=== PATIENT | female | born 1990 | race Caucasian/White ===

== ENCOUNTER 2022-10-27 15:04 | Emergency (ER) | payer OTHER, SELFPAY ==
--- NOTE | 2022-10-27 15:18 | ED.NAVMDI ---
HPI - Nausea/Vomiting/Diarrhea General Chief complaint: Nausea/Vomiting/Diarrhea Stated complaint: nausea,achey/diarrhea Time Seen by Provider: 10/27/22 15:18 Source: patient Mode of arrival: ambulatory Limitations: no limitations History of Present Illness HPI Narrative: Cecilia is a 32-year-old female patient presenting to the clinic today with complaints of nausea, vomiting, body aches, and diarrhea x4 days. She reports she has been passing blood in her stool and also vomiting up blood. Reports that she is having some severe left-sided abdominal pain. History of gastritis in the past. Also has history of a hemorrhoid. Denies any known fever but has had some chills. No history of diverticulitis, IBS, or Crohn's. Related Data Home Medications Medication Instructions Recorded Confirmed No Home Medications 10/27/22 10/27/22 Allergies Allergy/AdvReac Type Severity Reaction Status Date / Time aspirin Allergy Unknown Rash Verified 10/27/22 15:25 codeine Allergy Unknown lightheaded/passes Verified 10/27/22 15:25 out iodine Allergy Unknown Skin Verified 10/27/22 15:25 Reaction Review of Systems Review of Systems: Pertinent positives per HPI. Patient denies any fever, rash, headache, visual changes, dizziness, cough, runny nose, sore throat, shortness of breath, chest pain, palpitations, constipation, or any urinary issues. PMFSH Comments At the time of my signature, I reviewed and agree with the nursing past medical, surgical, social, and family history. There is no relevant family history pertinent to the patient complaint. Exam Narrative: General: Well-developed, obese, in no apparent distress. Head: Normocephalic, atraumatic. Cardio: Regular rate and rhythm, s1 and s2 normal, no murmur appreciated. Resp: Clear to auscultation bilaterally, no rhonchi, rales, wheezing or rubs. Abdomen: Soft, pliable, bowel sounds present in all quadrants, generalized tender to palpation but worse on the left lower quadrant, no organomegly, no CVAT tenderness. Course Course Emergency Course: Portions of this record may have been created with voice recognition software. Level of Care: Express Care Visit Vital Signs Vital signs: Vital signs reviewed Transfer Transfered to: [facility] Transportation: Other (private car) Transfer rationale: Abdomen pain, hematemesis, gi bleed Accepting physician: Dr. Vázquez Transfer comments: via private car. VS stable MDM - Nausea/Vomiting/Diarrhea MDM Narrative Medical decision making narrative: At the time of visit patient is resting comfortably on exam table. Recommend transfer to the ER due to patient's hematemesis, abdominal pain, and GI bleeding. I feels though she needs a further evaluation. Patient would like to go to [facility] ER. Contacted nurse and report was given. Dr. Mendez accepts patient. Patient was transferred via private car. Differential Diagnosis Differential diagnosis: Likely gastroenteritis and other (GI bleed, hematemesis, gastritis, GERD, peptic ulcer, hemorrhoid, rectal bleed) Discharge Plan Discharge Clinical Impression: Acute GI bleeding Hematemesis Qualifiers: Nausea presence: with nausea Qualified Code(s): K92.0 - Hematemesis Abdominal pain Qualifiers: Abdominal location: generalized Qualified Code(s): R10.84 - Generalized abdominal pain Nausea & vomiting Qualifiers: Vomiting type: hematemesis Qualified Code(s): K92.0 - Hematemesis Patient Disposition: Acute Care Hospital Condition: Stable Prescriptions: No Action No Home Medications Follow-up/Referrals: Suleiman,CAITLYN Rodriguez [Primary Care Provider] - Time of Disposition: 15:40 Quality NIHSS Nursing Documentation ED NIHSS nursing documentation: reviewed/agree
[2022-10-27 15:22] VITALS: BP 143/71; PULSE 98; RESP 18; TEMP 36.6; O2SAT 100
== END 2022-10-27 15:42 | disposition short-term general hospital (02) ==
PROVIDERS: Emergency Provider Nurse Practitioner Family; PCP Physician Assistant
DX: K92.2 Gastrointestinal hemorrhage, unspecified (principal); K92.0 Hematemesis; R10.84 Generalized abdominal pain
CPT/HCPCS: 99212; G0463

== ENCOUNTER 2023-06-08 12:35 | Emergency (ER) | payer OTHER, SELFPAY ==
[2023-06-08 12:39] VITALS: BP 131/90; PULSE 77; RESP 16; TEMP 36.4; O2SAT 99
[2023-06-08 12:45] VITALS: BP 131/90; PULSE 77; RESP 16; TEMP 36.4; O2SAT 99
--- NOTE | 2023-06-08 12:51 | ED.GENADULT ---
HPI - General Adult General Chief complaint: Urogenital-Female Stated complaint: Urinary Problem Source: patient, RN notes reviewed and old records reviewed Mode of arrival: ambulatory Limitations: no limitations History of Present Illness HPI narrative: 32 year female presents to [facility] with complaint of burning with urination with urgency frequency, suprapubic pain, lower back pain that started 2 days ago. Patient denies any other symptoms. Patient states thinks has UTI. Related Data Home Medications Medication Instructions Recorded Confirmed albuterol sulfate 90 mcg/actuation inhalation 06/08/23 aerosol inhaler aripiprazole 2 mg tablet mg 06/08/23 aripiprazole 5 mg tablet mg 06/08/23 atomoxetine 40 mg capsule mg PO 06/08/23 (Strattera) baclofen 20 mg tablet mg 06/08/23 carbamazepine 200 mg tablet mg 06/08/23 cholecalciferol (vitamin D3) 50 06/08/23 mcg (2,000 unit) capsule clonidine HCl 0.1 mg tablet mg 06/08/23 fluoxetine 20 mg capsule mg 06/08/23 fluoxetine 40 mg capsule mg 06/08/23 gabapentin 300 mg capsule mg 06/08/23 hydroxyzine HCl 25 mg tablet mg 06/08/23 ibuprofen 600 mg tablet mg 06/08/23 prazosin 1 mg capsule mg 06/08/23 Allergies Allergy/AdvReac Type Severity Reaction Status Date / Time aspirin Allergy Unknown Rash Verified 06/08/23 12:45 codeine Allergy Unknown lightheaded/passes Verified 06/08/23 12:45 out iodine Allergy Unknown Skin Verified 06/08/23 12:45 Reaction Review of Systems Constitutional: Constitutional: Reports no additional constitutional complaints, Denies body ache(s), Denies chills, Denies fatigue, Denies fever(s) and Denies headache(s) Eyes: Eyes: Reports no additional eye complaints and Denies blurry vision ENT: Reports system reviewed and no additional complaints, except as documented, Denies vertigo, Denies dizziness, Denies ear discharge, Denies otalgia, Denies facial pain, Denies headache(s), Denies nasal congestion, Denies nasal discharge, Denies sinus pain, Denies sinus pressure and Denies sore throat Cardiovascular: Cardiovascular: Reports no additional cardiovascular complaints, Denies chest pain, Denies chest pain at rest, Denies rapid heart rate and Denies dyspnea Respiratory: Respiratory: Reports no additional respiratory complaints, Denies chest congestion, Denies cough, Denies pain on inspiration, Denies pain with cough and Denies dyspnea Gastrointestinal: Gastrointestinal: Reports abdominal pain, Denies diarrhea, Denies nausea and Denies vomiting Genitourinary: Genitourinary: Reports nocturia, Reports dysuria and Reports urinary urgency Musculoskeletal: Musculoskeletal: Reports back pain Integumentary/Breasts: Skin/Breast: Denies rash Neurologic: Reports system reviewed and no additional complaints, except as documented, Denies vertigo, Denies dizziness and Denies headache(s) Endocrine: Endocrine: Denies fatigue PMFSH Comments At the time of my signature, I reviewed and agree with the nursing past medical, surgical, social, and family history. There is no relevant family history pertinent to the patient complaint. Exam Const: General: cooperative, healthy appearing, no acute distress and well nourished Nutritional Appearance: well nourished Orientation/consciousness: patient oriented x3 Limitations: no limitations HENMT: Head: normal to inspection and normocephalic Ears: external ears normal Face/Nose/Sinus: normal facial exam Face and sinus: normal facial exam Mouth: Yes Normal oral and palatal mucosa present, Yes oropharynx normal and Yes moist mucous membranes Eyes: General: appearance normal, both eyes and all related structures Sclera: sclerae normal Pupils: Equal, round and reactive pupils present Resp: Effort & Inspection: normal respiratory effort, able to speak in complete sentences, no audible wheezes, no cough, no respiratory distress and no retractions GI: GI Palp: No abdominal tenderness, Yes Soft to
== END 2023-06-08 13:05 | disposition home or self-care (01) ==
PROVIDERS: Emergency Provider Registered Nurse; PCP Internal Medicine
DX: N30.90 Cystitis, unspecified without hematuria (principal); B96.20 Unspecified Escherichia coli [E. coli] as the cause of diseases classified elsewhere
CPT/HCPCS: 81003; 81025; 87077; 87086; 87088; 87186; 99213; G0463

== ENCOUNTER 2024-06-25 12:51 | Emergency (ER) | payer OTHER, SELFPAY ==
[2024-06-25 12:56] VITALS: BP 122/40; PULSE 78; RESP 18; TEMP 36.6; O2SAT 98
--- OUTSIDE RECORDS SUMMARY | 2024-06-25 14:03 | XMS_ITS | Encounter Summary ---
Author Organization [facility] Address [address] [place] [address] Care Team Providers Care Unit Manager [employer] Name Role Phone Unavailable Primary Care Provider Unavailabl e Encounter Details Date Type Department Care Team (Late st Contact Info) Description 08/16/2019 Lab Requisition [facility] MICROBIOLOGY [address] [place] [address] Landon Irby MD Cough Social History Tobacco Use Types Packs/Day Years Used Date Smoking Tobacco: Never Assessed Comments Unknown Sex and Gender Information Value Date Recorded Sex Assigned at Not on file Legal Sex Female 12:28 PM CDT Gender Identity Not on file Sexual Orientation Not on file documented as of this encounter Plan of Treatment Not on file documented as of this encounter Procedures Procedure Name Priority Date/Time Associated Diagnosis Comments SARS-COV-2 (COVID-19) IN HOUSE Routine 08/16/2019 9:40 AM CDT Cough documented in this encounter Results * SARS-COV-2 (COVID-19) IN HOUSE (08/16/2019 9:40 AM CDT) COVID-19 PCR Not detected Not detected, Invalid 08/17/2019 5:11 AM CDT [facility] Microbiology SPECIMEN FROM NASOPHARYNGEAL STRUCTURE / Unknown Collection / Unknown 08/16/2019 9:40 AM CDT 08/16/2019 10:20 PM CDT Narrative [facility] - 08/17/2019 5:11 AM CDT This nucleic acid amplification assay performance was validated by [facility]. This test has been authorized by the Food and Drug administration (FDA)under an Emergency Use Authorization (EUA). This test has been validated in accordance with the FDA's guidance document Policy for Diagnostic Testing in Laboratories Certified to perform High Complexity Testing under CLIA prior to Emergency Use Authorization for Coronavirus Disease-2019 during the Public Health Emergency issued on May 12, 2019. FDA independent review of this validation is pending. This test is only authorized for the duration of time the declaration that circumstances exist justifying the authorization of emergency use of in vitro diagnostic tests for detection of SARS-CoV-2 virus and/or diagnosis of COVID-19 infection under section 564(b)(1) of the Act, 21 U.S.C 360bbb-3 (b)(1), unless the authorization is terminated or revoked sooner. Landon Irby MD LAB - MICROBIOLOGY ORDERABL ES Final Result [facility] [address] [place] [address], [facility] [phone] documented in this encounter Visit Diagnoses Diagnosis Cough documented in this encounter Additional Health Concerns Infection Onset Date Last Indicated Resolved Time COVID-19 Under Investigation 08/16/2019 08/16/2019 08/17/2019 5:11 AM CDT documented as of this encounter
--- OUTSIDE RECORDS SUMMARY | 2024-06-25 14:04 | XMS_ITS | Clinical Summary ---
Author Organization [facility] Address [address] [place] [address] Phone Care Team Providers Care Emergency Dispatcher Name Role Phone Dash Bill MD Primary Care Provider [phone] Allergies Active Allergy Reactions Criticality Noted Date Comments Codeine Sulfate Hives,Diarrhea,Rash, Nausea,V omiting Iodinated Contrast Media Vomiting 12/18/2018 Penicillins Rash 12/18/2018 Medications acetaminophen (TYLENOL) 500 MG Tablet as needed. Active carBAMazepine (TEGRETOL-XR) 100 MG TABLET SR 12 HR Take 400 mg by mouth 2 times daily. Active FLUoxetine (PROZAC) 20 MG Capsule TAKE 1 CAPSULE BY MOUTH EVERY DAY 30 Cap 11 6 Active Additional Information Patient not taking.Reported on 06/20/2019 ketorolac (TORADOL) 10 MG Tablet Take 1 Tab by mouth every 6 hours as needed for Mild or more severe pain. 15 Tab 9 Active Additional Information Patient not taking.Reported on 06/20/2019 diclofenac (VOLTAREN) 50 MG Tablet Delayed Response Take 1 Tab by mouth 3 times daily. 90 Tab 0 Active Active Problems Problem Noted Date Diagnosed Date Current smoker 11/29/2018 Leukocytosis 11/06/2018 Immunizations Immunization Administration Dates Next Due Tetanus Toxoid, Unspecified Formulation 03/14/19 02 Family History Medical History Relation Name Comments Hypertension Father Arthritis Mother Cancer Mother Ovarian Cancer Mother Relation Name Status Comments Father Alive Mother Alive Social History Tobacco Use Types Packs/Day Years Used Date Smoking Tobacco: Every Day Cigarettes Smokeless Tobacco: Never Tobacco Cessation:Ready to Q uit: No; Counseling Given: Yes Alcohol Use Standard Drinks/Week Comments Yes 0 (1 standard drink = 0.6 oz pur e alcohol) occasionally Comments No Sex and Gender Information Value Date Recorded Sex Assigned at Not on file Legal Sex Female 10:25 PM CDT Gender Identity Not on file Sexual Orientation Not on file Last Filed Vital Signs Vital Sign Reading Time Taken Comments Blood Pressure 154/60 08/16/2019 7:57 AM CDT Pulse 81 08/16/2019 8:30 AM CDT Temperature 35.9 C (96.7 F) 08/16/2019 7:57 AM CDT Respiratory Rate 18 08/16/2019 7:57 AM CDT Oxygen Saturation 100% 08/16/2019 8:30 AM CDT Inhaled Oxygen Concentration - - Weight 117.7 kg (259 lb 7.7 oz) 08/16/2019 7:57 AM CDT Height 180.3 cm (5' 11 ) 08/16/2019 7:57 AM CDT Body Mass Index 36.19 08/16/2019 7:57 AM CDT Plan of Treatment Health Maintenance Due Date Last Done Comments Hepatitis C Virus (HCV) Screening 1989 Hepatitis B Immunization (1 of 3 - 19+ 3-dose series) 2008 Influenza Immunization (#1) 11/13/202312/13, 12/27/2013 SARS-COV-2 Immunization ( - 2023- season) 2023 Respiratory Syncytial Virus (RSV) Immunization (Adult) (1 - 1-dose 75+ series) 2064 Pneumococcal Immunization Combined Aged Out 04/05/2014, 03/03/2014 No longer eligible based on patient's age to complete this topic DTaP/Tdap/Td Immunization Discontinued 2019, 04/04/2014 TdaP Immunization Completed 12/04/2019, 04/04/2014 Meningococcal Immunization (ACWY) Aged Out No longer eligible based on patient's age to complete this topic Rotavirus Immunization Aged Out No lo nger eligible based on patient's age to complete this topic Insurance MEDICAID [facility] Care Teams Emergency Dispatcher Relationship Specialty Start Date End Date Dash Bill MD [address] [place] [address] PCP - General Internal Medicine 11/06/18
--- OUTSIDE RECORDS SUMMARY | 2024-06-25 14:04 | XMS_ITS | Encounter Summary ---
Author Organization [facility] Address [address] [place] [address] Phone Care Team Providers Care Electrician Research Name Role Phone Dash Bill MD Primary Care Provider [phone] Encounter Details Date Type Department Care Team (Late st Contact Info) Description 03/26/[address] [facility] Patient Access Admitting [address] [place] [id number] Dash Bill MD [address] [place] [address] Viral syndrome (Primary Dx) Social History Tobacco Use Types Packs/Day Years Used Date Smoking Tobacco: Every Day Cigarettes Smokeless Tobacco: Never Alcohol Use Standard Drinks/Week Comments Yes 0 (1 standard drink = 0.6 oz pur e alcohol) occasionally Comments No Sex and Gender Information Value Date Recorded Sex Assigned at Not on file Legal Sex Female 10:25 PM CDT Gender Identity Not on file Sexual Orientation Not on file COVID-19 Exposure Response Date Recorded In the last month, have you been in contact with someone who was confirmed or suspected to have Coronavirus / COVID-19? Yes 03/26/2021 12:18 PM ONLINE EDUCATION MANAGER documented as of this encounter Plan of Treatment Not on file documented as of this encounter Results * SARS-COV-2 BY MOLECULAR (03/26/2021 12:24 PM ONLINE EDUCATION MANAGER) SARSCOV2 NOT DETECTED (Referen ce Range for this test is Not Detected ) [facility] FAST DX 03/28/2021 12:19 AM ONLINE EDUCATION MANAGER [facility] Comment:This test was perfor med by a RT-PCR method. Other NASAL STRUCTURE / Unknown Non-Phlebotomy Collection / Unknown 03/26/2021 12:24 PM ONLINE EDUCATION MANAGER 03/26/2021 12:45 PM ONLINE EDUCATION MANAGER Narrative [facility] - 03/28/2021 12:19 AM ONLINE EDUCATION MANAGER Authorized Fact Sheets about this test for providers and patients are available at: https://www.fda.gov/medical-devices/ufvpkxioc-bndcowfexp-pubryml-devices/emergen -us e-authorizations us Dash Bill MD MICROBIOLOGY - GENERAL ORDERA BLES Final Result [facility] [address] [place] [address], documented in this encounter Visit Diagnoses Diagnosis Viral syndrome- Primary Unspecified viral infection, in conditions classified elsewhere and of unspecified site documented in this encounter Additional Health Concerns Infection Onset Date Last Indicated Resolved Time COVID - 19 03/26/2021 03/26/2021 04/15/2021 12:1 6 AM ONLINE EDUCATION MANAGER documented as of this encounter Care Teams Electrician [employer] Relationship Specialty Start Date End Date Dash Bill MD [address] [place] [address] PCP - General Internal Medicine 11/06/18 documented as of this encounter
--- OUTSIDE RECORDS SUMMARY | 2024-06-25 14:04 | XMS_ITS ---
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 Role Phone Miguelangel Cunha Unavailable [phone] REASON FOR VISIT 2 Week Psych Med Check Medications Medication SIG (Take, Route, Frequency, Duration) Notes Start Date End Date Status Propranolol HCl ER 60 MG TAKE 1 CAPSULE BY MOUTH DAILY for 90 Active Prazosin HCl 2 MG TAKE 1 CAPSULE BY MO UTH TWICE DAILY for 90 Active Meclizine HCl 50 MG 1 tablet as needed Orally every 12 hrs Active Baclofen 20 MG 1 tablet Administer without regards to meals as needed Orally Twice a day Active FLUoxetine HCl 10 MG 1 capsule Orally On ce a day take with morning or evening dose of fluoxetine 40mg - TOTAL DAILY DOSE 90mg for 30 days 06/05/2024 Active Meloxicam 7.5 MG 1 tablet Orally Once a day Active Cholestyramine 4 GM 1 packet mixed with water or non-carbonated drink Orally twice daily Active Omeprazole 20 MG 1 capsule 1/2 to 1 h our before morning meal Orally Once a day Active Propranolol HCl ER 60 MG 1 capsule Orall y Once a day for 30 days Active Pregabalin 50 MG 1 capsule Orally Onc e a day Active FLUoxetine HCl 40 MG TAKE 1 CAPSULE BY M OUTH TWICE DAILY - take either morning or evening dose with fluoxetine 10mg - TOTAL DAILY DOSE 90MG for 30 days Active carBAMazepine 200 MG 2 tablets (400mg) i n the morning and 3 tablets (600mg) in the evening Orally for 30 days Active Vitamin D3 50 MCG (1999 UT) TAKE 1 CAPSU LE BY MOUTH ONCE DAILY for 30 days Active ARIPiprazole 20 MG TAKE 1 TABLET BY PRANAY TH DAILY for 30 days Active Qelbree 200 MG 1 capsule Orally Onc e a day for 30 days Active Prazosin HCl 2 MG 1 capsule twice abbey y Orally for 30 days Active Prazosin HCl 1 MG 1 capsule once daily in the morning - take with morning dose of prazosin 2mg for TOTAL 3mg in the morning Orally Once a day for 30 days 06/05/2024 Active hydrOXYzine HCl 50 MG 0.5 tablet twice d aily as needed for anxiety and 1 tablet at bedtime as needed for sleep Orally for 30 days Active Social History Tobacco Use: Social History Observation Description Date Details (start date - stop date) Former Smoker NA - NA Sex Assigned At : Social History Observation Description Sex Assigned At Female Tobacco Control (Standard) Question Answer Notes Tobacco use: Former smoker Problems Problem Type SNOMED Code ICD Code Onset Dates Problem Status W/U Status Risk Notes Problem Overweight (387148885) Over weight (E66.3) Active confirmed Vital Signs Weight 338 lbs 06/05/2024 Height 71 in 06/05/2024 BMI 47.14 kg/m2 06/05/2024 Encounters Encounter Location Date Provider Diagnosis [address] [id number] 06/05/2024 Miguelangel Cunha Anxiety F41.9 ; Bipo lar 1 disorder F31.9 ; Depressed F32.9 ; Impaired concentration R41.840 ; Vitamin D deficiency E55.9 ; Nutritional counseling Z71.3 and Over weight E66.3 Assessments Encounter Date Diagnosis (ICD Code) Assessment Notes Treatment Notes Treatment Clinical Notes Section Notes 06/05/2024 Anxiety (ICD-10 - F41.9) See assessment and plan for bipolar I disorder 06/05/2024 Bipolar 1 disorder (ICD-10 - F31.9) Duration (acute/chronic), stability (controlled/uncontr olled): Chronic, somewhat improved with recent medication adjustments, still room for improvement, see HPI Current medications/efficac y: Somewhat, room for improvement Previous medication trials: Strattera (ineffective), lithium, quetiapine XR, clonazepam, depakate, hydroxyzine, buspirone, aripiprazole Current/previous therapies: Follows up with therapy about once weekly Examination as documented - see pertinent aspects of office visit documentation. Pertinent diagnostics: LABS COMPLETED IN 01/2024, SEE CHART. Differential diagnoses: SUSPECT UNDERLYING BORDERLINE PERSONALITY DISORDER PERTINENT DETAILS FROM PREVIOUS APPOINTMENT: Patient endorses a lot of emotional instability, especially surrounding relationships with friends and family, reportedly chronic issue RECOMMENDATIONS: INCREASE aripiprazole as prescirbed to assist with mood/stability - educated patient/guardian on adverse effects, risks and benefits, as well as alternative treatments INCREASE prazosin as prescribed to assist with PTSD - educated patient/guardian on adverse effects, risks and benefits, as well as alternative treatments INCREASE fluoxetine as prescribed to assist with anxiety/depression/ PTSD - educated patient/guardian on adverse effects, risks and benefits, as well as alternative treatments START Qelbree as prescribed to assist with inattention - educated patient/guardian on adverse effects, risks and benefits, as well as alternative treatments Continue/modify other medications as prescribed - educated patient/guardian on adverse effects, risks and benefits, as well as alternative treatments Consume well balanced diet, preferably low in saturated fats (solid at room temperature, such as butter, margarine, Crisco, etc) and low in sodium (<2,000mg per day). Consume plenty of fruits/vegetables, healthy grains/whole grains, unsaturated/healthy fats (liquid at room temperature, such as olive oil, sunflower seed oil, canola, vegetable, etc.). Exercise regularly - Develop an exercise routine. 30 minutes of moderate exercise (walking at a brisk pace) 5 times per week is recommended. You should work hard enough to cause a sweat but still be able to talk with others while exercising. Exercise improves overall health - improves blood pressure and blood sugar, helps control weight, reduces stress, and improves mood. Practice stress reduction techniques, such as guided imagery, journaling, aromatherapy, acupuncture/acupres sure, deep breathing, etc. Practice healthy sleep hygiene - maintain regular routine, no caffeine after 1PM, no exercise 1-2 hours prior to bedtime, keep bedroom dark and cool, no TV or electronics while in bed. Consider melatonin as needed. Consider cognitive behavioral therapy for insomnia (CBT-I). Consider/Continue therapy. Consider/Continue substance cessation therapy as needed - contact office if desiring medication assisted therapy. Manage co-morbid conditions. Continue monitoring symptoms - report persistent or worsening/concernin g symptoms to the office or go to the ER. For mental health CRISIS, please reach out to [phone] (National Suicide and Crisis Lifeline), 911, go to the emergency department, or contact the [facility] Crisis Unit/Team. Follow up as scheduled in 3 weeks or sooner if necessary. Follow up with PCP and/or other specialists as advised. NEXT STEP: Consider increasing carbamazepine again pending response/tolerabili ty. Consider increasing propranolol pending response/tolerabili ty. Consider increasing hydroxyzine as needed. Consider increasing Qelbree. Consider other medication adjustments as needed. 06/05/2024 Depressed (ICD-10 - F32.9) See assessment and plan for bipolar I disorder 06/05/2024 Impaired concentration (ICD-10 - R41.840) Duration (acute/chronic), stability (controlled/uncontr olled): Chronic, Strattera reportedly ineffective, pharmacy reportedly didn't dispense Qelbree as recently prescribed, see HPI Current medications/efficac y: Somewhat, room for improvement Previous medication trials: Strattera (ineffective) Current/previous therapies: Needing to call [place] and set up appointment Examination as documented - see pertinent aspects of office visit documentation. Pertinent diagnostics: LABS COMPLETED IN 01/2024, SEE CHART. Differential diagnoses: RECOMMENDATIONS: START Qelbree as prescribed, provider to send prescription again - educated patient/guardian on adverse effects, risks and benefits, as well as alternative treatments Continue/modify other medications as prescribed - educated patient/guardian on adverse effects, risks and benefits, as well as alternative treatments Consume well balanced diet, preferably low in saturated fats (solid at room temperature, such as butter, margarine, Crisco, etc) and low in sodium (<2,000mg per day). Consume plenty of fruits/vegetables, healthy grains/whole grains, unsaturated/healthy fats (liquid at room temperature, such as olive oil, sunflower seed oil, canola, vegetable, etc.). Exercise regularly - Develop an exercise routine. 30 minutes of moderate exercise (walking at a brisk pace) 5 times per week is recommended. You should work hard enough to cause a sweat but still be able to talk with others while exercising. Exercise improves overall health - improves blood pressure and blood sugar, helps control weight, reduces stress, and improves mood. Practice stress reduction techniques, such as guided imagery, journaling, aromatherapy, acupuncture/acupres sure, deep breathing, etc. Practice healthy sleep hygiene - maintain regular routine, no caffeine after 1PM, no exercise 1-2 hours prior to bedtime, keep bedroom dark and cool, no TV or electronics while in bed. Consider melatonin as needed. Consider cognitive behavioral therapy for insomnia (CBT-I). Consider/Continue therapy. Consider/Continue substance cessation therapy as needed - contact office if desiring medication assisted therapy. Manage co-morbid conditions. Continue monitoring symptoms - report persistent or worsening/concernin g symptoms to the office or go to the ER. For mental health CRISIS, please reach out to [phone] ([place] Suicide and Crisis Lifeline), 911, go to the emergency department, or contact the [facility] Crisis Unit/Team. Follow up as scheduled in 3 weeks or sooner if necessary. Follow up with PCP and/or other specialists as advised. NEXT STEP: Consider increasing Qelbree as needed. 06/05/2024 Vitamin D deficiency (ICD-10 - E55.9) Duration (acute/chronic), stability (controlled/uncontr olled): Noted on previous labs, taking vitamin D supplementation as prescribed Current medications/efficac y: Unknown - need to repeat labs Previous medication trials: vitamin D supplementation Current/previous therapies: N/A Examination as documented - see pertinent aspects of office visit documentation. Pertinent diagnostics: LABS COMPLETED IN 01/2024, SEE CHART. Differential diagnoses: RECOMMENDATIONS: Continue medications as prescribed - educated patient/guardian on adverse effects, risks and benefits, as well as alternative treatments Consume well balanced diet, preferably low in saturated fats (solid at room temperature, such as butter, margarine, Crisco, etc) and low in sodium (<2,000mg per day). Consume plenty of fruits/vegetables, healthy grains/whole grains, unsaturated/healthy fats (liquid at room temperature, such as olive oil, sunflower seed oil, canola, vegetable, etc.). Exercise regularly - Develop an exercise routine. 30 minutes of moderate exercise (walking at a brisk pace) 5 times per week is recommended. You should work hard enough to cause a sweat but still be able to talk with others while exercising. Exercise improves overall health - improves blood pressure and blood sugar, helps control weight, reduces stress, and improves mood. Manage co-morbid conditions. Continue monitoring symptoms - report persistent or worsening/concernin g symptoms to the office or go to the ER. For mental health CRISIS, please reach out to [phone] (National Suicide and Crisis Lifeline), 911, go to the emergency department, or contact the [facility] Crisis Unit/Team. Follow up as scheduled or sooner if necessary. Follow up with PCP and/or other specialists as advised. NEXT STEP: Consider medication adjustments as needed. 06/05/2024 Nutritional counseling (ICD-10 - Z71.3) 06/05/2024 Over weight (ICD-10 - E66.3) Plan Of Treatment Medication Medication Name Sig Start Date Stop Date Notes FLUoxetine HCl 10 MG 1 capsule Orally On ce a day take with morning or evening dose of fluoxetine 40mg - TOTAL DAILY DOSE 90mg for 30 days 06/05/2024 Propranolol HCl ER 60 MG 1 capsule Orall y Once a day for 30 days FLUoxetine HCl 40 MG TAKE 1 CAPSULE BY M OUTH TWICE DAILY - take either morning or evening dose with fluoxetine 10mg - TOTAL DAILY DOSE 90MG for 30 days carBAMazepine 200 MG 2 tablets (400mg) i n the morning and 3 tablets (600mg) in the evening Orally for 30 days Vitamin D3 50 MCG (1999 UT) TAKE 1 CAPSU LE BY MOUTH ONCE DAILY for 30 days ARIPiprazole 20 MG TAKE 1 TABLET BY PRANAY TH DAILY for 30 days Qelbree 200 MG 1 capsule Orally Onc e a day for 30 days Prazosin HCl 2 MG 1 capsule twice abbey y Orally for 30 days Prazosin HCl 1 MG 1 capsule once daily in the morning - take with morning dose of prazosin 2mg for TOTAL 3mg in the morning Orally Once a day for 30 days 06/05/2024 hydrOXYzine HCl 50 MG 0.5 tablet twice d aily as needed for anxiety and 1 tablet at bedtime as needed for sleep Orally for 30 days Treatment Notes Assessment Notes Anxiety See assessment and p casper for bipolar I disorder Bipolar 1 disorder Duration (acute/chronic), stability (controlled/uncontrolled): Chronic, somewhat improved with recent medication adjustments, still room for improvement, see HPI Current medications/efficacy: Somewhat, room for improvement Previous medication trials: Strattera (ineffective), lithium, quetiapine XR, clonazepam, depakate, hydroxyzine, buspirone, aripiprazole Current/previous therapies: Follows up with therapy about once weekly Examination as documented - see pertinent aspects of office visit documentation. Pertinent diagnostics: LABS COMPLETED IN 01/2024, SEE CHART. Differential diagnoses: SUSPECT UNDERLYING BORDERLINE PERSONALITY DISORDER PERTINENT DETAILS FROM PREVIOUS APPOINTMENT: Patient endorses a lot of emotional instability, especially surrounding relationships with friends and family, reportedly chronic issue RECOMMENDATIONS: INCREASE aripiprazole as prescirbed to assist with mood/stability - educated patient/guardian on adverse effects, risks and benefits, as well as alternative treatments INCREASE prazosin as prescribed to assist with PTSD - educated patient/guardian on adverse effects, risks and benefits, as well as alternative treatments INCREASE fluoxetine as prescribed to assist with anxiety/depression/PTSD - educated patient/guardian on adverse effects, risks and benefits, as well as alternative treatments START Qelbree as prescribed to assist with inattention - educated patient/guardian on adverse effects, risks and benefits, as well as alternative treatments Continue/modify other medications as prescribed - educated patient/guardian on adverse effects, risks and benefits, as well as alternative treatments Consume well balanced diet, preferably low in saturated fats (solid at room temperature, such as butter, margarine, Crisco, etc) and low in sodium (<2,000mg per day). Consume plenty of fruits/vegetables, healthy grains/whole grains, unsaturated/healthy fats (liquid at room temperature, such as olive oil, sunflower seed oil, canola, vegetable, etc.). Exercise regularly - Develop an exercise routine. 30 minutes of moderate exercise (walking at a brisk pace) 5 times per week is recommended. You should work hard enough to cause a sweat but still be able to talk with others while exercising. Exercise improves overall health - improves blood pressure and blood sugar, helps control weight, reduces stress, and improves mood. Practice stress reduction techniques, such as guided imagery, journaling, aromatherapy, acupuncture/acupressure, deep breathing, etc. Practice healthy sleep hygiene - maintain regular routine, no caffeine after 1PM, no exercise 1-2 hours prior to bedtime, keep bedroom dark and cool, no TV or electronics while in bed. Consider melatonin as needed. Consider cognitive behavioral therapy for insomnia (CBT-I). Consider/Continue therapy. Consider/Continue substance cessation therapy as needed - contact office if desiring medication assisted therapy. Manage co-morbid conditions. Continue monitoring symptoms - report persistent or worsening/concerning symptoms to the office or go to the ER. For mental health CRISIS, please reach out to [phone] (National Suicide and Crisis Lifeline), 911, go to the emergency department, or contact the [facility] Crisis Unit/Team. Follow up as scheduled in 3 weeks or sooner if necessary. Follow up with PCP and/or other specialists as advised. NEXT STEP: Consider increasing carbamazepine again pending response/tolerability. Consider increasing propranolol pending response/tolerability. Consider increasing hydroxyzine as needed. Consider increasing Qelbree. Consider other medication adjustments as needed. Depressed See assessment and p casper for bipolar I disorder Impaired concentration Duration (acute/chronic), stability (controlled/uncontrolled): Chronic, Strattera reportedly ineffective, pharmacy reportedly didn't dispense Qelbree as recently prescribed, see HPI Current medications/efficacy: Somewhat, room for improvement Previous medication trials: Strattera (ineffective) Current/previous therapies: Needing to call [place] and set up appointment Examination as documented - see pertinent aspects of office visit documentation. Pertinent diagnostics: LABS COMPLETED IN 01/2024, SEE CHART. Differential diagnoses: RECOMMENDATIONS: START Qelbree as prescribed, provider to send prescription again - educated patient/guardian on adverse effects, risks and benefits, as well as alternative treatments Continue/modify other medications as prescribed - educated patient/guardian on adverse effects, risks and benefits, as well as alternative treatments Consume well balanced diet, preferably low in saturated fats (solid at room temperature, such as butter, margarine, Crisco, etc) and low in sodium (<2,000mg per day). Consume plenty of fruits/vegetables, healthy grains/whole grains, unsaturated/healthy fats (liquid at room temperature, such as olive oil, sunflower seed oil, canola, vegetable, etc.). Exercise regularly - Develop an exercise routine. 30 minutes of moderate exercise (walking at a brisk pace) 5 times per week is recommended. You should work hard enough to cause a sweat but still be able to talk with others while exercising. Exercise improves overall health - improves blood pressure and blood sugar, helps control weight, reduces stress, and improves mood. Practice stress reduction techniques, such as guided imagery, journaling, aromatherapy, acupuncture/acupressure, deep breathing, etc. Practice healthy sleep hygiene - maintain regular routine, no caffeine after 1PM, no exercise 1-2 hours prior to bedtime, keep bedroom dark and cool, no TV or electronics while in bed. Consider melatonin as needed. Consider cognitive behavioral therapy for insomnia (CBT-I). Consider/Continue therapy. Consider/Continue substance cessation therapy as needed - contact office if desiring medication assisted therapy. Manage co-morbid conditions. Continue monitoring symptoms - report persistent or worsening/concerning symptoms to the office or go to the ER. For mental health CRISIS, please reach out to [phone] (National Suicide and Crisis Lifeline), 911, go to the emergency department, or contact the [facility] Crisis Unit/Team. Follow up as scheduled in 3 weeks or sooner if necessary. Follow up with PCP and/or other specialists as advised. NEXT STEP: Consider increasing Qelbree as needed. Vitamin D deficiency Duration (acute/chronic), stability (controlled/uncontrolled): Noted on previous labs, taking vitamin D supplementation as prescribed Current medications/efficacy: Unknown - need to repeat labs Previous medication trials: vitamin D supplementation Current/previous therapies: N/A Examination as documented - see pertinent aspects of office visit documentation. Pertinent diagnostics: LABS COMPLETED IN 01/2024, SEE CHART. Differential diagnoses: RECOMMENDATIONS: Continue medications as prescribed - educated patient/guardian on adverse effects, risks and benefits, as well as alternative treatments Consume well balanced diet, preferably low in saturated fats (solid at room temperature, such as butter, margarine, Crisco, etc) and low in sodium (<2,000mg per day). Consume plenty of fruits/vegetables, healthy grains/whole grains, unsaturated/healthy fats (liquid at room temperature, such as olive oil, sunflower seed oil, canola, vegetable, etc.). Exercise regularly - Develop an exercise routine. 30 minutes of moderate exercise (walking at a brisk pace) 5 times per week is recommended. You should work hard enough to cause a sweat but still be able to talk with others while exercising. Exercise improves overall health - improves blood pressure and blood sugar, helps control weight, reduces stress, and improves mood. Manage co-morbid conditions. Continue monitoring symptoms - report persistent or worsening/concerning symptoms to the office or go to the ER. For mental health CRISIS, please reach out to [phone] (National Suicide and Crisis Lifeline), 911, go to the emergency department, or contact the [facility] Crisis Unit/Team. Follow up as scheduled or sooner if necessary. Follow up with PCP and/or other specialists as advised. NEXT STEP: Consider medication adjustments as needed. Next Appt Details Follow Up: 3 Weeks OR SOONER IF NECESSARY - TELEPHONE, Reason: 3 week psych follow up/med refill Progress Notes * Cecilia MOOREDOB:1990 (33 yo F)Acc No.[id number]:06/05/2024 Patient: Cecilia CANALES Provider: Ceci Cunha APN :1990 A ge:33 Y S ex:Female Date:06/05/2024 Address:[address] [place], [place] [id number] Subjective: * Chief Complaints: * 2 Week Psych Med Check * HPI: S ummary: History of Presenting Illness: Patient is presenting for 2 week follow up. Cecilia Moore is a 33-year-old female who reports feeling dizzy and lightheaded at work today, which improved after drinking orange juice. She has been experiencing vivid nightmares, which she describes as manageable, occurring about once a week. Her anxiety level is rated at 5 out of 10, which she feels is better than before. Cecilia's depression is rated at 5 out of 6, and she feels it is about the same as before. She reports irritability and anger, rating it at 5 out of 10, with room for improvement. Cecilia has a history of PTSD, and she describes panic attacks as occurring almost daily, but notes improvement with medication. She has been following up with a neurologist for migraines and has a medical history of asthma, fibromyalgia, IBS, migraines, vertigo, ovarian cyst, liver bruising, and hernia. She is scheduled for a CAT scan on June 27 to investigate her stomach area further. Cecilai is currently taking several medications, including omeprazole, cholestyramine, pregabalin, meclizine, ibuprofen, meloxicam, baclofen, hydroxyzine, carbamazepine, fluoxetine, Abilify, vitamin D, prazosin, and propranolol. She reports that the increase in prazosin, propranolol, and Abilify has helped her focus and stabilize her mood. Taking prazosin 2mg in the morning and 1mg in the evening, not 2mg twice daily as recently prescribed Doesn't wish to increase propranolol at this time to assist further with anxiety/panic due to concerns regarding potential for lowering blood pressure - patient reports monitoring blood pressure at home, has reportedly been normal even with recent increase in propranolol Patient agreeable to increasing aripiprazole to assist further with mood/stability. Agreeable to increasing prazosin to assist further with PTSD - 3mg in the AM, 2mg in the PM. Agreeable to increasing fluoxetine slightly to assist with anxiety/depression/PTSD. Agreeable to continuing other medications as prescribed. Agreeable to following up in 3 weeks, sooner if necessary. - - - - - - - - - - - - - - - - - - - - - - - - - - - - - - - - - - - - - - - - - - - - - - - - - - - - - - - - - - - - - - - - - - - - - - - - - - - - - - - PERTINENT HPI DETAILS FROM PREVIOUS APPOINTMENT: Patient is presenting for follow up. Cecilia Moore is a 33-year-old female who reports a recent diagnosis of a hernia near her belly button and a bruise on her liver. She is experiencing significant anxiety and depression, which she rates as severe, impacting her ability to function socially and at work. Cecilia describes daily panic attacks, exacerbated by living with her mother, which she attributes to childhood trauma and ongoing stressors at home. She reports social anxiety to the extent that she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
--- OUTSIDE RECORDS SUMMARY | 2024-06-25 14:04 | XMS_ITS | Clinical Summary ---
Author Organization [facility] Address [address] [place] [address] Phone Care Team Providers Care Cad Manager Name Role Phone SENIA PUENTES MD Unavailable [phone] KENYA BUNCH Primary Care Provider [phone] Reason for Visit and Chief Complaint GENERAL OFFICE VISIT Plan of Treatment No Plan of Treatment Recorded Assessments Includes: Assessments from this encounter No Assessments Recorded Medical Equipment - Implanted Devices Includes: Current Devices No Medical Equipment Recorded Medications Administered Includes: Administered Medications from this encounter No Administered Medications Recorded Results Includes: Results discussed during this encounter No Results Recorded For Specified Dates History of Present Illness Includes: History of Present Illness from this encounter No History of Present Illness Recorded Social History No Social History Recorded - Smoking Status Unknown Medical History Includes: Medical History addressed during this encounter No Medical History Recorded Family History Includes: Family History addressed during this encounter No Family History Recorded Review of Systems Includes: Review of Systems from this encounter No Review of Systems Recorded Mental Status Includes: Mental Status from this encounter No Mental Status Recorded Functional Status Includes: Functional Status from this encounter No Functional Status Recorded Physical Exam Includes: Physical Exam from this encounter No Physical Exam Recorded Insurance Includes: Active Insurance Policies Plan Name Member ID Group # Subscriber Relationship Effect kayla Dates 1 - [facility] [id number] GINNY MOORE Self Clinical Notes Includes: Clinical Notes from this encounter No Clinical Notes Recorded
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
--- OUTSIDE RECORDS SUMMARY | 2024-06-25 14:04 | XMS_ITS | Clinical Summary ---
Author Organization [facility] Address [address] [place] [address] Care Team Providers Care Engineering Systems Analyst Name Role Phone Unavailable Primary Care Provider Unavailabl e Source Comments [facility],non-owned Affiliates and Associated Physician Practices is amultiple site organization consisting of ambulatory clinics and hospital sitesin [place], [place], [place] and [place]. This disclosure is being madepursuant to the Care Everywhere program and may not contain all information available regarding this patient. Last updated 17.[facility] Allergies Active Allergy Reactions Criticality Noted Date Comments Codeine Nausea and/or Vomiting 05/30/2019 Dizziness, slurred speech Contrast-Iodinated Agents For Ct/Other Vomiting 05/30/2019 Penicillins Rash Medium 05/30/2019 Medications * Be aware that medications may not be up to date on this document. Alwaysverify current medications with the patient. No known medications Family History Medical History Relation Name Comments Hyperlipidemia Father Hypertension Father COPD - Chronic Obstructive P ulmonary Disease Mother Cancer - Other Mother cervical, ova laura, malignant melanoma Lupus Mother Relation Name Status Comments Father Mother Social History Tobacco Use Types Packs/Day Years Used Date Smoking Tobacco: Every Day Cigarettes 0.5 10 Smokeless Tobacco: Never Comments Unknown Sex and Gender Information Value Date Recorded Sex Assigned at Not on file Legal Sex Female 12:28 PM CDT Gender Identity Not on file Sexual Orientation Not on file Last Filed Vital Signs Vital Sign Reading Time Taken Comments Blood Pressure 106/82 05/30/2019 5:29 PM CDT Pulse 82 05/30/2019 5:29 PM CDT Temperature 37.2 C (99 F) 05/30/2019 5:29 PM CDT Respiratory Rate 16 05/30/2019 5:29 PM CDT Oxygen Saturation 98% 05/30/2019 5:29 PM CDT Inhaled Oxygen Concentration - - Weight 119.3 kg (263 lb) 05/30/2019 5:29 PM CDT Height 180.3 cm (5' 11 ) 05/30/2019 5:29 PM CDT Body Mass Index 36.68 05/30/2019 5:29 PM CDT Plan of Treatment Health Maintenance Due Date Last Done Comments PAP SMEAR 1989 HIV SCREENING 2004 HEPATITIS C SCREENING 06/07/2007 DTAP/TDAP/TD VACCINES (1 - Tdap) 2008 HEPATITIS B VACCINE (1 of 3 - 19+ 3-dose series) 2008 COVID-19 VACCINE (1 - 2023-2 5 season) 2023 DEPRESSION SCREENING 03/14/2024 INFLUENZA VACCINE (Season Ended) 2024 01/10/20 14 ZOSTER VACCINE (1 of 2) 06/12/2039 HIB VACCINE Aged Out No longer eligi ble based on patient's age to complete this topic HPV VACCINE Aged Out No longer eligi ble based on patient's age to complete this topic MENINGOCOCCAL (Group B) VACC INE SHARED DECISION-MAKING Aged Out No longer eligibl e based on patient's age to complete this topic MENINGOCOCCAL GROUPS A/C/Y/W VACCINE Aged Out No longer eligible b ased on patient's age to complete this topic PNEUMOCOCCAL VACCINE Aged Out No long er eligible based on patient's age to complete this topic Insurance MEDICAID - OUT OF STATE
--- OUTSIDE RECORDS SUMMARY | 2024-06-25 14:04 | XMS_ITS | Data Portability ---
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 Plan of Treatment Reminders Order Date Submit Date Provider Last Modified By Organization Details Last Modified Time Details Appointments None recorded . Lab CMP, serum or plasma 2024 025 [facility]eryma [facility], [address] [facility] [address], [address], 5 10:54:16 CBC w/ auto diff 2024 025 eemeryma [facility], [address] [place] [address], [place], [address], 5 10:54:16 TSH, ultra-se nsitive, serum 2024 025 eemeryma [facility], [address] [facility], [place], [address], 5 10:54:16 HbA1c (hemoglo bin A1c), blood 2024 025 eemeryma [facility], [address] [facility], [place], [address], 5 10:54:16 CMP, serum or plasma 2024 025 [facility], [address] [facility], [place], [address], 5 08:11:48 CBC w/ auto diff 2024 025 [facility], [address] [facility], [facility], [place], [address], 5 08:11:48 TSH, ultra-se nsitive, serum 2024 025 [facility], [address] [facility], [facility], [place], [address], 5 08:11:49 HbA1c (hemoglo bin A1c), blood 2024 025 [facility], [address] [facility], [facility] [address], [place], [address], 5 08:11:49 Referral None recorded . Procedures None recorded . Surgeries None recorded . Imaging US, liver 2023 024 alicia Nance (Radiology), [address] [place], [address], 5 12:17:27 CT, abdomen + pelvis, w/o contrast 2023 024 [email or web address] (Rad[facility]), [address] [place], [address], 4 08:41:24 XR, knee 2023 024 [facility] [address] [place], [address], 4 09:51:08 Medication Orders meloxica m 7.5 mg tablet 2024 025 [facility] #[id number], [address], [place], [place], [id number], 5 17:30:29 Tylenol Arthriti s Pain 650 mg tablet,e xtended release 2024 025 [facility] #45542, [address], [place], [place], [id number], 5 17:30:29 meclizin e 25 mg tablet 2024 025 [facility] #[id number], [address], [place], [place], [id number], 5 17:30:29 Lyrica 50 mg capsule 2024 025 [facility] #11643, [address], [place], [place], [id number], 5 14:21:53 meclizin e 25 mg tablet 2024 025 [facility] #91353, [address], [place], [place], [id number], 5 10:42:54 tramadol 50 mg tablet 2023 024 [facility] #[id number], [address], [place], [place], [id number], 4 11:07:21 Patient TargetsNo targets recorded. Patient Instructions Encounter Date Encounter Id Patient Instructions Last Modified By Organization Details Last Modified Time 06/23/2023 [id number] keep f/u nsuthan Not available 06/23 14:35:24 10/13/2023 [id number] irritable bowel syndrome: care instructions nsuthan Not available 10/13/2023 09:54:45 A healthy lifestyle: care instructions nsuthan Not available 10/13/2023 09:29:23 01/23/2024 [id number] abuse number and f/u in 1 month nsuthan Not available 01/23/2024 11:30:08 03/27/2024 [id number] keep f/u nsuthan Not available 03/27 14:22:35 Reason for Referral None Reported. Results Created Date Observation Date Name Description Value Unit Range Abnormal Flag Note LastModifiedBy Organization Detail LastModifiedTime 06/25/19 24 06/25/2023 XR, knee No observ ation record ed. [address] [place], [address], 06/27/2023 14:12:05 10/13/19 24 10/08/2023 CT, abdom en + pelvi s, w/ contr ast No observ ation record ed. [email or web address] [address] [place], [address], 10/13/2023 14:00:37 Result Notes None recorded. Problems Name Problem SNOMED Code Status Onset Date Resolution Date Notes Provider Name and Address Organization Details Recorded Time Mixed anxiety and depressi ve disorder 199449056 Active 2018 bipolar /ptsd-se es psych Dash Bunch MD Attn: Ken odell,[address] [facility], [place], [address], [place] 4 15:20:59 Leukocyt osis 973306515 Active 2018 Dash Bunhc MD Attn: Ken odell,[address] [facility], [place], [address], [place] 2 14:38:12 Postoper ative pain 380707871 Completed 08/08/2018 Dash Bunch MD Attn: Ken odell,[address] [facility], [place], [address], [place] 9 10:20:23 Wound pain 506506000 Completed 08/08/2018 Dash Bunch MD Attn: Ken odell,[address] [facility], [place], [address], [place] 9 10:20:20 Traumati c hematoma 734239660 Active 2021 R/calf -us 12/03 Dash Bunch MD Attn: Ken odell,[address] [facility], [place], [address], [place] 2 08:38:02 Low back pain 386477590 Active 2022 Dash Bunch MD Attn: Ken odell,[address] [facility], [place], [address], [place] [facility] 3 14:32:15 Obesity 443599298 Active Dash Bunch MD Attn: Ken odell,[address] [facility], [place], [address], [place] 2 14:38:12 Arthriti s of left knee 55066840886 28734 Active 2023 xray 07/05 - OA/effus ion/loos e boies -referre d to ortho Dash Bunch MD Attn: Ken odell,[address] [facility], [place], [address], [place] 4 09:09:45 Notes:Some problems listed i n Documents: #[id number], #[id number], #[id number], #[id number], #[id number], #[id number], #[id number], #[id number], #[id number], #[id number], #[id number], #[id number], #[id number] could not be added to this patient's chart. Please review these documents and add these problems to the patient's chart manually as needed. Problem Notes None recorded. Procedures Surgical History Date Name Laterality Status Provider Name and Address Organization Details Recorded Time 03/29/19 22 section completed Amanda Cantu [facility] 08/06/2021 10:10:23 04/03/19 15 Caesarean Section completed Cecilia Bernal [place] [facility] 04/17/2014 15:44:18 03/14/19 08 Knee Surgery completed Shanna Evans [place] [facility] 01/26/2014 13:17:22 Cholecystectomy completed Amanda Cantu [place] [facility] 08/08/2018 10:14:10 Imaging Results Imaging Date Name Status LastModified by Organiz ation Details LastModified Time 06/25/2023 XR, knee completed [address] [place], [address], 06/27/2023 14:12:05 10/08/2023 CT, abdomen + pelvis, w/ contrast completed nacho [address] [place], [address], 10/13/2023 14:00:37 Procedure Notes None recorded. Medical Equipment None Reported. Allergies Allergen ID Allergen Name Allergen Category Reaction Reaction Severity Criticality Documentation Date Start Date Code Code System Note Provider Name and Address Organization Details Recorded Time 74 Product containin g penicilli n (product) medicatio n hives Not available Not available 01/26/2014 18513 8001 SNOMED Not Available Not Available Not Available 75 codeine medicatio n hives Not available Not available 01/26/2014 2670 RxNorm Not Available Not Available Not Available 76 iodine medicatio n Not available Not available Not available 01/26/2014 5933 RxNorm Not Available Not Available Not Available Medications Name Sig Start Date Stop Date Status Note LastModified by Organization Details LastModified Time fluoxetine 40 mg capsule TAKE ONE CAPSULE BY MOUTH TWICE DAILY. TAKE EITHER MORNING OR EVENING DOSE WITH FLUOXETI NE 10 MG. TOTAL DAILY DOSE 90 MG active Not Available Not Available No t Available methocarba mol 500 mg tablet 05/29 completed Not Available Not Available Not Available promethazi ne-DM 6.25 mg-15 mg/5 mL oral syrup 08/08 completed Not Available Not Available Not Available clonidine HCl 0.1 mg tablet TAKE 1 TABLET BY MOUTH TWICE DAILY 05/31 completed Not Available Not Available Not Available prednisone 10 mg tablet TAKE 1 TABLET BY MOUTH EVERY DAY FOR 5 DAYS 05/29 completed Not Available Not Available Not Available doxycyclin e hyclate 100 mg capsule 08/08 completed Not Available Not Available Not Available ketoconazo le 2 % shampoo APPLY TOPICALL Y TO THE AFFECTED AREA, LATHER, LEAVE IN PLACE FOR 5 MINUTES, AND THEN RINSE OFF WITH WATER TWICE A WEEK active Not Available Not Available No t Available trazodone 50 mg tablet TAKE 1 TABLET BY MOUTH EVERY DAY AT BEDTIME 04/27 completed psych, not taking Not Available Not Available Not Available azithromyc in 250 mg tablet TAKE 2 TABLETS (500 MG) BY ORAL ROUTE ONCE DAILY FOR 1 DAY THEN 1 TABLET (250 MG) BY ORAL ROUTE ONCE DAILY FOR 4 DAYS 05/29 completed Not Available Not Available Not Available benzonatat e 200 mg capsule TAKE 1 CAPSULE BY MOUTH THREE TIMES DAILY NEEDED 05/29 completed Not Available Not Available Not Available valacyclov ir 1 gram tablet 08/06 completed Not Available Not Available Not Available hydrocodon e 5 mg-acetami nophen 325 mg tablet TAKE 1 TABLET BY MOUTH EVERY 6 HOURS FOR UP TO 6 DOSES NEEDED FOR PAIN 01/22 completed PRN Not Available Not Available Not Available prazosin 1 mg capsule TAKE ONE CAPSULE BY MOUTH IN THE MORNING WITH MORNING DOSE OF PRAZOSIN 2 MG FOR A TOTAL OF 3 MG IN THE MORNING active Not Available Not Available No t Available ondansetro n HCl 4 mg tablet 11/11 completed Not Available Not Available Not Available prednisone 20 mg tablet TAKE 1 TABLET BY MOUTH TWICE DAILY 04/27 completed Not Available Not Available Not Available propranolo l ER 60 mg capsule,24 hr,extende d release TAKE 1 CAPSULE BY MOUTH DAILY active Not Available Not Available No t Available Tylenol Arthritis Pain 650 mg tablet,ext ended release Take 1 tablet every 8 hours by oral route, for back pain. 2024 active Not Available Not Available Not Avai lable metronidaz ole 500 mg tablet 08/06 completed Not Available Not Available Not Available hydroxyzin e HCl 50 mg tablet TAKE 0.5 TABLETS BY MOUTH TWICE DAILY NEEDED FOR ANXIETY AND 1 TABLET BY MOUTH EVERY NIGHT AT BEDTIME NEEDED FOR SLEEP active Not Available Not Available No t Available valacyclov ir 500 mg tablet 11/11 completed Not Available Not Available Not Available sulfametho xazole 800 mg-trimeth oprim 160 mg tablet TAKE 1 TABLET BY MOUTH TWICE DAILY FOR 10 DAYS 08/06 completed Not Available Not Available Not Available tramadol 50 mg tablet TAKE 1 TABLET BY MOUTH EVERY DAY NEEDED active Not Available Not Available No t Available baclofen 20 mg tablet TAKE 1 TABLET BY MOUTH TWICE DAILY active Not Available Not Available No t Available meloxicam 7.5 mg tablet TAKE 1 TABLET BY MOUTH EVERY DAY FOR BACK PAIN active Not Available Not Available No t Available carbamazep ine 200 mg tablet TAKE 2 TABLETS BY MOUTH IN THE MONRING AND 3 TABLETS IN THE EVENING active Not Available Not Available No t Available oxycodone- acetaminop hen 5 mg-325 mg tablet TAKE 1 TABLET BY MOUTH EVERY 8 HOURS NEEDED FOR PAIN 05/29 completed Not Available Not Available Not Available propranolo l 10 mg tablet TAKE 1 TABLET BY MOUTH TWICE DAILY active Not Available Not Available No t Available meclizine 25 mg tablet TAKE 1 TABLET BY MOUTH TWICE DAILY NEEDED active Not Available Not Available No t Available rizatripta n 10 mg disintegra ting tablet TAKE 1 TABLET BY MOUTH EVERY 2 HOURS NEEDED FOR MIGRAINE . MAY REPEAT IN 2 HOURS IF UNRESOLV ED. MAX 3 TABLETS IN 24 HOURS active Not Available Not Available No t Available doxycyclin e monohydrat e 100 mg capsule TAKE 1 CAPSULE BY MOUTH TWICE DAILY FOR 7 DAYS 09/24 completed Not Available Not Available Not Available fluoxetine 20 mg tablet TAKE 1 TABLET BY MOUTH EVERY DAY 02/16 completed psych Not Available Not Available Not Available nystatin 100,000 unit/gram topical cream APPLY TOPICALL Y TO THE AFFECTED AREA TWICE DAILY 01/23 completed Not Available Not Available Not Available prednisone 50 mg tablet 08/08 completed Not Available Not Available Not Available progestero ne micronized 200 mg capsule INSERT 1 CAPSULE INTO THE VAGINA NIGHTLY 08/06 completed Not Available Not Available Not Available fluoxetine 10 mg capsule TAKE ONE CAPSULE BY MOUTH ONCE DAILY WITH MORNING OR EVENING DOSE OF FLUOXETI NE 40 MG - TOTAL DAILY DOSE 90 MG active Not Available Not Available No t Available docusate sodium 100 mg capsule TAKE 1 CAPSULE BY MOUTH TWICE DAILY 08/06 completed Not Available Not Available Not Available gabapentin 300 mg capsule TAKE 1 CAPSULE BY MOUTH DAILY active Not Available Not Available No t Available hydroxyzin e HCl 25 mg tablet TAKE 1 TABLET BY MOUTH TWICE DAILY NEEDED 01/22 completed Not Available Not Available Not Available ibuprofen 600 mg tablet TAKE 1 TABLET BY MOUTH EVERY DAY WITH MEALS active Not Available Not Available No t Available levofloxac in 750 mg tablet 09/27 completed Not Available Not Available Not Available albuterol sulfate HFA 90 mcg/actuat ion aerosol inhaler INHALE 2 PUFFS BY MOUTH THREE TIMES DAILY NEEDED active Not Available Not Available No t Available ondansetro n 4 mg disintegra ting tablet 01/22 completed Not Available Not Available Not Available fluoxetine 20 mg capsule TAKE 1 CAPSULE BY MOUTH TWICE DAILY 01/22 completed Not taking Not Available Not Available Not Available fluticason e propionate 50 mcg/actuat ion nasal spray,susp ension 08/08 completed Not Available Not Available Not Available doxycyclin e hyclate 100 mg tablet TAKE 1 TABLET BY MOUTH TWICE DAILY FOR 7 DAYS active Not Available Not Available No t Available prazosin 2 mg capsule TAKE 1 CAPSULE BY MOUTH TWICE DAILY active Not Available Not Available No t Available hydroxyzin e pamoate 25 mg capsule TAKE 1 CAPSULE BY MOUTH TWICE DAILY 09/24 completed Not Available Not Available Not Available aripiprazo le 15 mg tablet TAKE 1 TABLET BY MOUTH DAILY active Not Available Not Available No t Available Strattera 40 mg capsule TAKE 1 CAPSULE BY MOUTH DAILY 01/23 completed Not Available Not Available Not Available Strattera 60 mg capsule TAKE 1 CAPSULE BY MOUTH DAILY 05/31 completed Not Available Not Available Not Available aripiprazo le 5 mg tablet TAKE 1 AND 1/2 TABLETS BY MOUTH DAILY active Not Available Not Available No t Available cholestyra mine (with sugar) 4 gram powder for susp in a packet DISSOLVE CONTENTS OF 1 PACKET IN 8 OZ LIQUID AND DRINK BY MOUTH TWICE DAILY BEFORE A MEAL active Not Available Not Available No t Available nitrofuran toin monohydrat e/macrocry stals 100 mg capsule TAKE 1 CAPSULE BY MOUTH EVERY 12 HOURS FOR 5 DAYS 06/22 completed Not Available Not Available Not Available emtricitab ine 200 mg-tenofov ir disoproxil fumarate 300 mg tablet TAKE 1 TABLET BY MOUTH DAILY 09/24 completed Not Available Not Available Not Available pregabalin 50 mg capsule TAKE 1 CAPSULE BY MOUTH TWICE DAILY active Not Available Not Available No t Available aripiprazo le 2 mg tablet TAKE 1 TABLET BY MOUTH EVERY DAY 05/29 completed Not Available Not Available Not Available cholecalci ferol (vitamin D3) 50 mcg (2,000 unit) capsule TAKE 1 CAPSULE BY MOUTH DAILY active Not Available Not Available No t Available Vitamin D3 50 mcg (2,000 unit) tablet TAKE 1 TABLET BY MOUTH EVERY DAY 08/06 completed not taking Not Available Not Available Not Available Viorele (28) 0.15 mg-0.02 mg (21)/0.01 mg (5) tablet TAKE 1 TABLET BY MOUTH DAILY active Not Available Not Available No t Available Qelbree 200 mg capsule,ex tended release TAKE 1 CAPSULE BY MOUTH DAILY active Not Available Not Available No t Available Vitals Date Recorded Body height Body mass index (BMI) Body weight Heart rate Respiratory rate Body temperature Oxygen saturation Oxygen saturation in Arterial blood by Pulse oximetry Systolic blood pressure Diastolic blood pressure Provider Name and Address Organization Details Last Updated DateTime 4 176.53 cm 47.1 kg/m2 525147. 41 g 102 /min 16 /min 98.2 [degF] 98 % 98 % 125 mm[Hg] 88 mm[Hg] Debora Blake [place] [facility] 4 12:30:21 Date Recorded Body height Body mass index (BMI) Body weight Heart rate Respiratory rate Body temperature Oxygen saturation Oxygen saturation in Arterial blood by Pulse oximetry Systolic blood pressure Diastolic blood pressure Provider Name and Address Organization Details Last Updated DateTime 4 176.53 cm 45.5 kg/m2 600567. 69 g 97 /min 14 /min 97.5 [degF] 98 % 98 % 141 mm[Hg] 87 mm[Hg] Amanda Cantu [place] [facility] 4 09:05:49 Date Recorded Body height Body mass index (BMI) Body weight Heart rate Respiratory rate Body temperature Oxygen saturation Oxygen saturation in Arterial blood by Pulse oximetry Systolic blood pressure Diastolic blood pressure Provider Name and Address Organization Details Last Updated DateTime 4 176.53 cm 49 kg/m2 141618. 11 g 84 /min 14 /min 97.5 [degF] 98 % 98 % 140 mm[Hg] 96 mm[Hg] Amanda Cantu MA [facility] 4 11:02:42 Date Recorded Body height Body mass index (BMI) Body weight Heart rate Respiratory rate Body temperature Oxygen saturation Oxygen saturation in Arterial blood by Pulse oximetry Systolic blood pressure Diastolic blood pressure Provider Name and Address Organization Details Last Updated DateTime 5 176.53 cm 47.8 kg/m2 901362. 45 g 84 /min 14 /min 97.3 [degF] 96 % 96 % 140 mm[Hg] 95 mm[Hg] Amanda Cantu [place] [facility] 5 10:26:10 Date Recorded Body height Body mass index (BMI) Body weight Oxygen saturation Oxygen saturation in Arterial blood by Pulse oximetry Heart rate Body temperature Systolic blood pressure Diastolic blood pressure Provider Name and Address Organization Details Last Updated DateTime 5 176.53 cm 49.7 kg/m2 137849. 8 g 98 % 98 % 97 /min 98.3 [degF] 107 mm[Hg] 74 mm[Hg] Callie Tolentino [place] [facility] 5 16:35:10 Social History Question Answer Notes LastModified by Organizat ion Details LastModified Time Tobacco Smoking Status Former Smoker Quit 09/2022 Amanda NYA Cantu null, [place] [facility] 10/13/2023 09:02:30 Do You Have An Advance Directive? No Information not available 01/29/2014 What Is Your Level Of Alcohol Consumption? None Information not available 05/31/2024 If You Are , What Was Your Level Of Alcohol Consumption Prior To ? None Information not available 01/26/2014 Plan Yes Information n ot available 01/29/2014 Are You Blind Or Do You Have Difficulty Seeing? Yes Lt Eye Information not available 09/24/2021 Is Blood Transfusion Acceptable In An Emergency? Yes Information not available 01/26/2014 What Is Your Level Of Caffeine Consumption? Moderate Information not available 08/08/2018 Live With Cats/exposure To Cat Litter No Information not available 01/29/2014 How Much Tobacco Do You Chew? None Information not available 01/26/2014 In The 14 Days Before Symptom Onset, Have You Had Close Contact With A Laboratory-confi rmed COVID-19 While That Case Was Ill? No Information not available 07/13/2019 In The 14 Days Before Symptom Onset, Have You Had Close Contact With A Person Who Is Under Investigation For COVID-19 While That Person Was Ill? No Information not available 07/13/2019 Have You Been To An Area Known To Be High Risk For COVID-19? No Information not available 07/13/2019 Are You Currently Employed? Yes Information not available 05/31/2024 Are You Deaf Or Do You Have Serious Difficulty Hearing? Yes Both Ears Information not available 08/06/2021 What Type Of Diet Are You Following? REGULAR Information not available 01/29/2014 Which Illicit Or Recreational Drugs Have You Used? Marijuana Information not available 08/08/2018 Do You Or Have You Ever Used E-cigarettes Or Vape? Current User Of Electronic Cigarettes .5% Nicotine Information not available 02/16/2022 Education 12 Information n ot available 01/29/2014 What Is The Highest Grade Or Level Of School You Have Completed Or The Highest Degree You Have Received? [id number] Information not available 05/30/2023 What Is Your Occupation? [employer] Information not available 05/31/2024 Have There Been Any Changes To Your Family Or Social Situation? No Information not available 01/29/2014 Frequent Air Travel No Information not available 01/29/2014 Are There Any Guns Present In Your Home? No Information not available 08/08/2018 Hard Of Hearing Or Deaf In One Or Both Ears? No Information not available 07/13/2019 Illicit Drugs Pre- Marijuana Information not available 01/26/2014 How Many Years Have You Used Illicit Or Recreational Drugs? 1 Information not available 01/26/2014 Legally Blind In One Or Both Eyes? No Information not available 07/13/2019 Live Alone Or With Others? With Others Information not available 01/29/2014 Marital Status Single Informatio n not available 01/26/2014 What Was The Date Of Your Most Recent Tobacco Screening? 05/31/2024 Information not available 05/31/2024 How Many Children Do You Have? 0 Information not available 01/26/2014 Performs Monthly Self-breast Exam? Yes Information not available 07/13/2019 Do You Use Protection During Sex? Usually Information not available 05/31/2024 What Is Your Relationship Status? Single Information not available 08/06/2021 Do You Use Your Seat Belt Or Car Seat Routinely? Yes Information not available 08/06/2021 Seat Belts Used Routinely Yes Information not available 01/26/2014 Are You Sexually Active? Yes Information not available 01/26/2014 Do You Have Smoke And Carbon Monoxide Detectors In Your Home? Yes Information not available 01/29/2014 At What Age Did You Start Smoking Tobacco? 18 Information not available 08/08/2018 Are You Passively Exposed To Smoke? Yes Information not available 01/29/2014 Do You Or Have You Ever Used Smokeless Tobacco? Never Used Smokeless Tobacco Information not available 07/13/2019 How Much Tobacco Do You Smoke? No Information not available 05/31/2024 Smoking Pre- 1 PPD Information not available 01/26/2014 General Stress Level High Information not available 08/08/2018 Do You Feel Stressed (tense, Restless, Nervous, Or Anxious, Or Unable To Sleep At Night)? [id number] Information not available 01/23/2024 Do You Use Any Illicit Or Recreational Drugs? Yes Marijuana Information not available 08/06/2021 Do You Use Sunscreen Routinely? Yes Information not available 01/29/2014 Supplements Vitalins Information not available 01/29/2014 Has Tobacco Cessation Counseling Been Provided? Yes Information not available 09/24/2021 On What Date Was Tobacco Cessation Counseling Provided? 05/31/2024 Information not available 05/31/2024 How Many Years Have You Smoked Tobacco? 11 Information not available 07/13/2019 Do You Or Have You Ever Used Any Other Forms Of Tobacco Or Nicotine? Yes Information not available 12/21/2022 Sex: Female Functional Status Question Answer Note LastModified by Organization D etails LastModified Time Are you able to care for yourself? Yes Information n ot available 08/06/2021 What is your exercise level? None Information not available 01/29/2014 Mental Status None recorded. Family History Relationship Description Onset Age of this Age Resolved Age Notes LastModified by Organization Details LastModified Time Father Hypertensive disorder marcos Not available 2014 11:22:02 Father Hypercholest erolemia marcos Not available 2014 11:22:02 Mother Carcinoma of cervix marcos Not available 2014 11:22:02 Mother Malignant tumor of ovary crexfordma Not available 07/12 09:20:45 Mother Malignant neoplasm of skin crexfordma Not available 07/12 09:20:59 Medical History Condition Response Coronary Artery Disease N Other N Atrial Fibrillation N High Blood Pressure N Thyroid Problems N Kidney or Bladder Problems Y GI Problems Y Depression Y COPD N Blood Clots N Have you had a mammogram in the last yea r? N Skin Problems Y Bipolar Y Anemia Y Heart Attack (TN) N Anxiety Disorder Y Diabetes N Muscle, Joint, or Bone Problems N Obesity Y Seizures/Epilepsy N Acid Reflux (GERD) Y Cancer N Stroke N Asthma Y Allergies Y Seasonal allergies Y High Cholesterol N Hepatitis N Liver Disease N Headaches Y Heart Failure N Osteoporosis N Gynecological History Statement/Question Response Abnormal Pap N Flow Moderate Date of LMP 05/15/2024 On BCP's at Conception? N STIs/STDs N Duration of Flow (days) 4 Age at Menarche 12 Current Control Method BCPs Age at First Child 23 Frequency of Cycle (Q days) 27 Sexually Active? Y Menses Monthly Y Date of Last Pap Smear LMP Definite Obstetrics History GPAL:G 2 P 2 0 0 2 Type Value Full Term 2 Living 2 Total 2 Immunizations Vaccine Type Date Status Note Provider Nam e and Address Organization Details Recorded Time Pneumococcal conjugate PCV 13 4 completed Not Available [facility] 10/27/2022 16:54:30 TST-PPD intradermal 4 completed Not Available [facility] 10/27/2022 16:54:30 Past Encounters Encounter ID Performer Location Encounter Start Date Encounter Closed Date Diagnosis/Indication Diagnosis SNOMED-CT Code Diagnosis ICD10 Code Diagnosis Note [id number] Antonette [facility] ([facility]) [address] [place] [address] 01/29/2014 14:29:07 01/29/2014 16:20:57 Normal [id number] Obesity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
--- OUTSIDE RECORDS SUMMARY | 2024-06-25 14:04 | XMS_ITS ---
Care Plan - [facility] Created on: June 25, 2024 GINNY MOORE : 1990 Sex: Female Author Organization [facility] Address [address] [place] [address] Phone Care Team Providers Care Sample Checker Name Role Phone DELORIS PHILLIPS, SENIA C Unavailable [phone] KENYA BUNCH Primary Care Provider [phone]
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
--- OUTSIDE RECORDS SUMMARY | 2024-06-25 14:05 | XMS_ITS | Clinical Summary ---
Author Organization [facility] Address [address] [place] [address] Phone Care Team Providers Care Farm Equipment Engineer Name Role Phone SENIA PUENTES MD Unavailable [phone] KENYA BUNCH Primary Care Provider [phone] Reason for Visit and Chief Complaint GENERAL [...] Subscriber Relationship Effect kayla Dates 1 - [facility] [id number] GINNY MOORE Self Clinical Notes Includes: Clinical Notes from this encounter No Clinical Notes Recorded
--- OUTSIDE RECORDS SUMMARY | 2024-06-25 14:05 | XMS_ITS | Patient Health Record ---
Author Organization [facility] Address [address] [place] [address] Care Team Providers Care Glass Cleaning Machine Tender Name Role Phone Beulah Sapp Unavailable [phone] CunhaMiguelangel wynn Unavailable [phone] Allergies Allergen (clinical drug ingredient) Drug/Non Drug Allergy documented on EMR Reaction Allergy Type Onset Date Status codeine Codeine Unknown Drug Allergy Active Penicillin rash Drug Allergy Active Results Component Value Reference Range Notes Hemoglobin A1c* Reviewed date:01/18/2024 08:14:56 AM Interpretation: Performing Lab:[employer], [address] [facility], Phone - [phone], Director - [facility] Notes/Report: Hemoglobin A1c 5.7 4.8-5.6 % . Prediabetes: 5.7 - 6.4 Diabetes: >6.4 Glycemic control for adults with diabetes: <7.0 Vitamin B12* Reviewed date:01/18/2024 08:12:37 AM Interpretation: Performing Lab:[employer], [address] [facility], Phone - [phone], [facility] Notes/Report: Vitamin B12 515 305-3319 pg/mL Folate (Folic Acid), Serum* Reviewed date:01/18/2024 08:15:30 AM Interpretation: Performing Lab:[employer], [address] [facility], Phone - [phone], Director - [facility] Notes/Report: Folate (Folic Acid), Serum 7.3 >3.0 ng/mL A serum folate concentration of less than 3.1 ng/mL is considered to represent clinical deficiency. CBC With Differential/Platel et* Reviewed date:01/18/2024 08:15:52 AM Interpretation: Performing Lab[facility], [address] [facility], Phone - [phone], Director - [facility] Notes/Report: WBC 10.4 3.4-10.8 x10E3/uL RBC 4.55 3.77-5.28 x10E6/uL Hemoglobin 13.6 11.1-15.9 g/dL Hematocrit 41.4 34.0-46.6 % MCV 91 79-97 fL MCH 29.9 26.6-33.0 pg MCHC 32.9 31.5-35.7 g/dL RDW 12.9 11.7-15.4 % Platelets 354 150-450 x10E3/uL Neutrophils 71 Not Estab. % Lymphs 21 Not Estab. % Monocytes 7 Not Estab. % Eos 1 Not Estab. % Basos 0 Not Estab. % Neutrophils (Absolute) 7.3 1.4-7.0 x10E3/uL Lymphs (Absolute) 2.2 0.7-3.1 x10E3/uL Monocytes(Absolute) 0.7 0.1-0.9 x10E3/uL Eos (Absolute) 0.1 0.0-0.4 x10E3/uL Baso (Absolute) 0.0 0.0-0.2 x10E3/uL Immature Granulocytes 0 Not Estab. % Immature Grans (Abs) 0.0 0.0-0.1 x10E3/uL Carbamazepine(Tegretol), S Reviewed date:01/18/2024 08:11:27 AM Interpretation: Performing Lab:[facility] [facility], [address] [facility], Phone - [phone], Director - [facility] Notes/Report: Carbamazepine(Tegretol), S 4.5 4.0-12.0 ug/mL In conjunction with other antiepileptic drugs Therapeutic 4.0 - 8.0 Toxicity 9.0 - 12.0 . Carbamazepine alone Therapeutic 8.0 - 12.0 . Detection Limit = 2.0 <2.0 indicates None Detected Vitamin D, 25-Hydroxy* Reviewed date:01/18/2024 08:12:22 AM Interpretation: Performing Lab:[facility] [place], [address] [facility], Phone - [phone], Director - [facility] Notes/Report: Vitamin D, 25-Hydroxy 27.8 30.0-100.0 ng/mL Vitamin D deficiency has been defined by the [facility] [employer] and an Endocrine Society practice guideline as a level of serum 25-OH vitamin D less than 20 ng/mL (1,2). The Endocrine Society went on to further define vitamin D insufficiency as a level between 21 and 29 ng/mL (2). 1. IOM ([facility] [employer] [facility]). 2010. Dietary reference intakes for calcium and D. [place]: The National Academies Press. 2. Americo MF, Kortney FELDMAN, Jessica BIRCH, et al. Evaluation, treatment, and prevention of vitamin D deficiency: an Endocrine Society clinical practice guideline. JCEM. 2010; 96(7):1911-30. TSH+Free T4* Reviewed date:01/18/2024 08:12:45 AM Interpretation: Performing Lab:[facility], Phone - [phone], Director - [facility] Notes/Report: TSH 1.090 0.450-4.500 uIU/mL T4,Free(Direct) 1.04 0.82-1.77 ng/dL Lipid Panel* Reviewed date:01/18/2024 08:14:00 AM Interpretation: Performing Lab:[facility] [place] [facility], Phone - [phone], Director - [facility] Notes/Report: Cholesterol, Total 240 100-199 mg/dL Triglycerides 128 0-149 mg/dL HDL Cholesterol 54 >39 mg/dL VLDL Cholesterol Chema 23 5-40 mg/dL LDL Chol Calc ([facility]) 163 0-99 mg/dL CMP 14 Comprehensive Metabol ic Panel* Reviewed date:01/18/2024 08:15:41 AM Interpretation: Performing Lab:[facility], [place] [facility], Phone - [phone], Director - [facility] Notes/Report: Glucose 94 70-99 mg/dL BUN 15 6-20 mg/dL Creatinine 0.76 0.57-1.00 mg/dL eGFR 105 >59 mL/min/1.73 BUN/Creatinine Ratio 20 9-23 Sodium 138 134-144 mmol/L Potassium 4.4 3.5-5.2 mmol/L Chloride 102 96-106 mmol/L Carbon Dioxide, Total 22 20-29 mmol/L Calcium 9.0 8.7-10.2 mg/dL Protein, Total 6.9 6.0-8.5 g/dL Albumin 4.1 3.9-4.9 g/dL Globulin, Total 2.8 1.5-4.5 g/dL Bilirubin, Total <0.2 0.0-1.2 mg/dL Alkaline Phosphatase 103 44-121 IU/L AST (SGOT) 12 0-40 IU/L ALT (SGPT) 14 0-32 IU/L Reason For Referral No Information Medications Medication SIG (Take, Route, Frequency, Duration) Notes Start Date End Date Status Prazosin HCl 1 MG 1 capsule once daily in the morning - take with morning dose of prazosin 2mg for TOTAL 3mg in the morning Orally Once a day for 30 days 06/05/2024 Active Baclofen 20 MG 1 tablet Administer without regards to meals as needed Orally Twice a day Active FLUoxetine HCl 10 MG 1 capsule Orally On a day take with morning or evening dose of fluoxetine 40mg - TOTAL DAILY DOSE 90mg for 30 days 06/05/2024 Active FLUoxetine HCl 40 MG TAKE 1 CAPSULE BY M OUTH TWICE DAILY - take either morning or evening dose with fluoxetine 10mg - TOTAL DAILY DOSE 90MG for 30 days Active Meloxicam 7.5 MG 1 tablet Orally Once a day Active carBAMazepine 200 MG 2 tablets (400mg) i n the morning and 3 tablets (600mg) in the evening Orally for 30 days Active Vitamin D3 50 MCG (1999 UT) TAKE 1 CAPSU LE BY MOUTH ONCE DAILY for 30 days Active Cholestyramine 4 GM 1 packet mixed with water or non-carbonated drink Orally twice daily Active Propranolol HCl ER 60 MG TAKE 1 CAPSULE BY MOUTH DAILY for 90 Active ARIPiprazole 20 MG TAKE 1 TABLET BY PRANAY DAILY for 30 days Active Omeprazole 20 MG 1 capsule 1/2 to 1 h our before morning meal Orally Once a day Active Prazosin HCl 2 MG TAKE 1 CAPSULE BY MO UTH TWICE DAILY for 90 Active Propranolol HCl ER 60 MG 1 capsule Orall y Once a day for 30 days Active Meclizine HCl 50 MG 1 tablet as needed Orally every 12 hrs Active Qelbree 200 MG 1 capsule Orally Onc e a day for 30 days Active Pregabalin 50 MG 1 capsule Orally Onc e a day Active Prazosin HCl 2 MG 1 capsule twice abbey y Orally for 30 days Active hydrOXYzine HCl 50 MG 0.5 tablet twice d aily as needed for anxiety and 1 tablet at bedtime as needed for sleep Orally for 30 days Active Social History Tobacco Use: Social History Observation Description Date Details (start date - stop date) Former Smoker NA - NA Sex Assigned At : Social History Observation Description Sex Assigned At Female PRAPARE Question Answer Notes Date Completed/Updated: 03/06/2024 What is your current housing situation? I do not have housing (staying with others, in a hotel, in a long term, living outside on the street, on a beach, or in a park) Are you worried about losing your housing? Yes What is the highest level of school that you have finished? High school diploma or GED What is your current work situation? Unemployed and seeking work In the past year, have you o r any family members you live with been unable to get any of the following when it was really needed? Check all that apply Phone Has lack of transportation k ept you from medical appointments, meetings, work or from getting things needed for daily living? Yes, it has kept me from non-medical meetings, appointments, work, or getting things needed for daily living How often do you see or talk to people that you care about and feel close to? (For example: talking to friends on the phone, visiting friends or family, going to anabaptist or club meetings) More than 5 times a week How stressed are you? Stress is when someone feels tense, nervous, anxious, or can\t sleep at night because their mind is troubled Quite a bit In the past year have you sp ent more than 2 nights in a row in a fpc, senior care, correction center, or juvenile correctional facility? No Are you a refugee? No What country are you from? [place] Do you feel physically and e motionally safe where you currently live? No In the past year, have you b een afraid of your partner or ex-partner? No PRAPARE Score: 11 Tobacco Control (Standard) Question Answer Notes Tobacco use: Former smoker Problems Problem Type SNOMED Code ICD Code Onset Dates Problem Status W/U Status Risk Notes Problem Anxiety (09422604) Anxiety (F41.9) Active confirmed Problem Bipolar 1 disorder (878031574) Bipolar 1 disorder (F31.9) Active confirmed Problem Vitamin D deficiency (67819254) Vitamin D deficiency (E55.9) Active confirmed Problem Overweight (683701450) Over weight (E66.3) Active confirmed Problem Depressed (03937952) Depressed (F32.9) Active confirmed Problem Drug monitoring done (710621972) Therapeutic drug monitoring (Z51.81) Active confirmed Problem Sleep dysfunction with arousal disturbance (701736263) Night terror (F51.4) Active confirmed Problem Impaired concentration (9635406426) Impaired concentration (R41.840) Active confirmed Vital Signs Height 71 in 06/05/2024 Weight 338 lbs 06/05/2024 BMI 47.14 kg/m2 06/05/2024 Encounters Encounter Location Date Provider Diagnosis [address] [address] 01/16/2024 Miguelangel Cunha Bipolar 1 disorder F31.9 ; Anxiety F41.9 ; Depressed F32.9 ; Impaired concentration R41.840 and Vitamin D deficiency E55.[address] [address] 01/04/2024 Miguelangel Cunha Bipolar 1 disorder F31.9 ; Anxiety F41.9 ; Depressed F32.9 ; Impaired concentration R41.840 ; Vitamin D deficiency E55.9 and Nutritional counseling Z71.[address] [address] 03/06/2024 Miguelangel Cunha Anxiety F41.9 ; Bipo lar 1 disorder F31.9 ; Depressed F32.9 ; Impaired concentration R41.840 ; Vitamin D deficiency E55.9 and Nutritional counseling Z71.[address] [address] 05/23/2024 Miguelangel Cunha Anxiety F41.9 ; Bipo lar 1 disorder F31.9 ; Depressed F32.9 ; Impaired concentration R41.840 ; Vitamin D deficiency E55.9 and Nutritional counseling Z71.[address] [address] 06/05/2024 Miguelangel Cunha Anxiety F41.9 ; Bipo lar 1 disorder F31.9 ; Depressed F32.9 ; Impaired concentration R41.840 ; Vitamin D deficiency E55.9 ; Nutritional counseling Z71.3 and Over weight E66.[address] [place] [address] 07/18/2023 Beulah Sapp Encounter for screen ing for malignant neoplasm of cervix Z12.[address] [place] [address] 01/04/2024 Miguelangel Velizer [address] [address] 03/08/2024 Assessments Encounter Date Diagnosis (ICD Code) Assessment Notes Treatment Notes Treatment Clinical Notes Section Notes 07/18/2023 Encounter for screening for malignant neoplasm of cervix (ICD-10 - Z12.4) Patient Educated with: Learning about Cervical Cancer Screenings.pdf (Learning about Cervical Cancer Screenings.pdf) 01/04/2024 Anxiety (ICD-10 - F41.9) See assessment and plan for bipolar I disorder 01/04/2024 Bipolar 1 disorder (ICD-10 - F31.9) Duration (acute/chronic), stability (controlled/uncontr olled): Chronic, stable, room for improvement Current medications/efficac y: Somewhat, room for improvement Previous medication trials: Strattera, lithium, quetiapine XR, clonazepam, depakate, hydroxyzine, buspirone, aripiprazole Current/previous therapies: Needing to call [facility] and set up appointment Examination as documented - see pertinent aspects of office visit documentation. Pertinent diagnostics: LABS ORDERED TODAY - PATIENT AGREEABLE TO FOLLOWING UP FOR LAB VISIT Differential diagnoses: RECOMMENDATIONS: INCREASE aripiprazole as prescribed - educated patient/guardian on adverse effects, risks and benefits, as well as alternative treatments INCREASE hydroxyzine as prescribed - educated patient/guardian on adverse [...] to the emergency department, or contact the [facility] Crisis Unit/Team. Follow up as scheduled in 4 weeks or sooner if necessary. Follow up with PCP and/or other specialists as advised. NEXT STEP: Review LABS. Consider increasing aripiprazol again pending response/tolerabili ty. Consider increasing hydroxyzine as needed. Consider other medication adjustments as needed. 01/16/2024 Bipolar 1 disorder (ICD-10 - F31.9) 03/06/2024 Anxiety (ICD-10 - F41.9) See assessment and plan for bipolar I disorder 05/23/2024 Anxiety (ICD-10 - F41.9) See assessment and plan for bipolar I disorder 06/05/2024 Anxiety (ICD-10 - F41.9) See assessment [...] health CRISIS, please reach out to [phone] ([facility]), 911, go to the emergency department, or contact the [facility] Crisis Unit/Team. Follow up as scheduled in 3 weeks or sooner if necessary. Follow up with PCP and/or other specialists as advised. NEXT STEP: Consider increasing carbamazepine again pending response/tolerabili ty. Consider increasing propranolol pending response/tolerabili ty. Consider increasing hydroxyzine as needed. Consider increasing Qelbree. Consider other medication adjustments as needed. 05/23/2024 Bipolar 1 disorder (ICD-10 - F31.9) [...] to the emergency department, or contact the [facility] Crisis Unit/Team. Follow up as scheduled in 2 weeks or sooner if necessary. Follow up with PCP and/or other specialists as advised. NEXT STEP: Consider increasing carbamazepine again pending response/tolerabili ty. Consider increasing propranolol pending response/tolerabili ty. Consider increasing hydroxyzine as needed. Consider increasing Qelbree. Consider other medication adjustments as needed. 03/06/2024 Bipolar 1 disorder (ICD-10 - F31.9) Duration (acute/chronic), stability (controlled/uncontr olled): Chronic, stable, room for improvement - aripiprazole recently increased slightly, has improved irritability slightly, no significant change in anxiety/depression, see HPI Current medications/efficac y: Somewhat, room for improvement Previous medication trials: Strattera, lithium, quetiapine XR, clonazepam, depakate, hydroxyzine, buspirone, aripiprazole Current/previous therapies: Needing to call [facility] and set up appointment Examination as documented [...] mental health CRISIS, please reach out to [phone] ([facility]), 911, go to the emergency department, or contact the [facility] Crisis Unit/Team. Follow up as scheduled in 4 weeks or sooner if necessary. Follow up with PCP and/or other specialists as advised. NEXT STEP: Consider increasing carbamazepine again pending response/tolerabili ty. Consider increasing propranolol pending response/tolerabili ty. Consider increasing hydroxyzine as needed. Consider other medication adjustments as needed. 01/04/2024 Depressed (ICD-10 - F32.9) See assessment and plan for bipolar I disorder 01/16/2024 Anxiety (ICD-10 - F41.9) 01/04/2024 Impaired concentration (ICD-10 - R41.840) Duration (acute/chronic), stability (controlled/uncontr olled): Chronic, stable, room for improvement Current medications/efficac y: Somewhat, room for improvement Previous medication trials: Strattera Current/previous therapies: Needing to call [facility] and set up appointment Examination as documented - see pertinent aspects of office visit documentation. Pertinent diagnostics: LABS ORDERED TODAY - PATIENT AGREEABLE TO FOLLOWING UP FOR LAB VISIT Differential diagnoses: RECOMMENDATIONS: INCREASE Strattera as prescribed - educated patient/guardian on [...] to the emergency department, or contact the [facility] Crisis Unit/Team. Follow up as scheduled in 4 weeks or sooner if necessary. Follow up with PCP and/or other specialists as advised. NEXT STEP: Review LABS. Consider increasing Strattera again pending response/tolerabili ty. 03/06/2024 Depressed (ICD-10 - F32.9) See assessment and plan for bipolar I disorder 01/16/2024 Depressed (ICD-10 - F32.9) 05/23/2024 Depressed (ICD-10 - F32.9) See assessment and plan for bipolar I disorder 06/05/2024 Depressed (ICD-10 - F32.9) See assessment and plan for bipolar I disorder 03/06/2024 Impaired concentration (ICD-10 - R41.840) Duration (acute/chronic), stability (controlled/uncontr olled): Chronic, improved with recent inrease in Strattera, see HPI Current medications/efficac y: Yes Previous medication trials: Strattera Current/previous therapies: Needing to call [facility] and set up appointment Examination as documented [...] to the emergency department, or contact the [facility] Crisis Unit/Team. Follow up as scheduled in 4 weeks or sooner if necessary. Follow up with PCP and/or other specialists as advised. NEXT STEP: Consider increasing Strattera again pending response/tolerabili ty. 05/23/2024 Impaired concentration (ICD-10 - R41.840) Duration (acute/chronic), stability (controlled/uncontr olled): Chronic, Strattera reportedly ineffective, see HPI Current medications/efficac y: Somewhat, room for improvement Previous medication trials: Strattera (ineffective) Current/previous therapies: Needing to call [facility] and set up appointment Examination as documented [...] mental health CRISIS, please reach out to [phone] ([facility]), 911, go to the emergency department, or contact the [facility] Crisis Unit/Team. Follow up as scheduled in 2 weeks or sooner if necessary. Follow up with PCP and/or other specialists as advised. NEXT STEP: Consider increasing Qelbree as needed. 06/05/2024 Impaired concentration (ICD-10 - R41.840) Duration (acute/chronic), stability (controlled/uncontr olled): Chronic, Strattera reportedly ineffective, pharmacy reportedly didn't dispense Qelbree as recently prescribed, see HPI Current medications/efficac y: Somewhat, room for improvement Previous medication trials: Strattera (ineffective) Current/previous therapies: Needing to call [facility] and set up appointment Examination as documented [...] to the emergency department, or contact the [facility] Crisis Unit/Team. Follow up as scheduled in 3 weeks or sooner if necessary. Follow up with PCP and/or other specialists as advised. NEXT STEP: Consider increasing Qelbree as needed. 01/16/2024 Impaired concentration (ICD-10 - R41.840) 01/04/2024 Vitamin D deficiency (ICD-10 - E55.9) Duration (acute/chronic), stability (controlled/uncontr olled): Noted on previous labs, taking vitamin D supplementation as prescribed Current medications/efficac y: Unknown - need to repeat labs Previous medication trials: vitamin D supplementation Current/previous therapies: N/A Examination as documented - see pertinent aspects of office visit documentation. Pertinent diagnostics: LABS ORDERED TODAY - PATIENT AGREEABLE TO FOLLOWING UP FOR LAB VISIT Differential diagnoses: RECOMMENDATIONS: Continue medications as prescribed [...] health CRISIS, please reach out to [phone] ([facility]), 911, go to the emergency department, or contact the [facility] Crisis Unit/Team. Follow up as scheduled or sooner if necessary. Follow up with PCP and/or other specialists as advised. NEXT STEP: Review LABS. Consider medication adjustments as needed. 01/04/2024 Nutritional counseling (ICD-10 - Z71.3) 01/16/2024 Vitamin D deficiency (ICD-10 - E55.9) 03/06/2024 Vitamin D deficiency (ICD-10 - E55.9) [...] to the emergency department, or contact the [facility] Crisis Unit/Team. Follow up as scheduled or sooner if necessary. Follow up with PCP and/or other specialists as advised. NEXT STEP: Consider medication adjustments as needed. 05/23/2024 Vitamin D deficiency (ICD-10 [...] to the emergency department, or contact the [facility] Crisis Unit/Team. Follow up as scheduled or sooner if necessary. Follow up with PCP and/or other specialists as advised. NEXT STEP: Consider medication adjustments as needed. 06/05/2024 Vitamin D deficiency (ICD-10 [...] health CRISIS, please reach out to [phone] ([facility]), 911, go to the emergency department, or contact the [facility] Crisis Unit/Team. Follow up as scheduled or sooner if necessary. Follow up with PCP and/or other specialists as advised. NEXT STEP: Consider medication adjustments as needed. 05/23/2024 Nutritional counseling (ICD-10 - Z71.3) 03/06/2024 Nutritional counseling (ICD-10 - Z71.3) 06/05/2024 Nutritional counseling (ICD-10 - Z71.3) 06/05/2024 Over weight (ICD-10 - E66.3) Plan Of Treatment No Information Insurance Providers Payer Name Payer Address Payer Phone Subscriber Number Group Number Insured Name Patient Relationship to Insured Coverage Start Date Coverage End Date [employer] [address] [place] [address] [id number] Cecilia Avina Self - patient is the insured 3 [employer] [address] [place] [address] [id number] Cecilia Avina Self - patient is the insured 3 Medical (General) History Medical History History ICD Code Fibromyalgia Surgical History Surgery Date(Month/Year) section x2 cholecystectomy Left knee repair x2 Hospitalization History Reason Date(Month/Year) [facility]
--- OUTSIDE RECORDS SUMMARY | 2024-06-25 14:05 | XMS_ITS | Clinical Summary ---
Author Organization [facility] Address [address] [place] [address] Phone Care Team Providers Care Still Worker Helper Name Role Phone SENIA PUENTES MD Unavailable [phone] KENYA BUNCH Primary Care Provider [phone] Reason for Visit and Chief Complaint NEW PATIENT VISIT Plan of Treatment No Plan of [...] from this encounter No Physical Exam Recorded Encounters Encounter Provider Location Date Check-In Time Check- Out Time Diagnosis NEW PATIENT VISIT ELOISA RIOSPSYCHMEERA LANDA 2 1:40PM 3:07PM Insurance Includes: Active Insurance Policies Plan Name Member ID Group # Subscriber Relationship Effect kayla Dates 1 - [facility] [id number] GINNY MOOER Self Clinical Notes Includes: Clinical Notes from this encounter No Clinical Notes Recorded
--- OUTSIDE RECORDS SUMMARY | 2024-06-25 14:05 | XMS_ITS | Clinical Summary ---
Author Organization [facility] Address [address] [place] [address] Phone Care Team Providers Care Retirement Village Manager Name Role Phone DELORIS PHILLIPS, SENIA Ornelas Unavailable [phone] KENYA BUNCH Primary Care Provider [phone] Reason for Visit and Chief Complaint NO SHOW Plan of Treatment No Plan of Treatment [...] Subscriber Relationship Effect kayla Dates 1 - [facility] [id number] GINNY MOORE Self Clinical Notes Includes: Clinical Notes from this encounter No Clinical Notes Recorded
--- OUTSIDE RECORDS SUMMARY | 2024-06-25 14:05 | XMS_ITS ---
Author Organization [facility] Address [address] [place] [address] Phone Care Team Providers Care Retail Field Representative Name Role Phone DELORIS PHILLIPS, SENIA Ornelas Unavailable [phone] KENYA BUNCH Primary Care Provider [phone] Plan of Treatment No Plan of Treatment Recorded Assessments Includes: Assessments for all patient encounters No Assessments Recorded Medical Equipment - Implanted Devices Includes: Current and historical Devices No Medical Equipment Recorded Medications Administered Includes: Administered Medications in patient's chart No Administered Medications Recorded Results Includes: Results from 06/26/2023 through 06/25/2024 No Results Recorded For Specified Dates History of Present Illness History of Present Illness not supported for this document type No History of Present Illness Recorded Social History No Social History Recorded - Smoking Status Unknown Medical History Includes: Medical History in patient's chart No Medical History Recorded Family History Includes: Family History in patient's chart No Family History Recorded Review of Systems Review of Systems not supported for this document type No Review of Systems Recorded Mental Status No Mental Status Recorded Functional Status No Functional Status Recorded Physical Exam Physical Exam not supported for this document type No Physical Exam Recorded Insurance Includes: Active Insurance Policies Plan Name Member ID Group # Subscriber Relationship Effect kayla Dates 1 - [facility] [id number] GINNY MOORE Self Clinical Notes Includes: Signed Clinical Notes starting from 04/02/2022 No Clinical Notes Recorded
--- OUTSIDE RECORDS SUMMARY | 2024-06-25 14:05 | XMS_ITS | Clinical Summary ---
Author Organization [facility] Address [address] [place] [address] Phone Care Team Providers Care Batch Records Clerk Name Role Phone SENIA PUENTES MD Unavailable [phone] KENYA BUNCH Primary Care Provider [phone] Reason for Visit and Chief Complaint GENERAL [...] Subscriber Relationship Effect kayla Dates 1 - [facility] [id number] GINNY MOORE Self Clinical Notes Includes: Clinical Notes from this encounter No Clinical Notes Recorded
--- OUTSIDE RECORDS SUMMARY | 2024-06-25 15:59 | XMS_ITS | Encounter Summary ---
Author Organization [facility] Address [address] [place] [address] Phone Care Team Providers Care Relay Telegrapher Name Role Phone Dash Bill MD Primary Care Provider [phone] Encounter Details Date Type Department Care Team (Late st Contact Info) Description 03/26/2021 Transcribe Orders [facility] Patient Access Admitting [address] [place] [id number] Dash Bill MD [address] [place] [address] Viral syndrome (Primary Dx) Social [...] Coronavirus / COVID-19? Yes 03/26/2021 12:18 PM METEOROLOGY TEACHER documented as of this encounter Plan of Treatment Not on file documented as of this encounter Results * SARS-COV-2 BY MOLECULAR (03/26/2021 12:24 PM METEOROLOGY TEACHER) SARSCOV2 NOT DETECTED (Referen ce Range for this test is Not Detected ) [facility]ERMOF[facility] FAST DX 03/28/2021 12:19 AM METEOROLOGY TEACHER [facility] Comment:This test was perfor med by a RT-PCR method. Other NASAL STRUCTURE / Unknown Non-Phlebotomy Collection / Unknown 03/26/2021 12:24 PM METEOROLOGY TEACHER 03/26/2021 12:45 PM METEOROLOGY TEACHER Narrative [facility] - 03/28/2021 12:19 AM METEOROLOGY TEACHER Authorized Fact Sheets about this test for providers and patients are available at: https://www.fda.gov/medical-devices/osjiyzjlu-zfwmpaanve-ypemics-devices/emergen -us e-authorizations us Dash Bill MD MICROBIOLOGY - GENERAL ORDERA BLES Final Result [facility] [address] [place] [address], documented in this encounter Visit Diagnoses Diagnosis Viral syndrome- Primary Unspecified viral infection, in conditions classified elsewhere and of unspecified site documented in this encounter Additional Health Concerns Infection Onset Date Last Indicated Resolved Time COVID - 19 03/26/2021 03/26/2021 04/15/2021 12:1 6 AM METEOROLOGY TEACHER documented as of this encounter Care Teams Relay Telegrapher Relationship Specialty Start Date End Date Dash Bill MD [address] [place] [address] PCP - General Internal Medicine 11/06/18 documented as of this encounter
--- OUTSIDE RECORDS SUMMARY | 2024-06-25 15:59 | XMS_ITS | Encounter Summary ---
Author Organization [facility] Address [address] [place] [address] Care Team Providers Care Theoretical Physicist Name Role Phone Dash Bill MD Unavailable [phone] Jermain Paz MD Unavailable [phone] Petra Dickinson MD Primary Care Provider [phone] Encounter Details Date Type Department Care Team (Late st Contact Info) Description 06/19/2024 Results Follow-Up [facility] [address] [place] [address] [address] [place] [address] Ingrid Marie, SECURITY OFFICER [address] [place] [address] [address] [place] [address] Social History Tobacco Use Types Packs/Day Years Used Date Smoking Tobacco: Former Cigarettes Smokeless Tobacco: Never Alcohol Use Standard Drinks/Week Comments Not Currently 0 (1 standard drink = 0.6 oz pur e alcohol) socially AUDIT-C Answer Date Recorded Q1: How often do you have a drink containing alc ohol? 2-4 times a month 05/15/2024 Q2: How many drinks containi ng alcohol do you have on a typical day when you are drinking? 3 or 4 05/15/2024 Frequency of Binge Drinking Not on file 06/2024 PHQ-2 Answer Date Recorded PHQ-2 Total Score (If total score is 3 or more points, staff should administer the PHQ-9) 0 2024 Personal Safety Answer Date Recorded Have you ever been in or are you currently in a harmful physical or emotional relationship or is someone making you feel afraid or unsafe? Denies 03/22/2024 Comments No Sex and Gender Information Value Date Recorded Sex Assigned at Not on file Legal Sex Female 3:38 AM PENETRATION TESTER Gender Identity Not on file Sexual Orientation Not on file documented as of this encounter Plan of Treatment Not on file documented as of this encounter Visit Diagnoses Not on filedocumented in this encounter Care Teams Theoretical Physicist Relationship Specialty Start Date End Date Petra Dickinson MD [address] [place] [address] PCP - General Obstetrics and Gynecology 05/24/24 Dash Bill MD [address] [place] [address] Internal Medicine 12/20/22 Jermain Paz MD [address] [place] [address] Plasterer Journeyman Obstetrics and Gynecology 03/31/21 documented as of this encounter
--- OUTSIDE RECORDS SUMMARY | 2024-06-25 15:59 | XMS_ITS | Clinical Summary ---
Author Organization [facility] Address [address] [place] [address] Phone Care Team Providers Care Immigration Coordinator Name Role Phone Dash Bill MD Primary Care Provider [phone] Allergies Active Allergy Reactions Criticality Noted Date [...] to complete this topic Insurance MEDICAID [facility] Care Teams Immigration Coordinator Relationship Specialty Start Date End Date Dash Bill MD [address] [place] [address] PCP - General Internal Medicine 11/06/18
--- OUTSIDE RECORDS SUMMARY | 2024-06-25 15:59 | XMS_ITS | Clinical Summary ---
Author Organization [facility] Address [address] [place] [address] Phone Care Team Providers Care Bond Analyst Name Role Phone SENIA PUENTES MD Unavailable [phone] KENYA BUNCH Primary Care Provider [phone] Reason for Visit and Chief Complaint NEW [...] Relationship Effect kayla Dates 1 - [facility] [id number] GINNY MOORE Self Clinical Notes Includes: Clinical Notes from this encounter No Clinical Notes Recorded
--- OUTSIDE RECORDS SUMMARY | 2024-06-25 15:59 | XMS_ITS | Clinical Summary ---
Author Organization [facility] Address [address] [place] [address] Phone Care Team Providers Care Wheat Combine Driver Name Role Phone DELORIS PHILLIPS, SENIA Ornelas Unavailable [phone] KENYA BUNCH Primary Care Provider [phone] Reason for Visit and Chief Complaint NO [...] Subscriber Relationship Effect kayla Dates 1 - [facility] [id number] GINNY MOORE Self Clinical Notes Includes: Clinical Notes from this encounter No Clinical Notes Recorded
--- OUTSIDE RECORDS SUMMARY | 2024-06-25 15:59 | XMS_ITS ---
Care Plan - [facility] Created on: June 25, 2024 GINNY MOORE : 1990 Sex: Female Author Organization [facility] Address [address] [place] [address] Phone Care Team Providers Care Crime Lab Technician Name Role Phone DELORIS PHILLIPS, SENIA C Unavailable [phone] KENYA BUNCH Primary Care Provider [phone]
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
--- OUTSIDE RECORDS SUMMARY | 2024-06-25 15:59 | XMS_ITS | Clinical Summary ---
Author Organization [facility] Address [address] [place] [address] Phone Care Team Providers Care Napkin Machine Operator Name Role Phone SENIA PUENTES MD Unavailable [phone] KENYA BUNCH Primary Care Provider [phone] Reason for Visit and Chief Complaint GENERAL [...] Subscriber Relationship Effect kayla Dates 1 - [facility] [id number] GINNY MOORE Self Clinical Notes Includes: Clinical Notes from this encounter No Clinical Notes Recorded
--- OUTSIDE RECORDS SUMMARY | 2024-06-25 15:59 | XMS_ITS | Clinical Summary ---
Author Organization [facility] Address [address] [place] [address] Care Team Providers Care Rheumatology Specialist Name Role Phone Dash Bill MD Unavailable [phone] Jermain Paz MD Unavailable Petra Dickinson MD Primary Care Provider [phone] Allergies Active Allergy Reactions Criticality Noted Date Comments Codeine Dizziness Low Penicillins Hives,Vomiting Medium Reaction: NAUSEA, VOMITING, , Medications valACYclovir (Valtrex) 500 mg tablet Take 2 tablets (1,000 mg total) by mouth daily 30 tablet 11 05/11/19 22 Active ibuprofen (ADVIL,MOTRIN) 600 mg tablet TAKE 1 TABLET BY MOUTH EVERY DAY WITH MEALS 11/07/19 22 Active hydrOXYzine (VISTARIL) 25 mg capsule Take 1 capsule (25 mg total) by mouth 2 (two) times a day 08/07/19 22 Active FLUoxetine (PROzac) 40 mg capsule 09/25/19 22 Active cloNIDine (CATAPRES) 0.1 mg tablet Take 1 tablet (0.1 mg total) by mouth 2 (two) times a day 10/23/19 22 Active carBAMazepine (TEGretol) 200 mg tablet Take 1 tablet (200 mg total) by mouth 2 (two) times a day 10/23/19 22 Active baclofen (LIORESAL) 20 mg tablet Take 1 tablet (20 mg total) by mouth 2 (two) times a day 11/07/19 22 Active acetaminophen (TYLENOL) 500 mg tablet as needed Active ipratropium-albute roL (COMBIVENT RESPIMAT) 20-100 mcg/actuation inhaler Inhale Active ondansetron (ZOFRAN) 4 mg tablet Take 1 tablet (4 mg total) by mouth every 6 (six) hours 12 tablet 10/28/19 23 Active capsaicin (ZOSTRIX) 0.075 % topical cream Apply topically 3 (three) times a day for 14 days 28.3 g 02/14/20 23 Active methocarbamoL (ROBAXIN) 500 mg tablet Take 1 tablet (500 mg total) by mouth 2 (two) times a day 20 tablet 02/14/20 23 Active loratadine 10 mg capsule Take by mouth Active ferrous sulfate 325 mg (65 mg of elemental iron) tabletIndications: Iron Deficiency Anemia Take 1 tablet (325 mg total) by mouth daily with breakfast Active vitamin b complex tablet Take 1 tablet by mouth daily Active cholecalciferol (VITAMIN D-3) 2000 unit capsule Take 1 capsule (2,000 Units total) by mouth daily Active ginseng 100 mg capsule Take by mouth Active benzonatate (TESSALON) 100 mg capsuleIndications :Cough Take 1 capsule (100 mg total) by mouth 3 (three) times a day as needed for cough Active oxyCODONE-acetamin ophen (PERCOCET) 5-325 mg per tabletIndications: Pain Take 1 tablet by mouth every 8 (eight) hours as needed for pain 10 tablet 02/25/20 23 Active Additional Information Patient not taking.Reported on 2024 atomoxetine (Strattera) 40 mg capsule 1 capsule (40 mg total) daily 03/03/20 23 Active ARIPiprazole (ABILIFY) 5 mg tablet 03/03/20 23 Active ketoconazole (NIZORAL) 2 % shampoo 02/24/20 23 Active albuterol HFA (PROVENTIL HFA,VENTOLIN HFA,PROAIR HFA) 90 mcg/actuation inhaler INHALE 2 PUFFS BY MOUTH THREE TIMES DAILY NEEDED 02/19/20 23 Active gabapentin (NEURONTIN) 300 mg capsuleIndications :Foot pain, left,Chronic left-sided low back pain with left-sided sciatica TAKE 1 CAPSULE(300 MG) BY MOUTH THREE TIMES DAILY 90 capsule 3 07/11/19 24 Active HYDROcodone-acetam inophen (NORCO) 5-325 mg per tabletIndications: Pain Take 1 tablet by mouth every 6 (six) hours as needed for pain for up to 6 doses 6 tablet 10/08/19 24 Active Additional Information Patient not taking.Reported on 2024 ondansetron ODT (ZOFRAN-ODT) 4 mg disintegrating tablet Take 1 tablet (4 mg total) by mouth every 8 (eight) hours as needed for nausea or vomiting 20 tablet 10/08/19 24 Active propranoloL (INDERAL) 10 mg tablet Take 1 tablet (10 mg total) by mouth 2 (two) times a day 03/06/20 24 Active meclizine (ANTIVERT) 25 mg tablet Take 1 tablet (25 mg total) by mouth 2 (two) times a day as needed 04/11/19 25 Active pregabalin (LYRICA) 50 mg capsule Take 1 capsule (50 mg total) by mouth 2 (two) times a day 04/11/19 25 Active topiramate (TOPAMAX) 50 mg tablet Take half tablet (25 mg) po twice a day for one week, then one tablet po twice a day 60 tablet 3 05/07/19 25 Active rizatriptan CASINO GAMING WORKER (MAXALT-CASINO GAMING WORKER) 10 mg disintegrating tabletIndications: Migraine Take 1 tablet (10 mg total) by mouth every 2 (two) hours as needed for migraine May repeat in 2 hours if unresolved. Do not exceed 30 mg in 24 hours. 9 tablet 3 05/07/19 25 Active cholestyramine (QUESTRAN) 4 gram powder Take 1 packet (4 g total) by mouth 2 (two) times a day with meals Dissolve in 8 oz of liquid and drink before a meal 60 packet 2 05/16/19 25 Active omeprazole (PriLOSEC) 20 mg capsule Take 1 capsule (20 mg total) by mouth daily 30 capsule 3 05/16/19 25 Active desog-e.estradioL/ e.estradioL (KARIVA) 0.15-0.02 mgx21 /0.01 mg x 5 per tablet Take 1 tablet by mouth daily 84 tablet 3 06/12/19 25 Active desog-e.estradioL/ e.estradioL (KARIVA) 0.15-0.02 mgx21 /0.01 mg x 5 per tablet Take 1 tablet by mouth daily 025 Discontin ued(Reord er) Active Problems Problem Noted Date Diagnosed Date History of HPV infection 06/18/2024 Chronic migraine without aur a without status migrainosus, not intractable 05/07/2024 Foot pain, left 02/18/2023 Chronic bilateral low back pain without sciatica 02/18/2023 Epidermal cyst 02/09/2023 Morbid obesity with BMI of 40.0-44.9, adult 0 08/2021 Assessment & Plan (11/17/2021 6:36 AM CDT): Encourage a weight loss program such as Weight Watchers incorporating dietary changes and aerobic / weight-bearing exercise at least 4-5 times per week, for at least 30-45 minute sessions. Herpes simplex type 2 infection 11/17/2021 Assessment & Plan (11/17/2021 6:37 AM CDT): Encouraged patient to call if refill on Valtrex needed - currently only takes for episodic treatment. Safe sex with condoms encouraged. Exposure to HIV 05/11/2021 Overview (05/11/2021): Partner has HIV with no viral load detected. Condoms encouraged. Herpes simplex infection in mother during third trimester of 02/13/2021 Overview (02/13/2021): Positive type 1 and 2 Nausea and vomiting during 11/12/2020 Overview (11/12/2020): Intermittent nausea and vomiting with headache, no vision changes. She is intermittently tolerating meals. Large ketones today with three vomiting episodes. Plan: will send compazine to pharmacy. The patient is hungry for lunch so she will take the compazine and see if she tolerates lunch. If she does not, she was counseled to call the clinic or return to the [facility] for further evaluation. Trichomonas vaginalis (TV) infection 10/06/2020 Overview (11/12/2020): - diagnosed with trichomonas on pap smear on 09/12/2020 - s/p treatment with flagyl 2g on 09/22 - s/p negative ANDREIA on 10/06 History of 10/06/2020 Overview (11/12/2020): - history of LTCS at term for breech presentation Plan: - plan to discuss delivery planning (TOLAC vs. repeat ) at next 2nd trimester appointment. Patient desires to TOLAC but desires (declines ECV) if fetus is breech. Subchorionic hemorrhage in first trimester 10/06 Overview (11/12/2020): - started on vaginal progesterone by OSH provider. - for further assessment at anatomy US. Plan: patient desires to continue 200mg vaginal progesterone nightly. Will continue care per Dr. Paz Calculus of gallbladder 07/02/2014 Overview (06/18/2016): Gall bladder stones Overview (11/12/2020): Patient with intermittent nausea with vomiting in . She is intermittently able to tolerate meals. She also reports intermittent headaches with no vision changes. Large ketones in urine on 11/12. Plan: -will send compazine to pharmacy for nausea and headache. - patient is hungry for lunch. She will sampler pickup her compazine and try lunch. If she does not tolerate lunch she was counseled to call the clinic back or to return to the [facility] for further assessment. Resolved Problems Problem Noted Date Diagnosed Date Resolved Date Encounter for supervision of normal in first trimester 10/06/2020 01/23/2021 Overview (11/12/2020): 1st Trimester: [x] Dating Criteria: L=1 [x] Labs: Rh +, Ab neg, HIV neg, RPR neg, HepB sAg neg, HepC Ab neg, Rubella imm, VZV imm [x] Hgb electrophoresis: Not Indicated [] GC/CT: neg/neg, trich positive -> ANDREIA negative. [x] UCx: positive, less than 100,000 GBS [x] UDS: neg [x] Pap: last 09/12/2020, NILM/HPV- [x] Genetic Screening: does not qualify for 2nd trimester quad screen as she is above 18weeks gestation . Counseled that anomalies will be screened for at the time of her anatomy US. [] CF/SMA carrier screening: declines 2nd Trimester: [x] Anatomy ultrasound: with Dr. Grimes, currently scheduled. [] MSAFP (15-18w) [x] Placenta Location: anterior [] echo (if DM, monochorionic) [] 1h GTT: [] CBC: [] Flu Shot (Sep-Dec) [] Tdap (27-36wks) [] Rhogam (if Rh neg) 3rd Trimester: [] CBC/HIV/RPR [x] GBS pyuria + [] GC/CT Counseling [] Method of delivery: hx of , TOLAC counseling____ [x] Place of delivery: with Dr. Candelaria [] Method of contraception [x] Method of feeding: breast feeding [] Organic Chemist [] Car seat discussed [] PP Depression Counseling Exposure to HIV affecting 10/06/2020 05/11/2021 Overview (11/12/2020): - patient is sexually active with partner who is HIV positive and declines condom use--further counseled 10/06/20- s/p counseling about the importance and recommendation to utilize condoms during and while to decrease possible exposure to herself and her baby. - discussed the importance of her knowing her partners HIV status (undectectable vs. detectable viral load) as the chances of transmission are different based on these factors. - the patient would like to start antiretroviral therapy to help prevent transmission of the virus, she does not desire to utilize condoms to prevent transmission. - she was counseled to return for further evaluation if she experiences symptoms concerning for developing URI/infection for workup of possible transmission as monotherapy with Truvada may be harmful. 11/12: discussed with her partner her current negative HIV status and her partners current non-detectable HIV status. She has not been able to sampler pickup her medication due to medicaid coverage not being currently set up. She will talk to the medicaid specialist today. Plan: - Truvada daily (for preventative care) - HIV screening every trimester (next due when her 2nd tri labs are drawn) -Continue to strongly recommend abstinence or condom use in the 3rd trimester to prevent late seroconversion. If any exposure in the 4 weeks prior to delivery, will need HIV RNA when presents for labor. -Considering . Reviewed that if she breastfeeds, we would recommend confirming her partner continues on meds and has undetectable viral load. We would recommend condom use 100% and continued Truvada if unable to ensure condom use. Truvada is minimally transferred into milk. Overview (11/12/2020): Patient with intermittent nausea with vomiting in . She is intermittently able to tolerate meals. She also reports intermittent headaches with no vision changes. Large ketones in urine on 11/12. Plan: -will send compazine to pharmacy for nausea and headache. - patient is hungry for lunch. She will sampler pickup her compazine and try lunch. If she does not tolerate lunch she was counseled to call the clinic back or to return to the [facility] for further assessment. Encounters Date Type Department Care Team Description 06/19/2024 Results Follow-Up [address] [place] [address] Ingrid Marie NP 2024 2:13 PM CDT - 2024 11:59 PM CDT [place] [address] Well woman exam Discharge Disposition: Discharge to home or self care 2024 1:30 PM CDT Office Visit [address] [place] [address] Ingrid Marie NP Well woman exam (Primary Dx); History of HPV infection 05/24/2024 Results Follow-Up [facility] G[facility] at [address] [place] [address] Kojo Lora MD 05/22/2024 Orders Only [facility] at [address] [place] [address] Kojo Lora MD Abdominal pain (Primary Dx); Abnormal CT of the abdomen 05/22/2024 Telephone [facility] at [address] [place] [address] Cadence Nava LPN 05/22/2024 Orders Only [facility] at [address] [place] [address] Kojo Lora MD Liver lesion (Primary Dx) 05/15/2024 12:35 PM INTEGRATION SOFTWARE ENGINEER Lab [address] Diarrhea of presumed infectious origin; Diarrhea due to malabsorption; Abdominal pain; Blood in stool 05/15/2024 11:00 AM INTEGRATION SOFTWARE ENGINEER Office Visit [facility] Medical [facility] Gastroenterology at [address] [place] [address] Kojo Lora MD Diarrhea of presumed infectious origin (Primary Dx); Diarrhea due to malabsorption; Abdominal pain; Blood in stool 05/07/2024 10:30 AM INTEGRATION SOFTWARE ENGINEER Office [place] [facility] [address] [place] [address] Virgilio Johsnton MD Chronic bilateral low back pain without sciatica (Primary Dx); Chronic migraine without aura without status migrainosus, not intractable; Foot pain, left 04/19/2024 Telephone [facility] [employer] [facility] [place] [phone] Ingrid Marie NP Missed appts/Abn pap from Last 3 Months Immunizations Immunization Administration Dates Next Due Influenza, Quadrivalent, Spl it, Preservative Free, Intramuscular 01/01/2021(Deferred: Patient Refused) Influenza, Trivalent, IM (MDV) 12/27/2013 Pneumococcal Polysaccharide PPV23 04/05/2014 Tdap 03/31/2021(Deferred: No longer needed),12/04/2019(),04/04/2014 Surgical History Surgery Date Site/Laterality Comments KNEE SURGERY x 2 CHOLECYSTECTOMY SECTION x 2 Medical History Medical History Date Comments Bipolar 1 disorder (HCC) PTSD (post-traumatic stress disorder) Depression Asthma Headache H/O multiple concussions TBA Fibromyalgia Umbilical hernia Family History Medical History Relation Name Comments Hypertension Maternal Grandfather Arthritis Mother Calcium disorder Mother Cervical cancer Mother Emphysema Mother Fibromyalgia Mother Melanoma Mother Ovarian cancer Mother Relation Name Status Comments Maternal Grandfather Mother Social History Tobacco Use Types Packs/Day Years Used Date Smoking Tobacco: Former Cigarettes Smokeless Tobacco: Never Tobacco Cessation:Counseling Given: Not Answered Alcohol Use Standard Drinks/Week Comments Not Currently [...] on file Legal Sex Female 3:38 AM INTEGRATION SOFTWARE ENGINEER Gender Identity Not on file Sexual Orientation Not on file Obstetrics History Para Term AB IAB SAB Ectopic Multiple Livin g Live Births 2 2 2 0 2 2 Date Outcome GA Total Labor Labor/2nd/3rd Weight Sex Type Anes PTL Erlinda A1 A5 Name Clin 015 Term 39w 3d 3.6 kg (7 lb 15 oz) F CS-LT ranv N Livin g 022 Term 38w 5d 0h 05m 0h 05m 3.416 kg (7 lb 8.5 oz) F CS-LT ranv Spinal N Livin g 8 9 JACKS ON,Jaspreet Lam MD Complications:None Delivery Location:This [facility] ([facility] L AND D PROCEDURE) Last Filed Vital Signs Vital Sign Reading Time Taken Comments Blood Pressure 130/84 2024 1:29 PM CDT Pulse 89 05/15/2024 11:06 AM INTEGRATION SOFTWARE ENGINEER Temperature 36.6 C (97.8 F) 10/08/2023 4:57 PM CDT Respiratory Rate 13 03/22/2024 9:15 AM INTEGRATION SOFTWARE ENGINEER Oxygen Saturation 99% 05/15/2024 11:06 AM INTEGRATION SOFTWARE ENGINEER Inhaled Oxygen Concentration - - Weight 151 kg (333 lb) 2024 1:29 PM CDT Height 180.3 cm (5' 11 ) 2024 1:29 PM CDT Body Mass Index 46.44 2024 1:29 PM CDT Plan of Treatment Health Maintenance Due Date Last Done Comments Varicella Vaccines (1 of 2 - 13+ 2-dose series) 2002 Hepatitis B Screening 06/12/2007 Influenza Vaccine (Season Ended) 2024 01/09/2014, 12/27/2013 Cervical Cancer Screening 06/11/20252024, 2024, 11/10/2021, Additional history exists Depression Screening 2025 2024 Regular Well Visit/Exam 18-64 2025 2024, 11/10/2021 DTaP/Tdap/Td Vaccine (4 - Td or Tdap) 12/03/2029 12/04/2019, 07/28/2016, 04/04/2014 Pneumococcal vaccine <65 (3 of 3 - PCV20 or PCV21) 06/12/2039 04/05/2014, 03/03/2014 Hepatitis C Screening Completed 09/12/2020 HPV Vaccines Aged Out No longer eligi ble based on patient's age to complete this topic Procedures Procedure Name Priority Date/Time Associated Diagnosis Comments PAP AND HIGH RISK HPV, REFLEX TO GENOTYPING Routine 2024 12:20 PM CDT Well woman exam HIGH RISK HPV DNA DETECTION WITH GENOTYPING Routine 2024 9:00 AM CDT Well woman exam CRP (ACUTE PHASE) Routine 05/15/2024 12: 38 PM INTEGRATION SOFTWARE ENGINEER Diarrhea of presumed infectious origin Diarrhea due to malabsorption Abdominal pain Blood in stool ERYTHROCYTE SEDIMENTATION RATE Routine 05/15/2024 12:38 PM INTEGRATION SOFTWARE ENGINEER Diarrhea of presumed infectious origin Diarrhea due to malabsorption Abdominal pain Blood in stool IGA Routine 05/15/2024 12:38 PM INTEGRATION SOFTWARE ENGINEER Diarrhea of presumed infectious origin Diarrhea due to malabsorption Abdominal pain Blood in stool TISSUE TRANSGLUTAMINASE, IGA Routine 05/15/2024 12:38 PM INTEGRATION SOFTWARE ENGINEER Diarrhea of presumed infectious origin Diarrhea due to malabsorption Abdominal pain Blood in stool THYROID FUNCTION CASCADE Routine 05/15/2024 12:38 PM INTEGRATION SOFTWARE ENGINEER Diarrhea of presumed infectious origin Diarrhea due to malabsorption Abdominal pain Blood in stool HEPATITIS C ANTIBODY Routine 09/12/2020 12:45 PM CDT Encounter for supervision of other normal in first trimester 10 weeks gestation of from Last 3 Months or Most Recently Relevant to Health Maintenance Results * Pap and High Risk HPV and Genotyping (Cytology Component) (2024 12:20 PM CDT) Thin prep (Pap test) 2024 12:20 PM CDT 06/12/2024 12:20 PM CDT Narrative PATHOLOGY CH - 06/13/2024 11:44 AM CDT [facility] Department of Pathology [address] [place] [id number] Final Report with Addendum Note to Patients: This report may contain a detailed description of human tissue sent by a health care provider to the laboratory for pathologic evaluation. The content of this report is essential for diagnosis and may provide important critical findings. This information may be unfamiliar to patients to review without a medical professional present. It is advised that the patient review this report in the presence of a health care provider who can answer questions and explain the details. Patient Name: CECILIA MOORE Address: [address] [place] [address] Gender: F : 1990 (Age: 34) Service: Location: N : [id number] [facility] #: [id number] Patient Type: SPECIMEN Taken: 2024 Received: 06/12/2024 Accessioned:: 06/12/2024 Reported: 06/13/2024 Physician(s): BALA Velazquez FNP Diagnosis: SOURCE OF SPECIMEN SCREENING THIN PREP IMAGED PAP w/ HPV: STATEMENT OF ADEQUACY - Specimen satisfactory for interpretation; endocervical/transformation zone component absent or insufficient GENERAL CATEGORIZATION: - Negative for intraepithelial lesion or malignancy ADLA Najera(ASCP) Report Electronically Reviewed and Signed Out By ALDA Najera(ASCP) 06/13/2024 11:44:06Addenda: HPV Test Interpretation (Normal-Negative for High Risk HPV) HPV HR 16- Not detected HPV HR 18-Not detected HPV HR non 16/18- Not detected Interpretive Data Nucleic acid amplification for detection of high-risk Human Papilloma virus (HPV) is performed by the Christina Chris 6800 HPV test. This assay specifically detects HPV- 16 and HPV-18 genotypes. The following HPV genotypes are detected as high-risk HPV: HPV-31, 33, 35, 39, 45, 51, 52, 56, 58, 59, 66, and 68. This assay has been approved by the [place] Food and Drug Administration for detection of HPV in cervical specimens collected by a physician using an endocervical brush/spatula or cervical broom and placed in the ThinPrep Pap Test PreservCyt collection containers. The performance characteristics of this test have been verified by the [facility] Molecular Infectious Disease laboratory. Correlate with reported cytology results, as applicable. Interpretive data last revised 22 ALDA Najera(ASCP)Report Electronically Reviewed and Signed Out By ALDA Najera(ASCP) 06/13/2024 10:08:59 Specimen(s) Received: A: SCREENING THIN PREP IMAGED PAP w/ HPV Clinical History: Last Menstrual Period: 06/06/24 The Pap test is a screening test used to aid in the detection of cervical cancer and its precursors. It should not be the sole means by which malignant and premalignant lesions are diagnosed. Both false negative and false positive results may occur. It also has poor sensitivity for the detection of endometrial lesions and should not be used to evaluate suspected endometrial abnormalities. For these reasons it is most important to obtain Pap tests at regular intervals. The performance characteristics of some immunohistochemical stains, fluorescence in-situ hybridization tests and immunophenotyping by flow cytometry cited in this report (if any) were determined by the Surgical Pathology Department at [facility] as part of an ongoing software quality assurance analyst program and in compliance with federally mandated regulations drawn from the Clinical Laboratory Improvement Act of 1988 (CLIA '88). Some of these tests rely on the use of analyte specific reagents and are subject to specific labeling requirements by the [place] Food and Drug Administration. Such diagnostic tests may only be performed in a facility that is certified by the Department of Health and Human Services as a high complexity laboratory under CLIA '88. The FDA has determined that such clearance or approval is not necessary. This test is used for clinical purposes. It should not be regarded as investigational or for research. Nevertheless, federal rules concerning the medical use of analyte specific reagents require that the following disclaimer be attached to the report: This test was developed and its performance characteristics determined by the Surgical Pathology Department [facility]. It has not been cleared or approved by the [place]. S. Food and Drug Administration. Ingrid Marie NP LAB CYTOLOGY ORDERABLES Final Re sult PATHOLOGY [address] [place] [address] * High Risk HPV DNA Detection with Genotyping (Molecular component) (2024 9:00 AM CDT) HPV HR 16 Not Detected Not Detected [facility] Comment:Testing performed by : [facility], [address] [place]., [address] HPV HR 18 Not Detected Not Detected [facility] Comment:Testing performed by : [facility], [address] [place]., [address] HPV HR Non 16/18 Not Detected Not Detected [facility] Comment: Interpretive Data Nucleic acid amplification for detection of high-risk Human Papilloma virus (HPV) is performed by the Christina Chris 6800 HPV test. This assay specifically detects HPV-16 and HPV-18 genotypes. The following HPV genotypes are detected as high-risk HPV: HPV-31, 33, 35, ,39, 45, 51, 52, 56, 58, 59, 66, and 68. This assay has been approved by the [place] Food and Drug Administration for detection of HPV in cervical specimens collected by a physician using an endocervical brush/spatula or cervical broom and placed in the ThinPrep Pap Test PreservCyt collection containers. The performance characteristics of this test have been verified by the [facility] Molecular Infectious Disease laboratory. Correlate with separately reported cytology results, as applicable. Interpretive data last revised 22 Testing performed by: [facility], [address] [place]., [address] Endocervical 2024 9:00 AM CDT 06/12/2024 4:29 PM CDT Narrative [facility] - 06/13/2024 2:39 AM CDT Clinical history and diagnosis->screening Testing type->Screening Last menstrual period (date if known)->[id number] us Ingrid Marie MANAGER STORY LAB BODY FLUIDS AND STOOLS ORDER SANDY Final Result [facility] [id number] [place] [address] [facility] * Thyroid Function [place] (05/15/2024 12:38 PM INTEGRATION SOFTWARE ENGINEER) TSH 1.04 0.30 - 4.20 mcIUnit/mL Blood 05/15/2024 12:3 8 PM INTEGRATION SOFTWARE ENGINEER 05/15/2024 1:56 PM INTEGRATION SOFTWARE ENGINEER Kojo Lora MD LAB BLOOD ORDERABLES Final Resul t Performing Organization Address City/[facility]/ZIP Co de Phone Number [facility] ([facility]) 1 [facility] [place] [address] * Tissue transglutaminase IgA (TGG-IgA Ab) (05/15/2024 12:38 PM INTEGRATION SOFTWARE ENGINEER) TTG ab, IgA <0.5 <=14.9 units/mL Comment: Interpretive data Negative: <15 units/mL Positive: > or equal to 15 units/mL Current interpretive data was last revised on 2016. Testing performed by: [facility], [address], [place]., [address] Blood 05/15/2024 12:3 8 PM INTEGRATION SOFTWARE ENGINEER 05/15/2024 8:17 PM INTEGRATION SOFTWARE ENGINEER Kojo Lora MD LAB BLOOD ORDERABLES Final Resul t [facility] ([place]) 1 [facility] [place] [address] * Erythrocyte sedimentation rate (05/15/2024 12:38 PM INTEGRATION SOFTWARE ENGINEER) Pathologist [facility] Erythrocyte sedimentation rate 15 1 - 20 mm/hr Blood 05/15/2024 12:3 8 PM INTEGRATION SOFTWARE ENGINEER 05/15/2024 1:56 PM INTEGRATION SOFTWARE ENGINEER Kojo Lora MD LAB BLOOD ORDERABLES Final Resul t Performing Organization Address [facility] Co de Phone Number [facility] ([facility]) 1 [place] [address] * CRP (acute phase) (05/15/2024 12:38 PM INTEGRATION SOFTWARE ENGINEER) Pathologist [facility] CRP 5.4 <=10.0 mg/L Blood 05/15/2024 12:3 8 PM INTEGRATION SOFTWARE ENGINEER 05/15/2024 1:56 PM INTEGRATION SOFTWARE ENGINEER Kojo Lora MD LAB BLOOD ORDERABLES Final Resul t Performing Organization Address [facility] Co de Phone Number [facility] ([facility]) 1 [facility] [place] [address] * IgA (05/15/2024 12:38 PM INTEGRATION SOFTWARE ENGINEER) Pathologist [facility] Immunoglobulin A 265 70 - 400 mg/dL Comment:Testing performed by : [facility], [address] [place] [address], [address] Blood 05/15/2024 12:3 8 PM INTEGRATION SOFTWARE ENGINEER 05/15/2024 6:24 PM INTEGRATION SOFTWARE ENGINEER us Kojo Lora MD LAB BLOOD ORDERABLES Final Resul t [facility] ([place]) 1 [facility] [place] [address] * Hepatitis C antibody (09/12/2020 12:45 PM CDT) Hep C Ab Nonreactive Nonreactive [facility] ([facility]) Comment: Interpretive Data Nonreactive: Antibodies to HCV not detected. Does NOT exclude the possibility of recent exposure to HCV. Equivocal: Equivocal for HCV antibodies. Supplemental molecular testing will be automatically performed to determine infection status in accordance with current CDC screening recommendations. Reactive: Positive for HCV antibodies. This may represent current or past HCV infection. Supplemental molecular testing will be automatically performed to determine current infection status in accordance with current CDC screening recommendations. Interpretive data was last revised on 2019. Testing performed by: [facility], [address] [place] [address]., [id number] Blood specimen (specimen) 09/12/2020 12:45 PM CDT 09/13/2020 4:45 PM CDT Ingrid Marie NP LAB MICROBIOLOGY - GENERAL ORDER SANDY Edited Result - Final [facility] ([facility]) 1 [facility] Department [place] [address] from Last 3 Months or Most Recently Relevant to Health Maintenance Insurance [facility] [place] [place] [address] Advance Directives For more information, please contact: [phone] * Full Code (Latest Code Status on File) Date Activated Date Inactivated Comments 03/29/2021 8:06 PM 03/31/2021 8:50 PM * Full Code Date Activated Date Inactivated Comments 03/29/2021 1:37 PM 03/29/2021 8:06 PM Full CPR in case of cardiopulmonary arrest Care Teams Rheumatology Specialist Relationship Specialty Start Date End Date Petra Dickinson MD [address] [place] [address] PCP - General Obstetrics and Gynecology 05/24/24 Dash Bill MD [address] [place] [address] Internal Medicine 12/20/22 Jermain Paz MD [address] [place] [address] Dog Beautician Obstetrics and Gynecology 03/31/21
--- OUTSIDE RECORDS SUMMARY | 2024-06-25 15:59 | XMS_ITS | Encounter Summary ---
Author Organization [facility] Healthcare Address [address] [place] [address] Care Team Providers Care Mainframe Systems Programmer Name Role Phone Dash Bill MD Unavailable [phone] Jermain Paz MD Unavailable [phone] Petra Dickinson MD Primary Care Provider [phone] Encounter Details Date Type Department Care Team (Late st Contact Info) Description 05/24/2024 Results Follow-Up [facility] Medical Group Gastroenterology at [address] [place] [address] Kojo Lora MD [address] [place] [address] [address] [place] [address] Social History Tobacco Use Types [...] of Binge Drinking Not on file 06/2024 Personal Safety Answer Date Recorded Have you ever been in or are you currently in a harmful physical or emotional relationship or is someone making you feel afraid or unsafe? Denies 03/22/2024 Comments No Sex and Gender Information Value Date Recorded Sex Assigned at Not on file Legal Sex Female 3:38 AM DINING SERVER Gender Identity Not on file Sexual Orientation Not on file documented as of this encounter Plan of Treatment Not on file documented as of this encounter Visit Diagnoses Not on filedocumented in this encounter Care Teams Mainframe Systems Programmer Relationship Specialty Start Date End Date Petra Dickinson MD [address] [place], [place] [id number] PCP - General Obstetrics and Gynecology 05/24/24 Dash Bill MD [address] [place], [place] [id number] Internal Medicine 12/20/22 Jermain Paz MD [address] [facility] [address], [place] [address] Electrical Accessories Ii Assembler Obstetrics and Gynecology 03/31/21 documented as of this encounter
--- OUTSIDE RECORDS SUMMARY | 2024-06-25 15:59 | XMS_ITS | Referral Summary ---
Author Organization [facility] Address [address] [place] [address] Care Team Providers Care Air Commodore Name Role Phone Dash Bill MD Unavailable [phone] Jermain Paz MD Unavailable [phone] Petra Dickinson MD Primary Care Provider [phone] Encounters Date Type Department Care Team Description 06/19/2024 Results Follow-Up [address] [place] [address] Ingrid Marie NP 2024 2:13 PM CDT - 2024 11:59 [place] [address] Well woman exam Discharge Disposition: Discharge to home or self care 2024 1:30 PM CDT Office Visit [address] [place] [address] Ingrid Marie NP Well woman exam (Primary Dx); History of HPV infection 05/24/2024 Results Follow-Up [facility] Medical Group Gastroenterology at [address] [place] [address] Kojo Lora MD 05/22/2024 Orders Only [facility] Gastroenterology at [address] [place] [address] Kojo Lora MD Abdominal pain (Primary Dx); Abnormal CT of the abdomen 05/22/2024 Telephone [facility] Medical [facility] Gastroenterology at [address] [place] [address] Cadence Nava LPN 05/22/2024 Orders Only [facility] Gastroenterology at [address] [place] [address] Kojo Lora MD Liver lesion (Primary Dx) 05/15/2024 12:35 PM OIL FIELD TESTER Lab [address] Diarrhea of presumed infectious origin; Diarrhea due to malabsorption; Abdominal pain; Blood in stool 05/15/2024 11:00 AM OIL FIELD TESTER Office Visit [facility] Gastroenterology at [address] [place] [address] Kojo Lora MD Diarrhea of presumed infectious origin (Primary Dx); Diarrhea due to malabsorption; Abdominal pain; Blood in stool 05/07/2024 10:30 AM OIL FIELD TESTER Office Visit [facility] [address] [place] [address] Virgilio Johnston MD Chronic bilateral low back pain without sciatica (Primary Dx); Chronic migraine without aura without status migrainosus, not intractable; Foot pain, left 04/19/[address] [place] [address] Ingrid Marie NP Missed appts/Abn pap from Last 3 Months Allergies Active Allergy Reactions Criticality Noted Date Comments Codeine Dizziness Low Penicillins Hives,Vomiting Medium Reaction: NAUSEA, VOMITING, , Medications valACYclovir (Valtrex) 500 mg tablet Take 2 tablets (1,000 mg total) by mouth daily 30 tablet 11 05/11/19 Active ibuprofen (ADVIL,MOTRIN) 600 mg tablet TAKE [...] 60 tablet 3 05/07/19 25 Active rizatriptan RUBBER STAMPS AND DIES SUPERVISOR (MAXALT-RUBBER STAMPS AND DIES SUPERVISOR) 10 mg disintegrating tabletIndications: Migraine Take 1 [...] Morbid obesity with BMI of 40.0-44.9, adult 08/2021 Assessment & Plan (11/17/2021 6:36 AM [...] call the clinic or return to the [facility] for further evaluation. Trichomonas vaginalis (TV) [...] patient is hungry for lunch. She will burr picker her compazine and try lunch. If she does not tolerate lunch she was counseled to call the clinic back or to return to the [facility] for further assessment. Resolved Problems Problem [...] [x] Method of feeding: breast feeding [] Entry Level Receptionist [] Car seat discussed [] PP Depression [...] status. She has not been able to burr picker her medication due to medicaid coverage not [...] patient is hungry for lunch. She will burr picker her compazine and try lunch. If she does not tolerate lunch she was counseled to call the clinic back or to return to the [facility] for further assessment. Immunizations Immunization Administration Dates Next Due Influenza, Quadrivalent, Spl it, Preservative Free, Intramuscular 01/01/2021(Deferred: Patient Refused) Influenza, Trivalent, IM (MDV) 12/27/2013 Pneumococcal Polysaccharide PPV23 04/05/2014 Tdap 03/31/2021(Deferred: No longer needed),12/04/2019(),04/04/2014 Social History Tobacco Use Types Packs/Day Years [...] Frequency of Binge Drinking Not on file 03/06/2024 PHQ-2 Answer Date Recorded PHQ-2 Total Score [...] on file Legal Sex Female 3:38 AM OIL FIELD TESTER Gender Identity Not on file Sexual Orientation Not on file Last Filed Vital Signs Vital Sign Reading Time Taken Comments Blood Pressure 130/84 2024 1:29 PM CDT Pulse 89 05/15/2024 11:06 AM OIL FIELD TESTER Temperature 36.6 C (97.8 F) 10/08/2023 4:57 PM CDT Respiratory Rate 13 03/22/2024 9:15 AM OIL FIELD TESTER Oxygen Saturation 99% 05/15/2024 11:06 AM OIL FIELD TESTER Inhaled Oxygen Concentration - - Weight 151 kg (333 lb) 2024 1:29 PM CDT Height 180.3 cm (5' 11 ) 2024 1:29 PM CDT Body Mass Index 46.44 2024 1:29 PM CDT Plan of Treatment Not on file Procedures Procedure Name Priority Date/Time Associated Diagnosis Comments PAP AND HIGH RISK HPV, REFLEX TO GENOTYPING Routine 2024 12:20 PM CDT Well woman exam HIGH RISK HPV DNA DETECTION WITH GENOTYPING Routine 2024 9:00 AM CDT Well woman exam CRP (ACUTE PHASE) Routine 05/15/2024 12: 38 PM OIL FIELD TESTER Diarrhea of presumed infectious origin Diarrhea due to malabsorption Abdominal pain Blood in stool ERYTHROCYTE SEDIMENTATION RATE Routine 05/15/2024 12:38 PM OIL FIELD TESTER Diarrhea of presumed infectious origin Diarrhea due to malabsorption Abdominal pain Blood in stool IGA Routine 05/15/2024 12:38 PM OIL FIELD TESTER Diarrhea of presumed infectious origin Diarrhea due to malabsorption Abdominal pain Blood in stool TISSUE TRANSGLUTAMINASE, IGA Routine 05/15/2024 12:38 PM OIL FIELD TESTER Diarrhea of presumed infectious origin Diarrhea due to malabsorption Abdominal pain Blood in stool THYROID FUNCTION CASCADE Routine 05/15/2024 12:38 PM OIL FIELD TESTER Diarrhea of presumed infectious origin Diarrhea due [...] PATHOLOGY CH - 06/13/2024 11:44 AM CDT [facility] Department of Pathology [address] [place] [address] Final Report with Addendum Note to Patients: [...] the details. Patient Name: CECILIA MOORE Address: [address] [place] [address] Gender: F : 1990 (Age: 34) Service: Location: [facility] #: [id number] Patient Type: SPECIMEN Taken: 2024 Received: 06/12/2024 Accessioned:: 06/12/2024 Reported: 06/13/2024 Physician(s): BALA Velazquez FNP Diagnosis: SOURCE OF SPECIMEN SCREENING THIN PREP IMAGED PAP w/ HPV: STATEMENT OF ADEQUACY - Specimen satisfactory for interpretation; endocervical/transformation zone component absent or insufficient GENERAL CATEGORIZATION: - Negative for intraepithelial lesion or malignancy ALDA Najera(ASCP) Report Electronically Reviewed and Signed Out [...] this test have been verified by the [facility] Molecular Infectious Disease laboratory. Correlate with reported cytology results, as applicable. Interpretive data last revised 22 ALDA Najera(ASC)Report Electronically Reviewed and Signed Out By ALDA Najera(ASC) 06/13/2024 10:08:59 Specimen(s) Received: A: SCREENING THIN [...] determined by the Surgical Pathology Department at [facility] as part of an ongoing quality rn program and in compliance with federally mandated [...] characteristics determined by the Surgical Pathology Department [facility]. It has not been cleared or approved by the U. S. Food and Drug Administration. Ingrid Marie NP LAB CYTOLOGY ORDERABLES Final Re sult PATHOLOGY [address] [place] [address] * High Risk HPV DNA Detection with Genotyping (Molecular component) (2024 9:00 AM CDT) HPV HR 16 Not Detected Not Detected [facility] Comment:Testing performed by : [facility], [address] [place]., [address] HPV HR 18 Not Detected Not Detected [facility] Comment:Testing performed by : [facility], [address] [place]., [address] HPV HR Non 16/18 Not Detected Not [...] this test have been verified by the [facility] Molecular Infectious Disease laboratory. Correlate with separately reported cytology results, as applicable. Interpretive data last revised 22 Testing performed by: [facility], [address] [place]., [address] Endocervical 2024 9:00 AM CDT 06/12/2024 4:29 PM CDT Narrative [facility] - 06/13/2024 2:39 AM CDT Clinical history and diagnosis->screening Testing type->Screening Last menstrual period (date if known)->[id number] us Ingrid Marie NP LAB BODY FLUIDS AND STOOLS ORDER SANDY Final Result [facility] [address] [place] [address] [facility] * Thyroid Function [place] (05/15/2024 12:38 PM OIL FIELD TESTER) TSH 1.04 0.30 - 4.20 mcIUnit/mL Blood 05/15/2024 12:3 8 PM OIL FIELD TESTER 05/15/2024 1:56 PM OIL FIELD TESTER us Kojo Lora MD LAB BLOOD ORDERABLES Final Resul t [facility] ([address] [place] [address] * Tissue transglutaminase IgA (TGG-IgA Ab) (05/15/2024 12:38 PM OIL FIELD TESTER) TTG ab, IgA <0.5 <=14.9 units/mL Comment: Interpretive data Negative: <15 units/mL Positive: > or equal to 15 units/mL Current interpretive data was last revised on 2016. Testing performed by: [facility], [address] [place] [address]., [address] Blood 05/15/2024 12:3 8 PM OIL FIELD TESTER 05/15/2024 8:17 PM OIL FIELD TESTER Kojo Lora MD LAB BLOOD ORDERABLES Final Resul t [facility] ([place]) 1 [facility] [place] [address] * Erythrocyte sedimentation rate (05/15/2024 12:38 PM OIL FIELD TESTER) Erythrocyte sedimentation rate 15 1 - 20 mm/hr Blood 05/15/2024 12:3 8 PM OIL FIELD TESTER 05/15/2024 1:56 PM OIL FIELD TESTER Kojo Lora MD LAB BLOOD ORDERABLES Final Resul t Performing Organization Address [facility] Co de Phone Number [facility] ([place]) 1 [facility] [place] [address] * CRP (acute phase) (05/15/2024 12:38 PM OIL FIELD TESTER) CRP 5.4 <=10.0 mg/L Blood 05/15/2024 12:3 8 PM OIL FIELD TESTER 05/15/2024 1:56 PM OIL FIELD TESTER Kojo Lora MD LAB BLOOD ORDERABLES Final Resul t Performing Organization Address [facility] Co de Phone Number [facility] ([place]) 1 [facility] [place] [address] * IgA (05/15/2024 12:38 PM OIL FIELD TESTER) Immunoglobulin A 265 70 - 400 mg/dL Comment:Testing performed by : [facility], [address] [place] [address], [place]., [address] Blood 05/15/2024 12:3 8 PM OIL FIELD TESTER 05/15/2024 6:24 PM OIL FIELD TESTER Kojo oLra MD LAB BLOOD ORDERABLES Final Resul t [facility] ([place]) 1 [facility] [place] [address] * Hepatitis C antibody (09/12/2020 12:45 PM CDT) Hep C Ab Nonreactive Nonreactive [facility] ([place]) Comment: Interpretive Data Nonreactive: Antibodies to HCV [...] last revised on 2019. Testing performed by: [facility], [address] [place] [address]., [address] Blood specimen (specimen) 09/12/2020 12:45 PM CDT 09/13/2020 4:45 PM CDT Ingrid Marie NP LAB MICROBIOLOGY - GENERAL ORDER SANDY Edited Result - Final [facility] ([place]) 1 [facility] [place] [address] from Last 3 Months or Most Recently Relevant to Health Maintenance Insurance [facility] Advance Directives For more information, please contact: [phone] * Full Code (Latest Code Status on File) Date Activated Date Inactivated Comments 03/29/2021 8:06 PM 03/31/2021 8:50 PM * Full Code Date Activated Date Inactivated Comments 03/29/2021 1:37 PM 03/29/2021 8:06 PM Full CPR in case of cardiopulmonary arrest Care Teams Air Commodore Relationship Specialty Start Date End Date Petra [place] MD [address] [place] [address] PCP - General Obstetrics and Gynecology 05/24/24 Dash Bill MD [address] [place] [address] Internal Medicine 12/20/22 Jermain Paz MD [address], [place] [address] Roof Tiler Obstetrics and Gynecology 03/31/21
--- OUTSIDE RECORDS SUMMARY | 2024-06-25 15:59 | XMS_ITS ---
Author Organization [facility] Address [address] [place] [address] Phone Care Team Providers Care Network Operations Manager Name Role Phone DELORIS PHILLIPS, SENIA Ornelas Unavailable [phone] KENYA BUNCH Primary Care Provider [phone] Plan of Treatment No Plan of Treatment [...] Relationship Effect kayla Dates 1 - [facility] [id number] GINNY MOORE Self Clinical Notes Includes: Signed Clinical Notes starting from 04/02/2022 No Clinical Notes Recorded
--- OUTSIDE RECORDS SUMMARY | 2024-06-25 15:59 | XMS_ITS | Clinical Summary ---
Author Organization [facility] Address [address] [place] [address] Phone Care Team Providers Care Acquisition Consultant Name Role Phone SENIA PUENTES MD Unavailable [phone] KENYA BUNCH Primary Care Provider [phone] Reason for Visit and Chief Complaint GENERAL [...] Subscriber Relationship Effect kayla Dates 1 - [facility] [id number] GINNY MOORE Self Clinical Notes Includes: Clinical Notes from this encounter No Clinical Notes Recorded
--- OUTSIDE RECORDS SUMMARY | 2024-06-25 15:59 | XMS_ITS | Clinical Summary ---
Author Organization [facility] Address [address] [place] [address] Phone Care Team Providers Care Customer Marketing Assistant Name Role Phone SENIA PUENTES MD Unavailable [phone] KENYA BUNCH Primary Care Provider [phone] Reason for Visit and Chief Complaint GENERAL [...] Dates 1 - [facility] [id number] GINNY MOORE Self Clinical Notes Includes: Clinical Notes from this encounter No Clinical Notes Recorded
--- OUTSIDE RECORDS SUMMARY | 2024-06-25 16:00 | XMS_ITS | Clinical Summary ---
Author Organization [facility] Attributor Address [address] [place] [address] Care Team Providers Care Consulting Practice Manager Name Role Phone Unavailable Primary Care Provider Unavailabl e Source Comments [facility] Attributor,non-owned Affiliates and Associated Physician Practices is amultiple site organization consisting of ambulatory clinics and hospital sitesin [place], [place], [place] and [place]. This disclosure is being madepursuant to the Care Everywhere program and may not contain all information available regarding this patient. Last updated 17.[employer] Attributor Allergies Active Allergy Reactions Criticality Noted Date [...]
--- OUTSIDE RECORDS SUMMARY | 2024-06-25 16:00 | XMS_ITS | Encounter Summary ---
Author Organization [facility] Address [address] [place] [address] Care Team Providers Care Natural Gas Treating Unit Operator Name Role Phone Unavailable Primary Care Provider Unavailabl e Encounter Details Date Type Department Care Team (Late st Contact Info) Description 08/16/2019 Lab Requisition [facility] LAB MICROBIOLOGY [address] [place] [address] Landon Irby MD Cough Social History Tobacco [...] Not detected, Invalid 08/17/2019 5:11 AM CDT [facility] MICROBIOLOGY Microbiology SPECIMEN FROM NASOPHARYNGEAL STRUCTURE / Unknown Collection / Unknown 08/16/2019 9:40 AM CDT 08/16/2019 10:20 PM CDT Narrative [facility] MICRO[facility]OLOGY - 08/17/2019 5:11 AM CDT This nucleic acid amplification assay performance was validated by [facility]. This test has been authorized [...] MICROBIOLOGY [address] [place] [address], [facility] [phone] documented in this encounter Visit Diagnoses Diagnosis Cough documented in this encounter Additional Health Concerns Infection Onset Date Last Indicated Resolved Time COVID-19 Under Investigation 08/16/2019 08/16/2019 08/17/2019 5:11 AM CDT documented as of this encounter
== END 2024-06-25 14:26 | disposition left against medical advice (07) ==
LOC: ANHED 14:17
PROVIDERS: PCP Internal Medicine
DX: R51.9 Headache, unspecified (principal)
CPT/HCPCS: 99199

== ENCOUNTER 2024-07-24 09:59 | Emergency (ER) | payer OTHER, SELFPAY ==
--- NOTE | 2024-07-24 10:02 | ED.ABDPAIN ---
HPI - Abdominal Pain General Stated Complaint: Hernia Pain Time Seen by Provider: 07/24/24 10:01 Source: patient Mode of arrival: ambulatory Limitations: no limitations History of Present Illness HPI narrative: Cecilia is a 34-year-old female patient presenting to the clinic today with complaints of abdominal hernia pain x2 days. She reports has constant sharp pain in the mid abdomen that is radiating into the bilateral sides of her abdomen also in the lower abdomen. She reports she has had associated nausea due to the pain but no vomiting. Last menstrual period was June 25, 2024. History of umbilical hernia. Denies any urinary symptoms. Last bowel movement was today and normal. No known fevers, chills, body aches. Related Data Home Medications ?Medication ?Instructions ?Recorded ?Confirmed ?Last Taken ?Type albuterol sulfate 90 mcg/actuation See Rx Instructions .Route 06/08/23 06/08/23 Unknown History aerosol inhaler .COMPLEX PRN SOB aripiprazole 5 mg tablet 5 mg PO DAILY 06/08/23 06/08/23 Unknown History atomoxetine 40 mg capsule 40 mg PO DAILY 06/08/23 06/08/23 Unknown History (Strattera) baclofen 20 mg tablet 20 mg PO BID 06/08/23 06/08/23 Unknown History carbamazepine 200 mg tablet 200 mg PO TID 06/08/23 06/08/23 Unknown History cholecalciferol (vitamin D3) 50 50 mcg PO DAILY 06/08/23 06/08/23 Unknown History mcg (2,000 unit) capsule fluoxetine 20 mg capsule 20 mg PO DAILY 06/08/23 06/08/23 Unknown History fluoxetine 40 mg capsule 40 mg PO DAILY 06/08/23 06/08/23 Unknown History gabapentin 300 mg capsule 300 mg PO BID 06/08/23 06/08/23 Unknown History hydroxyzine HCl 25 mg tablet 25 mg PO BID 06/08/23 06/08/23 Unknown History prazosin 1 mg capsule 1 mg PO DAILY 06/08/23 06/08/23 Unknown History aripiprazole 15 mg tablet mg 07/24/24 Unknown History cholestyramine (with sugar) 4 gram ea 07/24/24 Unknown History powder for susp in a packet meclizine 25 mg tablet mg 07/24/24 Unknown History meloxicam 7.5 mg tablet mg 07/24/24 Unknown History omeprazole 20 mg capsule,delayed mg 07/24/24 Unknown History release propranolol 60 mg capsule,24 mg PO 07/24/24 Unknown History hr,extended release topiramate 50 mg tablet mg 07/24/24 Unknown History Allergies Allergy/AdvReac Type Severity Reaction Status Date / Time aspirin Allergy Unknown Rash Verified 07/24/24 10:11 codeine Allergy Unknown lightheaded/passes Verified 07/24/24 10:11 out iodine Allergy Unknown Skin Verified 07/24/24 10:11 Reaction Review of Systems Review of Systems: Pertinent positives per HPI. Patient denies any fever, chills, rash, headache, visual changes, dizziness, cough, runny nose, sore throat, shortness of breath, chest pain, palpitations, nausea, vomiting, diarrhea, constipation, or any urinary issues. PMFSH Comments At the time of my signature, I reviewed and agree with the nursing past medical, surgical, social, and family history. There is no relevant family history pertinent to the patient complaint. Exam Narrative: General: Well-developed, morbidly obese, in no apparent distress. Head: Normocephalic, atraumatic. Cardio: Regular rate and rhythm, s1 and s2 normal, no murmur appreciated. Resp: Clear to auscultation bilaterally, no rhonchi, rales, wheezing or rubs. Abdomen: Soft, pliable, bowel sounds present in all quadrants, periumbilical and bilateral lower abdomen tender to palpation, no organomegly, no CVAT tenderness. Course Course Emergency Course: Portions of this record may have been created with voice recognition software. Level of Care: Express Care Visit Vital Signs Vital signs: Vital signs reviewed Transfer Transfered to: [facility] Transportation: Other (Private car) Transfer rationale: Abdominal pain-periumbilical and lower abdomen-history of umbilical hernia Accepting physician: Dr. Burton Transfer comments: Report given to Kristin TRAORE MDM - Abdominal Pain MDM Narrative Medical decision making narrative: At the time of visit patient is resting comfortably on the exam table. Patient appears to be nontoxic. Plan: Patient has mid abdominal pain that is radiating into the sides of the abdomen and down into the lower abdomen. + nausea without vomiting. History of umbilical hernia. Tenderness to palpation over the umbilicus in the lower abdomen. She denies any urinary symptoms. Last menstrual period was June 25. Recommend sending to the ER for further evaluation. Increase to transfer and would like to go to [facility] ER. Called and report was given to Kristin TRAORE and Dr. Burton accepts patient. Differential Diagnosis Differential diagnosis: Likely abdominal pain, acute appendicitis, calculus of kidney, constipation, diverticulitis, endometriosis, gastroenteritis, pancreatitis, small bowel obstruction and other (Umbilical hernia, femoral hernia, ventral hernia) Discharge Plan Discharge Clinical Impression: Abdominal pain Qualifiers: Abdominal location: periumbilical Qualified Code(s): R10.33 - Periumbilical pain Patient Disposition: Acute Care Hospital Condition: Stable Patient Language: Swazi Prescriptions: No Action fluoxetine 40 mg capsule 40 mg PO DAILY clonidine HCl 0.1 mg tablet 0.1 mg PO BID prazosin 1 mg capsule 1 mg PO DAILY baclofen 20 mg tablet 20 mg PO BID carbamazepine 200 mg tablet 200 mg PO TID gabapentin 300 mg capsule 300 mg PO BID hydroxyzine HCl 25 mg tablet 25 mg PO BID ibuprofen 600 mg tablet 600 mg PO DAILY albuterol sulfate 90 mcg/actuation HFA aerosol inhaler See Rx Instructions .ROUTE .COMPLEX PRN (Reason: SOB) Rx Instructions: PRESCRIBED fluoxetine 20 mg capsule 20 mg PO DAILY atomoxetine [Strattera] 40 mg capsule 40 mg PO DAILY aripiprazole 5 mg tablet 5 mg PO DAILY aripiprazole 2 mg tablet 2 mg PO DAILY cholecalciferol (vitamin D3) 50 mcg (2,000 unit) capsule 50 mcg PO DAILY nitrofurantoin monohyd/m-cryst [Macrobid] 100 mg capsule 100 mg PO Q12H 5 Days Qty: 10 0RF Rx Instructions: must administer with a meal/food Follow-up/Referrals: Vargas,Petra Woods MD [Primary Care Provider] - Time of Disposition: 10:25 Quality NIHSS Nursing Documentation ED NIHSS nursing documentation: reviewed/agree
[2024-07-24 10:06] VITALS: BP 146/85; PULSE 80; RESP 20; TEMP 36.7; O2SAT 100
--- OUTSIDE RECORDS SUMMARY | 2024-07-24 10:14 | XMS_ITS | Data Portability ---
Author Organization [facility] Mary Alice Holloway Address [address] [place] [address] Care Team Providers Care Director Of Sales Support Name Role Phone DASH BUNCH Primary Care Provider LEO ABDI Neurologist CAROLEE ELIAS Stereotyper Apprentice ORACIO CLARKE Real Estate Processor Assessment No assessment recorded. Plan of Treatment Reminders Order Date Submit Date Provider Last Modified By Organization Details Last Modified Time Details Appointments None recorded . Lab CMP, serum or plasma 2024 025 eemeryma [facility], [address], [address], 5 11:22:32 CBC w/ auto diff 2024 025 eemeryma [facility], [address] [place] [address], [place], [address], 5 11:22:32 TSH, ultra-se nsitive, serum 2024 025 eemeryma [facility], 102 [facility], [place], [address], 5 11:22:32 HbA1c (hemoglo bin A1c), blood 2024 025 eemeryma [facility], 102 [facility], [place], [address], 5 11:22:33 CMP, serum or plasma 2024 025 [employer] [facility], 102 [facility], [place], [address], 5 08:11:48 CBC w/ auto diff 2024 025 [facility], [address] [facility], [place], [address], 5 08:11:48 TSH, ultra-se nsitive, serum 2024 025 [employer] [facility], [address] [facility], [place], [address], 5 08:11:49 HbA1c (hemoglo bin A1c), blood 2024 025 [employer] [facility], [address] [facility], [place], [address], 5 08:11:49 Referral None recorded . Procedures None recorded . Surgeries None recorded . Imaging US, liver 2023 024 alicia Nance (Radiology), [address] [facility] [place], [address], 5 12:17:27 CT, abdomen + pelvis, w/o contrast 2023 024 [facility] (Radiology), [address] [facility] [place], [address], 4 08:41:24 XR, knee 2023 024 [place] [facility] [address] [facility] [place], [address], 4 09:51:08 Medication Orders meloxica m 7.5 mg tablet 2024 025 [facility]40554, [address], [place], [place], [id number], 5 17:30:29 Tylenol Arthriti s Pain 650 mg tablet,e xtended release 2024 025 [facility] #04146, [address], [place], [place], [id number], 5 17:30:29 meclizin e 25 mg tablet 2024 025 [facility] #80707, [address], [place], [place], [id number], 5 17:30:29 Lyrica 50 mg capsule 2024 025 [facility] #88212, [address], [place], [place], [id number], 5 14:21:53 meclizin e 25 mg tablet 2024 025 [facility] #73781, [address], [place], [place], [id number], 5 10:42:54 tramadol 50 mg tablet 2023 024 [facility] [employer] [facility], [address], [place], [place], [id number], 4 11:07:21 Patient TargetsNo targets recorded. Patient Instructions Encounter Date Encounter Id Patient Instructions Last Modified By Organization Details Last Modified Time 06/23/2023 [id number] keep f/u nsuthan Not available 06/23 14:35:24 10/13/2023 [id number] irritable bowel syndrome: care instructions nsuthan Not available 10/13/2023 09:54:45 A healthy lifestyle: care instructions nsuthan Not available 10/13/2023 09:29:23 01/23/2024 [id number] abuse number and f/u in 1 month nsuthan Not available 01/23/2024 11:30:08 03/27/2024 [id number] keep f/u nsuthan Not available 03/27 14:22:35 Reason for Referral None Reported. Results Created Date Observation Date Name Description Value Unit Range Abnormal Flag Note LastModifiedBy Organization Detail LastModifiedTime 06/25/19 24 06/25/2023 XR, knee No observ ation record ed. [address] [place], [address], 06/27/2023 14:12:05 10/13/19 24 10/08/2023 CT, abdom en + pelvi s, w/ contr ast No observ ation record ed. [email or web address] [address] [place], [address], 10/13/2023 14:00:37 Result Notes None recorded. Problems Name Problem SNOMED Code Status Onset Date Resolution Date Notes Provider Name and Address Organization Details Recorded Time Mixed anxiety and depressi ve disorder 050485135 Active 2018 bipolar /ptsd-se es psych Dash Bunch MD Attn: Ken odell,[address] [facility], [place], [address], [place] 4 15:20:59 Leukocyt osis 730510774 Active 2018 Dash Bunch MD Attn: Ken odell,[address] [facility], [place], [address], [place] 2 14:38:12 Postoper ative pain 970082883 Completed 08/08/2018 Dash Bunch MD Attn: Ken odell,[address] [facility], [place], [address], [place] 9 10:20:23 Wound pain 880067447 Completed 08/08/2018 Dash Bunch MD Attn: Ken odell,[address] [facility], [place], [address], [place] 9 10:20:20 Traumati c hematoma 469004286 Active 2021 R/calf -us 12/03 Dash Bunch MD Attn: Ken odell,[address] [facility], [place], [address], [place] 2 08:38:02 Low back pain 347896521 Active 2022 Dash Bunch MD Attn: Ken odell,[address] [facility], [place], [address], [place] [facility] 3 14:32:15 Obesity 314047840 Active Dash Bunch MD Attn: Ken odell,[address] [facility], [place], [address], [place] 2 14:38:12 Arthriti s of left knee 01762240965 93602 Active 2023 xray 07/05 - OA/effus ion/loos e boies -referre d to ortho Dash Bunch MD Attn: Ken odell,[address] [facility], [place], [address], [place] 4 09:09:45 Notes:Some problems listed i n Documents: #[id number], #[id number], #[id number], #[id number], #[id number], #[id number], #[id number], #[id number], #[id number], #[id number], #[id number], #[id number], #[id number] could not be added to this patient's chart. Please review these documents and add these problems to the patient's chart manually as needed. Problem Notes None recorded. Procedures Surgical History Date Name Laterality Status Provider Name and Address Organization Details Recorded Time 03/29/19 22 section completed Amanda Cantu MA [facility] 08/06/2021 10:10:23 04/03/19 15 Caesarean Section completed Cecilia Bernal [place] 04/17/2014 15:44:18 03/14/19 08 Knee Surgery completed Shanna Evans [place] 01/26/2014 13:17:22 Cholecystectomy completed Amanda Cantu [place] [facility] 08/08/2018 10:14:10 Imaging Results Imaging Date Name Status LastModified by Organiz ation Details LastModified Time 06/25/2023 XR, knee completed [address] [place], [address], 06/27/2023 14:12:05 10/08/2023 CT, abdomen + pelvis, w/ contrast completed nacho [address] [place], [address], 10/13/2023 14:00:37 Procedure Notes None recorded. Medical Equipment None Reported. Allergies Allergen ID Allergen Name Allergen Category Reaction Reaction Severity Criticality Documentation Date Start Date Code Code System Note Provider Name and Address Organization Details Recorded Time 74 Product containin g penicilli n (product) medicatio n hives Not available Not available 01/26/2014 37992 8001 SNOMED Shanna fontaine, [place] - [place] 4 13:18:48 75 codeine medicatio n hives Not available Not available 01/26/2014 2670 RxNorm Shanna fontaine, [place] - [place] 4 13:18:48 76 iodine medicatio n Not available Not available Not available 01/26/2014 5933 RxNorm Shanna fontaine, [place] [facility] 4 13:19:04 Medications Name Sig Start Date Stop Date [...] Updated DateTime 4 176.53 cm 47.1 kg/m2 250683. 41 g 102 /min 16 /min 98.2 [degF] 98 % 98 % 125 mm[Hg] 88 mm[Hg] Debora Blake [place] [facility] 4 12:30:21 Date Recorded Body height Body mass index (BMI) Body weight Heart rate Respiratory rate Body temperature Oxygen saturation Oxygen saturation in Arterial blood by Pulse oximetry Systolic blood pressure Diastolic blood pressure Provider Name and Address Organization Details Last Updated DateTime 4 176.53 cm 45.5 kg/m2 940389. 69 g 97 /min 14 /min 97.5 [degF] 98 % 98 % 141 mm[Hg] 87 mm[Hg] Amanda Cantu [place] [facility] 4 09:05:49 Date Recorded Body height Body mass index (BMI) Body weight Heart rate Respiratory rate Body temperature Oxygen saturation Oxygen saturation in Arterial blood by Pulse oximetry Systolic blood pressure Diastolic blood pressure Provider Name and Address Organization Details Last Updated DateTime 4 176.53 cm 49 kg/m2 545813. 11 g 84 /min 14 /min 97.5 [degF] 98 % 98 % 140 mm[Hg] 96 mm[Hg] Amanda Cantu [place] [facility] 4 11:02:42 Date Recorded Body height Body mass index (BMI) Body weight Heart rate Respiratory rate Body temperature Oxygen saturation Oxygen saturation in Arterial blood by Pulse oximetry Systolic blood pressure Diastolic blood pressure Provider Name and Address Organization Details Last Updated DateTime 5 176.53 cm 47.8 kg/m2 710209. 45 g 84 /min 14 /min 97.3 [degF] 96 % 96 % 140 mm[Hg] 95 mm[Hg] Amanda Cantu MA [facility] 5 10:26:10 Date Recorded Body height Body mass index (BMI) Body weight Oxygen saturation Oxygen saturation in Arterial blood by Pulse oximetry Heart rate Body temperature Systolic blood pressure Diastolic blood pressure Provider Name and Address Organization Details Last Updated DateTime 5 176.53 cm 49.7 kg/m2 472632. 8 g 98 % 98 % 97 /min 98.3 [degF] 107 mm[Hg] 74 mm[Hg] Callie [place] [facility] SI 5 16:35:10 Social History Question Answer Notes LastModified by Organizat ion Details LastModified Time Tobacco Smoking Status Former Smoker Quit 09/2022 Amanda Cantu MA null, [facility] 10/13/2023 09:02:30 Do You Have An Advance Directive? No Information not available 01/29/2014 If You Are , What Was Your [...] Have You Had Close Contact With A Laboratory-confir med COVID-19 While That Case Was Ill? No Information not available 07/13/2019 In The 14 Days Before Symptom Onset, Have You Had Close Contact With A Person Who Is Under Investigation For COVID-19 While That Person Was Ill? No Information not available 07/13/2019 Have You Been To An Area Known To Be High Risk For COVID-19? No Information not available 07/13/2019 Are You Deaf Or Do You Have Serious Difficulty Hearing? Yes Both Ears Information not available 08/06/2021 What Type Of Diet Are You Following? REGULAR Information not available 01/29/2014 Which Illicit Or Recreational Drugs Have You Used? Marijuana Information not available 08/08/2018 Education 12 Information n ot available 01/29/2014 What Is The Highest Grade Or Level Of School You Have Completed Or The Highest Degree You Have Received? [id number] Information not available 05/30/2023 Have There Been Any Changes To Your Family Or Social Situation? No Information no t available 01/29/2014 Frequent Air Travel No Information [...] In One Or Both Eyes? No Information no t available 07/13/2019 Live Alone Or With Others? With Others Information not available 01/29/2014 Marital Status Single Informatio n not available 01/26/2014 What Was The Date Of Your Most Recent Tobacco Screening? 05/31/2024 Information not available 05/31/2024 How Many Children Do You Have? 0 Information not available 01/26/2014 Performs Monthly Self-breast Exam? Yes Information no t available 07/13/2019 Do You Use Protection During [...] You Passively Exposed To Smoke? Yes Information no t available 01/29/2014 How Much Tobacco Do You Smoke? No Information not available 05/31/2024 Smoking Pre- 1 PPD Information not available 01/26/2014 General Stress Level High Information not available 08/08/2018 Do You Use Sunscreen Routinely? Yes Information not available 01/29/2014 Supplements Vitalins Information not available 01/29/2014 Has Tobacco Cessation Counseling Been Provided? Yes Information not available 09/24/2021 On What Date Was Tobacco Cessation Counseling Provided? 05/31/2024 Information not available 05/31/2024 How Many Years Have You Smoked Tobacco? 11 Information not available 07/13/2019 Sex: Female Functional Status Question Answer Note LastModified by Organizat ion Details LastModified Time Do you use any illicit or recreational drugs? Yes marijuana Information not available 08/06/2021 Do you or have you ever used any other forms of tobacco or nicotine? Yes Information not available 12/21/2022 What is your level of alcohol consumption? None Information not available 05/31/2024 Do you or have you ever used smokeless tobacco? Never used smokeless tobacco Information not available 07/13/2019 Are you currently employed? Yes Information not available 05/31/2024 Are you able to care for yourself? 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 Current user of electronic cigarettes .5% nicotine Information not available 02/16/2022 What is your exercise level? None Information not available 01/29/2014 Mental Status Question Answer Note LastModified by Organization D etails LastModified Time Do you feel stressed (tense, restless, nervous, or anxious, or unable to sleep at night)? [id number] Information not available 01/23/2024 Family History Relationship Description Onset Age of this Age Resolved Age Notes LastModified by Organization Details LastModified Time Father Hypertensive disorder marcos Not available 2014 11:22:02 Father Hypercholest erolemia marcos Not available 2014 11:22:02 Mother Carcinoma of cervix [email or web address] Not available 2014 11:22:02 Mother Malignant neoplasm of ovary crexfordma Not available 07/12 09:20:45 Mother Malignant neoplasm of skin crexfordma Not available 07/12 09:20:59 Medical History Condition Response Coronary Artery Disease N Other N High Blood Pressure N Atrial Fibrillation N Thyroid Problems N Kidney or Bladder Problems Y GI Problems Y Depression Y COPD N Blood Clots N Have you had a mammogram in the last yea r? N Skin Problems Y Bipolar Y Anemia Y Heart Attack ([place]) N Anxiety Disorder Y Diabetes N Muscle, [...] conjugate PCV 13 4 completed Not Available [facility] 10/27/2022 16:54:30 TST-PPD intradermal 4 completed Not Available [facility] 10/27/2022 16:54:30 Past Encounters Encounter ID Performer Location Encounter Start Date Encounter Closed Date Diagnosis/Indication Diagnosis SNOMED-CT Code Diagnosis ICD10 Code Diagnosis Note [id number] MD Shaheed Garcia ([facility]) [address] [facility] [place] [address] 01/29/2014 14:29:07 01/29/2014 16:20:57 Normal 45219388 Obesity 903890605 [id number] MD Shaheed Garcia ([facility]) [address] [facility] [place] [address] 02/18/2014 15:51:37 02/18/2014 16:48:19 Normal [id number] MD Shaheed Garcia ([facility]) [address] [facility] [place] [address] 03/04/2014 15:35:50 03/04/2014 16:32:19 Normal [id number] MD Shaheed Garcia ([facility] 122) [address] [place] [address] 03/11/2014 16:27:46 03/13/2014 12:05:54 Normal [id number] MD Shaheed Garcia ([facility] 122) [address] [place] [address] 03/18/2014 16:44:59 03/18/2014 18:37:37 Normal [id number] MD Shaheed Garcia ([facility]) [address] [place] [address] 03/25/2014 16:22:08 03/26/2014 09:19:45 Normal [id number] MD Shaheed Garcia ([facility] 122) [address] [facility] [place] [address] 04/02/2014 14:46:15 04/02/2014 16:07:26 Normal [id number] MD Shaheed Garcia ([facility] 122) [address] [place] [address] 04/17/2014 14:42:19 04/18/2014 10:08:21 Postoperative visit 147855650 patient doing well. She has chronic depression and notes talking to her pcp about recent concerns and feels much better. patient to return in 4 weeks for full visit. [id number] MD Shaheed Garcia ([facility] 122) [address] [facility] [place] [address] 04/23/2014 09:44:50 04/23/2014 11:52:17 Postoperative pain 980785902 Patient seems anxious about pain though exam is mostly unremarkab le. Will have patient go to ER for CT scan. Otherwise return to office in 3 weeks for full exam. [id number] MD Shaheed Garcia ([facility] 122) [address] [facility] [place] [address] 05/02/2014 10:48:16 05/03/2014 10:13:27 Wound pain 288065050 pain now resolved. Patient completed antibiotic s. followup in 3 weeks for visit [id number] MD Shaheed Garcia ([facility] 122) [address] [facility] [place] [address] 05/27/2014 11:01:16 05/28/2014 09:27:57 care [id number] [facility] education [id number] patient interested in LARC. Will consider over next couple of days and call with decision for ordering. pamphlets given [id number] MD Becki Serrano (Adult Med) [address] [place] [address] 08/08/2018 09:41:25 08/08/2018 12:01:22 Adult health examination 973896969 Z00.00 healthy diet and exercise discussed with pt Smoker 02723526 F17.200 Mixed anxi ety and depressive disorder 042442504 F41.8 pt to see psychiatri stpt to continue fluoxetine pt did not tolerate buspar /wellbutri nAdd Gabapentin hs [id number] MD Becki Serrano (Adult Med) [address] [place] [address] 09/27/2018 09:11:20 09/28/2018 09:04:09 Mixed anxiety and depressive disorder 681461099 F41.8 not well controlled due to noncomplia nt with med -not taking fluoxetine for monthspt has apt to see psychiatri st in 12/05/18pt to take fluoxetine 20mg dailypt did not tolerate buspar /wellbutri npt did not start Gabapentin yet-pt said I don't want to take new pills pt is willing to see therapist Smoker 43840349 F17.200 pt is not ready to quit yet Leukocytosis 606516099 D 72.829 possibly due to smoking Syncope 505135901 R55 due to panic attacksche ck ekgpt did not go to ER ( had similar episodes in the past per pt) [id number] MD Kelly Serranohalto (Adult Med) [address] [place] [address] 07/13/2019 08:13:20 07/16/2019 07:47:48 Pain in right lower limb 722021357 M79.604 improvedpt is requesting a letter to go back to work . [id number] [facility] [address] [place] [address] 08/06/2021 09:50:11 08/07/2021 07:53:25 Mixed anxiety and depressive disorder 375500225 F41.8 not well controlled due to noncomplia nt with med -not taking fluoxetine for monthspt to restart fluoxetine 20mg daily-also start hydroxyzin ept did not tolerate buspar /wellbutri npt did not start Gabapentin yet-pt said I don't want to take new pills pt to see psychiatri Upper resp iratory infection 54381364 J06.9 -keep good hydration /go to ER if sob or breathing issue [id number] MD Kelly Serranohalto (Adult Med) [address] [place] [address] 09/24/2021 12:03:16 09/25/2021 07:21:48 Mixed anxiety and depressive disorder 494021548 F41.8 fair controlled pt to increase fluoxetine 40 mg daily-pt said hydroxyzin e is not helpingpt did not tolerate buspar /wellbutri npt referred to psychiatri -informati on given to pt to make apt Noncomplia nce with treatment 6435338 Z91.19 -complianc e with med is ongoing issue with pt- counselled Premenstrual symptom 108 16133 N94.3 with abdominal upset - keep good hydration- if GI symptoms continues -consider stool study and further eval [id number] MD Svetlana Serranoto (Adult Med) [address] [facility] [address] 10/06/2021 13:57:24 10/07/2021 10:15:00 Pain in right lower limb 350333047 M79.604 with swelling and h/o injury-josh ck venous doppler Mixed anxi ety and depressive disorder 846689652 F41.8 fair controlled -recently fluoxetine 40 mg daily-pt said hydroxyzin e is not helpingpt did not tolerate buspar /wellbutri npt referred to psychiatri st -[facility] on given to pt to make apt-will add trazodone hs [id number] MD Becki Serrano (Adult Med) [address] [place] [address] 11/06/2021 12:11:35 11/09/2021 06:30:11 Pain in right lower limb 295970872 M79.604 with swelling and h/o injury- venous doppler - pending Mixed anxi ety and depressive disorder 539557733 F41.8 with bipolar /ptsd -improving -pt is on fluoxetine 40 mg daily / clonidine /carbamaze pine -seeing-pt said hydroxyzin e is not helpingpt did not tolerate buspar /wellbutri npt [facility]-will add trazodone hs Obesity 127807640 E66.9 [id number] MD Kelly Serranohalto (Adult Med) [address] [facility] [address] 11/20/2021 15:02:06 11/24/2021 12:05:03 Low back pain 703512705 M54.50 with knee pain and ankle -possible fibromyalg ia-exercis e/heat therapy/lo ose wt- work excuse for 2 days-add gabapentin for pain [id number] MD Becki Serrano (Adult Med) [address] [place] [address] 02/16/2022 13:06:23 02/17/2022 13:17:20 COVID-19 741621510 U07.1 -keep good hydration/ pt to go to ER if sob /chest painpt is on carbamazip ine which has interactio n with paxlovid-w ill rx symptomati alvarez [id number] MD Kelly Serranohalto (Adult Med) [address] [place] [address] 04/27/2022 14:14:39 04/29/2022 11:05:20 Obesity 338206906 E66.9 Low back pain 091703203 M54.50 with knee pain and ankle -possible fibromyalg ia-exercis e/heat therapy/lo ose wt- work excuse for 2 days-added gabapentin for pain Mixed anxi ety and depressive disorder 938992540 F41.8 with bipolar /ptsd -fair control-pt is on fluoxetine 40 mg daily / clonidine /carbamaze pine -pt did not make f/u apt with psych due to transporta tion issue -will refill fluoxetine for a month until she gets with her psych-pt said hydroxyzin e is not helpingpt did not tolerate buspar /wellbutri n Pain in ri ght lower limb 421039170 M79.604 with h/o injury-pt takes ibuprofen with baclofen Seborrheic dermatitis of scalp 460643742 L21.0 [id number] [facility] [address] [place] [address] 04/30/2022 12:01:46 05/05/2022 15:03:39 Upper respiratory infection 35966692 J06.9 -keep good hydration /go to ER if sob or breathing issue [id number] MD Kelly Serranohalto (Adult Med) [address] [place] [address] 11/11/2022 10:50:03 11/12/2022 10:10:32 Seborrheic dermatitis of scalp 527306060 L21.0 Mixed anxi ety and depressive disorder 449644659 F41.8 with bipolar /ptsd -fair control- pt has apt today-pt is on fluoxetine 40 mg daily / clonidine /carbamaze pine -pt did not make f/u apt with psych due to transporta tion issue -will refill fluoxetine for a month until she gets with her psych-pt said hydroxyzin e is not helpingpt did not tolerate buspar /wellbutri n Low back pain 150903558 M54.50 with knee pain and ankle -possible fibromyalg ia-exercis e/heat therapy/lo ose wt- work excuse for 2 days-added gabapentin for pain Obesity 199857885 E66.9 healthy diet and exercise discussed with pt [id number] [facility] [address] [place] [address] 12/09/2022 14:31:46 12/12/2022 11:46:51 Infection of sebaceous cyst 699493597 L72.3 pt is on her periods /not Cyst of skin 828391943 L 72.9 - check us to make sure since it is midline lump Mixed anxi ety and depressive disorder 189416859 F41.8 with bipolar /ptsd -fair control-pt is on fluoxetine 40 mg daily / clonidine /carbamaze pine -pt did not make f/u apt with psych due to transporta tion issue -will refill fluoxetine for a month until she gets with her psych -pt said she is going to see one very soon-pt said hydroxyzin e is not helpingpt did not tolerate buspar /wellbutri n [id number] [facility] [address] [place] [address] 12/21/2022 12:17:42 12/22/2022 14:00:55 Low back pain 718552560 M54.50 with knee pain and ankle -possible fibromyalg ia-exercis e/heat therapy/lo ose wt- work excuse for 2 days-added gabapentin for pain Acute bronchitis 9947738 2 J20.9 -keep good hydration- pt to go to ER if chest pain /sob Elevated blood-pressure reading without diagnosis of hypertension 411927094 R03.0 -possibly due to bronchitis - will re-assess [id number] MD [facility] [address] [place] [address] 05/30/2023 11:18:06 06/02/2023 16:08:55 Low back pain [id number] M54.50 with knee pain and ankle -possible fibromyalg ia-exercis e/heat therapy/lo ose wt- work excuse for 2 days-added gabapentin for painpt also sees neuro who ordered NCS Mixed anxi ety and depressive disorder [id number] F41.8 with bipolar /ptsd /adhd-fair control-pt is on several meds including fluoxetine / clonidine /carbamaze pine + pt did not tolerate buspar /wellbutri n Obesity [id number] E66.9 healthy diet and exercise discussed with pt [id number] MD [facility] [address] [facility] [address] [place] [address] 06/23/2023 11:43:11 07/01/2023 14:56:35 Pain of left knee joint [id number] 93096 M25.562 with h/o fall- check xray Low back pain 547894429 M54.50 with knee pain and ankle -possible fibromyalg ia-exercis e/heat therapy/lo ose wt-added gabapentin for painpt also sees neuro who ordered NCS Mixed anxi ety and depressive disorder 194099335 F41.8 with bipolar /ptsd /adhd-fair control-pt is on several meds including fluoxetine / clonidine /carbamaze pine + pt did not tolerate buspar /wellbutri n [id number] MD [facility] [address] [place] [address] 10/13/2023 08:02:26 10/19/2023 15:52:29 Obesity 752318230 E66.8 healthy diet and exercise discussed with pt Chronic diarrhea 8472985 09 K52.9 - pt had CT at ER which showed hazy density on mesenteric fat and liver lesion-deepthi l consider stool study if problem continuesw ill do f/u CTpt to follow BRAT diet /keep good hydrationc onsider GI referral in future if problem continues Lesion of liver 91469208 [address] -will check liver us / pt had h/o cholecyste ctomy Colitis 52029277 K52.9 on CT - needs f/u CT-pt to keep good hydration [id number] MD Becki Serrano (Adult Med) [address] [address] 01/23/2024 10:43:03 01/24/2024 17:18:37 Mixed anxiety and depressive disorder [id number] F41.8 with bipolar /ptsd /adhd-fair controlpt sees therapist as well as psychiatri st-pt is on several meds including fluoxetine / clonidine /carbamaze pine + pt did not tolerate buspar /wellbutri npt to call crisis number if needed Low back pain [id number] M54.50 with knee pain and ankle -possible fibromyalg ia-exercis e/heat therapy/lo ose wt-added gabapentin for painpt also sees neuro who ordered NCS Elevated blood-pressure reading without diagnosis of hypertension 189541241 R03.0 -possibly due to mental health issues- will re-assess [id number] MD Becki Serrano (Adult Med) [address] [place] [address] 03/27/2024 09:59:27 04/02/2024 09:46:42 History of syncope [id number] 99089 Z86.79 - pt was evaluated in ER and told vasovagal- history suggest BPPV-will rx with meclizine Elevated blood-pressure reading without diagnosis of hypertension 978521662 R03.0 -pt to follow low salt diet /exercise- will re-assess Mixed anxi ety and depressive disorder 023361101 F41.8 with bipolar /ptsd /adhd-fair controlpt sees therapist as well as psychiatri st-pt is on several meds including fluoxetine / clonidine /carbamaze pine + pt did not tolerate buspar /wellbutri npt to call crisis number if needed Low back pain 966896926 M54.50 with knee pain and ankle -possible fibromyalg ia-exercis e/heat therapy/lo ose wt-added gabapentin tid for pain -pt said it is not helping much -willing to try lyrica if her insurance approves - will consider to d/c gabapentin if lyrica helps with painpt also sees neuro -pt missed apt per pt [id number] MD Becki MENDOZA (GIVING OFFICER) [address] [place] [address] 05/31/2024 15:54:41 06/12/2024 12:54:36 History of syncope [id number] 87394 Z86.79 - DDx: electrolyt e abnormalit y vs arrhythmia vs vasovagal reaction vs hypotensio n vs symptomati c anemia vs seizure vs PNES- f/u previously ordered labs: CMP, CBC, TSH, A1c- Suspect vasovagal syncope due to pain; pain management as below- Refilled home meclizine 25 mg twice daily as needed Low back pain 852267591 M54.50 - Discussed improving pain control with [...] Co urtney Long 06/23/2023 1 [facility] (MEDICAID HMO) [id number] 0003 Cecilia Long [id number] Cecilia Long 10/13/2023 2 *SELF PAY* Co urtney Long 10/13/2023 1 [facility] (MEDICAID HMO) [id number] 0003 Cecilia Long [id number] Cecilia Long 01/23/2024 2 *SELF PAY* Co urtney Long 01/23/2024 1 [facility] (MEDICAID HMO) [id number] 0003 Cecilia Long [id number] Cecilia Long 03/27/2024 2 *SELF PAY* Co urtney Long 03/27/2024 1 [facility] (MEDICAID HMO) [id number] 0003 Cecilia Long [id number] Cecilia Long 05/31/2024 2 *SELF PAY* Co urtney Long 05/31/2024 1 [facility] (MEDICAID HMO) [id number] 0003 Cecilia Long [id number] Cecilia Long Notes Date Note Type Note Provider Name and Address Organization Details Recorded Time 06/23/2023 text/html Back PainReporte d bypatient.Location:[facility] is not radiating; low back Severity:moderate (5-7) Onset/Timing:recurrent episode Context:unusual activity Aggravating Factors:movement/posit ioning Associated Symptoms:no numbness of the legs/feetKneeReported bypatient.Location:[facility] t Quality:aching Severity:moderate Duration:4 days Timing:gradual Context:fall (accidental fall few days ago) Aggravating Factors:ROM; weight bearing Associated Symptoms:swelling Prior Imaging:none Dash Bunch MD Attn: [address]ing[address] [place], [address], [facility] 06/24/2023 14:35:46 10/13/2023 text/html DiarrheaReported bypatient.Quality:freq uent;watery Duration:present for 1 week Onset/Timin-3 times a day Context:no one else with similar symptoms; no recent picnic Associated Symptoms:no fever; no blood in stool;nausea;vomiting; crampingNotes:pt had CT in ER which showed nonspecific changes of mesenteric fat and liver lesion a month ago pt is here for hospital f/u for diarrhea Dash Bunch MD Attn: Accounting[address] [place], [address], [facility] 10/13/2023 09:55:39 01/23/2024 text/html Anxiety/Depressi onRepo rted [...] legs/feet Dash Bunch MD Attn: [address]ing[address] [place], [address], [facility] 01/24/2024 15:18:54 03/27/2024 text/html Anxiety/Depressi onRepo rted [...] multiple complaints Dash Bunch MD Attn: [address]ing[address] [place], [address], [facility] 03/27/2024 14:24:38 05/31/2024 text/html Syncopal episode - [...] worse MAXWELL CALLAHAN MD Attn: [address]ing[address] [place], [address], [place] [facility] 2024 22:10:09 OBGyn Episode No OBEpisode recorded.
--- OUTSIDE RECORDS SUMMARY | 2024-07-24 10:14 | XMS_ITS | Clinical Summary ---
Author Organization [facility] Address [address] [place] [address] Care Team Providers Care Angular Developer Name Role Phone Dash Bill MD Unavailable [phone] Jermain Paz MD Unavailable [phone] Petra Dickinson MD Primary Care Provider [phone] Allergies Active Allergy Reactions Criticality Noted Date [...] up to 6 doses 6 tablet 10/08/19 Active Additional Information Patient not taking.Reported on 2024 ondansetron ODT (ZOFRAN-ODT) 4 mg disintegrating tablet Take 1 tablet (4 mg total) by mouth every 8 (eight) hours as needed for nausea or vomiting 20 tablet 10/08/19 24 Active propranoloL (INDERAL) 10 mg tablet Take 1 tablet (10 mg total) by mouth 2 (two) times a day 03/06/20 Active meclizine (ANTIVERT) 25 mg tablet Take 1 tablet (25 mg total) by mouth 2 (two) times a day as needed 04/11/19 25 Active pregabalin (LYRICA) 50 mg capsule Take 1 capsule (50 mg total) by mouth 2 (two) times a day 04/11/19 Active topiramate (TOPAMAX) 50 mg tablet Take half tablet (25 mg) po twice a day for one week, then one tablet po twice a day 60 tablet 3 05/07/19 Active rizatriptan AIRCRAFT DISPATCHER (MAXALT-AIRCRAFT DISPATCHER) 10 mg disintegrating tabletIndications: Migraine Take 1 tablet (10 mg total) by mouth every 2 (two) hours as needed for migraine May repeat in 2 hours if unresolved. Do not exceed 30 mg in 24 hours. 9 tablet 3 05/07/19 Active cholestyramine (QUESTRAN) 4 gram powder Take 1 packet (4 g total) by mouth 2 (two) times a day with meals Dissolve in 8 oz of liquid and drink before a meal 60 packet 2 05/16/19 Active omeprazole (PriLOSEC) 20 mg capsule Take 1 capsule (20 mg total) by mouth daily 30 capsule 3 05/16/19 25 Active desog-e.estradioL/ e.estradioL (KARIVA) 0.15-0.02 mgx21 /0.01 mg x 5 per tablet Take 1 tablet by mouth daily 84 tablet 3 06/12/19 25 Active Active Problems Problem Noted Date Diagnosed [...] call the clinic or return to the [facility] for further evaluation. Trichomonas vaginalis (TV) [...] patient is hungry for lunch. 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 If she does not tolerate lunch she was counseled to call the clinic back or to return to the [facility] for further assessment. 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 She has not been able to picker box operator her medication due to medicaid coverage not [...] patient is hungry for lunch. 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 If she does not tolerate lunch she was counseled to call the clinic back or to return to the [facility] for further assessment. Encounters Date Type Department Care Team Description 06/26/2024 Telephone [facility] [address] [place] [address] Emery Mittal 06/19/2024 Results Follow-Up [address] [place] [address] Ingrid Marie NP 2024 2:13 PM CDT - 2024 11:59 PM CDT Hospital Encounter [address] [address] Well woman exam Discharge Disposition: Discharge to home or self care 2024 1:30 PM CDT Office Visit [address] [place] [address] Ingrid Marie NP Well woman exam (Primary Dx); History of HPV infection 05/24/2024 Results Follow-Up [facility] Gastroenterology at [address] [place] [address] Kojo Lora MD 05/22/2024 Orders Only [facility] at [address] [place] [address] Kojo Lora MD Abdominal pain (Primary Dx); Abnormal CT of the abdomen 05/22/2024 Telephone [facility] at [address] [place] [address] Cadence Nava LPN 05/22/2024 Orders Only [facility] at [address] [place] [address] Kojo Lora MD Liver lesion (Primary Dx) 05/15/2024 12:35 PM OIL TANKER CAPTAIN Lab [address] Diarrhea of presumed infectious origin; Diarrhea due to malabsorption; Abdominal pain; Blood in stool 05/15/2024 11:00 AM OIL TANKER CAPTAIN Office Visit [facility] at [address] [place] [address] Kojo Lora MD Diarrhea of presumed infectious origin (Primary Dx); Diarrhea due to malabsorption; Abdominal pain; Blood in stool 05/07/2024 10:30 AM OIL TANKER CAPTAIN Office Visit [facility] [place] [address] [place] [address] [address] [place] [address] Virgilio Johnston MD Chronic bilateral low back pain without sciatica (Primary Dx); Chronic migraine without aura without status migrainosus, not intractable; Foot pain, left from Last 3 Months Immunizations Immunization Administration [...] file Legal Sex Female 3:38 AM OIL TANKER CAPTAIN Gender Identity Not on file Sexual Orientation [...] Spinal N Livin g 8 9 JACKS ON,JASWANT blanc, Jaspreet Enriquez MD Complications:None Delivery Location:This [facility] ([facility] L AND D PROCEDURE) Last Filed Vital Signs Vital Sign Reading Time Taken Comments Blood Pressure 130/84 2024 1:29 PM CDT Pulse 89 05/15/2024 11:06 AM OIL TANKER CAPTAIN Temperature 36.6 C (97.8 F) 10/08/2023 4:57 PM CDT Respiratory Rate 13 03/22/2024 9:15 AM OIL TANKER CAPTAIN Oxygen Saturation 99% 05/15/2024 11:06 AM OIL TANKER CAPTAIN Inhaled Oxygen Concentration - - Weight 151 [...] PHASE) Routine 05/15/2024 12: 38 PM OIL TANKER CAPTAIN Diarrhea of presumed infectious origin Diarrhea due to malabsorption Abdominal pain Blood in stool ERYTHROCYTE SEDIMENTATION RATE Routine 05/15/2024 12:38 PM OIL TANKER CAPTAIN Diarrhea of presumed infectious origin Diarrhea due to malabsorption Abdominal pain Blood in stool IGA Routine 05/15/2024 12:38 PM OIL TANKER CAPTAIN Diarrhea of presumed infectious origin Diarrhea due to malabsorption Abdominal pain Blood in stool TISSUE TRANSGLUTAMINASE, IGA Routine 05/15/2024 12:38 PM OIL TANKER CAPTAIN Diarrhea of presumed infectious origin Diarrhea due to malabsorption Abdominal pain Blood in stool THYROID FUNCTION CASCADE Routine 05/15/2024 12:38 PM OIL TANKER CAPTAIN Diarrhea of presumed infectious origin Diarrhea due [...] PATHOLOGY CH - 06/13/2024 11:44 AM CDT [facility] Department of Pathology [address] [place], [place] [id number] Final Report with Addendum Note to Patients: [...] the details. Patient Name: CECILIA MOORE Address: [address] [place] [address] Gender: F : 1990 (Age: 34) Service: Location: [facility] : [id number] [facility] #: [id number] Patient Type: SPECIMEN Taken: 2024 Received: 06/12/2024 [...] this test have been verified by the [facility] Molecular Infectious Disease laboratory. Correlate with reported [...] determined by the Surgical Pathology Department at [facility] as part of an ongoing water quality technician program and in compliance with federally mandated [...] characteristics determined by the Surgical Pathology Department [facility]. It has not been cleared or approved by the U. S. Food and Drug Administration. Ingrid Marie NP LAB CYTOLOGY ORDERABLES Final Re sult [facility] [address] [place] [address] * High Risk HPV DNA Detection with Genotyping (Molecular component) (2024 9:00 AM CDT) HPV HR 16 Not Detected Not Detected [facility] Comment:Testing performed by : [facility], [address] [place]., [address] HPV HR 18 Not Detected Not Detected [facility] Comment:Testing performed by : [facility], [address] [place]., [address] HPV HR Non 16/18 Not Detected Not Detected [facility] Comment: Interpretive Data Nucleic acid amplification for [...] this test have been verified by the [facility] Molecular Infectious Disease laboratory. Correlate with separately reported cytology results, as applicable. Interpretive data last revised 22 Testing performed by: [facility], [address] [place]., [address] Endocervical 2024 9:00 AM CDT 06/12/2024 4:29 PM CDT Narrative [facility] - 06/13/2024 2:39 AM CDT Clinical history and diagnosis->screening Testing type->Screening Last menstrual period (date if known)->[id number] Ingrid Marie NP LAB BODY FLUIDS AND STOOLS ORDER SANDY Final Result Performing Organization Address [facility] Co de Phone Number [facility] [address] Department [place] [address] [facility] * Thyroid Function [facility] (05/15/2024 12:38 PM OIL TANKER CAPTAIN) TSH 1.04 0.30 - 4.20 mcIUnit/mL Blood 05/15/2024 12:3 8 PM OIL TANKER CAPTAIN 05/15/2024 1:56 PM OIL TANKER CAPTAIN Kojo Lora MD LAB BLOOD ORDERABLES Final Resul t Performing Organization Address [facility] Co de Phone Number [facility] ([place]) [address] [place] [address] [place] [address] * Tissue transglutaminase IgA (TGG-IgA Ab) (05/15/2024 12:38 PM OIL TANKER CAPTAIN) Pathologist [facility] TTG ab, IgA <0.5 <=14.9 units/mL Comment: Interpretive data Negative: <15 units/mL Positive: > or equal to 15 units/mL Current interpretive data was last revised on 2016. Testing performed by: [facility], [address] [place]., [address] Blood 05/15/2024 12:3 8 PM OIL TANKER CAPTAIN 05/15/2024 8:17 PM OIL TANKER CAPTAIN Kojo Lora MD LAB BLOOD ORDERABLES Final Resul t Performing Organization Address [facility] Co de Phone Number [facility] ([place]) 1 [facility] [place] [address] * Erythrocyte sedimentation rate (05/15/2024 12:38 PM OIL TANKER CAPTAIN) Pathologist [facility] Erythrocyte sedimentation rate 15 1 - 20 mm/hr Blood 05/15/2024 12:3 8 PM OIL TANKER CAPTAIN 05/15/2024 1:56 PM OIL TANKER CAPTAIN Kojo Lora MD LAB BLOOD ORDERABLES Final Resul t Performing Organization Address City/[facility] Co de Phone Number [facility] ([place]) 1 [facility] [place] [address] * CRP (acute phase) (05/15/2024 12:38 PM OIL TANKER CAPTAIN) Pathologist [facility] CRP 5.4 <=10.0 mg/L Blood 05/15/2024 12:3 8 PM OIL TANKER CAPTAIN 05/15/2024 1:56 PM OIL TANKER CAPTAIN Kojo Lora MD LAB BLOOD ORDERABLES Final Resul t Performing Organization Address [facility] de Phone Number [facility] ([place]) 1 [facility] [place] [address] * IgA (05/15/2024 12:38 PM OIL TANKER CAPTAIN) Pathologist [facility] [place] Immunoglobulin A 265 70 - 400 mg/dL Comment:Testing performed by : [facility], [address] [place] [address], [facility] Blood 05/15/2024 12:3 8 PM OIL TANKER CAPTAIN 05/15/2024 6:24 PM OIL TANKER CAPTAIN Result [facility] Kojo Lora MD LAB BLOOD ORDERABLES Final Resul t Performing Organization Address City/[facility] Co de Phone Number [facility] ([place]) 1 [facility] [place] [address] * Hepatitis C antibody (09/12/2020 12:45 PM CDT) [facility] Hep C Ab Nonreactive Nonreactive [facility] ([place]) Comment: Interpretive Data Nonreactive: Antibodies to HCV [...] last revised on 2019. Testing performed by: [facility], [address] [place] [address]., [address] Blood specimen (specimen) 09/12/2020 12:45 PM CDT 09/13/2020 4:45 PM CDT Ingrid Marie NP LAB MICROBIOLOGY - GENERAL ORDER SANDY Edited Result - Final [facility] ([place]) 1 [facility] [place] [address] from Last 3 Months or Most Recently Relevant to Health Maintenance Insurance [facility] Advance Directives For more information, please contact: [phone] * Full Code (Latest Code Status on File) Date Activated Date Inactivated Comments 03/29/2021 8:06 PM 03/31/2021 8:50 PM * Full Code Date Activated Date Inactivated Comments 03/29/2021 1:37 PM 03/29/2021 8:06 PM Full CPR in case of cardiopulmonary arrest Care Teams Angular Developer Relationship Specialty Start Date End Date Petra Dickinson MD [address] [place] [address] PCP - General Obstetrics and Gynecology 05/24/24 Dash Bill MD [address] [place] [address] Internal Medicine 12/20/22 Jermain Paz MD [address] [facility] [facility] [address] [place] [id number] Print Binding And Finishing Worker Obstetrics and Gynecology 03/31/21
--- OUTSIDE RECORDS SUMMARY | 2024-07-24 10:14 | XMS_ITS | Referral Summary ---
Author Organization [facility] Address [address] [place] [address] Care Team Providers Care Transmission System Operator Name Role Phone Dash Bill MD Unavailable [phone] Jermain Paz MD Unavailable [phone] Petra Dickinson MD Primary Care Provider [phone] Encounters Date Type Department Care Team Description 06/26/2024 Telephone [facility] [address] [place] [address] Emery Mittal 06/19/2024 Results Follow-Up [address] [place] [phone] Ingrid Marie NP 2024 2:13 PM CDT - 2024 11:59 PM [place] [address] Well woman exam Discharge Disposition: Discharge to home or self care 2024 1:30 PM CDT Office Visit [address] [place] [phone] Ingrid Marie NP Well woman exam (Primary Dx); History of HPV infection 05/24/2024 Results Follow-Up [facility] at [address] [place] [phone] Kojo Lora MD 05/22/2024 Orders Only [facility] at [address] [place] [address] Kojo Lora MD Abdominal pain (Primary Dx); Abnormal CT of the abdomen 05/22/2024 Telephone [facility] at [address], [place] [address] Cadence Nava LPN 05/22/2024 Orders Only [facility] at [address], [place] [address] Kojo Lora MD Liver lesion (Primary Dx) 05/15/2024 12:35 PM TRAFFIC SURVEY TECHNICIAN Lab [address] Diarrhea of presumed infectious origin; Diarrhea due to malabsorption; Abdominal pain; Blood in stool 05/15/2024 11:00 AM TRAFFIC SURVEY TECHNICIAN Office Visit [facility] at [address], [place] [address] Kojo Lora MD Diarrhea of presumed infectious origin (Primary Dx); Diarrhea due to malabsorption; Abdominal pain; Blood in stool 05/07/2024 10:30 AM TRAFFIC SURVEY TECHNICIAN Office Visit [facility] [address] [place] [address] [address], [place] [address] Virgilio Johnston MD Chronic bilateral low back pain without sciatica (Primary Dx); Chronic migraine without aura without status migrainosus, not intractable; Foot pain, left from Last 3 Months Allergies Active Allergy [...] 60 tablet 3 05/07/19 25 Active rizatriptan [employer]GER [employer] (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 Trichomonas vaginalis (TV) infection [...] patient is hungry for lunch. 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 If she does not tolerate lunch she was counseled to call the clinic back or to return to the [facility] for further assessment. Resolved Problems Problem Noted [...] [x] Method of feeding: breast feeding [] Application Chemist [] Car seat discussed [] PP [...] status. 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 If she does not tolerate lunch she was counseled to call the clinic back or to return to the [facility] for further assessment. Immunizations Immunization Administration Dates [...] on file Legal Sex Female 3:38 AM TRAFFIC SURVEY TECHNICIAN Gender Identity Not on file Sexual Orientation Not on file Last Filed Vital Signs Vital Sign Reading Time Taken Comments Blood Pressure 130/84 2024 1:29 PM CDT Pulse 89 05/15/2024 11:06 AM TRAFFIC SURVEY TECHNICIAN Temperature 36.6 C (97.8 F) 10/08/2023 4:57 PM CDT Respiratory Rate 13 03/22/2024 9:15 AM TRAFFIC SURVEY TECHNICIAN Oxygen Saturation 99% 05/15/2024 11:06 AM TRAFFIC SURVEY TECHNICIAN Inhaled Oxygen Concentration - - Weight 151 [...] (ACUTE PHASE) Routine 05/15/2024 12: 38 PM TRAFFIC SURVEY TECHNICIAN Diarrhea of presumed infectious origin Diarrhea due to malabsorption Abdominal pain Blood in stool ERYTHROCYTE SEDIMENTATION RATE Routine 05/15/2024 12:38 PM TRAFFIC SURVEY TECHNICIAN Diarrhea of presumed infectious origin Diarrhea due to malabsorption Abdominal pain Blood in stool IGA Routine 05/15/2024 12:38 PM TRAFFIC SURVEY TECHNICIAN Diarrhea of presumed infectious origin Diarrhea due to malabsorption Abdominal pain Blood in stool TISSUE TRANSGLUTAMINASE, IGA Routine 05/15/2024 12:38 PM TRAFFIC SURVEY TECHNICIAN Diarrhea of presumed infectious origin Diarrhea due to malabsorption Abdominal pain Blood in stool THYROID FUNCTION CASCADE Routine 05/15/2024 12:38 PM TRAFFIC SURVEY TECHNICIAN Diarrhea of presumed infectious origin Diarrhea due [...] PATHOLOGY CH - 06/13/2024 11:44 AM CDT [facility] Department of Pathology [address] [place] [address] Final Report with Addendum Note to Patients: [...] the details. Patient Name: CECILIA MOORE Address: [address] [place] [address] Gender: F : 1990 (Age: 34) Service: Location: N : [id number] [facility] #: [id number] Patient Type: SPECIMEN Taken: 2024 Received: 06/12/2024 [...] this test have been verified by the [facility] Molecular Infectious Disease laboratory. [...] determined by the Surgical Pathology Department at [facility] as part of an ongoing software quality manager program and in compliance with federally mandated [...] characteristics determined by the Surgical Pathology Department [facility]. It has not been cleared or approved by the U. S. Food and Drug Administration. Ingrid Marie NP LAB CYTOLOGY ORDERABLES Final Re sult PATHOLOGY [address] [place] [address] * High Risk HPV DNA Detection with Genotyping (Molecular component) (2024 9:00 AM CDT) HPV HR 16 Not Detected Not Detected [facility] Comment:Testing performed by : [facility], [address] [place]., [address] HPV HR 18 Not Detected Not Detected [facility] Comment:Testing performed by : [facility], [address] [place]., [address] HPV HR Non 16/18 Not Detected Not [...] this test have been verified by the [facility] Molecular Infectious Disease laboratory. Correlate with separately reported cytology results, as applicable. Interpretive data last revised 22 Testing performed by: [facility], [address] [place] [address]., [address] Endocervical 2024 9:00 AM CDT 06/12/2024 4:29 PM CDT Narrative [facility] - 06/13/2024 2:39 AM CDT Clinical history and diagnosis->screening Testing type->Screening Last menstrual period (date if known)->[id number] Ingrid Marie BRICK SETTER LAB BODY FLUIDS AND STOOLS ORDER SANDY Final Result Performing Organization Address [facility] de Phone Number [facility] [address] Department [place] [address] [facility] * Thyroid Function [place] (05/15/2024 12:38 PM TRAFFIC SURVEY TECHNICIAN) TSH 1.04 0.30 - 4.20 mcIUnit/mL Blood 05/15/2024 12:3 8 PM TRAFFIC SURVEY TECHNICIAN 05/15/2024 1:56 PM TRAFFIC SURVEY TECHNICIAN Kojo Lora MD LAB BLOOD ORDERABLES Final Resul t Performing Organization Address [facility] de Phone Number [facility] ([place]) [address] [facility] [place] [address] * Tissue transglutaminase IgA (TGG-IgA Ab) (05/15/2024 12:38 PM TRAFFIC SURVEY TECHNICIAN) TTG ab, IgA <0.5 <=14.9 units/mL Comment: Interpretive data Negative: <15 units/mL Positive: > or equal to 15 units/mL Current interpretive data was last revised on 2016. Testing performed by: [facility], [address] [place]., [address] Blood 05/15/2024 12:3 8 PM TRAFFIC SURVEY TECHNICIAN 05/15/2024 8:17 PM TRAFFIC SURVEY TECHNICIAN Kojo Lora MD LAB BLOOD ORDERABLES Final Resul t Performing Organization Address [facility] Co de Phone Number [facility] ([place]) [address] [facility] [place] [address] * Erythrocyte sedimentation rate (05/15/2024 12:38 PM TRAFFIC SURVEY TECHNICIAN) [facility] Erythrocyte sedimentation rate 15 1 - 20 mm/hr Blood 05/15/2024 12:3 8 PM TRAFFIC SURVEY TECHNICIAN 05/15/2024 1:56 PM TRAFFIC SURVEY TECHNICIAN Kojo Lora MD LAB BLOOD ORDERABLES Final Resul t Performing Organization Address City/[facility] Co de Phone Number [facility] ([place]) [address] [facility] [place] [address] * CRP (acute phase) (05/15/2024 12:38 PM TRAFFIC SURVEY TECHNICIAN) [facility] CRP 5.4 <=10.0 mg/L Blood 05/15/2024 12:3 8 PM TRAFFIC SURVEY TECHNICIAN 05/15/2024 1:56 PM TRAFFIC SURVEY TECHNICIAN Kojo Lora MD LAB BLOOD ORDERABLES Final Resul t Performing Organization Address [facility] Co de Phone Number [facility] ([place]) [address] [facility] [place] [address] * IgA (05/15/2024 12:38 PM TRAFFIC SURVEY TECHNICIAN) [facility] Immunoglobulin A 265 70 - 400 mg/dL Comment:Testing performed by : [facility], [address] [place] [address]., [address] Blood 05/15/2024 12:3 8 PM TRAFFIC SURVEY TECHNICIAN 05/15/2024 6:24 PM TRAFFIC SURVEY TECHNICIAN Kojo Lora MD LAB BLOOD ORDERABLES Final Resul t Performing Organization Address City/[facility] Co de Phone Number [facility] (SHAHEED) [address] [facility] [place] [address] * Hepatitis C antibody (09/12/2020 12:45 PM CDT) [facility] Hep C Ab Nonreactive Nonreactive [facility] ([place]) Comment: Interpretive Data Nonreactive: Antibodies to HCV [...] last revised on 2019. Testing performed by: [facility], [address] [place] [address]., [id number] Blood specimen (specimen) 09/12/2020 12:45 PM CDT 09/13/2020 4:45 PM CDT Ingrid Marie NP LAB MICROBIOLOGY - GENERAL ORDER SANDY Edited Result - Final [facility] ([place]) 1 [facility] Department [place] [address] from Last 3 Months or Most Recently Relevant to Health Maintenance [place] [address] [place] [address] [facility] [place] [address] [place] [address] Advance Directives For more information, please contact: [phone] * Full Code (Latest Code Status on File) Date Activated Date Inactivated Comments 03/29/2021 8:06 PM 03/31/2021 8:50 PM * Full Code Date Activated Date Inactivated Comments 03/29/2021 1:37 PM 03/29/2021 8:06 PM Full CPR in case of cardiopulmonary arrest Care Teams Transmission System Operator Relationship Specialty Start Date End Date Petra Dickinson MD [address] [place] [address] PCP - General Obstetrics and Gynecology 05/24/24 Dash Bill MD [address] [place] [address] Internal Medicine 12/20/22 Jermain Paz MD [address], [place] [address] Health Information Technician Obstetrics and Gynecology 03/31/21
--- OUTSIDE RECORDS SUMMARY | 2024-07-24 10:15 | XMS_ITS | Patient Health Record ---
Author Organization [facility] Address [address] [place] [address] Care Team Providers Care Hydroelectric Station Chief Name Role Phone Miguelangel Cunha Unavailable [phone] Allergies Allergen (clinical drug ingredient) Drug/Non Drug Allergy documented on EMR Reaction Allergy Type Onset Date Status codeine Codeine Unknown Drug Allergy Active Penicillin rash Drug Allergy Active Results Component Value Reference Range Notes Hemoglobin A1c* Reviewed date:01/18/2024 08:14:56 AM Interpretation: Performing Lab:[email or web address], [email or web address] [facility], Phone - [phone], Director - PhDWal[facility] Care[facility]iliy Notes/Report: Hemoglobin A1c 5.7 4.8-5.6 % . Prediabetes: 5.7 - 6.4 Diabetes: >6.4 Glycemic control for adults with diabetes: <7.0 Vitamin B12* Reviewed date:01/18/2024 08:12:37 AM Interpretation: Performing Lab:[email or web address].sh, [email or web address] [facility] [facility], Phone - [phone], Director - PhDWalker Notes/Report: Vitamin B12 [phone] pg/mL Folate (Folic Acid), Serum* Reviewed date:01/18/2024 08:15:30 AM Interpretation: Performing Lab:[email or web address][facility]sh, [facility], Phone - [phone], Director - PhDRicdeaconess hospital union countyteresai Notes/Report: Folate (Folic Acid), Serum 7.3 >3.0 ng/mL A serum folate concentration of less than 3.1 ng/mL is considered to represent clinical deficiency. CBC With Differential/Platel et* Reviewed date:01/18/2024 08:15:52 AM Interpretation: Performing Lab:[facility] [place], [address] [facility], Phone - [phone], Director - [facility] Notes/Report: WBC 10.4 3.4-10.8 x10E3/uL RBC 4.55 [...] S Reviewed date:01/18/2024 08:11:27 AM Interpretation: Performing Lab:[facility] [place], [address] [facility], Phone - [phone], Director - [facility] Notes/Report: Carbamazepine(Tegretol), S 4.5 4.0-12.0 ug/mL In conjunction with other antiepileptic drugs Therapeutic 4.0 - 8.0 Toxicity 9.0 - 12.0 . Carbamazepine alone Therapeutic 8.0 - 12.0 . Detection Limit = 2.0 <2.0 indicates None Detected Vitamin D, 25-Hydroxy* Reviewed date:01/18/2024 08:12:22 AM Interpretation: Performing Lab:[facility] [place], [address] [facility], Phone - [phone], Director - [facility] Notes/Report: Vitamin D, 25-Hydroxy 27.8 30.0-100.0 ng/mL Vitamin D deficiency has been defined by the [place] of Medicine and an Endocrine Society practice guideline as a level of serum 25-OH vitamin D less than 20 ng/mL (1,2). The Endocrine Society went on to further define vitamin D insufficiency as a level between 21 and 29 ng/mL (2). 1. IOM ([place] of Medicine). 2010. Dietary reference intakes for calcium and D. [place]: The National Academies Press. 2. Americo MF, Kortney FELDMAN, Jessica BIRCH, et al. Evaluation, treatment, and prevention of vitamin D deficiency: an Endocrine Society clinical practice guideline. JCEM. 2010; 96(7):1911-30. TSH+Free T4* Reviewed date:01/18/2024 08:12:45 AM Interpretation: Performing Lab:[facility] [place] [facility], Phone - [phone], Director - Nancy Notes/Report: TSH 1.090 0.450-4.500 uIU/mL T4,Free(Direct) 1.04 0.82-1.77 ng/dL Lipid Panel* Reviewed date:01/18/2024 08:14:00 AM Interpretation: Performing Lab:ReFashionerlinDeclara [facility], Phone - [phone], Director - [facility] Notes/Report: Cholesterol, Total 240 100-199 mg/dL Triglycerides 128 0-149 mg/dL HDL Cholesterol 54 >39 mg/dL VLDL Cholesterol Chema 23 5-40 mg/dL LDL Chol Calc ([facility]) 163 0-99 mg/dL CMP 14 Comprehensive Metabol ic Panel* Reviewed date:01/18/2024 08:15:41 AM Interpretation: Performing Lab:[facility] [place], [address] [facility], Phone - [phone], Director - [facility] Notes/Report: Glucose 94 70-99 mg/dL BUN 15 [...] Duration) Notes Start Date End Date Status hydrOXYzine HCl 50 MG 0.5 tablet twice d aily as needed for anxiety and 1 tablet at bedtime as needed for sleep Orally for 30 days Active Prazosin HCl 2 MG TAKE 1 CAPSULE BY UTH TWICE DAILY for 90 Active Prazosin HCl 2 MG 1 capsule twice abbey y Orally for 30 days Active Baclofen 20 MG 1 tablet Administer without regards to meals as needed Orally Twice a day Active carBAMazepine 200 MG 2 tablets (400mg) i n the morning and 3 tablets (600mg) in the evening Orally for 30 days Active Propranolol HCl ER 60 MG TAKE 1 CAPSULE BY MOUTH DAILY for 90 Active ARIPiprazole 20 MG TAKE 1 TABLET BY DAILY for 30 days Active FLUoxetine HCl 40 MG TAKE 1 CAPSULE BY M OUTH TWICE DAILY - take either morning or evening dose with fluoxetine 10mg - TOTAL DAILY DOSE 90MG for 30 days Active Qelbree 200 MG 1 capsule Orally Onc e a day for 30 days Active Meloxicam 7.5 MG 1 tablet Orally Once a day Active Vitamin D3 50 MCG (1999) TAKE 1 CAPSU LE BY MOUTH ONCE DAILY for 30 days Active FLUoxetine HCl 10 MG 1 capsule Orally On ce a day take with morning or evening dose of fluoxetine 40mg - TOTAL DAILY DOSE 90mg for 30 days Active Cholestyramine 4 GM 1 packet mixed with water or non-carbonated drink Orally twice daily Active Propranolol HCl ER 60 MG 1 capsule Orall y Once a day for 30 days Active Omeprazole 20 MG 1 capsule 1/2 to 1 h our before morning meal Orally Once a day Active Meclizine HCl 50 MG 1 tablet as needed Orally every 12 hrs Active Prazosin HCl 1 MG 1 capsule once daily in the morning - take with morning dose of prazosin 2mg for TOTAL 3mg in the morning Orally Once a day for 30 days Active Pregabalin 50 MG 1 capsule Orally Onc e a day Active Social History Tobacco Use: Social History Observation Description Date Details (start date - stop date) Former Smoker NA - NA Sex Assigned At : Social History Observation Description Sex Assigned At Female PRAPARE Question Answer Notes Date Completed/Updated: 03/06/2024 What is your current housing situation? I do not have housing (staying with others, in a hotel, in a retirement, living outside on the street, on a [...] phone, visiting friends or family, going to baptist or club meetings) More than 5 times a week How stressed are you? Stress is when someone feels tense, nervous, anxious, or can\t sleep at night because their mind is troubled Quite a bit In the past year have you sp ent more than 2 nights in a row in a correction, [facility], custodial center, or juvenile correctional facility? No Are [...] Status W/U Status Risk Notes Problem Anxiety (91360047) Anxiety (F41.9) Active confirmed Problem Bipolar 1 disorder (442923140) Bipolar 1 disorder (F31.9) Active confirmed Problem Vitamin D deficiency (70019660) Vitamin D deficiency (E55.9) Active confirmed Problem Overweight (319886312) Over weight (E66.3) Active confirmed Problem Depressed (95514399) Depressed (F32.9) Active confirmed Problem Drug monitoring done (767854071) Therapeutic drug monitoring (Z51.81) Active confirmed Problem Sleep dysfunction with arousal disturbance (346662935) Night terror (F51.4) Active confirmed Problem Impaired concentration (7700369372) Impaired concentration (R41.840) Active confirmed Vital Signs Height 71 in 07/04/2024 Weight 338 lbs 07/04/2024 BMI 47.14 kg/m2 07/04/2024 Encounters Encounter Location Date Provider Diagnosis [address] [address] 01/16/2024 Miguelangel Cunha Bipolar 1 disorder F31.9 ; Anxiety F41.9 ; Depressed F32.9 ; Impaired concentration R41.840 and Vitamin D deficiency E55.[address] [address] 01/04/2024 Miguelangel Cunha Bipolar 1 disorder F31.9 ; Anxiety F41.9 ; Depressed F32.9 ; Impaired concentration R41.840 ; Vitamin D deficiency E55.9 and Nutritional counseling Z71.[address] [address] 03/06/2024 Miguelangel Cunha Anxiety F41.9 ; Bipo lar 1 disorder F31.9 ; Depressed F32.9 ; Impaired concentration R41.840 ; Vitamin D deficiency E55.9 and Nutritional counseling Z71.[address] [address] 05/23/2024 Miguelangel Cunha Anxiety F41.9 ; Bipo lar 1 disorder F31.9 ; Depressed F32.9 ; Impaired concentration R41.840 ; Vitamin D deficiency E55.9 and Nutritional counseling Z71.[address] [address] 06/05/2024 Miguelangel Cunha Anxiety F41.9 ; Bipo lar 1 disorder F31.9 ; Depressed F32.9 ; Impaired concentration R41.840 ; Vitamin D deficiency E55.9 ; Nutritional counseling Z71.3 and Over weight E66.[address] [address] 07/04/2024 Miguelangel Cunha Anxiety F41.9 ; Bipo lar 1 disorder F31.9 ; Depressed F32.9 ; Impaired concentration R41.840 ; Vitamin D deficiency E55.9 ; Nutritional counseling Z71.3 and Over weight E66.[address] [address] 01/04/2024 Miguelangel Velizer [address] [address] 03/08/2024 Assessments Encounter Date Diagnosis (ICD Code) Assessment Notes Treatment Notes Treatment Clinical Notes Section Notes 01/04/2024 Anxiety (ICD-10 - F41.9) See assessment and plan for bipolar I disorder 01/04/2024 Bipolar 1 disorder (ICD-10 - F31.9) Duration (acute/chronic), stability (controlled/uncontr olled): Chronic, stable, room for improvement Current medications/efficac y: Somewhat, room for improvement Previous medication trials: Strattera, lithium, quetiapine XR, clonazepam, depakate, hydroxyzine, buspirone, aripiprazole Current/previous therapies: Needing to call [place] and set up appointment Examination as documented [...] health CRISIS, please reach out to [phone] ([employer] Suicide and Crisis Lifeline), 911, go to the emergency department, or contact the [facility] Crisis Unit/Team. Follow up as [...] assessment and plan for bipolar I disorder 07/04/2024 Anxiety (ICD-10 - F41.9) See assessment and plan for bipolar I disorder 07/04/2024 Bipolar 1 disorder (ICD-10 - F31.9) Duration (acute/chronic), stability (controlled/uncontr olled): Chronic, well controlled with recent medication adjustments, see HPI Current medications/efficac y: Yes Previous medication trials: Strattera (ineffective), lithium, quetiapine [...] friends and family, reportedly chronic issue RECOMMENDATIONS: Continue/modify other medications as prescribed - educated [...] to the emergency department, or contact the [facility] Crisis Unit/Team. Follow up as scheduled in 4 weeks or sooner if necessary. Follow up with PCP and/or other specialists as advised. NEXT STEP: Consider other medication adjustments as needed. 06/05/2024 Bipolar 1 disorder (ICD-10 - F31.9) [...] mental health CRISIS, please reach out to [phone] ([employer] [facility]icide and Crisis [facility]), 911, go to the emergency department, or contact the [facility] Crisis Unit/Team. Follow up as [...] health CRISIS, please reach out to [phone] ([employer] Suicide and Crisis [facility]), 911, go to the emergency department, or contact the [facility] Crisis Unit/Team. Follow up as [...] buspirone, aripiprazole Current/previous therapies: Needing to call [place] and set up appointment Examination as documented [...] health CRISIS, please reach out to [phone] ([employer] [facility]icide and Crisis [facility]), 911, go to the emergency department, or contact the [facility] Crisis Unit/Team. Follow up as scheduled in 4 weeks or sooner if necessary. Follow up with PCP and/or other specialists as advised. NEXT STEP: Consider increasing carbamazepine again pending response/tolerabili ty. Consider increasing propranolol pending response/tolerabili ty. Consider increasing hydroxyzine as needed. Consider other medication adjustments as needed. 01/16/2024 Anxiety (ICD-10 - F41.9) 01/04/2024 Depressed (ICD-10 - F32.9) See assessment and plan for bipolar I disorder 01/04/2024 Impaired concentration (ICD-10 - R41.840) Duration (acute/chronic), stability (controlled/uncontr olled): Chronic, stable, room for improvement Current medications/efficac y: Somewhat, room for improvement Previous medication trials: Marielena Current/previous therapies: Needing to call [place] and set up appointment Examination as documented [...] to the emergency department, or contact the [facility] Crisis Unit/Team. Follow up as scheduled in 4 weeks or sooner if necessary. Follow up with PCP and/or other specialists as advised. NEXT STEP: Review LABS. Consider increasing Strattera again pending response/tolerabili ty. 01/16/2024 Depressed (ICD-10 - F32.9) 03/06/2024 Depressed (ICD-10 - F32.9) See assessment and plan for bipolar I disorder 05/23/2024 Depressed (ICD-10 - F32.9) See assessment and plan for bipolar I disorder 06/05/2024 Depressed (ICD-10 - F32.9) See assessment and plan for bipolar I disorder 07/04/2024 Depressed (ICD-10 - F32.9) See assessment and plan for bipolar I disorder 06/05/2024 Impaired concentration (ICD-10 - R41.840) Duration (acute/chronic), stability (controlled/uncontr olled): Chronic, Strattera reportedly ineffective, pharmacy reportedly didn't dispense Qelbree as recently prescribed, see HPI Current medications/efficac y: Somewhat, room for improvement Previous medication trials: Strattera (ineffective) Current/previous therapies: Needing to call [place] and set up appointment Examination as documented [...] to the emergency department, or contact the [facility] Crisis Unit/Team. Follow up as scheduled in 3 weeks or sooner if necessary. Follow up with PCP and/or other specialists as advised. NEXT STEP: Consider increasing Qelbree as needed. 07/04/2024 Impaired concentration (ICD-10 - R41.840) Duration (acute/chronic), stability (controlled/uncontr olled): Chronic, improved with recent medication adjustments, see HPI Current medications/efficac y: Yes Previous medication trials: Strattera (ineffective) Current/previous therapies: Needing to call [place] and set up appointment Examination as documented - see pertinent aspects of office visit documentation. Pertinent diagnostics: LABS COMPLETED IN 01/2024, SEE CHART. Differential diagnoses: RECOMMENDATIONS: Continue/modify other medications as prescribed - educated [...] health CRISIS, please reach out to [phone] ([employer] Suicide and Crisis Lifeline), 911, go to the emergency department, or contact the [facility] Crisis Unit/Team. Follow up as scheduled in 4 weeks or sooner if necessary. Follow up with PCP and/or other specialists as advised. NEXT STEP: Consider increasing Qelbree as needed. 03/06/2024 Impaired concentration (ICD-10 - R41.840) Duration (acute/chronic), stability (controlled/uncontr olled): Chronic, improved with recent inrease in Strattera, see HPI Current medications/efficac y: Yes Previous medication trials: Strattera Current/previous therapies: Needing to call [place] and set up appointment Examination as documented [...] health CRISIS, please reach out to [phone] ([employer] [facility]icide and Crisis Lif[facility]), 911, go to the emergency department, or contact the [facility] Crisis Unit/Team. Follow up as [...] Strattera (ineffective) Current/previous therapies: Needing to call [place] and set up appointment Examination as documented [...] health CRISIS, please reach out to [phone] ([employer] Suicide and Crisis Lif[facility]), 911, go to the emergency department, or contact the [facility] Crisis Unit/Team. Follow up as [...] to the emergency department, or contact the [facility] Crisis Unit/Team. Follow up as scheduled or sooner if necessary. Follow up with PCP and/or other specialists as advised. NEXT STEP: Review LABS. Consider medication adjustments as needed. 01/04/2024 Nutritional counseling (ICD-10 - Z71.3) 03/06/2024 Vitamin D deficiency (ICD-10 - E55.9) [...] health CRISIS, please reach out to [phone] ([employer] [facility]icide and Crisis [facility]), 911, go to the emergency department, or contact the [facility] Crisis Unit/Team. Follow up as scheduled or sooner if necessary. Follow up with PCP and/or other specialists as advised. NEXT STEP: Consider medication adjustments as needed. 01/16/2024 Vitamin D deficiency (ICD-10 - E55.9) 05/23/2024 Vitamin D deficiency (ICD-10 - E55.9) [...] to the emergency department, or contact the [facility] Crisis Unit/Team. Follow up as [...] to the emergency department, or contact the [facility] Crisis Unit/Team. Follow up as scheduled or sooner if necessary. Follow up with PCP and/or other specialists as advised. NEXT STEP: Consider medication adjustments as needed. 07/04/2024 Vitamin D deficiency (ICD-10 - E55.9) Duration [...] health CRISIS, please reach out to [phone] ([employer] [facility]icide and Crisis Lif[facility]), 911, go to the emergency department, or contact the [facility] Crisis Unit/Team. Follow up as scheduled or sooner if necessary. Follow up with PCP and/or other specialists as advised. NEXT STEP: Consider medication adjustments as needed. 07/04/2024 Nutritional counseling (ICD-10 - Z71.3) 06/05/2024 Nutritional counseling (ICD-10 - Z71.3) 03/06/2024 Nutritional counseling (ICD-10 - Z71.3) 05/23/2024 Nutritional counseling (ICD-10 - Z71.3) 07/04/2024 Over weight (ICD-10 - E66.3) 06/05/2024 Over weight (ICD-10 - E66.3) Plan Of Treatment No Information Insurance Providers Payer Name Payer Address Payer Phone Subscriber Number Group Number Insured Name Patient Relationship to Insured Coverage Start Date Coverage End Date [employer] [address] [place] [address] [id number] Cecilia Avina Self - patient is the insured 3 [employer] [address] [place] [address] [id number] Cecilia Avina Self - patient is the insured 3 Medical (General) History Medical History History ICD Code Fibromyalgia Surgical History Surgery Date(Month/Year) section x2 cholecystectomy Left knee repair x2 Hospitalization History Reason Date(Month/Year) [facility]
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
--- OUTSIDE RECORDS SUMMARY | 2024-07-24 10:15 | XMS_ITS | Encounter Summary ---
Author Organization [facility] Address [address] [place] [address] Care Team Providers Care Fuel Cell Binder Name Role Phone Cesar Owens Primary Care Provider Unavailabl e Encounter Details Date Type Department Care Team (Latest Contact Info) Description 03/12/2008 Outpatient Historical [facility] Jose Enrique Vargas MD [address] [facility] [address] [place] [address] Stiffness of Joint, not Elsewhere Classified, Lower Leg Social History Tobacco Use Types Packs/Day Years Used Date Smoking Tobacco: Never Assessed Comments Unknown Sex and Gender Information Value Date Recorded Sex Assigned at Not on file Legal Sex Female 5:33 AM MATH INSTRUCTOR Gender Identity Not on file Sexual Orientation Not on file documented as of this encounter Plan of Treatment Not on file documented as of this encounter Procedures Procedure Name Priority Date/Time Associated Diagnosis Comments XR KNEE 4+ VW LEFT Routine 03/12/2008 4: 15 PM MATH INSTRUCTOR documented in this encounter Results * XR KNEE 4+ VW LEFT (03/12/2008 4:15 PM MATH INSTRUCTOR) Anatomical Region Laterality Modality Lower Extremity Other 03/12/2008 4:15 PM MATH INSTRUCTOR Narrative 03/13/2008 8:55 AM MATH INSTRUCTOR [facility] [address], [place] [address] Admit Date: 03/12/2008 MADDY MOORENEY Sex: F Admit Prov: JOSE ENRIQUE ARANDA Date: 1990 Primary Care Prov: EBTY BRODERICK CMRN: [id number] Room: EMI SSN: [id number] IMAGING SERVICES Ordering Prov: N/A Accession Number: [id number] Interpretation LEFT KNEE, 4 PROJECTIONS, 03/12/2008 Clinical History: Knee pain and joint stiffness. Findings: No fracture, dislocation, or bone destruction is demonstrated. There is a small knee joint effusion. There is some early spurring of the superior aspect of the patella and of the femoral condyles and medial tibial plateau. This represents premature degenerative change in this young individual. The standing image does not demonstrate significant joint space narrowing but the spurring is asymmetrical on the left with none identified on the right side. Conclusion: Early degenerative change of the left knee and a left knee joint effusion. No fracture demonstrated. . Dictated by: ESTHER GRAJEDA 03/12/2008 16:21 Electronically signed by: ESTHER GRAJEDA 03/13/2008 08:54 Transcribed: 03/12/2008 19:55 SJ Procedure Note Provider, Historical - 03/13/2008 [facility] [address] [place], [place] [address] Admit Date: 03/12/2008 GINNY MOORE Sex: F Admit Prov: JOSE ENRIQUE ARANDA Date: 1990 Primary Care Prov: BETY BRODERICK Antonino CMRN: [id number] Room: EMI N: [id number] IMAGING SERVICES Ordering Prov: N/A Interpretation LEFT KNEE, 4 PROJECTIONS, 03/12/2008 Clinical History: Knee pain and joint stiffness. Findings: No fracture, dislocation, or bone destruction isdemonstrated. There is a small knee joint effusion. There is some early spurring ofthe superior aspect of the patella and of the femoral condyles andmedial tibial plateau. This represents premature degenerative change in thisyoung individual. The standing image does not demonstrate significant jointspace narrowing but the spurring is asymmetrical on the left with noneidentified on the right side. Conclusion: Early degenerative change of the left knee and a left knee jointeffusion. No fracture demonstrated. . Dictated by: ESTHER GRAJEDA 03/12/2008 16:21 Electronically signed by: ESTHER GRAJEDA 03/13/2008 08:54 Transcribed: 03/12/2008 19:55 [facility] us Jose Enrique Aranda MD DIAGNOSTIC IMAGING ORDERA BLES Final Result documented in this encounter Visit Diagnoses Diagnosis Stiffness of joint, not elsewhere classified, lower leg documented in this encounter Care Teams Fuel Cell Binder Relationship Specialty Start Date End Date Cesar Owens DO PCP - General Family Practice 03/15/14 documented as of this encounter
--- OUTSIDE RECORDS SUMMARY | 2024-07-24 10:15 | XMS_ITS | Clinical Summary ---
Author Organization [facility] Address [address] [place] [address] Phone Care Team Providers Care Data Acquisition Technician Name Role Phone Roman Cesar Primary Care Provider Unavailabl e Allergies Active Allergy Reactions Criticality Noted Date Comments Codeine Nausea and Vomiting,Other (See Comments) 03/15/2014 Slurred speech, dizzy Iodine Nausea and Vomiting 03/15/2014 Penicillins Nausea and Vomiting 03/15/2014 Medications VIT/IRON FUMARATE/FA ( ORAL) Take by mouth. Active ALBUTEROL INHALATION Take by inhalation. Active ondansetron (ZOFRAN) 4 mg Tablet Take 4 mg by mouth every 8 hours as needed for Nausea/Emes is. Active nitrofurantoin (MACROBID) 100 mg capsule Take 1 Cap by mouth daily with supper. 30 Cap 1 03/15/2014 Active Active Problems Problem Noted Date Diagnosed Date Version 12 03/15/2014 Immunizations Immunization Administration Dates Next Due Influenza Seasonal Unspecified Formulation IM Family History Medical History Relation Name Comments Depression Father Hypertension Father Depression Maternal Grandmother Stroke Maternal Grandmother Thyroid Disease Maternal Grandmother Anemia Mother Cancer Mother Depression Mother Ovarian Cancer Mother Stroke Mother Relation Name Status Comments Father Maternal Grandmother Mother Social History Tobacco Use Types Packs/Day Years Used Date Smoking Tobacco: Never Smokeless Tobacco: Never Alcohol Use Standard Drinks/Week Comments Not Asked 0 (1 standard drink = 0.6 oz pur e alcohol) Comments No Sex and Gender Information Value Date Recorded Sex Assigned at Not on file Legal Sex Female 5:33 AM STRAP CUTTER Gender Identity Not on file Sexual Orientation Not on file Occupation Industry Job Start Date Job End Date Not on file Not on file Not on file Not on file Last Filed Vital Signs Vital Sign Reading Time Taken Comments Blood Pressure 102/77 03/15/2014 11:05 AM STRAP CUTTER Pulse - - Temperature 36.3 C (97.3 F) 03/15/2014 11:13 AM STRAP CUTTER Respiratory Rate 18 03/15/2014 11:05 AM STRAP CUTTER Oxygen Saturation - - Inhaled Oxygen Concentration - - Weight 130.6 kg (288 lb) 03/15/2014 11:13 AM STRAP CUTTER Height 182.2 cm (5' 11.75 ) 03/15/2014 11:13 AM STRAP CUTTER Body Mass Index 39.33 03/15/2014 11:13 AM STRAP CUTTER Plan of Treatment Health Maintenance Due Date Last Done Comments DTAP/TDAP/TD VACCINES (1 - Tdap) 2008 HEPATITIS B VACCINES (1 of 3 - 19+ 3-dose series) 2008 HPV/Cotest (21-29) 2010 CERVICAL CANCER SCREENING 06/12/2019 HPV/Cotest (30-65) 06/12/2019 PAP SMEAR 06/12/2019 INFLUENZA VACCINE (#1) 2023 01/09/2014 HPV VACCINES Aged Out No longer eligi ble based on patient's age to complete this topic Advance Directives For more information, please contact: [phone] * Full Code (Latest Code Status on File) Date Activated Date Inactivated Comments 03/15/2014 11:30 AM 03/15/2014 5:22 PM Care Teams Data Acquisition Technician Relationship Specialty Start Date End Date Cesar Owens DO PCP - General Family Practice 03/15/14
--- OUTSIDE RECORDS SUMMARY | 2024-07-24 10:15 | XMS_ITS | Encounter Summary ---
Author Organization [facility] Address [address] [place] [address] Care Team Providers Care Clinical Data Manager Name Role Phone Unavailable Primary Care Provider Unavailabl e Encounter Details Date Type Department Care Team (Late st Contact Info) Description 08/16/2019 Lab Requisition [facility] MICROBIOLOGY [address] [place] [address] Landon Irby MD Cough Social History Tobacco [...] Not detected, Invalid 08/17/2019 5:11 AM CDT [facility] MICROBIOLOG[facility] Microbiology SPECIMEN FROM NASOPHARYNGEAL STRUCTURE / Unknown Collection / Unknown 08/16/2019 9:40 AM CDT 08/16/2019 10:20 PM CDT Narrative [facility] MICROBIOLOGY - 08/17/2019 5:11 AM CDT This nucleic acid amplification assay performance was validated by [facility] Microbiology [facility]. This test has been authorized [...] NETWORK MICROBIOLOGY [address] [place] [address], [facility] [phone] documented in this encounter Visit Diagnoses Diagnosis Cough documented in this encounter Additional Health Concerns Infection Onset Date Last Indicated Resolved Time COVID-19 Under Investigation 08/16/2019 08/16/2019 08/17/2019 5:11 AM CDT documented as of this encounter
--- OUTSIDE RECORDS SUMMARY | 2024-07-24 10:15 | XMS_ITS | Encounter Summary ---
Author Organization [facility] Address [address] [place] [address] Care Team Providers Care Turn Supervisor Name Role Phone Cesar Owens Primary Care Provider Unavailabl e Encounter Details Date Type Department Care Team (Latest Contact Info) Description 07/19/2007 Outpatient Historical [facility] Jose Enrique Branham MD [address] [address] Stiffness of Joint, not Elsewhere Classified, Lower Leg Social History Tobacco Use Types Packs/Day Years Used Date Smoking Tobacco: Never Assessed Comments Unknown Sex and Gender Information Value Date Recorded Sex Assigned at Not on file Legal Sex Female 5:33 AM ORIENTOR Gender Identity Not on file Sexual Orientation Not on file documented as of this encounter Plan of Treatment Not on file documented as of this encounter Procedures Procedure Name Priority Date/Time Associated Diagnosis Comments HEMOGLOBIN AND HEMATOCRIT Stat 08/03/2007 5:37 AM CDT POC , URINE Routine 08/03/2007 5:30 AM CDT documented in this encounter Results * HEMOGLOBIN AND HEMATOCRIT (08/03/2007 5:37 AM CDT) HEMOGLOBIN 13.6 11.8 - 14.8 g/dL [facility] HEMATOCRIT 42.2 35.5 - 44.0 % [facility] Blood specimen (specimen) 08/03/2007 5:37 AM CDT 08/03/2007 5:52 AM CDT Narrative [facility] - 08/03/2007 6:18 AM CDT RM 39 us Jose Enrique Branham MD HEMATOLOGY ORDERABLES Fin al Result Performing Organization Address [facility]/ZIP Co de Phone Number [facility] CLIA# [id number] [address] [place] [address] * POC , URINE (08/03/2007 5:30 AM CDT) , URINE POC Negative Negative [facility] Urine specimen (specimen) 08/03/2007 5:30 AM CDT 08/03/2007 5:30 AM CDT Jose Enrique Branham MD POINT OF CARE TESTING Fin al Result Performing Organization Address [facility] de Phone Number [facility] CLIA# [id number] [address] [place] [address] documented in this encounter Visit Diagnoses Diagnosis Stiffness of joint, not elsewhere classified, lower leg documented in this encounter Care Teams Turn Supervisor Relationship Specialty Start Date End Date Cesar Owens DO PCP - General Family Practice 03/15/14 documented as of this encounter
--- OUTSIDE RECORDS SUMMARY | 2024-07-24 10:15 | XMS_ITS ---
Author Organization [facility] Address [address] [place] [address] Care Team Providers Care Blacktop Paver Operator Name Role Phone Miguelangel Cunha Unavailable [phone] REASON FOR VISIT 3 Week F/U Medications Medication SIG (Take, Route, Frequency, Duration) Notes Start Date End Date Status Baclofen 20 MG 1 tablet Administer without regards to meals as needed Orally Twice a day Active Prazosin HCl 2 MG TAKE 1 CAPSULE BY MO UTH TWICE DAILY for 90 Active Propranolol HCl ER 60 MG TAKE 1 CAPSULE BY MOUTH DAILY for 90 Active FLUoxetine HCl 10 MG 1 capsule Orally On ce a day take with morning or evening dose of fluoxetine 40mg - TOTAL DAILY DOSE 90mg for 30 days 06/05/2024 Active Prazosin HCl 1 MG 1 capsule once daily in the morning - take with morning dose of prazosin 2mg for TOTAL 3mg in the morning Orally Once a day for 30 days 06/05/2024 Active Cholestyramine 4 GM 1 packet mixed with water or non-carbonated drink Orally twice daily Active Pregabalin 50 MG 1 capsule Orally Onc e a day Active Meclizine HCl 50 MG 1 tablet as needed Orally every 12 hrs Active Meloxicam 7.5 MG 1 tablet Orally Once a day Active Omeprazole 20 MG 1 capsule 1/2 to 1 h our before morning meal Orally Once a day Active FLUoxetine HCl 40 MG TAKE 1 CAPSULE BY M OUTH TWICE DAILY - take either morning or evening dose with fluoxetine 10mg - TOTAL DAILY DOSE 90MG for 30 days Active ARIPiprazole 20 MG TAKE 1 TABLET BY PRANAY TH DAILY for 30 days Active Vitamin D3 50 MCG (1999) TAKE 1 CAPSU LE BY MOUTH ONCE DAILY for 30 days Active Qelbree 200 MG 1 capsule Orally Onc e a day for 30 days Active Propranolol HCl ER 60 MG 1 capsule Orall y Once a day for 30 days Active Prazosin [...] the evening Orally for 30 days Active Social History Sex Assigned At : Social History Observation Description Sex Assigned At Female Encounters Encounter Location Date Provider Diagnosis [address] [place] [address] 07/04/2024 Miguelangel Cunha Plan Of Treatment No Information Progress Notes * Cecilia MOOREDOB:1990 (34 yo F)Acc No.[id number]:07/04/2024 UNLOCKED PROGRESS NOTE Patient: Monique CANALESney Provider: Ceci Cunha APN :1990 A ge:34 Y S ex:Female Date:07/04/2024 Address:[address] [place], [place] [id number] Subjective: * Chief Complaints: * 1 . 3 Week F/U. * Medical History: * Medications: T aking Prazosin HCl 2 MG Capsule 1 capsule twice daily Orally , Taking hydrOXYzine HCl 50 MG Tablet 0.5 tablet twice daily as needed for anxiety and 1 tablet at bedtime as needed for sleep Orally , Taking carBAMazepine 200 MG Tablet 2 tablets (400mg) in the morning and 3 tablets (600mg) in the evening Orally , Taking FLUoxetine HCl 40 MG Capsule TAKE 1 CAPSULE BY MOUTH TWICE DAILY - take either morning or evening dose with fluoxetine 10mg - TOTAL DAILY DOSE 90MG , Taking ARIPiprazole 20 MG Tablet TAKE 1 TABLET BY MOUTH DAILY , Taking Vitamin D3 50 MCG (1999 UT) Capsule TAKE 1 CAPSULE BY MOUTH ONCE DAILY , Taking Qelbree 200 MG Capsule Extended Release 24 Hour 1 capsule Orally Once a day , Taking Propranolol HCl ER 60 MG Capsule Extended Release 24 Hour 1 capsule Orally Once a day , Taking Meloxicam 7.5 MG Tablet 1 tablet Orally Once a day , Taking Omeprazole 20 MG Capsule Delayed Release 1 capsule 1/2 to 1 hour before morning meal Orally Once a day , Taking Cholestyramine 4 GM Packet 1 packet mixed with water or non-carbonated drink Orally twice daily , Taking Pregabalin 50 MG Capsule 1 capsule Orally Once a day , Taking Meclizine HCl 50 MG Tablet 1 tablet as needed Orally every 12 hrs , Taking Baclofen 20 MG Tablet 1 tablet Administer without regards to meals as needed Orally Twice a day , Taking Prazosin HCl 2 MG Capsule TAKE 1 CAPSULE BY MOUTH TWICE DAILY , Taking Propranolol HCl ER 60 MG Capsule Extended Release 24 Hour TAKE 1 CAPSULE BY MOUTH DAILY , Taking FLUoxetine HCl 10 MG Capsule 1 capsule Orally Once a day take with morning or evening dose of fluoxetine 40mg - TOTAL DAILY DOSE 90mg , Taking Prazosin HCl 1 MG Capsule 1 capsule once daily in the morning - take with morning dose of prazosin 2mg for TOTAL 3mg in the morning Orally Once a day Objective: * Vitals: Assessment: Plan: * Treatment: * * Electronic signature of Miguelangel Cunha on 07/24/2024 at 10:14 AM CDT Sign off status: Pending * Provider: Ceci Cunha APN Date: 0 07/04/2024 Generated for Norberto ramirez/Sancho/Franky on: 0 07/24/2024 10:14 AM CDT
--- OUTSIDE RECORDS SUMMARY | 2024-07-24 10:15 | XMS_ITS | Clinical Summary ---
Author Organization [facility] Address [address] [place] [address] Care Team Providers Care Sealer Aircraft Name Role Phone Unavailable Primary Care Provider Unavailabl e Source Comments [facility],non-owned Affiliates and Associated Physician Practices is amultiple site organization consisting of ambulatory clinics and hospital sitesin [place], [place], [place] and [place]. This disclosure is being madepursuant to the Care Everywhere program and may not contain all information available regarding this patient. Last updated 17.[employer] [facility] Allergies Active Allergy Reactions Criticality Noted Date [...] Health Maintenance Due Date Last Done Comments HIV SCREENING 2004 HEPATITIS C SCREENING 06/07/2007 [...] topic Insurance MEDICAID - OUT OF STATE [address] [address]
--- OUTSIDE RECORDS SUMMARY | 2024-07-24 10:15 | XMS_ITS | Encounter Summary ---
Author Organization [facility] Address [address] [place] [address] Phone Care Team Providers Care Quality Assurance Monitor Final Name Role Phone Dash Bill MD Primary Care Provider [phone] Encounter Details Date Type Department Care Team (Late st Contact Info) Description 03/26/2021 Transcribe Orders [facility] Patient Access Admitting [address] [place] [id number] Dash Bill MD [address] [place] [address] Viral syndrome (Primary Dx) Social [...] Coronavirus / COVID-19? Yes 03/26/2021 12:18 PM DIGITAL INTERN documented as of this encounter Plan of Treatment Not on file documented as of this encounter Results * SARS-COV-2 BY MOLECULAR (03/26/2021 12:24 PM DIGITAL INTERN) SARSCOV2 NOT DETECTED (Referen ce Range for this test is Not Detected ) [facility] FAST DX 03/28/2021 12:19 AM DIGITAL INTERN [facility] Comment:This test was perfor med by a RT-PCR method. Other NASAL STRUCTURE / Unknown Non-Phlebotomy Collection / Unknown 03/26/2021 12:24 PM DIGITAL INTERN 03/26/2021 12:45 PM DIGITAL INTERN Narrative [facility] - 03/28/2021 12:19 AM DIGITAL INTERN Authorized Fact Sheets about this test for providers and patients are available at: https://www.fda.gov/medical-devices/xjiphzmct-suhhbxxvfx-vokzgpr-devices/emergen -us e-authorizations us Dash Bill MD MICROBIOLOGY - GENERAL ORDERA BLES Final Result [facility] [address] [place] [address], documented in this encounter Visit Diagnoses Diagnosis Viral syndrome- Primary Unspecified viral infection, in conditions classified elsewhere and of unspecified site documented in this encounter Additional Health Concerns Infection Onset Date Last Indicated Resolved Time COVID - 19 03/26/2021 03/26/2021 04/15/2021 12:1 6 AM DIGITAL INTERN documented as of this encounter Care Teams Quality Assurance Monitor Final Relationship Specialty Start Date End Date Dash Bill MD [address] [place] [address] PCP - General Internal Medicine 11/06/18 documented as of this encounter
--- OUTSIDE RECORDS SUMMARY | 2024-07-24 10:15 | XMS_ITS | Encounter Summary ---
Author Organization [facility] Healthcare Address [address] [place] [address] Care Team Providers Care Spark Plug Assembler Name Role Phone Dash Bill MD Unavailable [phone] Jermain Paz MD Unavailable [phone] Petra Dickinson MD Primary Care Provider [phone] Encounter Details Date Type Department Care Team (Late st Contact Info) Description 05/24/2024 Results Follow-Up [facility] Gastroenterology at [address] [place] [address] Kojo Lora MD [address] [place] [address] [address] [place] [address] Social History Tobacco Use Types [...] on file Legal Sex Female 3:38 AM SENIOR SERVICE TECHNICIAN Gender Identity Not on file Sexual Orientation Not on file documented as of this encounter Plan of Treatment Not on file documented as of this encounter Visit Diagnoses Not on filedocumented in this encounter Care Teams Spark Plug Assembler Relationship Specialty Start Date End Date Petra Dickinson MD [address] [place] [address] PCP - General Obstetrics and Gynecology 05/24/24 Dash Bill MD [address] [place] [address] Internal Medicine 12/20/22 Jermain Paz MD [address] [facility] [address] [place] [address] Private Advisor Obstetrics and Gynecology 03/31/21 documented as of this encounter
--- OUTSIDE RECORDS SUMMARY | 2024-07-24 10:15 | XMS_ITS | Clinical Summary ---
Author Organization [facility] Address [address] [place] [address] Phone Care Team Providers Care Extension Service Advisor Name Role Phone Dash Bill MD Primary Care Provider [phone] Allergies Active Allergy Reactions Criticality Noted Date [...] to complete this topic Insurance MEDICAID [facility] Care Teams Extension Service Advisor Relationship Specialty Start Date End Date Dash Bill MD [address] [place] [address] PCP - General Internal Medicine 11/06/18
--- OUTSIDE RECORDS SUMMARY | 2024-07-24 10:15 | XMS_ITS | Encounter Summary ---
Author Organization [facility] Healthcare Address [address] [place] [address] Care Team Providers Care Radiology Nurse Name Role Phone Dash Bill MD Unavailable [phone] Jermain Paz MD Unavailable Petra Dickinson MD Primary Care Provider [phone] Encounter Details Date Type Department Care Team (Late st Contact Info) Description 06/19/2024 Results Follow-Up [facility] [address] [place] [address] [address] [place] [address] Ingrid Marie, HAND STRIPER [address] [place] [address] [address] [place] [address] Social History Tobacco Use Types [...] on file Legal Sex Female 3:38 AM SMASH 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 Gender Identity Not on file Sexual Orientation Not on file documented as of this encounter Plan of Treatment Not on file documented as of this encounter Visit Diagnoses Not on filedocumented in this encounter Care Teams Radiology Nurse Relationship Specialty Start Date End Date Petra Dickinson MD [address] [place] [address] PCP - General Obstetrics and Gynecology 05/24/24 Dash Bill MD [address] [place] [address] Internal Medicine 12/20/22 Jermain Paz MD [address] [address] Triple Valve Mechanic Obstetrics and Gynecology 03/31/21 documented as of this encounter
== END 2024-07-24 10:24 | disposition short-term general hospital (02) ==
PROVIDERS: Emergency Provider Nurse Practitioner Family; PCP Family Medicine
DX: R10.33 Periumbilical pain (principal); I10 Essential (primary) hypertension; F41.9 Anxiety disorder, unspecified; F32.A Depression, unspecified; F90.9 Attention-deficit hyperactivity disorder, unspecified type
CPT/HCPCS: 99212; G0463

== ENCOUNTER 2024-10-24 13:57 | Emergency (ER) | payer OTHER, SELFPAY ==
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
--- OUTSIDE RECORDS SUMMARY | 2024-10-24 14:01 | XMS_ITS ---
Author Organization [facility] Address [address] [place] [address] Care Team Providers Care Float Nurse Name Role Phone Juan Antonio Oliveril Unavailable [phone] Allergies Allergen (clinical drug ingredient) Drug/Non Drug Allergy documented on EMR Reaction Allergy Type Onset Date Status codeine Codeine Unknown Drug Allergy Active Penicillin rash Drug Allergy Active REASON FOR VISIT transfer from [place] Medications Medication SIG (Take, Route, Frequency, Duration) [...] Female Encounters Encounter Location Date Provider Diagnosis [facility] [address] [place] [address] 09/03/2024 Flores Oliver Plan Of Treatment No Information Progress Notes * Cecilia MOOREDOB:1990 (34 yo F)Acc No.[id number]:09/03/2024 UNLOCKED PROGRESS NOTE Patient: Cecilia CANALES Provider: Lupe Oliver, MSN, OUTSOLE MOLDER, PMHNP- :1990 A ge:34 Y S ex:Female Date:09/03/2024 Address:[address] [place], [place] [id number] Subjective: * Chief Complaints: * 1 . transfer from [place]. * HPI: S creening: [place] Suicide Severity Rating Scale (LF) D o [...] * Electronic signature of Carson Oliver on 10/24/2024 at 02:01 PM CDT Sign off status: Pending * Provider: Lupe Oliver, MSN, OUTSOLE MOLDER, PMHNP- Date: 09/03/2024 Generated for Printing/[employer] on: 10/24/2024 02:01 PM CDT History and Physical Notes * HPI (History of Present Illness) Category Sub-Category Detail Notes Category Not es Screening [place] Suicide Sev erity Rating Scale (LF) Do [...]
--- OUTSIDE RECORDS SUMMARY | 2024-10-24 14:01 | XMS_ITS | Clinical Summary ---
Author Organization [facility] Address [address] [place] [address] Care Team Providers Care Resource Room Special Education Teacher Name Role Phone Dash Bill MD Unavailable [phone] Jermian Paz MD Unavailable [phone] Petra Dickinson MD Primary Care Provider [phone] Allergies Active Allergy Reactions Criticality Noted Date Comments Codeine Dizziness Low Penicillins Hives,Vomiting Medium Reaction: NAUSEA, VOMITING, , Medications FLUoxetine (PROzac) 40 mg capsule Take 1 capsule (40 mg total) by mouth 2 (two) times a day 2 Active carBAMazepine (TEGretol) 200 mg tablet Take 1 tablet (200 mg total) by mouth 2 (two) times a day 2 Active baclofen (LIORESAL) 20 mg tablet Take 1 tablet (20 mg total) by mouth 2 (two) times a day 2 Active acetaminophen (TYLENOL) 500 mg tablet as needed Active loratadine 10 mg capsule Take 10 mg by mouth daily Active vitamin b complex tablet Take 1 tablet by mouth daily Active cholecalciferol (VITAMIN D-3) 2000 unit capsule Take 1 capsule (2,000 Units total) by mouth daily Active ketoconazole (NIZORAL) 2 % shampoo 3 Active albuterol HFA (PROVENTIL HFA,VENTOLIN HFA,PROAIR HFA) 90 mcg/actuation inhaler INHALE 2 PUFFS BY MOUTH THREE TIMES DAILY NEEDED 3 Active gabapentin (NEURONTIN) 300 mg capsuleIndications: Foot pain, left,Chronic left-sided low back pain with left-sided sciatica TAKE 1 CAPSULE(300 MG) BY MOUTH THREE TIMES DAILY 90 capsule 3 4 Active propranoloL (INDERAL) 10 mg tablet Take 1 tablet (10 mg total) by mouth 2 (two) times a day 4 Active meclizine (ANTIVERT) 25 mg tablet Take 1 tablet (25 mg total) by mouth 2 (two) times a day as needed 5 Active topiramate (TOPAMAX) 50 mg tablet Take half tablet (25 mg) po twice a day for one week, then one tablet po twice a day 60 tablet 3 5 Active rizatriptan MINING MACHINERY ASSEMBLER (MAXALT-MINING MACHINERY ASSEMBLER) 10 mg disintegrating tabletIndications:M igraine Take 1 tablet (10 mg total) by mouth every 2 (two) hours as needed for migraine May repeat in 2 hours if unresolved. Do not exceed 30 mg in 24 hours. 9 tablet 3 5 Active cholestyramine (QUESTRAN) 4 gram powder Take 1 packet (4 g total) by mouth 2 (two) times a day with meals Dissolve in 8 oz of liquid and drink before a meal 60 packet 2 5 Active omeprazole (PriLOSEC) 20 mg capsule Take 1 capsule (20 mg total) by mouth daily 30 capsule 3 5 Active desog-e.estradioL/e .estradioL (KARIVA) 0.15-0.02 mgx21 /0.01 mg x 5 per tablet Take 1 tablet by mouth daily 84 tablet 3 5 Active naproxen (NAPROSYN) 500 mg tablet Take 1 tablet (500 mg total) by mouth 2 (two) times a day with meals 30 tablet 5 Active hydrOXYzine (ATARAX) 50 mg tablet Take 1 tablet (50 mg total) by mouth every 6 (six) hours as needed for anxiety 5 Active meloxicam (MOBIC) 7.5 mg tablet 1 tablet (7.5 mg total) Active prazosin (MINIPRESS) 1 mg capsule Take 1 capsule (1 mg total) by mouth 2 (two) times a day 5 Active prazosin (MINIPRESS) 2 mg capsule Take 1 capsule (2 mg total) by mouth 2 (two) times a day Active Qelbree 200 mg capsule,extended release 24hr Take 1 capsule (200 mg total) by mouth daily Active ARIPiprazole (ABILIFY) 15 mg tablet Take 1 tablet (15 mg total) by mouth 2 (two) times a day 5 Active propranolol LA (INDERAL LA) 60 mg 24 hr capsule Take 1 capsule (60 mg total) by mouth daily 5 Active oxyCODONE-acetamino phen (PERCOCET) 5-325 mg per tabletIndications:P ain Take 1-2 tablets by mouth every 8 (eight) hours as needed for pain 20 tablet 5 Active Active Problems Problem Noted Date Diagnosed Date Umbilical hernia without obstruction and without gangrene 07/31/2024 Hepatic steatosis 07/31/2024 Gastroesophageal reflux disease 07/31/2024 Abdominal pain 07/31/2024 Alternating constipation and diarrhea 07/31/2024 History of HPV infection 06/18/2024 Chronic migraine [...] Overview (02/13/2021): Positive type 1 and 2 Trichomonas vaginalis (TV) infection 10/06/2020 Overview (11/12/2020): - diagnosed with trichomonas on pap smear on 09/12/2020 - s/p treatment with flagyl 2g on 09/22 - s/p negative ANDREIA on 10/06 Subchorionic hemorrhage in first trimester 10/06 Overview [...] is hungry for lunch. She will picker feeder her compazine and try lunch. If she does not tolerate lunch she was counseled to call the clinic back or to return to the [facility] for further assessment. Resolved Problems Problem Noted Date Diagnosed Date Resolved Date Ventral hernia without obstr uction or gangrene 08/01/2024 09/12/2024 Nausea and vomiting during 11/12/2020 07/31/2024 Overview (11/12/2020): Intermittent nausea and vomiting with headache, no vision changes. She is intermittently tolerating meals. Large ketones today with three vomiting episodes. Plan: will send compazine to pharmacy. The patient is hungry for lunch so she will take the compazine and see if she tolerates lunch. If she does not, she was counseled to call the clinic or return to the [facility] for further evaluation. Encounter for supervision of normal in first [...] [x] Method of feeding: breast feeding [] Food Supervisor [] Car seat discussed [] PP [...] She has not been able to picker feeder her medication due to medicaid coverage not [...] use. Truvada is minimally transferred into milk. History of 10/06/2020 025 Overview (11/12/2020): - history of LTCS at term for breech presentation Plan: - plan to discuss delivery planning (TOLAC vs. repeat ) at next 2nd trimester appointment. Patient desires to TOLAC but desires (declines ECV) if fetus is breech. Overview (11/12/2020): Patient with intermittent nausea with vomiting in . She is intermittently able to tolerate meals. She also reports intermittent headaches with no vision changes. Large ketones in urine on 11/12. Plan: -will send compazine to pharmacy for nausea and headache. - patient is hungry for lunch. She will picker feeder her compazine and try lunch. If she does not tolerate lunch she was counseled to call the clinic back or to return to the [facility] for further assessment. Encounters Date Type Department Care Team Description 09/10/2024 9:45 AM CDT Office Visit [facility] [address] [place] [address] [address], [place] [address] Virgilio Johnston MD Chronic migraine without aura without status migrainosus, not intractable (Primary Dx); Chronic bilateral low back pain without sciatica; Foot pain, left 09/05/2024 10:00 AM CDT Office Visit [address] [place] [address] Luz Contreras NP Ventral hernia without obstruction or gangrene (Primary Dx) 08/21/2024 7:42 AM CDT Anesthesia Event [facility] Operating Room [address] [place] [address] Britta Guillen MD Alexander, Jeffrey Michael, 08/21/2024 7:30 AM CDT - 08/21/2024 9:35 AM CDT Surgery [facility] Operating Room [address] [place] [address] Malik Bertrand MD XI ROBOTIC REPAIR VENTRAL HERNIA WITH MESH 08/21/2024 6:07 AM CDT - 08/21/2024 11:57 AM CDT Hospital Encounter [facility] Operating Room [address] [place] [address] Malik Bertrand MD Ventral hernia without obstruction or gangrene (Primary Dx) Discharge Disposition: Discharge to home or self care 08/15/2024 1:20 PM CDT - 08/15/2024 2:24 PM CDT Emergency [facility] Emergency Department [address] [place] [id number] Dizziness (Primary Dx); Lightheadedness; Chest pain, unspecified type Discharge Disposition: Discharge to home or self care 08/01/2024 11:00 AM CDT Office Visit [address] [place] [address] Malik Bertrand MD Ventral hernia without obstruction or gangrene (Primary Dx) 07/31/2024 11:15 AM CDT Office Visit [facility] at [address] [place] [address] Kojo Lora MD Umbilical hernia without obstruction and without gangrene (Primary Dx); Gastroesophageal reflux disease, unspecified whether esophagitis present; Abdominal pain; Hepatic steatosis; Alternating constipation and diarrhea 07/24/2024 1:37 PM CDT - 07/24/2024 5:09 PM CDT Emergency [facility] Emergency Department [address] [place] [address] Del Lobo MD Periumbilical hernia (Primary Dx) Discharge Disposition: Discharge to home or self care from Last 3 Months Immunizations Immunization Administration Dates Next Due Influenza, Quadrivalent, Spl it, Preservative Free, Intramuscular 01/01/2021(Deferred: Patient Refused) Influenza, Trivalent, IM (MDV) 12/27/2013 Pneumococcal Polysaccharide PPV23 04/05/2014 Tdap 03/31/2021(Deferred: No longer needed),12/04/2019(),04/04/2014 Surgical History Surgery Date Site/Laterality Comments KNEE SURGERY Left x 2 CHOLECYSTECTOMY SECTION x 2 SPINE SURGERY CYST REMOVAL back VENTRAL HERNIA REPAIR 08/21/2024 N/A Medical History Medical History Date Comments Bipolar 1 disorder (HCC) PTSD (post-traumatic stress disorder) Depression Asthma Headache H/O multiple concussions TBA Fibromyalgia Umbilical hernia History of 10/06/2020 - history o f LTCS at term for breech presentation Plan: - plan to discuss delivery planning (TOLAC vs. repeat ) at next 2nd trimester appointment. Patient desires to TOLAC but desires (declines ECV) if fetus is breech. Nausea and vomiting during 11/12/2020 Intermittent nausea and vomiting with headache, no vision changes. She is intermittently tolerating meals. Large ketones today with three vomiting episodes. Plan: will send compazine to pharmacy. The patient is hungry for lunch so she will take the compazine and see if she tolerates lunch. If she does not, she was counseled to call the clinic or return to the [facility] for further evaluation. Hypertension GERD (gastroesophageal reflu x disease) Irritable bowel syndrome ADHD (attention deficit hype ractivity disorder) Family History Medical History Relation Name Comments Hypertension Maternal Grandfather Arthritis Mother Calcium disorder Mother Cervical cancer Mother Emphysema Mother Fibromyalgia Mother Melanoma Mother Ovarian cancer Mother Relation Name Status Comments Father Alive Maternal Grandfather Mother Alive Social History Tobacco Use Types Packs/Day Years Used Date Smoking Tobacco: Former Cigarettes Smokeless Tobacco: Never Tobacco Cessation:Counseling Given: Not Answered Alcohol Use Standard Drinks/Week Comments Not Currently 0 (1 standard drink = 0.6 oz pur e alcohol) socially AUDIT-C Answer Date Recorded Q1: How often do you have a drink containing alc ohol? Monthly or less 08/16/2024 Q2: How many drinks containi ng alcohol do you have on a typical day when you are drinking? 1 or 2 08/16/2024 Frequency of Binge Drinking Not on file 07/2024 PHQ-2 Answer Date Recorded PHQ-2 Total Score (If total score is 3 or more points, staff should administer the PHQ-9) 0 2024 Personal Safety Answer Date Recorded Have you ever been in or are you currently in a harmful physical or emotional relationship or is someone making you feel afraid or unsafe? 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 Gender Identity Not on file Sexual Orientation Not on file Obstetrics History Para Term AB IAB SAB Ectopic Multiple Livin g Live Births 2 2 2 0 2 2 Date Outcome GA Total Labor Labor//3rd Weight Sex Type Anes PTL Erlinda A1 A5 Name Clin 015 Term 39w 3d 3.6 kg (7 lb 15 oz) F CS-LT ranv N Livin g 022 Term 38w 5d 0h 05m 0h 05m 3.416 kg (7 lb 8.5 oz) F CS-LT ranv Spinal N Livin g 8 9 ZAIDA DANIELS,Jaspreet Lam MD Complications:None Delivery Location:This [facility] PROCED[facility]) Last Filed Vital Signs Vital Sign Reading Time Taken Comments Blood Pressure 120/73 09/10/2024 9:20 AM CDT Pulse 72 09/10/2024 9:20 AM CDT Temperature 36.2 C (97.1 F) 09/05/2024 8:12 AM CDT Respiratory Rate 18 08/21/2024 10:2 5 AM CDT Oxygen Saturation 98% 09/10/2024 9:20 AM CDT Inhaled Oxygen Concentration - - Weight 156.1 kg (344 lb 3.2 oz) 09/10/2024 9:20 AM CDT Height 180.3 cm (5' 10.98) 09/10/2024 9:20 AM C DT Body Mass Index 48.03 09/10/2024 9:20 AM CDT Plan of Treatment Health Maintenance Due Date Last Done Comments Varicella Vaccines (1 of 2 - 13+ 2-dose series) 2002 Hepatitis B Screening 06/12/2007 HPV Vaccines (1 - 3-dose SCDM series) 2016 Influenza Vaccine (#1) 2024 01/09/2014, 2013 Cervical Cancer Screening 06/11/20252024, 2024, 11/10/2021, Additional history exists Depression Screening 2025 2024 Regular Well Visit/Exam 18-64 2025 2024, 11/10/2021 DTaP/Tdap/Td Vaccine (4 - Td or Tdap) 12/03/2029 12/04/2019, 07/28/2016, 04/04/2014 Pneumococcal vaccine <65 Aged Out 04/05/2014, 02/12 No longer eligible based on patient's age to complete this topic Hepatitis C Screening Completed 09/12/2020 Medical Devices Implanted Type Area Museum Informatics Specialist Device Identifier Shelf Expiration Date Model / Serial / Lot [employer]/C R Bard Ventralight St Sepra 6x4in Monofilament Absorbable Low Profile Latex Free [id number] - [id number] Implanted:Qty: 1 on 08/21/2024 by Malik Bertrand MD at [facility] N/A: Abdomen [employer] 10/08/2025 [id number] / / [id number] Procedures Procedure Name Priority Date/Time Associated Diagnosis Comments [place] AN ELECTIVE ENDOTRACHEAL AIRWAY Routine 08/21/2024 8:15 AM CDT XI REPAIR VENTRAL HERNIA - LAPAROSCPIC ROBOTIC ASSISTED 08/21/2024 7:17 AM CDT Ventral hernia without obstruction or gangrene POCT HCG, URINE Routine 08/21/2024 6:39 AM CDT XR CHEST 1 VIEW ED 08/15/2024 1:32 PM CDT URINALYSIS, MICROSCOPIC ONLY STAT 08/15/2024 12:19 PM CDT URINALYSIS AND REFLEX TO MICROSCOPIC AND CULTURE STAT 08/15/2024 12:19 PM CDT POCT HCG, URINE Routine 08/15/2024 12:12 PM CDT TROPONIN T HIGH-SENSITIVITY Add-On 08/15/2024 11:59 AM CDT EGFR STAT 08/15/2024 11:59 AM CDT COMPREHENSIVE METABOLIC PANEL STAT 08/15/2024 11:59 AM CDT DIFFERENTIAL AUTO STAT 08/15/2024 11: 35 AM CDT CBC WITH AUTO DIFFERENTIAL STAT 08/15/2024 11:35 AM CDT ECG 12-LEAD STAT 08/15/2024 11:[address] ABDOMEN PELVIS W CONTRAST ED 07/24/2024 3:39 PM CDT EGFR STAT 07/24/2024 12:56 PM CDT DIFFERENTIAL AUTO STAT 07/24/2024 12: 56 PM CDT LIPASE STAT 07/24/2024 12:56 PM CDT CBC WITH AUTO DIFFERENTIAL STAT 07/24/2024 12:56 PM CDT COMPREHENSIVE METABOLIC PANEL STAT 07/24/2024 12:56 PM CDT POCT HCG, URINE Routine 07/24/2024 12:55 PM CDT URINALYSIS, MICROSCOPIC ONLY STAT 07/24/2024 12:30 PM CDT URINALYSIS AND REFLEX TO MICROSCOPIC AND CULTURE STAT 07/24/2024 12:30 PM CDT HIGH RISK HPV DNA DETECTION WITH GENOTYPING Routine 2024 9:00 AM CDT Well woman exam HEPATITIS C ANTIBODY Routine 09/12/2020 12:45 PM CDT Encounter for supervision of other normal in first trimester 10 weeks gestation of from Last 3 Months or Most Recently Relevant to Health Maintenance Results * [place] AN ELECTIVE ENDOTRACHEAL AIRWAY (08/21/2024 8:15 AM CDT) Narrative Geetha Navas CRNA - 08/21/2024 8:15 AM CDT Geetha Navas CRNA 08/21/2024 8:15 AM Airway Patient location: OR Urgency: elective Indications for airway management: anesthesia and airway protection Difficult airway: no Staff: Supervising provider: Britta Guillen MD Placed by: HOUSEKEEPING/LAUNDRY SUPERVISOR: Geetha Navas CRNA Emergent airway documentation: Risks and benefits discussed: yes Consent obtained: yes Consent given by: patient Airway prep: Preoxygenated: yes Patient position: sniffing Mask difficulty assessment: 1 - vent by mask Spontaneous ventilation during airway: absent Sedation level during airway: GA Final airway details: Final airway type: endotracheal airway Tube type: ETT ETT size: 7.0 mm Cuffed: yes Technique used for successful ETT placement: video laryngoscopy Devices/Methods used in placement: intubating stylet Insertion site: oral Blade type: Lilo Video blade type: Buchanan Blade size: 3 Cormack-Lehane (video): grade I - full view of glottis Cuff inflated with: air ETT to lips: 21 cm Placement verified by: auscultation and CO2 detection Airway secured with: silk tape Number of attempts: 1 Britta Guillen MD ANESTHESIA ORDERABLES Fi nal Result * POCT hCG, urine (08/21/2024 6:39 AM CDT) HCG, ur, POC Negative Negative Lot Number [id number] QC Backgroud Clear Acceptable QC Control Line Acceptable Urine 08/21/2024 6:39 AM CDT Bradford Sepulveda DO POINT OF CARE TEST ORDERABLES Final Result * XR Chest 1 Vw Portable (08/15/2024 1:32 PM CDT) Anatomical Region Laterality Modality Body, Chest N/A Computed Radiogr aphy 08/15/2024 1:47 PM CDT Narrative 08/15/2024 1:47 PM CDT EXAM DESCRIPTION: XR CHEST 1 VIEW REASON FOR STUDY: general weakness c/o dizziness, light headed, headache, feeling faint and chest pain since today. Pt reports hx of syncopal episodes. Denies any cardiac hx. TECHNIQUE: Single radiographic view(s) of the chest. COMPARISON: None FINDINGS: LUNGS: No focal opacity, pleural effusion, or pneumothorax. HEART/MEDIASTINUM: Cardiac silhouette normal in size. Mediastinal and hilar contours appear normal. LINES/TUBES: None. BONES: No acute osseous abnormality. IMPRESSION: No acute cardiopulmonary abnormality. THIS IS AN ELECTRONICALLY VERIFIED FINAL REPORT 08/15/2024 1:47 PM - Electronically signed by Dinorah August M.D. FT: FT Report ID: [id number] Reading Location: [id number] Procedure Note Dinorah Carr MD - 08/15/2024 EXAM DESCRIPTION: XR CHEST 1 VIEW REASON FOR STUDY: general weakness c/o dizziness, light headed, headache, feeling faint and chest pain since today. Pt reports hx of syncopal episodes. Denies any cardiac hx. TECHNIQUE: Single radiographic view(s) of the chest. COMPARISON: None FINDINGS: LUNGS: No focal opacity, pleural effusion, or pneumothorax. HEART/MEDIASTINUM: Cardiac silhouette normal in size. Mediastinal andhilar contours appear normal. LINES/TUBES: None. BONES: No acute osseous abnormality. IMPRESSION: No acute cardiopulmonary abnormality. THIS IS AN ELECTRONICALLY VERIFIED FINAL REPORT 08/15/2024 1:47 PM - Electronically signed by Dinorah August M.D. FT: FT Report ID: [id number] Reading Location: [id number] [place] [facility] IM[facility] XR PROCEDURES Final Result * (ABNORMAL) Urinalysis reflex to microscopic and culture Urine (08/15/2024 12:19 PM CDT) Color, ur Yellow Yellow Clarity, ur Turbid(A) Clear [facility] ([place]) Specific gravity, ur 1.022 1.003 - 1.030 [facility] ([place]) pH, urine 7.0 [facility] ([place]) Comment: Interpretive Data U rine pH is affected by diet, medications, systemic acid-base disturbances, and renal tubular function. pH may affect urinary stone formation. For example, urine pH below 6.0 may help reduce the tendency for calcium phosphate stones and pH greater than 6.0 may reduce the tendency for uric acid stone formation. Source: [facility] [employer] Current Interpretive Data was last revised on 2017 Protein, ur ql Negative Negative [facility] ([place]) Glucose, ur ql Negative Negative [facility] ([place]) Ketones, ur Negative Negative [facility] ([place]) Bilirubin, ur Negative Negative [facility] ([place]) Blood, ur Negative Negative [facility] ([place]) Urobilinogen, ur <2.0 <2.0 mg/dL [facility] ([place]) Nitrite, ur Negative Negative [facility] ([place]) Leukocyte esterase, ur 4+(A) Negative [facility] ([place]) UA reflex comment Reflex to microscopic UA will be performed. [facility] ([place]) Urine 08/15/2024 12:1 9 PM CDT 08/15/2024 12:23 PM CDT Claudia Burton MD LAB MICROBIOLOGY - GENERA L ORDERABLES Final Result [facility] ([place]) [facility] [place] [address] * (ABNORMAL) Urinalysis, microscopic only (08/15/2024 12:19 PM CDT) [facility] WBC, ur 6-10(A) 0 - 5 /HPF RBC, ur 0-2 0 - 2 /HPF [facility] ([place]) Epithelial cells, squamous, ur 1-5 0 - 5 /HPF [facility] ([place]) Bacteria, ur Trace(A) [facility] ([place]) Mucous, ur Present(A) [facility] ([place]) Culture Reflex Comment Reflex conditions for urine culture (WBC >10) not met. [facility] ([place]) Urine 08/15/2024 12:1 9 PM CDT 08/15/2024 12:23 PM CDT Claudia Burton MD LAB URINE ORDERABLES Rosemary l Result [facility] ([place]) [facility] [place] [address] * POCT hCG, urine (08/15/2024 12:12 PM CDT) [facility] HCG, ur, POC Negative Negative Lot Number [id number] QC Backgroud Clear Acceptable QC Control Line Acceptable Urine 08/15/2024 12:1 2 PM CDT Paul Terrazas MD POINT OF CARE TEST ORDERABLE S Final Result * Troponin T high-sensitivity (08/15/2024 11:59 AM CDT) [facility] Trop T hs <6 <=14 ng/L Comment: Interpretive Data For further hscTnT resources including the diagnostic algorithm and an aid in interpretation, copy and paste this link: [email or web address].testcatalog.org/show/hsTrop Current Interpretive Data last revised 2020. Blood 08/15/2024 11:5 9 AM CDT 08/15/2024 1:25 PM CDT [place] [facility] LAB BLOOD ORDERABLES Final Resu lt [facility] ([place]) [facility] [place] [address] * eGFR (08/15/2024 11:59 AM CDT) eGFR >90 >=60 mL/min/1. 73 m2 Comment: Interpretive Data Reference Interval Normal >/= 90 mL/min/1.73m2 Mildly decreased* 60 - 89 mL/min/1.73m2 Mildly to moderately decreased 45 - 59 mL/min/1.73m2 Moderately to severely decreased 30 - 44 mL/min/1.73m2 Severely decreased 15 - 29 mL/min/1.73m2 Kidney Failure < 15 mL/min/1.73m2 *Relative to young adult level Estimated glomerular filtration rate is determined by the 2020 CKD-EPI equation recommended by the National Kidney Foundation (A Unifying Approach to GFR Estimation: Recommendations of the NKF-ASK Task Force on Reassessing the Inclusion of Race in Diagnosing Kidney Disease, JASN 2020). The CKD-EPI equation should not be used for patients with unstable renal function and has not been validated in children and those over 70. Current interpretive data was last reviewed 2021. Blood 08/15/2024 11:5 9 AM CDT 08/15/2024 12:02 PM CDT us Claudia Burton MD LAB BLOOD ORDERABLES Rosemary l Result [facility] ([place] [place] [address] * (ABNORMAL) Comprehensive metabolic panel (08/15/2024 11:59 AM CDT) Sodium 137 135 - 145 mmol/L Potassium, pl 4.1 3.3 - 4.9 mmol/L [facility] ([place]) Chloride 102 97 - 110 mmol/L [facility] ([place]) CO2 22 22 - 32 mmol/L [facility] ([place]) Anion gap 13 2 - 15 mmol/L [facility] ([place]) BUN 14 6 - 25 mg/dL [facility] ([place]) Creatinine 0.83 0.60 - 1.10 mg/dL [facility] ([place]) Glucose 107 70 - 199 mg/dL [facility] ([place]) Comment: Interpretive Data Fasting glucose >/= 126 mg/dl is diagnostic for diabetes. Fasting is defined as no caloric intake for at least 8 hours. Fasting glucose between 100 mg/dl to 125 mg/dl is diagnostic of prediabetes. In a patient with classic symptoms of hyperglycemia or hyperglycemic crisis, a random glucose >/= 200 mg/dl is diagnostic for diabetes. In the absence of unequivocal hyperglycemia, results should be confirmed by repeat testing. The classification and Diagnosis of Diabetes Diabetes Care 2021; 46: S19-S40. Current interpretive data was last revised 2022. Calcium 8.3(L) 8.5 - 10.3 mg/dL [facility] ([place]) Bilirubin, total <0.2 0.1 - 1.2 mg/dL [facility] ([place]) Protein, pl 6.3(L) 6.5 - 8.5 g/dL [facility] ([place]) Albumin 3.4(L) 3.5 - 5.0 g/dL [facility] ([place]) Alk phos 75 40 - 130 Units/L [facility] ([place]) ALT 9 7 - 45 Units/L [facility] ([place]) AST 11 10 - 45 Units/L [facility] ([place]) Comment:Slightly Hemolyzed S pecimen Blood 08/15/2024 11:5 9 AM CDT 08/15/2024 12:02 PM CDT us Claudia Burton MD LAB BLOOD ORDERABLES Rosemary thompson Result [facility] ([place]) [facility] [place], [place] [id number] * (ABNORMAL) Differential, auto (08/15/2024 11:35 AM CDT) Neutrophil abs 7.56(H) 1.50 - 6.50 K/cumm Imm gran abs 0.05 0.00 - 0.10 K/cumm [facility] ([place]) Lymphocyte abs 2.27 0.80 - 3.30 K/cumm [facility] ([place]) Monocyte abs 0.96(H) 0.20 - 0.80 K/cumm [facility] ([place]) Eosinophil abs 0.03 0.00 - 0.50 K/cumm [facility] ([place]) Basophil abs 0.07 0.00 - 0.10 K/cumm [facility] ([place]) Neutrophil pct 69.1 % [facility] ([place]) Comment: Interpretive Data Percent cell count reference ranges are not reported, since discordance with absolute values may lead to misinterpretation of CBC data. Current Interpretive Data was last revised on 2017. Imm gran pct 0.5 % [facility] ([place]) Comment: Interpretive Data Percent cell count reference ranges are not reported, since discordance with absolute values may lead to misinterpretation of CBC data. Current Interpretive Data was last revised on 2017. Lymphocyte pct 20.7 % [facility] ([place]) Comment: Interpretive Data Percent cell count reference ranges are not reported, since discordance with absolute values may lead to misinterpretation of CBC data. Current Interpretive Data was last revised on 2017. Monocyte pct 8.8 % [facility] ([place]) Comment: Interpretive Data Percent cell count reference ranges are not reported, since discordance with absolute values may lead to misinterpretation of CBC data. Current Interpretive Data was last revised on 2017. Eosinophil pct 0.3 % [facility] ([place]) Comment: Interpretive Data Percent cell count reference ranges are not reported, since discordance with absolute values may lead to misinterpretation of CBC data. Current Interpretive Data was last revised on 2017. Basophil pct 0.6 % [facility] ([place]) Comment: Interpretive Data Percent cell count reference ranges are not reported, since discordance with absolute values may lead to misinterpretation of CBC data. Current Interpretive Data was last revised on 2017. Blood 08/15/2024 11:3 5 AM CDT 08/15/2024 11:37 AM CDT Claudia Burton MD LAB BLOOD ORDERABLES Rosemary l Result [facility] ([place]) 1 [facility] [place] [address] * (ABNORMAL) CBC with auto differential (08/15/2024 11:35 AM CDT) WBC 10.94(H) 3.80 - 9.90 K/cumm Hgb 12.5 11.9 - 15.5 g/dL [facility] ([place]) Hct 38.7 35.6 - 45.5 % [facility] ([place]) Plt 288 150 - 400 K/cumm [facility] ([place]) MPV 9.5 9.1 - 12.3 fL [facility] ([place]) RBC 4.08 3.90 - 5.20 M/cumm [facility] ([place]) MCV 94.9 81.3 - 96.4 fL [facility] ([place]) MCH 30.6 27.1 - 33.3 pg [facility] ([place]) MCHC 32.3 32.3 - 35.7 g/dL [facility] ([place]) RDW CV 13.3 11.1 - 14.9 % [facility] ([place]) RDW SD 45.5 35.7 - 48.1 fL [facility] ([place]) NRBC abs 0.00 0.00 - 0.01 K/cumm [facility] ([place]) Blood 08/15/2024 11:3 5 AM CDT 08/15/2024 11:37 AM CDT us Claudia Burton MD LAB BLOOD ORDERABLES Rosemary l Result [facility] ([place]) 1 [facility] [employer] [place] [address] * ECG 12 lead (08/15/2024 11:25 AM CDT) 08/15/2024 11:2 5 AM CDT Narrative [facility] - 08/15/2024 11:53 AM CDT Vent Rate: 72 bpm RR Interval: 825 msec [place] Interval: 145 msec QRS Duration: 91 msec QT Interval: 416 msec QTC Interval: 441 msec P-R-T [place]: 31 - 40 - 10 degrees IMPRESSION: SINUS RHYTHM LOW QRS VOLTAGE IN PRECORDIAL LEADS [QRS DEFLECTION < 1.0 mV IN CHEST LEADS] BORDERLINE ECG NO CHANGE FROM PREVIOUS TRACING NOTED Electronically Signed By: Nikita Palacio MD us Claudia Burton MD ECG ORDERABLES Final Res ult [email or web address] [facility] * CT Abdomen Pelvis W Contrast (07/24/2024 3:39 PM CDT) Anatomical Region Laterality Modality Body N/A Computed Tomogra phy 07/24/2024 4:11 PM CDT Narrative 07/24/2024 4:28 PM CDT EXAM DESCRIPTION: CT ABDOMEN PELVIS W CONTRAST REASON FOR STUDY: Abdominal pain, acute, nonlocalized Pt to ED for c/o nausea and abdominal pain x 2 days. Pt reports pain is in the middle of her stomach. Hx of hernia per pt. TECHNIQUE: CT scan of the abdomen and pelvis performed with intravenous and without oral contrast using helical scanning technique with dynamic intravenous contrast injection. Reconstructed coronal and sagittal MPR images reviewed. All images stored on PACS. Automated exposure control was used as a dose optimization technique for this examination. CONTRAST TYPE/DOSE: 100mL of IOVERSOL 350 MG IODINE/ML INTRAVENOUS SYRINGE injected via intravenous COMPARISON: 04/23/2014, 10/08/2023 REFERENCE: Per ACR white paper recommendations, unless otherwise specified no follow-up imaging is recommended for incidental renal and adrenal lesions per consensus recommendations based on imaging criteria. Further lab evaluation could be pursued based on clinical findings. FINDINGS: LOWER CHEST: Cardiomegaly. LIVER: Early morphologic changes of chronic liver disease including lobar redistribution and fissural widening. Ill-defined hypoattenuation along the gallbladder fossa, likely focal hepatic steatosis. No concerning lesion. GALLBLADDER/BILE DUCTS: Gallbladder is surgically absent. SPLEEN: Normal size. No focal concerning lesions. PANCREAS: No significant ductal dilatation or discrete lesion. ADRENALS: No measurable nodule. KIDNEYS/URETERS: Subcentimeter hypodensities too small to further characterize. Malrotated right kidney. No hydronephrosis. BLADDER/URINARY: No significant wall thickening. REPRODUCTIVE: Small left adnexal cystic structures measuring up to 2.2 cm, not meeting size criteria for imaging follow-up in a premenopausal patient. Unremarkable appearance of the right ovary. GASTROINTESTINAL: No dilated bowel loops. No obvious wall thickening. Normal-appearing appendix. No bowel obstruction. LYMPH NODES: No pathologically enlarged abdominal or pelvic lymphadenopathy. PERITONEUM/RETROPERITONEUM: No ascites or free air. VASCULATURE: No abdominal aortic aneurysm. MUSCULOSKELETAL: Mildly complex large periumbilical fat containing hernia. Mild stranding and trace free fluid within the hernia. Hernia neck measures approximately 4.9 x 4.6 cm. Minimal overlying edema/stranding. No aggressive appearing osseous lesions. No acute osseous abnormality. . OTHER: No significant abnormality. IMPRESSION: Mildly complex large periumbilical fat containing hernia with mild stranding and trace free fluid. Recommend correlation with physical exam and reducibility. Early morphologic changes of chronic liver disease. Recommend correlation with clinical history and risk factors. Incidental and chronic findings as above. THIS IS AN ELECTRONICALLY VERIFIED FINAL REPORT 07/24/2024 4:28 PM - Electronically signed by Kenn Cuellar M.D. NS: NS Report ID: [id number] Reading Location: [id number] Procedure Note Kenn Cuellar MD - 07/24/2024 EXAM DESCRIPTION: CT ABDOMEN PELVIS W CONTRAST REASON FOR STUDY: Abdominal pain, acute, nonlocalized Pt to ED for c/o nausea and abdominal pain x 2 days. Pt reports pain is inthe middle of her stomach. Hx of hernia per pt. TECHNIQUE: CT scan of the abdomen and pelvis performed with intravenousand without oral contrast using helical scanning technique with dynamic intravenous contrast injection. Reconstructed coronal and sagittal MPRimages reviewed. All images stored on PACS. Automated exposure control was usedas a dose optimization technique for this examination. CONTRAST TYPE/DOSE: 100mL of IOVERSOL 350 MG IODINE/ML INTRAVENOUSSYRINGE injected via intravenous COMPARISON: 04/23/2014, 10/08/2023 REFERENCE: Per ACR white paper recommendations, unless otherwise specifiedno follow-up imaging is recommended for incidental renal and adrenal lesionsper consensus recommendations based on imaging criteria. Further labevaluation could be pursued based on clinical findings. FINDINGS: LOWER CHEST: Cardiomegaly. LIVER: Early morphologic changes of chronic liver disease includinglobar redistribution and fissural widening. Ill-defined hypoattenuation alongthe gallbladder fossa, likely focal hepatic steatosis. No concerning lesion. GALLBLADDER/BILE DUCTS: Gallbladder is surgically absent. SPLEEN: Normal size. No focal concerning lesions. PANCREAS: No significant ductal dilatation or discrete lesion. ADRENALS: No measurable nodule. KIDNEYS/URETERS: Subcentimeter hypodensities too small to further characterize. Malrotated right kidney. No hydronephrosis. BLADDER/URINARY: No significant wall thickening. REPRODUCTIVE: Small left adnexal cystic structures measuring up to 2.2cm, not meeting size criteria for imaging follow-up in a premenopausalpatient. Unremarkable appearance of the right ovary. GASTROINTESTINAL: No dilated bowel loops. No obvious wall thickening. Normal-appearing appendix. No bowel obstruction. LYMPH NODES: No pathologically enlarged abdominal or pelviclymphadenopathy. PERITONEUM/RETROPERITONEUM: No ascites or free air. VASCULATURE: No abdominal aortic aneurysm. MUSCULOSKELETAL: Mildly complex large periumbilical fat containinghernia. Mild stranding and trace free fluid within the hernia. Hernia neckmeasures approximately 4.9 x 4.6 cm. Minimal overlying edema/stranding. Noaggressive appearing osseous lesions. No acute osseous abnormality. . OTHER: No significant abnormality. IMPRESSION: Mildly complex large periumbilical fat containing hernia with mildstranding and trace free fluid. Recommend correlation with physical exam and reducibility. Early morphologic changes of chronic liver disease. Recommend correlation with clinical history and risk factors. Incidental and chronic findings as above. THIS IS AN ELECTRONICALLY VERIFIED FINAL REPORT 07/24/2024 4:28 PM - Electronically signed by Kenn Cuellar M.D. NS: NS Report ID: [id number] Reading Location: [place] [address] PROCEDURES Final Result * eGFR (07/24/2024 12:56 PM CDT) eGFR >90 >=60 mL/min/1. 73 m2 Comment: Interpretive Data Reference Interval Normal >/= 90 mL/min/1.73m2 Mildly decreased* 60 - 89 mL/min/1.73m2 Mildly to moderately decreased 45 - 59 mL/min/1.73m2 Moderately to severely decreased 30 - 44 mL/min/1.73m2 Severely decreased 15 - 29 mL/min/1.73m2 Kidney Failure < 15 mL/min/1.73m2 *Relative to young adult level Estimated glomerular filtration rate is determined by the 2020 CKD-EPI equation recommended by the National Kidney Foundation (A Unifying Approach to GFR Estimation: Recommendations of the NKF-ASK Task Force on Reassessing the Inclusion of Race in Diagnosing Kidney Disease, JASN 2020). The CKD-EPI equation should not be used for patients with unstable renal function and has not been validated in children and those over 70. Current interpretive data was last reviewed 2021. Blood 07/24/2024 12:5 6 PM CDT 07/24/2024 12:58 PM CDT us Hiram Landis MD LAB BLOOD ORDERABLES Final Res ult [facility] ([place]) 1 [facility] [place] [address] * (ABNORMAL) Differential, auto (07/24/2024 12:56 PM CDT) Pathologist [facility] Neutrophil abs 7.75(H) 1.50 - 6.50 K/cumm Imm gran abs 0.04 0.00 - 0.10 K/cumm [facility] ([place]) Lymphocyte abs 2.72 0.80 - 3.30 K/cumm [facility] ([place]) Monocyte abs 1.11(H) 0.20 - 0.80 K/cumm [facility] ([place]) Eosinophil abs 0.03 0.00 - 0.50 K/cumm [facility] ([place]) Basophil abs 0.06 0.00 - 0.10 K/cumm [facility] ([place]) Neutrophil pct 66.2 % [facility] ([place]) Comment: Interpretive Data Percent cell count reference ranges are not reported, since discordance with absolute values may lead to misinterpretation of CBC data. Current Interpretive Data was last revised on 2017. Imm gran pct 0.3 % [facility] ([place]) Comment: Interpretive Data Percent cell count reference ranges are not reported, since discordance with absolute values may lead to misinterpretation of CBC data. Current Interpretive Data was last revised on 2017. Lymphocyte pct 23.2 % [facility] ([place]) Comment: Interpretive Data Percent cell count reference ranges are not reported, since discordance with absolute values may lead to misinterpretation of CBC data. Current Interpretive Data was last revised on 2017. Monocyte pct 9.5 % [facility] ([place]) Comment: Interpretive Data Percent cell count reference ranges are not reported, since discordance with absolute values may lead to misinterpretation of CBC data. Current Interpretive Data was last revised on 2017. Eosinophil pct 0.3 % [facility] ([place]) Comment: Interpretive Data Percent cell count reference ranges are not reported, since discordance with absolute values may lead to misinterpretation of CBC data. Current Interpretive Data was last revised on 2017. Basophil pct 0.5 % [facility] ([place]) Comment: Interpretive Data Percent cell count reference ranges are not reported, since discordance with absolute values may lead to misinterpretation of CBC data. Current Interpretive Data was last revised on 2017. Blood 07/24/2024 12:5 6 PM CDT 07/24/2024 12:58 PM CDT us Hiram Landis MD LAB BLOOD ORDERABLES Final Res ult [facility] ([place]) 1 [facility] [place] [address] * (ABNORMAL) CBC with auto differential (07/24/2024 12:56 PM CDT) WBC 11.71(H) 3.80 - 9.90 K/cumm Hgb 14.4 11.9 - 15.5 g/dL [facility] ([place]) Hct 43.8 35.6 - 45.5 % [facility] ([place]) Plt 340 150 - 400 K/cumm [facility] ([place]) MPV 9.2 9.1 - 12.3 fL [facility]) RBC 4.78 3.90 - 5.20 M/cumm [facility] ([place]) MCV 91.6 81.3 - 96.4 fL [facility] ([place]) MCH 30.1 27.1 - 33.3 pg [facility] ([place]) MCHC 32.9 32.3 - 35.7 g/dL [facility] ([place]) RDW CV 12.5 11.1 - 14.9 % [facility]) RDW SD 41.7 35.7 - 48.1 fL [facility] ([place]) NRBC abs 0.00 0.00 - 0.01 K/cumm [facility] ([place]) Blood 07/24/2024 12:5 6 PM CDT 07/24/2024 12:58 PM CDT Hiram Landis MD LAB BLOOD ORDERABLES Final Res ult [facility] ([place]) 1 [facility] [place] [address] * Lipase (07/24/2024 12:56 PM CDT) Lipase 25 10 - 99 Units/L Blood 07/24/2024 12:5 6 PM CDT 07/24/2024 12:58 PM CDT Hiram Landis MD LAB BLOOD ORDERABLES Final Res ult [facility] ([place]) 1 [facility] [employer] [place] [address] * (ABNORMAL) Comprehensive metabolic panel (07/24/2024 12:56 PM CDT) Sodium 134(L) 135 - 145 mmol/L Potassium, pl 4.2 3.3 - 4.9 mmol/L [facility] Chloride 101 97 - 110 mmol/L [facility]) CO2 22 22 - 32 mmol/L [facility]) Anion gap 11 2 - 15 mmol/L [facility] ([place]) BUN 12 6 - 25 mg/dL [facility]) Creatinine 0.67 0.60 - 1.10 mg/dL [facility] ([place]) Glucose 92 70 - 199 mg/dL [facility] ([place]) Comment: Interpretive Data Fasting glucose >/= 126 mg/dl is diagnostic for diabetes. Fasting is defined as no caloric intake for at least 8 hours. Fasting glucose between 100 mg/dl to 125 mg/dl is diagnostic of prediabetes. In a patient with classic symptoms of hyperglycemia or hyperglycemic crisis, a random glucose >/= 200 mg/dl is diagnostic for diabetes. In the absence of unequivocal hyperglycemia, results should be confirmed by repeat testing. The classification and Diagnosis of Diabetes Diabetes Care 2021; 46: S19-S40. Current interpretive data was last revised 2022. Calcium 9.4 8.5 - 10.3 mg/dL [facility]) Bilirubin, total <0.2 0.1 - 1.2 mg/dL [facility] ([place]) Protein, pl 7.8 6.5 - 8.5 g/dL [facility] ([place]) Albumin 4.1 3.5 - 5.0 g/dL [facility] ([place]) Alk phos 81 40 - 130 Units/L [facility] ([place]) ALT 11 7 - 45 Units/L [facility]) AST 11 10 - 45 Units/L [facility] ([place]) Blood 07/24/2024 12:5 6 PM CDT 07/24/2024 12:58 PM CDT us Hiram Landis MD LAB BLOOD ORDERABLES Final Res ult [facility] ([place]) 1 [facility] [place] [address] * POCT hCG, urine (07/24/2024 12:55 PM CDT) HCG, ur, POC Negative Negative Lot Number [id number] QC Backgroud Clear Acceptable QC Control Line Acceptable Urine 07/24/2024 12:5 5 PM CDT Claudia Burton MD POINT OF CARE TEST ORDERA BLES Final Result * (ABNORMAL) Urinalysis reflex to microscopic and culture Urine (07/24/2024 12:30 PM CDT) Color, ur Yellow Yellow Clarity, ur Turbid(A) Clear [facility] ([place]) Specific gravity, ur 1.022 1.003 - 1.030 [facility] ([place]) pH, urine 6.5 [facility] ([place]) Comment: Interpretive Data U rine pH is affected by diet, medications, systemic acid-base disturbances, and renal tubular function. pH may affect urinary stone formation. For example, urine pH below 6.0 may help reduce the tendency for calcium phosphate stones and pH greater than 6.0 may reduce the tendency for uric acid stone formation. Source: [facility] [employer] Current Interpretive Data was last revised on 2017 Protein, ur ql Negative Negative [facility] ([place]) Glucose, ur ql Negative Negative [facility] ([place]) Ketones, ur Negative Negative [facility] ([place]) Bilirubin, ur Negative Negative [facility] ([place]) Blood, ur Negative Negative [facility] ([place]) Urobilinogen, ur <2.0 <2.0 mg/dL [facility] ([place]) Nitrite, ur Negative Negative [facility] ([place]) Leukocyte esterase, ur 3+(A) Negative [facility] ([place]) UA reflex comment Reflex to microscopic UA will be performed. [facility] ([place]) Urine 07/24/2024 12:3 0 PM CDT 07/24/2024 12:33 PM CDT Claudia Burton MD LAB MICROBIOLOGY - GENERA L ORDERABLES Final Result [facility] ([place]) [address] Department [place] [address] * (ABNORMAL) Urinalysis, microscopic only (07/24/2024 12:30 PM CDT) WBC, ur 0-5 0 - 5 /HPF RBC, ur 0-2 0 - 2 /HPF [facility] ([place]) Epithelial cells, squamous, ur 11-20(A) 0 - 5 /HPF [facility] ([place]) Bacteria, ur 1+(A) [facility] ([place]) Mucous, ur Present(A) [facility] ([place]) Culture Reflex Comment Reflex conditions for urine culture (WBC >10) not met. [facility] ([place]) Urine 07/24/2024 12:3 0 PM CDT 07/24/2024 12:33 PM CDT Claudia Burton MD LAB URINE ORDERABLES Rosemary thompson Result [facility] ([place]) [address] [place] [address] Department [place] [address] * High Risk HPV DNA Detection with Genotyping (Molecular component) (2024 9:00 AM CDT) Pathologist [facility] HPV HR 16 Not Detected Not Detected [facility] Comment:Testing performed by : [facility], [address] [facility] [place] [address] HPV HR 18 Not Detected Not Detected [facility] Comment:Testing performed by : [facility], [address] [facility] [place] [address] HPV HR Non 16/18 Not Detected Not [...] this test have been verified by the [facility] Molecular Infectious Disease laboratory. Correlate with separately reported cytology results, as applicable. Interpretive data last revised 22 Testing performed by: [facility], [address] [place]., [address] Endocervical 2024 9:00 AM CDT 06/12/2024 4:29 PM CDT Narrative [facility] - 06/13/2024 2:39 AM CDT Clinical history and diagnosis->screening Testing type->Screening Last menstrual period (date if known)->[id number] us Ingrid Marie NP LAB BODY FLUIDS AND STOOLS ORDER SANDY Final Result Performing Organization Address City/[facility] Co de Phone Number [facility] [address] [place] [address] [facility] * Hepatitis C antibody (09/12/2020 12:45 PM CDT) Hep C Ab Nonreactive Nonreactive [facility] ([place]) Comment: Interpretive Data Nonreactive: Antibodies to [...] last revised on 2019. Testing performed by: [facility], [address] [place] [address]., [id number] Blood specimen (specimen) 09/12/2020 12:45 PM CDT 09/13/2020 4:45 PM CDT us Ingrid Marie NP LAB MICROBIOLOGY - GENERAL ORDER SANDY Edited Result - Final Performing Organization Address City/[facility]/ZIP Co de Phone Number [facility] ([place]) [address] [facility] [place] [address] from Last 3 Months or Most Recently Relevant to Health Maintenance Insurance Advance Directives For more information, please contact: [phone] * Full Code (Latest Code Status on File) Date Activated Date Inactivated Comments 03/29/2021 8:06 PM 03/31/2021 8:50 PM * Full Code Date Activated Date Inactivated Comments 03/29/2021 1:37 PM 03/29/2021 8:06 PM Full CPR in case of cardiopulmonary arrest Care Teams Resource Room Special Education Teacher Relationship Specialty Start Date End Date Petra Dickinson MD [address] [place] [address] PCP - General Obstetrics and Gynecology 05/24/24 Dash Bill MD [address] [place] [address] Internal Medicine 12/20/22 Jermain Paz MD [address] [place] [id number] [employer] Obstetrics [facility] Gynecology 03/31/21
[2024-10-24 14:02] VITALS: BP 132/75; PULSE 73; RESP 16; TEMP 36.5; O2SAT 99
--- OUTSIDE RECORDS SUMMARY | 2024-10-24 14:02 | XMS_ITS | Patient Health Record ---
Author Organization [facility] Address [address] [place] [address] Care Team Providers Care Chemical Sales Representative Name Role Phone Miguelangel Cunha Unavailable [phone] BenitoFlores ayoub Unavailable [phone] Allergies Allergen (clinical drug ingredient) Drug/Non Drug Allergy documented on EMR Reaction Allergy Type Onset Date Status codeine Codeine Unknown Drug Allergy Active Penicillin rash Drug Allergy Active Results Component Value Reference Range Notes Hemoglobin A1c* Reviewed date:01/18/2024 08:14:56 AM Interpretation: Performing Lab:[facility], Phone - [phone], Director - Ph[facility]aint [facility] Cent[facility]y Notes/Report: Hemoglobin A1c 5.7 4.8-5.6 % . Prediabetes: 5.7 - 6.4 Diabetes: >6.4 Glycemic control for adults with diabetes: <7.0 Vitamin B12* Reviewed date:01/18/2024 08:12:37 AM Interpretation: Performing Lab:[facility], [facility], Phone - [phone], Director - PhDSaint Elizabeth'S Medical Centerteresai Notes/Report: Vitamin B12 697 458-2895 pg/mL Folate (Folic Acid), Serum* Reviewed date:01/18/2024 08:15:30 AM Interpretation: Performing Lab:[email or web address], Phone - [phone], Director - PhDSaint Elizabeth'S Medical Centerteresai Notes/Report: Folate (Folic Acid), Serum 7.3 >3.0 ng/mL A serum folate concentration of less than 3.1 ng/mL is considered to represent clinical deficiency. CBC With Differential/Platel et* Reviewed date:01/18/2024 08:15:52 AM Interpretation: Performing Lab:[facility] [address] [facility], Phone - [phone], Director - [facility] Notes/Report: WBC 10.4 3.4-10.8 x10E3/uL RBC 4.55 [...] S Reviewed date:01/18/2024 08:11:27 AM Interpretation: Performing Lab:[facility] [place] [address] [facility], Phone - [phone], Director - [facility] Notes/Report: Carbamazepine(Tegretol), S 4.5 4.0-12.0 ug/mL In conjunction with other antiepileptic drugs Therapeutic 4.0 - 8.0 Toxicity 9.0 - 12.0 . Carbamazepine alone Therapeutic 8.0 - 12.0 . Detection Limit = 2.0 <2.0 indicates None Detected Vitamin D, 25-Hydroxy* Reviewed date:01/18/2024 08:12:22 AM Interpretation: Performing Lab:[facility] [place] [address] [facility], Phone - [phone], Director - [facility] Notes/Report: Vitamin D, 25-Hydroxy 27.8 30.0-100.0 ng/mL Vitamin D deficiency has been defined by the [place] of Medicine and an Endocrine Society practice guideline as a level of serum 25-OH vitamin D less than 20 ng/mL (1,2). The Endocrine Society went on to further define vitamin D insufficiency as a level between 21 and 29 ng/mL (2). 1. IOM ([place] of Medicine). 2010. Dietary reference intakes for calcium and D. [place]: The National AcademGlamour Sales Holding Press. 2. Americo MF, Kortney FELDMAN, Jessica BIRCH, et al. Evaluation, treatment, and prevention of vitamin D deficiency: an Endocrine Society clinical practice guideline. JCEM. 2010; 96(7):1911-30. TSH+Free T4* Reviewed date:01/18/2024 08:12:45 AM Interpretation: Performing Lab:[facility], Phone - [phone], Director - [facility] Notes/Report: TSH 1.090 0.450-4.500 uIU/mL T4,Free(Direct) 1.04 0.82-1.77 ng/dL Lipid Panel* Reviewed date:01/18/2024 08:14:00 AM Interpretation: Performing Lab:[facility], Phone - [phone], Director - [facility] Notes/Report: Cholesterol, Total 240 100-199 mg/dL Triglycerides 128 0-149 mg/dL HDL Cholesterol 54 >39 mg/dL VLDL Cholesterol Chema 23 5-40 mg/dL LDL Chol Calc ([facility]) 163 0-99 mg/dL CMP 14 Comprehensive Metabol ic Panel* Reviewed date:01/18/2024 08:15:41 AM Interpretation: Performing Lab:[facility], Phone - [phone], Director - [facility] Notes/Report: Glucose 94 70-99 mg/dL BUN 15 [...] Start Date End Date Status Prazosin HCl 2 MG 1 capsule twice abbey y Orally daily; Duration: 30 days Active FLUoxetine HCl 10 MG 1 capsule Orally On ce a day take with morning or evening dose of fluoxetine 40mg - TOTAL DAILY DOSE 90mg; Duration: 30 days Active Baclofen 20 MG 1 tablet Administer without regards to meals as needed Orally Twice a day Active Pregabalin 50 MG 1 capsule Orally Onc e a day Not-Taking Meclizine HCl 50 MG 1 tablet as needed Orally every 12 hrs Active Qelbree 200 MG 1 capsule Orally Onc e a day; Duration: 30 days Active Cholestyramine 4 GM 1 packet mixed with water or non-carbonated drink Orally twice daily Active ARIPiprazole 15 MG 1 tablet Orally Once a day; Duration: 30 days Active Omeprazole 20 MG 1 capsule 1/2 to 1 hour before morning meal Orally Once a day Active FLUoxetine HCl 40 MG TAKE 1 CAPSULE BY MOUTH TWICE DAILY - take either morning or evening dose with fluoxetine 10mg - TOTAL DAILY DOSE 90MG Orally daily; Duration: 30 days Active Meloxicam 7.5 MG 1 tablet Orally Once a day Active carBAMazepine 200 MG 2 tablets (400mg) i n the morning and 3 tablets (600mg) in the evening Orally daily; Duration: 30 days Active hydrOXYzine HCl 50 MG 0.5 tablet twice d aily as needed for anxiety and 1 tablet at bedtime as needed for sleep Orally daily; Duration: 30 days Active Vitamin D3 50 MCG (2000 UT) TAKE 1 CAPSULE BY MOUTH ONCE DAILY; Duration: 30 days Active Propranolol HCl ER 60 MG 1 capsule Orall y Once a day; Duration: 30 days Active Prazosin HCl 1 MG 1 capsule once daily in the morning - take with morning dose of prazosin 2mg for TOTAL 3mg in the morning Orally Once a day; Duration: 30 days Active Social History Tobacco Use: Social History Observation Description Date Details (start date - stop date) Never Smoker NA - NA Sex Assigned At : Social History Observation Description Sex Assigned At Female PRAPARE Question Answer Notes Date Completed/Updated: 03/06/2024 What is your current housing situation? I do not have housing (staying with others, in a hotel, in a longterm, living outside on the street, on a [...] phone, visiting friends or family, going to judaism or club meetings) More than 5 times a week How stressed are you? Stress is when someone feels tense, nervous, anxious, or can\t sleep at night because their mind is troubled Quite a bit In the past year have you sp ent more than 2 nights in a row in a long term, snf, jail center, or juvenile correctional facility? No Are [...] Status W/U Status Risk Notes Problem Anxiety (24234300) Anxiety (F41.9) Active confirmed Problem Bipolar 1 disorder (464021934) Bipolar 1 disorder (F31.9) Active confirmed Problem Vitamin D deficiency (74628364) Vitamin D deficiency (E55.9) Active confirmed Problem Overweight (834739179) Over weight (E66.3) Active confirmed Problem Depressed (31807313) Depressed (F32.9) Active confirmed Problem Drug monitoring done (643244281) Therapeutic drug monitoring (Z51.81) Active confirmed Problem Adjustment disorder (07408246) Trauma and stressor-related disorder (F43.9) Active confirmed Problem Sleep dysfunction with arousal disturbance (771621692) Night terror (F51.4) Active confirmed Problem Impaired concentration (4431534964) Impaired concentration (R41.840) Active confirmed Vital Signs Height 71 in 07/04/2024 Weight 350 lbs 10/23/2024 BMI 47.14 kg/m2 07/04/2024 Encounters Encounter Location Date Provider Diagnosis [address] [address] 01/04/2024 Miguelangel Cunha [address] [address] 03/08/[address] [address] 09/03/2024 Flores Oliver [address] [address] 01/16/2024 Miguelangel Cunha Bipolar 1 disorder F31.9 ; Anxiety F41.9 ; Depressed F32.9 ; Impaired concentration R41.840 and Vitamin D deficiency E55.[address] [address] 01/04/2024 Miguelangel Cunha Bipolar 1 disorder F31.9 ; Anxiety F41.9 ; Depressed F32.9 ; Impaired concentration R41.840 ; Vitamin D deficiency E55.9 and Nutritional counseling Z71.[address] [address] 03/06/2024 Miguelangel Cunha Anxiety F41.9 ; Bipolar 1 disorder F31.9 ; Depressed F32.9 ; Impaired concentration R41.840 ; Vitamin D deficiency E55.9 and Nutritional counseling Z71.[address] [address] 05/23/2024 Miguelangel Cunha Anxiety F41.9 ; Bipolar 1 disorder F31.9 ; Depressed F32.9 ; Impaired concentration R41.840 ; Vitamin D deficiency E55.9 and Nutritional counseling Z71.[address] [address] 06/05/2024 Miguelangel Cunha Anxiety F41.9 ; Bipolar 1 disorder F31.9 ; Depressed F32.9 ; Impaired concentration R41.840 ; Vitamin D deficiency E55.9 ; Nutritional counseling Z71.3 and Over weight E66.[address] [address] 07/04/2024 Miguelangel Cunha Anxiety F41.9 ; Bipolar 1 disorder F31.9 ; Depressed F32.9 ; Impaired concentration R41.840 ; Vitamin D deficiency E55.9 ; Nutritional counseling Z71.3 and Over weight E66.[address] [address] 10/23/2024 Flores Benito Anxiety F41.9 ; Bipolar 1 disorder F31.9 [...] buspirone, aripiprazole Current/previous therapies: Needing to call [facility] and set up appointment Examination as documented [...] to the emergency department, or contact the [facility] Crisis [facility]/Team. Follow up as [...] assessment and plan for bipolar I disorder 10/23/2024 Anxiety (ICD-10 - F41.9) 07/04/2024 Anxiety (ICD-10 - F41.9) See assessment [...] health CRISIS, please reach out to [phone] ([employer] [facility]icide and Crisis [facility]), 911, go to the emergency department, or contact the [facility]/Team. Follow up as scheduled in 3 weeks or sooner if necessary. Follow up with PCP and/or other specialists as advised. NEXT STEP: Consider increasing carbamazepine again pending response/tolerabili ty. Consider increasing propranolol pending response/tolerabili ty. Consider increasing hydroxyzine as needed. Consider increasing Qelbree. Consider other medication adjustments as needed. 07/04/2024 Bipolar 1 disorder (ICD-10 - F31.9) [...] to the emergency department, or contact the [facility]/Team. Follow up as scheduled in 4 weeks or sooner if necessary. Follow up with PCP and/or other specialists as advised. NEXT STEP: Consider other medication adjustments as needed. 10/23/2024 Bipolar 1 disorder (ICD-10 - F31.9) 10/23/2024 Depressed (ICD-10 - F32.9) 05/23/2024 Bipolar 1 disorder (ICD-10 - F31.9) [...] health CRISIS, please reach out to [phone] ([employer] [facility]), 911, go to the emergency department, or contact the [facility]/Team. Follow up as [...] buspirone, aripiprazole Current/previous therapies: Needing to call [facility] and set up appointment Examination as documented [...] to the emergency department, or contact the [facility]/Team. Follow up as [...] trials: Strattera Current/previous therapies: Needing to call [facility] and set up appointment Examination as documented [...] health CRISIS, please reach out to [phone] ([employer] [facility]), 911, go to the emergency department, or contact the [facility]/Team. Follow up as [...] assessment and plan for bipolar I disorder 10/23/2024 Impaired concentration (ICD-10 - R41.840) 07/04/2024 Depressed (ICD-10 - F32.9) See assessment and plan for bipolar I disorder 06/05/2024 Depressed (ICD-10 - F32.9) See assessment and plan for bipolar I disorder 07/04/2024 Impaired concentration (ICD-10 - R41.840) Duration (acute/chronic), stability (controlled/uncontr olled): Chronic, improved with recent medication adjustments, see HPI Current medications/efficac y: Yes Previous medication trials: Strattera (ineffective) Current/previous therapies: Needing to call [facility] and set up appointment Examination as documented [...] mental health CRISIS, please reach out to [phone] ([employer] [facility]), 911, go to the emergency department, or contact the [facility]/Team. Follow up as [...] Strattera (ineffective) Current/previous therapies: Needing to call [facility] and set up appointment Examination as documented [...] to the emergency department, or contact the [facility]/Team. Follow up as scheduled in 3 weeks or sooner if necessary. Follow up with PCP and/or other specialists as advised. NEXT STEP: Consider increasing Qelbree as needed. 10/23/2024 Trauma and stressor-related disorder (ICD-10 - F43.9) 03/06/2024 Impaired concentration (ICD-10 - R41.840) Duration (acute/chronic), stability (controlled/uncontr olled): Chronic, improved with recent inrease in Strattera, see HPI Current medications/efficac y: Yes Previous medication trials: Strattera Current/previous therapies: Needing to call [facility] and set up appointment Examination as documented [...] to the emergency department, or contact the [facility]/Team. Follow up as [...] Strattera (ineffective) Current/previous therapies: Needing to call [facility] and set up appointment Examination as documented [...] to the emergency department, or contact the [facility]/Team. Follow up as [...] to the emergency department, or contact the [facility]/Team. Follow up as [...] health CRISIS, please reach out to [phone] ([employer] [facility]), 911, go to the emergency department, or contact the [facility]/Team. Follow up as [...] to the emergency department, or contact the [facility]/Team. Follow up as [...] to the emergency department, or contact the [facility]/Team. Follow up as [...] to the emergency department, or contact the [facility]/Team. Follow up as scheduled or sooner if necessary. Follow up with PCP and/or other specialists as advised. NEXT STEP: Consider medication adjustments as needed. 10/23/2024 Therapeutic drug monitoring (ICD-10 - Z51.81) 07/04/2024 Nutritional counseling (ICD-10 - Z71.3) 03/06/2024 Nutritional counseling (ICD-10 - Z71.3) 05/23/2024 Nutritional counseling (ICD-10 - Z71.3) 06/05/2024 Nutritional counseling (ICD-10 - Z71.3) 06/05/2024 Over weight (ICD-10 - E66.3) 07/04/2024 Over weight (ICD-10 - E66.3) 10/23/2024 Other May self-administer medications or be administered own oral medications per [facility] protocols. Provided informed consent with understanding of [...] Flores Oliver PMHNP- to: [] consider utilizing therapist/counselor /group social worker/psychologist , referral given [x] continue with therapist/counselor /group social worker/psychologist Psychoeducation: -Treatment options discussed in detail with patient/guardian verbalizing understanding of treatment rationales. -Side effects and benefits of all medications prescribed discussed at length between psychiatric prescribing provider and patient/guardian along with the risks associated of [id number] interactions, including but not limited to prescription [...] engaged in treatment plan with Flores Oliver [facility]. -Perceiving complete understanding of rationale by patient/guardian and willingness to adhere to formulated plan of care by prescriber with patient/guardian buy-in, willingness to participate actively in plan of care and willing to take charge of own care. -Although geared for female patients, all patients/guardians are informed by prescribing provider of risks of medications that could potentially be taken by female/women within their [place] of influence and that women who use [...] a should occur, to consult with provider, SPECIAL ORDER JEWELER and/or Nurse Material Handling Crew Supervisor to determine if prescribed medications should or [...] handling stress, was discussed. Plan Of Treatment Pending Test Test Name Order Date Hemoglobin A1c* 10/23/2024 Vitamin B12* 10/23/2024 CBC With Differential/Platelet* 10/24/19 25 Vitamin D, 25-Hydroxy* 10/23/2024 TSH+Free T4* 10/23/2024 Lipid Panel* 10/23/2024 CMP 14 Comprehensive Metabolic Panel* 14 Panel Urine Drug Screen 10/23/2024 Insurance Providers Payer Name Payer Address Payer Phone Subscriber Number Group Number Insured Name Patient Relationship to Insured Coverage Start Date Coverage End Date [employer] [address] [place] [address] [id number] Cecilia Avina Self - patient is the insured 3 [employer] [address] [place] [address] [id number] Cecilia Avina Self - patient is the insured 3 Medical (General) History Medical History History ICD Code Fibromyalgia IBS Vertigo Migraines Surgical History Surgery Date(Month/Year) section x2 cholecystectomy Left knee repair x2 Umbilical hernia repair Hospitalization History Reason Date(Month/Year) [facility]
--- OUTSIDE RECORDS SUMMARY | 2024-10-24 14:02 | XMS_ITS | Encounter Summary ---
Author Organization [facility] Address 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 Gender Identity Not on file Sexual Orientation [...] CDT) HEMOGLOBIN 13.6 11.8 - 14.8 g/dL [facility] HEMATOCRIT 42.2 35.5 - 44.0 % [facility] Blood specimen (specimen) 08/03/2007 5:37 AM CDT 08/03/2007 5:52 AM CDT Narrative [facility] - 08/03/2007 6:18 AM CDT RM 39 us Jose Enrique Branham MD HEMATOLOGY ORDERABLES Fin al Result Performing Organization Address [facility]/ZIP Co de Phone Number [facility] CLIA# [id number] [address] [place] [address] * POC , URINE (08/03/2007 5:30 AM CDT) , URINE POC Negative Negative [facility] Urine specimen (specimen) 08/03/2007 5:30 AM CDT 08/03/2007 5:30 AM CDT Jose Enrique Branham MD POINT OF CARE TESTING Fin al Result Performing Organization Address [facility]/[place] de Phone Number [facility] CLIA# [id number] [address] [place] [address] documented in this encounter Visit Diagnoses Diagnosis Stiffness of joint, not elsewhere classified, lower leg documented in this encounter Care Teams Calciminer Relationship Specialty Start Date End Date Cesar Owens DO PCP - General Family Practice 03/15/14 documented as of this encounter
--- OUTSIDE RECORDS SUMMARY | 2024-10-24 14:02 | XMS_ITS | Encounter Summary ---
Author Organization [facility] Address [address] [place] [address] Care Team Providers Care Lens Inspector Name Role Phone Unavailable Primary Care Provider Unavailabl e Encounter Details Date Type Department Care Team (Late st Contact Info) Description 08/16/2019 Lab Requisition [facility] MICROBIOLOGY [address] [place] [address] Landon Irby MD Cough Social History Tobacco [...] Not detected, Invalid 08/17/2019 5:11 AM CDT [facility]CRO[facility] Microbiology SPECIMEN FROM NASOPHARYNGEAL STRUCTURE / Unknown Collection / Unknown 08/16/2019 9:40 AM CDT 08/16/2019 10:20 PM CDT Narrative [facility]CRO[facility] - 08/17/2019 5:11 AM CDT This nucleic acid amplification assay performance was validated by [facility]. This test has been authorized [...] the authorization is terminated or revoked sooner. us Landon Irby MD LAB - MICROBIOLOGY ORDERABL ES Final Result [facility]CROBIOLOG[facility] [address] [place] [address], [facility] [phone] documented in this encounter Visit Diagnoses Diagnosis Cough documented in this encounter Additional Health Concerns Infection Onset Date Last Indicated Resolved Time COVID-19 Under Investigation 08/16/2019 08/16/2019 08/17/2019 5:11 AM CDT documented as of this encounter
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
--- OUTSIDE RECORDS SUMMARY | 2024-10-24 14:02 | XMS_ITS | Clinical Summary ---
Author Organization [facility] Address [address] [place] [address] Phone Care Team Providers Care Inspector Fuel Hose Name Role Phone Roman Cesar Primary Care [...] on file Legal Sex Female 5:33 AM SWIMMING POOL PLASTERER HELPER Gender Identity Not on file Sexual Orientation Not on file Occupation Industry Job Start Date Job End Date Not on file Not on file Not on file Not on file Last Filed Vital Signs Vital Sign Reading Time Taken Comments Blood Pressure 102/77 03/15/2014 11:05 AM SWIMMING POOL PLASTERER HELPER Pulse - - Temperature 36.3 C (97.3 F) 03/15/2014 11:13 AM SWIMMING POOL PLASTERER HELPER Respiratory Rate 18 03/15/2014 11:05 AM SWIMMING POOL PLASTERER HELPER Oxygen Saturation - - Inhaled Oxygen Concentration - - Weight 130.6 kg (288 lb) 03/15/2014 11:13 AM SWIMMING POOL PLASTERER HELPER Height 182.2 cm (5' 11.75) 03/15/2014 11:13 AM SWIMMING POOL PLASTERER HELPER Body Mass Index 39.33 03/15/2014 11:13 AM SWIMMING POOL PLASTERER HELPER Plan of Treatment Health Maintenance Due Date Last Done Comments HPV VACCINES (1 - 3-dose series) 2004 DTAP/TDAP/TD VACCINES (1 - Tdap) 2008 HEPATITIS B VACCINES (1 of 3 - 19+ 3-dose series) 05/14 HPV/Cotest (21-29) 2010 CERVICAL CANCER SCREENING 06/12/2019 HPV/Cotest (30-65) 06/12/2019 PAP SMEAR 06/12/2019 INFLUENZA VACCINE (#1) 2024 01/09/2014 Advance Directives For more information, please contact: [phone] * Full Code (Latest Code Status on File) Date Activated Date Inactivated Comments 03/15/2014 11:30 AM 03/15/2014 5:22 PM Care Teams Inspector Fuel Hose Relationship Specialty Start Date End Date Cesar Owens DO PCP - General Family Practice 03/15/14
--- OUTSIDE RECORDS SUMMARY | 2024-10-24 14:02 | XMS_ITS | Clinical Summary ---
Author Organization [facility] Address [address] [place] [address] Phone Care Team Providers Care Community Development Coordinator Name Role Phone Dash Bill MD Primary Care Provider [phone] Allergies Active Allergy Reactions Criticality Noted Date [...] 7:57 AM CDT Height 180.3 cm (5' 11) 08/16/2019 7:57 AM CDT Body Mass Index 36.19 08/16/2019 7:57 AM CDT Plan of Treatment Health Maintenance Due Date Last Done Comments Hepatitis C Virus (HCV) Screening 1989 Hepatitis B Immunization (1 of 3 - 19+ 3-dose series) 2008 Pap Smear 2010 Human Papillomavirus (HPV) Immunization (1 - 3-dose SCDM series) 2016 Cervical Cancer Screening (CCS) 06/12/2019 HPV/Cotest 06/12/2019 SARS-COV-2 Immunization (2023- season) 2023 Influenza Immunization (#1) 11/12/202412/13, 12/27/2013 Respiratory Syncytial Virus (RSV) Immunization (Adult) (1 [...] to complete this topic Insurance MEDICAID [facility] GENER[facility] Care Teams Community Development Coordinator Relationship Specialty Start Date End Date Dash Bill MD [address] [place] [address] PCP - General Internal Medicine 11/06/18
--- OUTSIDE RECORDS SUMMARY | 2024-10-24 14:02 | XMS_ITS | Encounter Summary ---
Author Organization [facility] Address [address] [place] [address] Care Team Providers Care Asbestos Hazard Abatement Worker Name Role Phone Cesar Owens Primary Care Provider Unavailabl e Encounter Details Date Type Department Care Team (Latest Contact Info) Description 03/12/2008 Outpatient Historical [facility] Jose Enrique Vargas MD [address] [facility] [facility] [address] [place] [address] Stiffness of Joint, not Elsewhere Classified, Lower Leg Social History Tobacco Use Types Packs/Day Years Used Date Smoking Tobacco: Never Assessed Comments Unknown Sex and Gender Information Value Date Recorded Sex Assigned at Not on file Legal Sex Female 5:33 AM GRADE AND CENTER MARKER Gender Identity Not on file Sexual Orientation Not on file documented as of this encounter Plan of Treatment Not on file documented as of this encounter Procedures Procedure Name Priority Date/Time Associated Diagnosis Comments XR KNEE 4+ VW LEFT Routine 03/12/2008 4: 15 PM GRADE AND CENTER MARKER documented in this encounter Results * XR KNEE 4+ VW LEFT (03/12/2008 4:15 PM GRADE AND CENTER MARKER) Anatomical Region Laterality Modality Lower Extremity Other 03/12/2008 4:15 PM GRADE AND CENTER MARKER Narrative 03/13/2008 8:55 AM GRADE AND CENTER MARKER [facility] [address], [place] [address] Admit Date: 03/12/2008 MADDY MOORENEY Sex: F Admit Prov: JOSE ENRIQUE ARANDA Date: 1990 Primary Care Prov: BETY BRODERICK CMRN: [id number] Room: EMI SSN: [id number] IMAGING SERVICES Ordering Prov: N/A Accession Number: [id number] Interpretation LEFT KNEE, 4 PROJECTIONS, 03/12/2008 Clinical [...] SJ Procedure Note Provider, Historical - 03/13/2008 [facility] [address], [place] [address] Admit Date: 03/12/2008 GINNY MOORE Sex: F Admit Prov: JOSE ENRIQUE ARANDA Date: 1990 Primary Care Prov: BETY BRODERICK Antonino CMRN: [id number] Room: EMI N: [id number] IMAGING SERVICES Ordering Prov: N/A Interpretation LEFT [...] leg documented in this encounter Care Teams Asbestos Hazard Abatement Worker Relationship Specialty Start Date End Date Cesar Owens DO PCP - General Family Practice 03/15/14 documented as of this encounter
--- OUTSIDE RECORDS SUMMARY | 2024-10-24 14:02 | XMS_ITS | Clinical Summary ---
Author Organization [facility] Address [address] [place] [address] Care Team Providers Care Plant Safety Engineer Name Role Phone Unavailable Primary Care Provider Unavailabl e Source Comments [facility],non-owned Affiliates and Associated Physician Practices is amultiple site organization consisting of ambulatory clinics and hospital sitesin [place], [place], [place]. This disclosure is being madepursuant to the Care Everywhere program and may not contain all information available regarding this patient. Last updated 17.[facility] Allergies Active Allergy Reactions Criticality Noted Date [...] 5:29 PM CDT Height 180.3 cm (5' 11) 05/30/2019 5:29 PM CDT Body Mass Index 36.68 05/30/2019 5:29 PM CDT Plan of Treatment Health Maintenance Due Date Last Done Comments HIV SCREENING 2004 HEPATITIS C SCREENING 06/07/2007 DTAP/TDAP/TD VACCINES (1 - Tdap) 2008 HEPATITIS B VACCINE (1 of 3 - 19+ 3-dose series) 2008 HPV VACCINE (1 - 3-dose SCDM series) 2016 COVID-19 VACCINE (1 - 2023-2 5 season) 2023 DEPRESSION SCREENING 03/14/2024 INFLUENZA VACCINE (#1) 2024 01/09/2014 ZOSTER VACCINE (1 of 2) 06/12/2039 HIB [...]
--- OUTSIDE RECORDS SUMMARY | 2024-10-24 14:02 | XMS_ITS | Encounter Summary ---
Author Organization [facility] Address [address] [place] [address] Phone Care Team Providers Care Skip Miner Blasting Name Role Phone Dash Bill MD Primary Care Provider [phone] Encounter Details Date Type Department Care Team (Late st Contact Info) Description 03/26/2021 Transcribe Orders [facility] Patient Access Admitting [address] [place] [id number] Dash Bill MD [address] [place] [address] Viral syndrome (Primary Dx) Social [...] Coronavirus / COVID-19? Yes 03/26/2021 12:18 PM PRACTICE SPECIALIST documented as of this encounter Plan of Treatment Not on file documented as of this encounter Results * SARS-COV-2 BY MOLECULAR (03/26/2021 12:24 PM PRACTICE SPECIALIST) SARSCOV2 NOT DETECTED (Referen ce Range for this test is Not Detected ) [facility] THERMOFISH[facility] FAST DX 03/28/2021 12:19 AM PRACTICE SPECIALIST [facility] Comment:This test was perfor med by a RT-PCR method. Other NASAL STRUCTURE / Unknown Non-Phlebotomy Collection / Unknown 03/26/2021 12:24 PM PRACTICE SPECIALIST 03/26/2021 12:45 PM PRACTICE SPECIALIST Narrative [facility] - 03/28/2021 12:19 AM PRACTICE SPECIALIST Authorized Fact Sheets about this test for providers and patients are available at: https://www.fda.gov/medical-devices/ivcxonngg-mrqhmqhcnb-fheqpov-devices/emergen -us e-authorizations us Dash Bill MD MICROBIOLOGY - GENERAL ORDERA BLES Final Result [facility] [address] [place] [address], documented in this encounter Visit Diagnoses Diagnosis Viral syndrome- Primary Unspecified viral infection, in conditions classified elsewhere and of unspecified site documented in this encounter Additional Health Concerns Infection Onset Date Last Indicated Resolved Time COVID - 19 03/26/2021 03/26/2021 04/15/2021 12:1 6 AM PRACTICE SPECIALIST documented as of this encounter Care Teams Skip Miner Blasting Relationship Specialty Start Date End Date Dash Bill MD [address] [place] [address] PCP - General Internal Medicine 11/06/18 documented as of this encounter
--- NOTE | 2024-10-24 14:08 | ED_ITS ---
HPI - GI Bleed General Chief complaint: Urogenital-Female Stated complaint: diarrhea w/blood Time Seen by Provider: 10/24/24 13:58 Source: patient Mode of arrival: ambulatory Limitations: no limitations History of Present Illness HPI Narrative: Cecilia is a 34-year-old female patient presenting to the clinic today with complaints of diarrhea with some bright red blood in her stool. History of hemorrhoids. States she is having some rectal discomfort and has blood on the toilet paper she is wiping. Also reporting some burning with urination and urinary frequency. Denies any abdominal pain. No fevers, chills, body aches. Denies any headache, chest pain, or shortness of breath. Related Data Home Medications ?Medication ?Instructions ?Recorded ?Confirmed ?Last Taken ?Type baclofen 20 mg tablet 20 mg PO BID 03/01/22 09/17/23 Unknown History albuterol sulfate 90 mcg/actuation See Rx Instructions .Route 06/08/23 06/08/23 Unknown History aerosol inhaler .COMPLEX PRN SOB aripiprazole 5 mg tablet 5 mg PO DAILY 06/08/23 06/08/23 Unknown History baclofen 20 mg tablet 20 mg PO BID 06/08/23 06/08/23 Unknown History carbamazepine 200 mg tablet 200 mg PO TID 06/08/23 06/08/23 Unknown History cholecalciferol (vitamin D3) 50 50 mcg PO DAILY 06/08/23 06/08/23 Unknown History mcg (2,000 unit) capsule fluoxetine 20 mg capsule 20 mg PO DAILY 06/08/23 06/08/23 Unknown History fluoxetine 40 mg capsule 40 mg PO DAILY 06/08/23 06/08/23 Unknown History gabapentin 300 mg capsule 300 mg PO BID 06/08/23 06/08/23 Unknown History hydroxyzine HCl 25 mg tablet 25 mg PO BID 06/08/23 06/08/23 Unknown History prazosin 1 mg capsule 1 mg PO DAILY 06/08/23 06/08/23 Unknown History cholecalciferol (vitamin D3) 50 50 mcg PO DAILY 09/14/23 09/17/23 Unknown History mcg (2,000 unit) capsule ibuprofen 600 mg tablet 600 mg PO TIDWMEAL 09/14/23 09/17/23 Unknown History ketoconazole 2 % shampoo 1 applic topical DAILY 09/14/23 09/17/23 Unknown History fluoxetine 40 mg capsule 40 mg PO BID 09/17/23 09/17/23 Unknown History tramadol 50 mg tablet 50 mg PO DAILY PRN Pain (Scale 09/17/23 09/17/23 Unknown History Score 4-6) aripiprazole 15 mg tablet mg 07/24/24 Unknown History cholestyramine (with sugar) 4 gram ea 07/24/24 Unknown History powder for susp in a packet meclizine 25 mg tablet mg 07/24/24 Unknown History meloxicam 7.5 mg tablet mg 07/24/24 Unknown History propranolol 60 mg capsule,24 mg PO 07/24/24 Unknown History hr,extended release topiramate 50 mg tablet mg 07/24/24 Unknown History Allergies Allergy/AdvReac Type Severity Reaction Status Date / Time aspirin Allergy Unknown Rash Verified 10/24/24 14:03 codeine Allergy Unknown lightheaded/passes Verified 10/24/24 14:03 out iodine Allergy Unknown Skin Verified 10/24/24 14:03 Reaction Penicillins Allergy Unknown Rash Verified 10/24/24 14:03 [facility] Past Medical History Medical History (Updated 10/24/24 @ 14:34 by Jeff Haas APRN) TBI (traumatic brain injury) Chronic migraine Fibromyalgia Asthma Anxiety and depression Surgical History Surgical History (Updated 07/25/24 @ 13:28 by Scarlet Sanford) H/O left knee surgery Previous section total X2 Hx of cholecystectomy Social History Social History (System 07/25/24 @ 13:28 by Scarlet Sanford) Smoking status: Former smoker Alcohol intake: unknown Substance use: unknown Living arrangements: with family Gender identity (if verbalized by the patient): Female Comments At the time of my signature, I reviewed and agree with the nursing past medical, surgical, social, and family history. There is no relevant family history pertinent to the patient complaint. Exam Narrative: General: Well-developed, morbidly obese, in no apparent distress. Head: Normocephalic, atraumatic. Cardio: Regular rate and rhythm, s1 and s2 normal, no murmur appreciated. Resp: Clear to auscultation bilaterally, no rhonchi, rales, wheezing or rubs. Abdomen: Soft, pliable, bowel sounds present in all quadrants, non-tender to palpation, no organomegly, no CVAT tenderness. Rectal: Deferred-patient declined exam Course Course Emergency Course: Portions of this record may have been created with voice recognition software. Level of Care: Express Care Visit Vital Signs Vital signs: Vital Signs Temperature 36.5 C 10/24/24 14:02 Pulse Rate 73 10/24/24 14:02 Respiratory Rate 16 10/24/24 14:02 Blood Pressure 132/75 10/24/24 14:02 Pulse Oximetry 99 10/24/24 14:02 Oxygen Delivery Room Air 10/24/24 14:02 Temperature 36.5 C 10/24/24 14:02 Pulse Rate 73 10/24/24 14:02 Respiratory Rate 16 10/24/24 14:02 Blood Pressure 132/75 10/24/24 14:02 Pulse Oximetry 99 10/24/24 14:02 Oxygen Delivery Room Air 10/24/24 14:02 Vital signs reviewed MDM - GI Bleed MDM Narrative Medical decision making narrative: At the time of visit patient is resting comfortably on the exam table. Patient appears to be nontoxic. Complaints of diarrhea with some bright red blood in her stool. History of hemorrhoids. States she is having some rectal discomfort and has blood on the toilet paper she is wiping. Also reporting some burning with urination and urinary frequency. Denies any abdominal pain. No fevers, chills, body aches. Denies any headache, chest pain, or shortness of breath. On exam patient does not have any abdominal pain to palpation. Denies any nausea or vomiting. Declined rectal exam. Urine dip was ordered Labs: Urinalysis positive for trace of leukocytes and 2+ blood. We will send urine for culture. Plan: I suspect patient has UTI with acute diarrhea/bleeding hemorrhoids. Prescription for Macrobid was sent to the pharmacy. Recommend using preparation H for hemorrhoids and if bleeding/pain gets worse recommend going to the emergency room for further evaluation. Supportive measures were discussed with the patient and they voiced understanding discharge instructions and agrees to treatment plan. Return precautions reviewed. Differential Diagnosis Differential diagnosis: Likely hemorrhoids, infectious diarrhea, esophageal varices, gastritis, Lower gastrointestinal hemorrhage, hematochezia, melena, anal fissure and other (UTI) Lab Data Labs: Lab Results 10/24/24 Range/Units 14:21 POC Urine Color Wendy POC Urine Clarity Cloudy POC Urine pH 6.5 POC Ur Specif Hillman 1.025 POC Urine Protein Negative (Negative) POC Ur Glucose (UA) Negative (Negative) POC Urine Ketones Negative (Negative) POC Urine Blood Trace (Negative) POC Urine Nitrite Negative (Negative) POC Urine Bilirubin Negative (Negative) POC Urine Urobilinogen 0.2 POC U Leukocyte Esteras Trace (Negative) Discharge Plan Discharge Clinical Impression: BRBPR (bright red blood per rectum), History of hemorrhoids Diarrhea Qualifiers: Diarrhea type: unspecified type Qualified Code(s): R19.7 - Diarrhea, unspecified UTI (urinary tract infection) Qualifiers: Urinary tract infection type: acute cystitis Hematuria presence: with hematuria Qualified Code(s): N30.01 - Acute cystitis with hematuria Patient Disposition: Home Condition: Stable Instructions: Antibiotic Form, Hemorrhoids (ED), Rectal Bleeding (ED), Urinary Tract Infection in Women (ED), Acute Diarrhea (ED) Additional Instructions: UTI discharge instructions: Urinalysis shows trace of leukocytes and 2+ blood. We will send urine for culture. Take Macrobid as prescribed Increase fluids and stay well hydrated Wipe front to back. May use wet wipes. Avoid tub baths If sexually active- pee before and after intercourse. Wear cotton panties Avoid tight clothing up against the genitals Follow up with your PCP in 1 week if symptoms persist. Diarrhea discharge instructions: Suspect you likely have bleeding of the hemorrhoids due to the diarrhea May apply tucks pads to the area to help alleviate pain and swelling of the hemorrhoids Wipe with wet wipes May use [id number] preparation H for hemorrhoids symptoms Increase fluids and stay well hydrated Brat diet as needed for diarrhea If symptoms worsen recommend going to the emergency room-fever not controlled by Tylenol Motrin, abdominal pain, worsening of rectal bleeding, or any other concerning symptoms Patient Language: Macedonian Prescriptions: New nitrofurantoin monohyd/m-cryst [Macrobid] 100 mg capsule 100 mg PO Q12H 5 Days Qty: 10 0RF Rx Instructions: must administer with a meal/food No Action baclofen 20 mg tablet 20 mg PO BID fluoxetine 40 mg capsule 40 mg PO DAILY prazosin 1 mg capsule 1 mg PO DAILY baclofen 20 mg tablet 20 mg PO BID carbamazepine 200 mg tablet 200 mg PO TID gabapentin 300 mg capsule 300 mg PO BID hydroxyzine HCl 25 mg tablet 25 mg PO BID albuterol sulfate 90 mcg/actuation HFA aerosol inhaler See Rx Instructions .ROUTE .COMPLEX PRN (Reason: SOB) Rx Instructions: PRESCRIBED fluoxetine 20 mg capsule 20 mg PO DAILY aripiprazole 5 mg tablet 5 mg PO DAILY cholecalciferol (vitamin D3) 50 mcg (2,000 unit) capsule 50 mcg PO DAILY ketoconazole 2 % shampoo 1 applic TOPICAL DAILY ibuprofen 600 mg tablet 600 mg PO TIDWMEAL cholecalciferol (vitamin D3) 50 mcg (2,000 unit) capsule 50 mcg PO DAILY tramadol 50 mg tablet 50 mg PO DAILY PRN (Reason: Pain (Scale Score 4-6)) fluoxetine 40 mg capsule 40 mg PO BID propranolol 60 mg capsule,extended release 24 hr PO meloxicam 7.5 mg tablet meclizine 25 mg tablet aripiprazole 15 mg tablet cholestyramine (with sugar) 4 gram powder in packet topiramate 50 mg tablet Follow-up/Referrals: PHYSICIAN,CUSTOMER ENERGY SPECIALIST [Primary Care Provider] - Time of Disposition: 14:26 Quality NIHSS Nursing Documentation ED NIHSS nursing documentation: reviewed/agree
[2024-10-24 14:23] LABS: EDUAAPPEAR Cloudy; EDUABILI Negative (Negative); EDUABLOOD Trace (Negative); EDUACOLOR1 Amber; EDUAGLUCOSE Negative (Negative); EDUAKETONE Negative (Negative); EDUALEUKO Trace (Negative); EDUANITRATE Negative (Negative); EDUAPH 6.5; EDUAPROTEIN Negative (Negative); EDUASPGRAVITY 1.025; EDUAUROBILI 0.2
== END 2024-10-24 14:34 | disposition home or self-care (01) ==
PROVIDERS: Emergency Provider Nurse Practitioner Family
DX: K62.5 Hemorrhage of anus and rectum (principal); R19.7 Diarrhea, unspecified; N30.01 Acute cystitis with hematuria; Z87.19 Personal history of other diseases of the digestive system; Z87.891 Personal history of nicotine dependence; M79.7 Fibromyalgia; J45.909 Unspecified asthma, uncomplicated; F41.9 Anxiety disorder, unspecified; F32.A Depression, unspecified
CPT/HCPCS: 81003; 87086; 99213; G0463

== ENCOUNTER 2024-10-29 16:15 | Emergency (ER) | payer OTHER, SELFPAY ==
--- NOTE | 2024-10-29 16:17 | ECG_ITS ---
Test Date: 2024-10-29 16:46:25 Measurements Intervals [place] Rate: 64 P: 32 SC: 151 QRS: 16 QRSD: 92 T: 44 QT: 436 QTc: 453 Interpretive Statements SINUS RHYTHM MINIMAL Q WAVES- INFERIOR LEADS BASELINE ARTIFACT- I, II, AVR, AVF, V1 BORDERLINE ECG No previous ECG available for comparison Electronically Signed On 10-29-2024 19:36:48 CDT by Reginald Porras D.O.
--- OUTSIDE RECORDS SUMMARY | 2024-10-29 16:18 | XMS_ITS | Encounter Summary ---
Author Organization [facility] Address [address] [place] [address] Care Team Providers Care Potato Picker Name Role Phone Cesar Owens Primary Care Provider Unavailabl e Encounter Details Date Type Department Care Team (Latest Contact Info) Description 03/12/2008 Outpatient Historical [facility] Jose Enrique Vargas MD [address] [facility] [address] [place] [address] Stiffness of Joint, not Elsewhere Classified, Lower Leg Social History Tobacco Use Types Packs/Day Years Used Date Smoking Tobacco: Never Assessed Comments Unknown Sex and Gender Information Value Date Recorded Sex Assigned at Not on file Legal Sex Female 5:33 AM CRUSHER Gender Identity Not on file Sexual Orientation Not on file documented as of this encounter Plan of Treatment Not on file documented as of this encounter Procedures Procedure Name Priority Date/Time Associated Diagnosis Comments XR KNEE 4+ VW LEFT Routine 03/12/2008 4: 15 PM CRUSHER documented in this encounter Results * XR KNEE 4+ VW LEFT (03/12/2008 4:15 PM CRUSHER) Anatomical Region Laterality Modality Lower Extremity Other 03/12/2008 4:15 PM CRUSHER Narrative 03/13/2008 8:55 AM CRUSHER [facility] [address], [place] [address] Admit Date: 03/12/2008 MADDY MOORENEY Sex: F Admit Prov: JOSE ENRIQUE ARANDA Date: 1990 Primary Care Prov: BETY BRODERICK CMRN: [id number] Room: EMI SSN: [id number] IMAGING SERVICES Ordering Prov: N/A Accession Number: [id number] Interpretation LEFT KNEE, 4 PROJECTIONS, 03/12/2008 Clinical [...] SJ Procedure Note Provider, Historical - 03/13/2008 [facility] [address] [place], [place] [address] Admit Date: 03/12/2008 GINNY MOORE Sex: F Admit Prov: JOSE ENRIQUE ARANDA Date: 1990 Primary Care Prov: BETY BRODERICK Antonino CMRN: [id number] Room: EMI N: [id number] IMAGING SERVICES Ordering Prov: N/A Interpretation LEFT [...] leg documented in this encounter Care Teams Potato Picker Relationship Specialty Start Date End Date Cesar Owens DO PCP - General Family Practice 03/15/14 documented as of this encounter
--- OUTSIDE RECORDS SUMMARY | 2024-10-29 16:18 | XMS_ITS | Encounter Summary ---
Author Organization [facility] Address [address] [place] [address] Phone Care Team Providers Care Sand Cutting Machine Operator Name Role Phone Dash Bill MD Primary Care Provider [phone] Encounter Details Date Type Department Care Team (Late st Contact Info) Description 03/26/2021 Transcribe Orders [facility] Patient Access Admitting [address] [place] [id number] Dash Bill MD [address] [place] [address] Viral syndrome (Primary Dx) Social [...] Coronavirus / COVID-19? Yes 03/26/2021 12:18 PM OVEN DUMPER documented as of this encounter Plan of Treatment Not on file documented as of this encounter Results * SARS-COV-2 BY MOLECULAR (03/26/2021 12:24 PM OVEN DUMPER) SARSCOV2 NOT DETECTED (Referen ce Range for this test is Not Detected ) [facility] THERMOFISH[facility] FAST DX 03/28/2021 12:19 AM OVEN DUMPER [facility] Comment:This test was perfor med by a RT-PCR method. Other NASAL STRUCTURE / Unknown Non-Phlebotomy Collection / Unknown 03/26/2021 12:24 PM OVEN DUMPER 03/26/2021 12:45 PM OVEN DUMPER Narrative [facility] - 03/28/2021 12:19 AM OVEN DUMPER Authorized Fact Sheets about this test for providers and patients are available at: https://www.fda.gov/medical-devices/rfvijnacv-ajaofpetnd-rvduepg-devices/emergen -us e-authorizations us Dash Bill MD MICROBIOLOGY - GENERAL ORDERA BLES Final Result [facility] [address] [place] [address], documented in this encounter Visit Diagnoses Diagnosis Viral syndrome- Primary Unspecified viral infection, in conditions classified elsewhere and of unspecified site documented in this encounter Additional Health Concerns Infection Onset Date Last Indicated Resolved Time COVID - 19 03/26/2021 03/26/2021 04/15/2021 12:1 6 AM OVEN DUMPER documented as of this encounter Care Teams Sand Cutting Machine Operator Relationship Specialty Start Date End Date Dash Bill MD [address] [place] [address] PCP - General Internal Medicine 11/06/18 documented as of this encounter
--- OUTSIDE RECORDS SUMMARY | 2024-10-29 16:18 | XMS_ITS | Clinical Summary ---
Author Organization [facility] Address [address] [place] [address] Phone Care Team Providers Care Elementary School Counselor Name Role Phone Dash Bill MD Primary Care Provider [phone] Allergies Active Allergy Reactions Criticality Noted Date [...] to complete this topic Insurance MEDICAID [facility] GENER[facility] Care Teams Elementary School Counselor Relationship Specialty Start Date End Date Dash Bill MD [address] [place] [address] PCP - General Internal Medicine 11/06/18
--- OUTSIDE RECORDS SUMMARY | 2024-10-29 16:18 | XMS_ITS ---
Author Organization [facility] Address [address] [place] [address] Care Team Providers Care Healthcare Facility Administrator Name Role Phone Juan Antonio Oliveril Unavailable [phone] Allergies Allergen (clinical drug ingredient) Drug/Non Drug Allergy documented on EMR Reaction Allergy Type Onset Date Status codeine Codeine Unknown Drug Allergy Active Penicillin rash Drug Allergy Active REASON FOR VISIT transfer from [place] Medications Medication SIG (Take, Route, Frequency, Duration) [...] Female Encounters Encounter Location Date Provider Diagnosis [facility] [address] [place] [address] 09/03/2024 Flores Oliver Plan Of Treatment No Information Progress Notes * Cecilia MOOREDOB:1990 (34 yo F)Acc No.[id number]:09/03/2024 UNLOCKED PROGRESS NOTE Patient: Cecilia CANALES Provider: Lupe Oliver, MSN, ENGINEER/CONDUCTOR, PMHNP- :1990 A ge:34 Y S ex:Female Date:09/03/2024 Address:[address] [place], [place] [id number] Subjective: * Chief Complaints: * 1 . transfer from [place]. * HPI: S creening: [place] Suicide Severity Rating Scale (LF) D o [...] * Electronic signature of Carson Oliver on 10/29/2024 at 04:17 PM CDT Sign off status: Pending * Provider: Lupe Oliver, MSN, ENGINEER/CONDUCTOR, PMHNP- Date: 09/03/2024 Generated for Printing/[employer]/eTranAdelaVoiceitting on: 10/29/2024 04:17 PM CDT History and Physical Notes * HPI (History of Present Illness) Category Sub-Category Detail Notes Category Not es Screening [place] Suicide Sev erity Rating Scale (LF) Do [...]
--- OUTSIDE RECORDS SUMMARY | 2024-10-29 16:18 | XMS_ITS | Clinical Summary ---
Author Organization [facility] Address [address] [place] [address] Phone Care Team Providers Care Spiral Tube Winder Name Role Phone Roman Cesar Primary Care [...] on file Legal Sex Female 5:33 AM EGG CANDLER Gender Identity Not on file Sexual Orientation Not on file Occupation Industry Job Start Date Job End Date Not on file Not on file Not on file Not on file Last Filed Vital Signs Vital Sign Reading Time Taken Comments Blood Pressure 102/77 03/15/2014 11:05 AM EGG CANDLER Pulse - - Temperature 36.3 C (97.3 F) 03/15/2014 11:13 AM EGG CANDLER Respiratory Rate 18 03/15/2014 11:05 AM EGG CANDLER Oxygen Saturation - - Inhaled Oxygen Concentration - - Weight 130.6 kg (288 lb) 03/15/2014 11:13 AM EGG CANDLER Height 182.2 cm (5' 11.75) 03/15/2014 11:13 AM EGG CANDLER Body Mass Index 39.33 03/15/2014 11:13 AM EGG CANDLER Plan of Treatment Health Maintenance Due Date Last Done Comments HPV VACCINES (1 - 3-dose series) 2004 DTAP/TDAP/TD VACCINES (1 - Tdap) 2008 HEPATITIS B VACCINES (1 of 3 - 19+ 3-dose series) 05/14 HPV/Cotest (21-29) 2010 CERVICAL CANCER SCREENING 06/12/2019 HPV/Cotest (30-65) 06/12/2019 PAP SMEAR 06/12/2019 INFLUENZA VACCINE (#1) 2024 01/09/2014 Advance Directives For more information, please contact: [phone] * Full Code (Latest Code Status on File) Date Activated Date Inactivated Comments 03/15/2014 11:30 AM 03/15/2014 5:22 PM Care Teams Spiral Tube Winder Relationship Specialty Start Date End Date Cesar Owens DO PCP - General Family Practice 03/15/14
--- OUTSIDE RECORDS SUMMARY | 2024-10-29 16:18 | XMS_ITS | Encounter Summary ---
Author Organization [facility] Address [address] [place] [address] Care Team Providers Care Immigration Officer Name Role Phone Unavailable Primary Care Provider Unavailabl e Encounter Details Date Type Department Care Team (Late st Contact Info) Description 08/16/2019 Lab Requisition [facility] MICROBIOLOGY [address] [place] [address] Landon Irby MD Cough Social History Tobacco [...] Not detected, Invalid 08/17/2019 5:11 AM CDT [facility] MICROBIOLOGY Microbiology SPECIMEN FROM NASOPHARYNGEAL STRUCTURE / Unknown Collection / Unknown 08/16/2019 9:40 AM CDT 08/16/2019 10:20 PM CDT Narrative [facility] MICROBIOLOGY - 08/17/2019 5:11 AM CDT This nucleic acid amplification assay performance was validated by [facility] Microbiology Laboratory. This test has been [...] LAB - MICROBIOLOGY ORDERABL ES Final Result [facility] MICROBIOLOGY [address] [place] [address], [facility] [phone] documented in this encounter Visit Diagnoses Diagnosis Cough documented in this encounter Additional Health Concerns Infection Onset Date Last Indicated Resolved Time COVID-19 Under Investigation 08/16/2019 08/16/2019 08/17/2019 5:11 AM CDT documented as of this encounter
--- OUTSIDE RECORDS SUMMARY | 2024-10-29 16:18 | XMS_ITS | Clinical Summary ---
Author Organization [facility] Address [address] [place] [address] Care Team Providers Care Sports Physiologist Name Role Phone Dash Bill MD Unavailable [phone] Jermain Paz MD Unavailable [phone] Petra [place] MD Primary Care Provider [phone] Allergies Active Allergy Reactions Criticality Noted Date [...] day 60 tablet 3 5 Active rizatriptan PROMOTION PRODUCER (MAXALT-PROMOTION PRODUCER) 10 mg disintegrating tabletIndications:M igraine Take 1 [...] patient is hungry for lunch. 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 If she does not tolerate lunch she was counseled to call the clinic back or to return to the [facility] for further assessment. Resolved Problems Problem Noted [...] call the clinic or return to the [facility] for further evaluation. Encounter for supervision of [...] [x] Method of feeding: breast feeding [] Toll Gate Tender [] Car seat discussed [] PP Depression [...] status. She has not been able to cherry picker operator her medication due to medicaid coverage [...] patient is hungry for lunch. 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 If she does not tolerate lunch she was counseled to call the clinic back or to return to the [facility] for further assessment. Encounters Date Type Department Care Team Description 09/10/2024 9:45 AM CDT Office Visit [facility] [address] [place] [address] [address] [address] Virgilio Johnston MD Chronic migraine without aura without status migrainosus, not intractable (Primary Dx); Chronic bilateral low back pain without sciatica; Foot pain, left 09/05/2024 10:00 AM CDT Office Visit [address] [place] [address] Luz Contreras NP Ventral hernia without obstruction or gangrene (Primary Dx) 08/21/2024 7:42 AM CDT Anesthesia Event [facility] Operating Room [address] [place] [address] Britta Guillen MD Alexander, Jeffrey Michael, 08/21/2024 7:30 AM CDT - 08/21/2024 9:35 AM CDT Surgery [facility] Operating Room [address] [place] [address] Malik Bertrand MD XI ROBOTIC REPAIR VENTRAL HERNIA WITH MESH 08/21/2024 6:07 AM CDT - 08/21/2024 11:57 AM CDT Hospital Encounter [facility] Operating Room [address] [place] [address] Malik Bertrand MD Ventral hernia without obstruction or gangrene (Primary Dx) Discharge Disposition: Discharge to home or self care 08/15/2024 1:20 PM CDT - 08/15/2024 2:24 PM CDT Emergency [facility] Emergency Department [address] [place] [address] Dizziness (Primary Dx); Lightheadedness; Chest pain, unspecified type Discharge Disposition: Discharge to home or self care 08/01/2024 11:00 AM CDT Office Visit [address] [place] [address] Malik Bertrand MD Ventral hernia without obstruction or gangrene (Primary Dx) 07/31/2024 11:15 AM CDT Office Visit [facility] G[facility] at [address] [place] [address] Kojo Lora MD Umbilical hernia without obstruction and without gangrene (Primary Dx); Gastroesophageal reflux disease, unspecified whether esophagitis present; Abdominal pain; Hepatic steatosis; Alternating constipation and diarrhea from Last 3 Months Immunizations Immunization Administration [...] call the clinic or return to the [facility] for further evaluation. 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 Gender Identity Not on file Sexual Orientation [...] JACKS ON,Jaspreet Lam MD Complications:None Delivery Location:This [facility] ([facility] L AND D PROCEDURE) [...] Completed 09/12/2020 Medical Devices Implanted Type Area Business Support Specialist Device Identifier Shelf Expiration Date Model / Serial / Lot [employer]/C R Bard Ventralight St Sepra 6x4in Monofilament Absorbable Low Profile Latex Free [id number] - [id number] Implanted:Qty: 1 on 08/21/2024 by Malik Bertrand MD at [facility] N/A: Abdomen [employer] Bard 10/08/2025 [id number] / / [id number] Procedures Procedure Name Priority Date/Time Associated Diagnosis Comments NE AN ELECTIVE ENDOTRACHEAL AIRWAY Routine 08/21/2024 8:15 [...] ECG 12-LEAD STAT 08/15/2024 11:25 AM CDT HIGH RISK HPV DNA DETECTION WITH GENOTYPING Routine 2024 9:00 AM CDT Well woman exam HEPATITIS C ANTIBODY Routine 09/12/2020 12:45 PM CDT Encounter for supervision of other normal in first trimester 10 weeks gestation of from Last 3 Months or Most Recently Relevant to Health Maintenance Results * NE AN ELECTIVE ENDOTRACHEAL AIRWAY (08/21/2024 8:15 AM CDT) Narrative Geetha Navas CRNA - 08/21/2024 8:15 AM CDT Geetha Navas CRNA 08/21/2024 8:15 AM Airway Patient location: OR Urgency: elective Indications for airway management: anesthesia and airway protection Difficult airway: no Staff: Supervising provider: Britta Guillen MD Placed by: YARD PIPE GRADER: Geetha Navas CRNA Emergent airway documentation: Risks [...] Dinorah August M.D. FT: FT Report ID: [id number] Reading Location: [id number] Procedure Note Dinorah Carr MD - 08/15/2024 [...] Dinorah August M.D. FT: FT Report ID: [id number] Reading Location: [place] [address] [place] [facility] IMG XR PROCEDURES Final Result [...] tendency for uric acid stone formation. Source: [place] Current Interpretive Data was last revised on [...] [facility] ([place]) Leukocyte esterase, ur 4+(A) Negative [facility] ([place]) UA reflex comment Reflex to microscopic UA will be performed. [facility] ([place]) Urine 08/15/2024 12:1 9 PM CDT 08/15/2024 12:23 PM CDT Claudia Burton MD LAB MICROBIOLOGY - GENERA L ORDERABLES Final Result Performing Organization Address [facility] Co de Phone Number [facility] ([place]) [address] [facility] [place] [address] * (ABNORMAL) Urinalysis, microscopic only (08/15/2024 12:19 PM CDT) WBC, ur 6-10(A) 0 - 5 /HPF RBC, ur 0-2 0 - 2 /HPF [facility] ([place]) Epithelial cells, squamous, ur 1-5 0 - 5 /HPF [facility] ([place]) Bacteria, ur Trace(A) [facility] ([place]) Mucous, ur Present(A) [facility] ([place]) Culture Reflex Comment Reflex conditions for urine culture (WBC >10) not met. [facility] ([place]) Urine 08/15/2024 12:1 9 PM CDT 08/15/2024 12:23 PM CDT Claudia Burton MD LAB URINE ORDERABLES Rosemary l Result Performing Organization Address [facility] Co de Phone Number [facility] ([place]) 1 [facility] [place] [address] * POCT hCG, urine (08/15/2024 12:12 PM CDT) HCG, ur, POC Negative Negative Lot Number [id number] QC Backgroud Clear Acceptable QC Control Line Acceptable Urine 08/15/2024 12:1 2 PM CDT Paul Terrazas MD POINT OF CARE TEST ORDERABLE S Final Result * Troponin T high-sensitivity (08/15/2024 11:59 AM CDT) Trop T hs <6 <=14 ng/L Comment: Interpretive Data For further hscTnT resources including the diagnostic algorithm and an aid in interpretation, copy and paste this link: https://nrl.testcatalog.org/show/hsTrop Current Interpretive Data last revised 2020. Blood 08/15/2024 11:5 9 AM CDT 08/15/2024 1:25 PM CDT us [place] BR[facility] LAB BLOOD ORDERABLES Final Resu lt [facility] [place] ([place]) 1 [facility] Department of Laboratories [place], [place] [id number] * eGFR (08/15/2024 11:59 AM CDT) eGFR [...] AM CDT 08/15/2024 12:02 PM CDT us Claduia Burton MD LAB BLOOD ORDERABLES Rosemary l Result [facility] ([place]) 1 [facility] Department [place] [address] * (ABNORMAL) Comprehensive metabolic panel (08/15/2024 11:59 AM CDT) Sodium 137 135 - 145 mmol/L Potassium, pl 4.1 3.3 - 4.9 mmol/L [facility] ([place]) Chloride 102 97 - 110 mmol/L [facility] ([place]) CO2 22 22 - 32 mmol/L [facility] ([place]) Anion gap 13 2 - 15 mmol/L [facility] ([place]) BUN 14 6 - 25 [...] classification and Diagnosis of Diabetes Diabetes Care 202; 46: S19-S40. Current interpretive data was last [...] MD LAB BLOOD ORDERABLES Rosemary thompson Result [facility] [place] ([place] [address] [facility] Department [place] [address] * (ABNORMAL) Differential, auto (08/15/2024 11:35 AM [...] MD LAB BLOOD ORDERABLES Rosemary thompson Result [facility] ([place]) 1 [facility] Department [place] [address] * (ABNORMAL) CBC with auto differential (08/15/2024 [...] Rosemary l Result [facility] ([place]) 1 [facility] Department [place] [address] * ECG 12 lead (08/15/2024 11:25 AM CDT) 08/15/2024 11:2 5 AM CDT Narrative [facility] - 08/15/2024 11:53 AM CDT Vent Rate: 72 bpm RR Interval: 825 msec NE Interval: 145 msec QRS Duration: 91 msec QT Interval: 416 msec QTC Interval: 441 msec P-R-T [place]: 31 - 40 - 10 degrees IMPRESSION: SINUS RHYTHM LOW QRS VOLTAGE IN PRECORDIAL LEADS [QRS DEFLECTION < 1.0 mV IN CHEST LEADS] BORDERLINE ECG NO CHANGE FROM PREVIOUS TRACING NOTED Electronically Signed By: Nikita Palacio MD Claudia Burton MD ECG ORDERABLES Final Res ult Performing Organization Address [facility] Co de Phone Number [facility] * High Risk HPV DNA Detection with Genotyping (Molecular component) (2024 9:00 AM CDT) HPV HR 16 Not Detected Not Detected [facility] Comment:Testing performed by : [facility], [address] [place]., [address] HPV HR 18 Not Detected Not Detected [place] Comment:Testing performed by : [facility], [address] [place]., [address] HPV HR Non 16/18 Not Detected Not [...] this test have been verified by the [facility] Molecular Infectious Disease laboratory. Correlate with separately reported cytology results, as applicable. Interpretive data last revised 22 Testing performed by: [facility], [address] [place]., [address] Endocervical 2024 9:00 AM CDT 06/12/2024 4:29 PM CDT Narrative [facility] - 06/13/2024 2:39 AM CDT Clinical history and diagnosis->screening Testing type->Screening Last menstrual period (date if known)->[id number] us Ingrid Marie NP LAB BODY FLUIDS AND STOOLS ORDER SANDY Final Result [address] Department of Laboratories [place] [id number] [facility] * Hepatitis C antibody (09/12/2020 12:45 PM CDT) Hep C Ab Nonreactive Nonreactive [facility] ([place]) Comment: Interpretive Data Nonreactive: Antibodies to [...] last revised on 2019. Testing performed by: [facility], [address] [place] [address]., [address] Blood specimen (specimen) 09/12/2020 12:45 PM CDT 09/13/2020 4:45 PM CDT us Ingrid Marie NP LAB MICROBIOLOGY - GENERAL ORDER SANDY Edited Result - Final [facility] ([place]) [address] [facility] Department [place] [address] from Last 3 Months or Most Recently Relevant to Health Maintenance Insurance Advance Directives For more information, please contact: [phone] * Full Code (Latest Code Status on File) Date Activated Date Inactivated Comments 03/29/2021 8:06 PM 03/31/2021 8:50 PM * Full Code Date Activated Date Inactivated Comments 03/29/2021 1:37 PM 03/29/2021 8:06 PM Full CPR in case of cardiopulmonary arrest Care Teams Sports Physiologist Relationship Specialty Start Date End Date Petra [place] MD [address] [place] [address] PCP - General Obstetrics and Gynecology 05/24/24 Dash Bill MD [address] [place] [address] Internal Medicine 12/20/22 Jermain Paz MD [address], [place] [address] Advertising Inserter Obstetrics and Gynecology 03/31/21
--- OUTSIDE RECORDS SUMMARY | 2024-10-29 16:18 | XMS_ITS | Encounter Summary ---
Author Organization [employer] Address 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 Gender Identity Not on file Sexual Orientation [...] CDT) HEMOGLOBIN 13.6 11.8 - 14.8 g/dL [facility] HEMATOCRIT 42.2 35.5 - 44.0 % [facility] Blood specimen (specimen) 08/03/2007 5:37 AM CDT 08/03/2007 5:52 AM CDT Narrative [facility] - 08/03/2007 6:18 AM CDT RM 39 us Jose Enrique Branham MD HEMATOLOGY ORDERABLES Fin al Result Performing Organization Address [facility]/ZIP Co de Phone Number [facility] CLIA# [id number] [address] [place] [address] * POC , URINE (08/03/2007 5:30 AM CDT) , URINE POC Negative Negative [facility] Urine specimen (specimen) 08/03/2007 5:30 AM CDT 08/03/2007 5:30 AM CDT Jose Enrique Branham MD POINT OF CARE TESTING Fin al Result Performing Organization Address [facility] de Phone Number [facility] CLIA# [id number] [address] [place] [address] documented in this encounter Visit Diagnoses Diagnosis Stiffness of joint, not elsewhere classified, lower leg documented in this encounter Care Teams Professor Of Business Relationship Specialty Start Date End Date Cesar Owens DO PCP - General Family Practice 03/15/14 documented as of this encounter
--- OUTSIDE RECORDS SUMMARY | 2024-10-29 16:18 | XMS_ITS | Clinical Summary ---
Author Organization [facility] [employer] Address [address] [place] [address] Care Team Providers Care Automobile Service Station Attendant Name Role Phone Unavailable Primary Care Provider Unavailabl e Source Comments [facility],non-owned Affiliates and Associated Physician Practices is amultiple site organization consisting of ambulatory clinics and hospital sitesin [place], [place], [place] and [place]. This disclosure is being madepursuant to the Care Everywhere program and may not contain all information available regarding this patient. Last updated 17.[facility] Allergies Active Allergy Reactions Criticality Noted Date [...]
--- OUTSIDE RECORDS SUMMARY | 2024-10-29 16:18 | XMS_ITS | Encounter Summary ---
Author Organization [facility] Address [address] [place] [address] Care Team Providers Care Management Nurse Rn Name Role Phone Dash Bill MD Primary Care Provider [phone] Dash Bill MD Primary Care Provider [phone] Dash Bill MD Unavailable [phone] Jermain Paz MD Unavailable [phone] Petra [place] MD Primary Care Provider [phone] Encounter Details Date Type Department Care Team (Late st Contact Info) Description 04/01/2021 Documentation [facility] Case Management [address] [place] [id number] Carol Rizzo LCSW Social History Tobacco Use Types Packs/Day Years Used Date Smoking Tobacco: Every Day Cigarettes Smokeless Tobacco: Never Alcohol Use Standard Drinks/Week Comments Not Currently 0 (1 standard drink = 0.6 oz pur e alcohol) socially Comments No Sex and Gender Information Value Date Recorded Sex Assigned at Not on file 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 She verified pt/mother's DCFS case involving incident between pt/mother and FOB at a local [employer] was closed. GER OPERATIONS RESEARCH documented in this encounter Plan of Treatment [...] C. difficile suspected 05/15/2024 05/15/202405/16 3:07 AM MANAGER OPERATIONS RESEARCH documented as of this encounter Care Teams Management Nurse Rn Relationship Specialty Start Date End Date Dash Bill MD [address] [place], [place] [id number] PCP - General Internal Medicine 08/05/20 12/19/22 Dash Bill MD [address] [place] [id number] PCP - General Internal Medicine 12/20/22 05/23/24 Petra [place] MD [address] [place], [place] [address] PCP - General Obstetrics and Gynecology 05/24/24 Dash Bill MD [address] [place] [id number] Internal Medicine 12/20/22 Jermain Paz MD [address] [place] [address] Dam Tender Obstetrics and Gynecology 03/31/21 documented as of this encounter
--- OUTSIDE RECORDS SUMMARY | 2024-10-29 16:18 | XMS_ITS | Patient Health Record ---
Author Organization [facility] Address [address] [place] [address] Care Team Providers Care Secretarial Stenographer Name Role Phone Miguelangel Cunha Unavailable [phone] BenitoFlores ayoub Unavailable [phone] Allergies Allergen (clinical drug ingredient) Drug/Non Drug Allergy documented on EMR Reaction Allergy Type Onset Date Status codeine Codeine Unknown Drug Allergy Active Penicillin rash Drug Allergy Active Results Component Value Reference Range Notes Hemoglobin A1c* Reviewed date:01/18/2024 08:14:56 AM Interpretation: Performing Lab:[employer], [employer] [facility], Phone - [phone], Director - [facility] Notes/Report: Hemoglobin A1c 5.7 4.8-5.6 % . Prediabetes: 5.7 - 6.4 Diabetes: >6.4 Glycemic control for adults with diabetes: <7.0 Vitamin B12* Reviewed date:01/18/2024 08:12:37 AM Interpretation: Performing Lab:[employer], [employer] [facility], Phone - [phone], Director - [facility] Notes/Report: Vitamin B12 [phone] pg/mL Folate (Folic Acid), Serum* Reviewed date:01/18/2024 08:15:30 AM Interpretation: Performing Lab:[employer] [facility], Phone - [phone], Director - [facility] Notes/Report: Folate (Folic Acid), Serum 7.3 >3.0 ng/mL A serum folate concentration of less than 3.1 ng/mL is considered to represent clinical deficiency. CBC With Differential/Platel et* Reviewed date:01/18/2024 08:15:52 AM Interpretation: Performing Lab[facility] [address] [facility], Phone - [phone], Director - [facility] Notes/Report: WBC 10.4 3.4-10.8 x10E3/uL RBC 4.55 [...] S Reviewed date:01/18/2024 08:11:27 AM Interpretation: Performing Lab:[employer] [place] [address] [facility], Phone - [phone], Director - [facility] Notes/Report: Carbamazepine(Tegretol), S 4.5 4.0-12.0 ug/mL In conjunction with other antiepileptic drugs Therapeutic 4.0 - 8.0 Toxicity 9.0 - 12.0 . Carbamazepine alone Therapeutic 8.0 - 12.0 . Detection Limit = 2.0 <2.0 indicates None Detected Vitamin D, 25-Hydroxy* Reviewed date:01/18/2024 08:12:22 AM Interpretation: Performing Lab:[employer] [place] [address] [facility], Phone - [phone], Director - [facility] Notes/Report: Vitamin D, 25-Hydroxy 27.8 30.0-100.0 ng/mL Vitamin D deficiency has been defined by the Redig of Medicine and an Endocrine Society practice guideline as a level of serum 25-OH vitamin D less than 20 ng/mL (1,2). The Endocrine Society went on to further define vitamin D insufficiency as a level between 21 and 29 ng/mL (2). 1. IOM (Redig of Medicine). 2010. Dietary reference intakes for calcium and D. [place]: The National Academ[employer] Press. 2. Americo MF, Kortney FELDMAN, Jessica BIRCH, et al. Evaluation, treatment, and prevention of vitamin D deficiency: an Endocrine Society clinical practice guideline. JCEM. 2010; 96(7):1911-30. TSH+Free T4* Reviewed date:01/18/2024 08:12:45 AM Interpretation: Performing Lab:[employer] [facility], Phone - [phone], Director - [facility] Notes/Report: TSH 1.090 0.450-4.500 uIU/mL T4,Free(Direct) 1.04 0.82-1.77 ng/dL Lipid Panel* Reviewed date:01/18/2024 08:14:00 AM Interpretation: Performing Lab:[facility] [address] [facility], Phone - [phone], Director - [facility] Notes/Report: Cholesterol, Total 240 100-199 mg/dL Triglycerides 128 0-149 mg/dL HDL Cholesterol 54 >39 mg/dL VLDL Cholesterol Chema 23 5-40 mg/dL LDL Chol Calc ([facility]) 163 0-99 mg/dL CMP 14 Comprehensive Metabol ic Panel* Reviewed date:01/18/2024 08:15:41 AM Interpretation: Performing Lab:[employer], Phone - [phone], Director - [facility] Notes/Report: Glucose 94 70-99 mg/dL BUN 15 [...] with others, in a hotel, in a chcf, living outside on the street, on a [...] 2 nights in a row in a alf, jail, senior living center, or juvenile correctional facility? No Are [...] Status W/U Status Risk Notes Problem Anxiety (31083318) Anxiety (F41.9) Active confirmed Problem Bipolar 1 disorder (784490869) Bipolar 1 disorder (F31.9) Active confirmed Problem Vitamin D deficiency (32343619) Vitamin D deficiency (E55.9) Active confirmed Problem Overweight (619753520) Over weight (E66.3) Active confirmed Problem Depressed (24283515) Depressed (F32.9) Active confirmed Problem Drug monitoring done (710981502) Therapeutic drug monitoring (Z51.81) Active confirmed Problem Adjustment disorder (22155818) Trauma and stressor-related disorder (F43.9) Active confirmed Problem Sleep dysfunction with arousal disturbance (525973641) Night terror (F51.4) Active confirmed Problem Impaired concentration (7929754746) Impaired concentration (R41.840) Active confirmed Vital Signs Height 71 in 07/04/2024 Weight 350 lbs 10/23/2024 BMI 47.14 kg/m2 07/04/2024 Encounters Encounter Location Date Provider Diagnosis [address] [address] 01/16/2024 Miguelangelliliana Cunha Bipolar 1 disorder F31.9 ; Anxiety F41.9 ; Depressed F32.9 ; Impaired concentration R41.840 and Vitamin D deficiency E55.[address] [address] 01/04/2024 Miguelangel Cunha Bipolar 1 disorder F31.9 ; Anxiety F41.9 ; Depressed F32.9 ; Impaired concentration R41.840 ; Vitamin D deficiency E55.9 and Nutritional counseling Z71.[address] [address] 03/06/2024 Miguelangel Cunha Anxiety F41.9 ; Bipolar 1 disorder F31.9 ; Depressed F32.9 ; Impaired concentration R41.840 ; Vitamin D deficiency E55.9 and Nutritional counseling Z71.[address] [address] 05/23/2024 Miguelangel Cunha Anxiety F41.9 ; Bipolar 1 disorder F31.9 ; Depressed F32.9 ; Impaired concentration R41.840 ; Vitamin D deficiency E55.9 and Nutritional counseling Z71.[address] [address] 06/05/2024 Miguelangel Cunha Anxiety F41.9 ; Bipolar 1 disorder F31.9 ; Depressed F32.9 ; Impaired concentration R41.840 ; Vitamin D deficiency E55.9 ; Nutritional counseling Z71.3 and Over weight E66.[address] [place] [address] 07/04/2024 Miguelangel Cunha Anxiety F41.9 ; Bipolar 1 disorder F31.9 ; Depressed F32.9 ; Impaired concentration R41.840 ; Vitamin D deficiency E55.9 ; Nutritional counseling Z71.3 and Over weight E66.3 [facility] [address] [address] 10/23/2024 Floresmelissa Oliver Anxiety F41.9 ; Bipolar 1 disorder F31.9 ; Depressed F32.9 ; Impaired concentration R41.840 ; Trauma and stressor-related disorder F43.9 and Therapeutic drug monitoring Z51.[address] [address] 01/04/2024 Miguelangel Velizer [address] [address] 03/08/[address] [address] 09/03/2024 Flores Oliver Assessments Encounter Date Diagnosis (ICD Code) Assessment [...] buspirone, aripiprazole Current/previous therapies: Needing to call [facility] and set up appointment Examination as documented [...] to the emergency department, or contact the [facility] Crisis [facility]/Team. Follow up as scheduled in 4 weeks or sooner if necessary. Follow up with PCP and/or other specialists as advised. NEXT STEP: Review LABS. Consider increasing aripiprazol again pending response/tolerabili ty. Consider increasing hydroxyzine as needed. Consider other medication adjustments as needed. 03/06/2024 Anxiety (ICD-10 - F41.9) See assessment and plan for bipolar I disorder 05/23/2024 Anxiety (ICD-10 - F41.9) See assessment and plan for bipolar I disorder 07/04/2024 Anxiety (ICD-10 - F41.9) See assessment and plan for bipolar I disorder 10/23/2024 Anxiety (ICD-10 - F41.9) 01/16/2024 Bipolar 1 disorder (ICD-10 - F31.9) 06/05/2024 Anxiety (ICD-10 - F41.9) See assessment [...] health CRISIS, please reach out to [phone] ([facility]), 911, go to the emergency department, or contact the [facility] Crisis [facility]/Team. Follow up as scheduled in 3 weeks or sooner if necessary. Follow up with PCP and/or other specialists as advised. NEXT STEP: Consider increasing carbamazepine again pending response/tolerabili ty. Consider increasing propranolol pending response/tolerabili ty. Consider increasing hydroxyzine as needed. Consider increasing Qelbree. Consider other medication adjustments as needed. 10/23/2024 Bipolar 1 disorder (ICD-10 - F31.9) 10/23/2024 Depressed (ICD-10 - F32.9) 01/16/2024 Anxiety (ICD-10 - F41.9) 07/04/2024 Bipolar 1 disorder (ICD-10 - F31.9) [...] to the emergency department, or contact the [facility]/Team. Follow up as scheduled in 4 weeks or sooner if necessary. Follow up with PCP and/or other specialists as advised. NEXT STEP: Consider other medication adjustments as needed. 05/23/2024 [...] to the emergency department, or contact the [facility]/Team. Follow up as scheduled in [...] buspirone, aripiprazole Current/previous therapies: Needing to call [facility] and set up appointment Examination as documented [...] to the emergency department, or contact the [facility]/Team. Follow up as scheduled in [...] trials: Strattera Current/previous therapies: Needing to call [facility] and set up appointment Examination as documented [...] health CRISIS, please reach out to [phone] ([facility]), 911, go to the emergency department, or contact the [facility]/Team. Follow up as scheduled in [...] disorder 10/23/2024 Impaired concentration (ICD-10 - R41.840) 01/16/2024 Depressed (ICD-10 - F32.9) 06/05/2024 Depressed (ICD-10 - F32.9) See assessment and plan for bipolar I disorder 01/16/2024 Impaired concentration (ICD-10 - R41.840) 07/04/2024 Impaired concentration (ICD-10 - R41.840) Duration (acute/chronic), stability (controlled/uncontr olled): Chronic, improved with recent medication adjustments, see HPI Current medications/efficac y: Yes Previous medication trials: Strattera (ineffective) Current/previous therapies: Needing to call [facility] and set up appointment Examination as documented [...] health CRISIS, please reach out to [phone] ([facility]), 911, go to the emergency department, or contact the [facility]/Team. Follow up as scheduled in [...] trials: Strattera Current/previous therapies: Needing to call [facility] and set up appointment Examination as documented [...] to the emergency department, or contact the [facility]/Team. Follow up as scheduled in [...] Strattera (ineffective) Current/previous therapies: Needing to call [facility] and set up appointment Examination as documented [...] to the emergency department, or contact the [facility]/Team. Follow up as scheduled in 2 weeks or sooner if necessary. Follow up with PCP and/or other specialists as advised. NEXT STEP: Consider increasing Qelbree as needed. 01/04/2024 Vitamin D deficiency (ICD-10 - E55.9) [...] health CRISIS, please reach out to [phone] ([facility]), 911, go to the emergency department, or contact the [facility]/Team. Follow up as scheduled or sooner if necessary. Follow up with PCP and/or other specialists as advised. NEXT STEP: Review LABS. Consider medication adjustments as needed. 06/05/2024 Impaired concentration (ICD-10 - R41.840) Duration (acute/chronic), stability (controlled/uncontr olled): Chronic, Strattera reportedly ineffective, pharmacy reportedly didn't dispense Qelbree as recently prescribed, see HPI Current medications/efficac y: Somewhat, room for improvement Previous medication trials: Strattera (ineffective) Current/previous therapies: Needing to call [facility] and set up appointment Examination as documented [...] to the emergency department, or contact the [facility]/Team. Follow up as scheduled in 3 weeks or sooner if necessary. Follow up with PCP and/or other specialists as advised. NEXT STEP: Consider increasing Qelbree as needed. 01/04/2024 Nutritional counseling (ICD-10 - Z71.3) 05/23/2024 Vitamin D deficiency (ICD-10 - E55.9) [...] health CRISIS, please reach out to [phone] ([facility]), 911, go to the emergency department, or contact the [facility]/Team. Follow up as scheduled or sooner if necessary. Follow up with PCP and/or other specialists as advised. NEXT STEP: Consider medication adjustments as needed. 03/06/2024 Vitamin D deficiency (ICD-10 - E55.9) [...] health CRISIS, please reach out to [phone] ([facility]), 911, go to the emergency department, or contact the [facility]/Team. Follow up as scheduled or [...] health CRISIS, please reach out to [phone] ([facility]), 911, go to the emergency department, or contact the [facility] Crisis Unit/Team. Follow up as scheduled or sooner if necessary. Follow up with PCP and/or other specialists as advised. NEXT STEP: Consider medication adjustments as needed. 01/16/2024 Vitamin D deficiency (ICD-10 - E55.9) 06/05/2024 Vitamin D deficiency (ICD-10 - E55.9) [...] to the emergency department, or contact the [facility]/Team. Follow up as scheduled or sooner if necessary. Follow up with PCP and/or other specialists as advised. NEXT STEP: Consider medication adjustments as needed. 06/05/2024 Nutritional counseling (ICD-10 - Z71.3) 07/04/2024 Nutritional counseling (ICD-10 - Z71.3) 10/23/2024 Therapeutic drug monitoring (ICD-10 - Z51.81) 03/06/2024 Nutritional counseling (ICD-10 - Z71.3) 05/23/2024 Nutritional counseling (ICD-10 - Z71.3) 07/04/2024 Over weight (ICD-10 - E66.3) 06/05/2024 Over weight (ICD-10 - E66.3) 10/23/2024 Other May self-administer medications or be administered own oral medications per [facility] protocols. Provided informed consent with understanding of [...] Oliver PMHNP- to: [] consider utilizing therapist/counselor /health social work professor/psychologist , referral given [x] continue with therapist/counselor /health social work professor/psychologist Psychoeducation: -Treatment options discussed in detail with patient/guardian verbalizing understanding of treatment rationales. -Side effects and benefits of all medications prescribed discussed at length between psychiatric prescribing provider and patient/guardian along with the risks associated of [id number] interactions, including but not limited to prescription [...] engaged in treatment plan with Flores Oliver [facility]. -Perceiving complete understanding of rationale by patient/guardian and willingness to adhere to formulated plan of care by prescriber with patient/guardian buy-in, willingness to participate actively in plan of care and willing to take charge of own care. -Although geared for female patients, all patients/guardians are informed by prescribing provider of risks of medications that could potentially be taken by female/women within their [place] of influence and that women who use [...] a should occur, to consult with provider, INDUSTRIAL DESIGNER and/or Nurse Trail Maintenance Worker to determine if prescribed medications should or [...] Insured Coverage Start Date Coverage End Date [employer] [address] [place] [address] [id number] Cecilia Avina Self - patient is the insured 3 [employer] [address] [place] [address] [id number] Cecilia Avina Self - patient is the insured 3 Medical (General) History Medical History History ICD Code Fibromyalgia IBS Vertigo Migraines Surgical History Surgery Date(Month/Year) section x2 cholecystectomy Left knee repair x2 Umbilical hernia repair Hospitalization History Reason Date(Month/Year) [facility]
[2024-10-29 16:24] VITALS: BP 135/79; PULSE 71; RESP 20; TEMP 36.6; O2SAT 100
--- NOTE | 2024-10-29 16:44 | ED.FALL ---
HPI - Fall General Chief Complaint: Fall Stated Complaint: fell, fainted Time Seen by Provider: 10/29/24 16:35 Source: patient and RN notes reviewed Mode of arrival: ambulatory Limitations: no limitations History of Present Illness HPI Narrative: 34-year-old female presents Express Care complaining of possible syncopal episode today. Patient said at work she was sitting when she felt like her legs were going asleep she then rapidly set up stated she felt tunnel vision and and possibly passed out and fell to the ground hitting her head. Patient does not believe she fully lost consciousness and reports remembering the fall. Patient is able to get up after the fall. She is also complaining of knee pain left arm pain. Patient continues to report having headache and lightheadedness since the incident. Denies any chest pain, shortness of breath, abdominal pain, nausea vomiting, or any other symptoms. Related Data Home Medications ?Medication ?Instructions ?Recorded ?Confirmed ?Last Taken ?Type baclofen 20 mg tablet 20 mg PO BID 03/01/22 09/17/23 Unknown History albuterol sulfate 90 mcg/actuation See Rx Instructions .Route 06/08/23 06/08/23 Unknown History aerosol inhaler .COMPLEX PRN SOB aripiprazole 5 mg tablet 5 mg PO DAILY 06/08/23 06/08/23 Unknown History baclofen 20 mg tablet 20 mg PO BID 06/08/23 06/08/23 Unknown History carbamazepine 200 mg tablet 200 mg PO TID 06/08/23 06/08/23 Unknown History cholecalciferol (vitamin D3) 50 50 mcg PO DAILY 06/08/23 06/08/23 Unknown History mcg (2,000 unit) capsule fluoxetine 20 mg capsule 20 mg PO DAILY 06/08/23 06/08/23 Unknown History fluoxetine 40 mg capsule 40 mg PO DAILY 06/08/23 06/08/23 Unknown History gabapentin 300 mg capsule 300 mg PO BID 06/08/23 06/08/23 Unknown History hydroxyzine HCl 25 mg tablet 25 mg PO BID 06/08/23 06/08/23 Unknown History prazosin 1 mg capsule 1 mg PO DAILY 06/08/23 06/08/23 Unknown History cholecalciferol (vitamin D3) 50 50 mcg PO DAILY 09/14/23 09/17/23 Unknown History mcg (2,000 unit) capsule ibuprofen 600 mg tablet 600 mg PO TIDWMEAL 09/14/23 09/17/23 Unknown History fluoxetine 40 mg capsule 40 mg PO BID 09/17/23 09/17/23 Unknown History tramadol 50 mg tablet 50 mg PO DAILY PRN Pain (Scale 09/17/23 09/17/23 Unknown History Score 4-6) aripiprazole 15 mg tablet mg 07/24/24 Unknown History cholestyramine (with sugar) 4 gram ea 07/24/24 Unknown History powder for susp in a packet meclizine 25 mg tablet mg 07/24/24 Unknown History meloxicam 7.5 mg tablet mg 07/24/24 Unknown History propranolol 60 mg capsule,24 mg PO 07/24/24 Unknown History hr,extended release topiramate 50 mg tablet mg 07/24/24 Unknown History Allergies Allergy/AdvReac Type Severity Reaction Status Date / Time aspirin Allergy Unknown Rash Verified 10/24/24 14:03 codeine Allergy Unknown lightheaded/passes Verified 10/24/24 14:03 out iodine Allergy Unknown Skin Verified 10/24/24 14:03 Reaction Penicillins Allergy Unknown Rash Verified 10/24/24 14:03 Review of Systems Review of Systems: CONSTITUTIONAL: Denies fever, chills, or sweats. EYES: Denies visual changes, redness, or discharge. ENT: Denies rhinorrhea, congestion, sore throat, or otalgia. CARDIOVASCULAR: Denies chest pain, palpitations, dizziness, Or edema. Positive for lightheadedness. RESPIRATORY: Denies cough or dyspnea. GASTROINTESTINAL: Denies abdominal pain, nausea, vomiting, or diarrhea. GENITOURINARY: Denies dysuria or hematuria. SKIN: Denies rash or itching. MUSCULOSKELETAL: Denies back pain, joint pain, or myalgia. NEUROLOGIC: Denies headache, numbness, seizures, or weakness. Positive for Near loss of consciousness. PSYCHIATRIC: Denies anxiety or depression. All other systems reviewed are negative, except as documented in HPI. [facility] Past Medical History Medical History TBI (traumatic brain injury) Chronic migraine Fibromyalgia Asthma Anxiety and depression Surgical History Surgical History H/O left knee surgery Previous section total X2 Hx of cholecystectomy Social History Social History Smoking status: Former smoker Alcohol intake: unknown Substance use: unknown Living arrangements: with family Gender identity (if verbalized by the patient): Female Comments At the time of my signature, I reviewed and agree with the nursing past medical, surgical, social, and family history. There is no relevant family history pertinent to the patient complaint. Exam Narrative: GENERAL: This is a well-nourished, well-developed adult, in no apparent distress. They are non ill-appearing, nontoxic appearing. Patient is morbidly obese. HEAD: normocephalic, atraumatic. EYES: Sclera clear/white. Conjunctiva normal. Vision is grossly intact. Extraocular movements intact. Pupils PERRLA EARS: External ears normal, Hearing grossly intact. NOSE: External nose normal THROAT: Mucous membranes moist, NECK: Neck supple, non-tender without lymphadenopathy, masses or thyromegaly. No cervical point tenderness, crepitus, step-offs. CARDIOVASCULAR: Regular rate and rhythm without murmurs, gallops, or rubs. RESPIRATORY: Clear to auscultation. Breath sounds equal bilaterally. No wheezes, rales, or rhonchi. SKIN: warm, Dry, intact with no suspicious lesions or rash, good texture and turgor. NEURO: awake, alert, and oriented to person, place and time. There were no obvious focal neurologic abnormalities. EXTREMITIES: No joint tenderness, effusion, or edema noted. BACK: Nontender without deformity. No thoracic or lumbar point tenderness, crepitus or step-offs. Course Course Emergency Course: Portions of this record may have been created with voice recognition software Level of Care: Express Care Visit Vital Signs Vital signs: Vital Signs Temperature 97.8 F 10/29/24 16:24 Pulse Rate 71 10/29/24 16:24 Respiratory Rate 20 10/29/24 16:24 Blood Pressure 135/79 10/29/24 16:24 Pulse Oximetry 100 10/29/24 16:24 Oxygen Delivery Room Air 10/29/24 16:24 Temperature 97.8 F 10/29/24 16:24 Pulse Rate 71 10/29/24 16:24 Respiratory Rate 20 10/29/24 16:24 Blood Pressure 135/79 10/29/24 16:24 Pulse Oximetry 100 10/29/24 16:24 Oxygen Delivery Room Air 10/29/24 16:24 Reviewed Transfer Transfered to: [facility] Transportation: Other (Private vehicle) Transfer rationale: Patient requires higher level care. Further evaluation management, possible lab work and advanced imaging. Accepting physician: Dr. Landis MDM - Fall MDM Narrative Medical decision making narrative: EKG shows sinus rhythm without ischemic findings. Unclear if patient had a syncopal episode today. Patient continues to be lightheaded have a headache. Patient denies being on any blood thinners. Given patient's symptoms, it is recommend the patient seek a higher level care and proceed immediately to the emergency department. Patient is agreeable to go to [facility] ER. Called over to [facility] ER spoke with Andre Becerril who is aware this patient and Dr. Landis who accepted this patient for transfer. Offered patient EMS and she declined. Patient said her grandma route delivery service driver via private vehicle. Patient advised to remain NPO and proceed immediately to the ER. Differential Diagnosis Differential diagnosis: Likely syncope and other (Near syncope, fall, closed head injury, concussion, orthostatic hypotension) ECG Data EKG #1: ECG completion date: 10/29/24 ECG completion time: 16:46 Prior ECG tracings: not available for review EKG Interpretation: normal rate, sinus rhythm, no ST changes, normal QRS, normal QT, NL axis and no acute changes Critical Care Time Critical Care Time Critical Care Time: No Discharge Plan Discharge Clinical Impression: Near syncope Fall Qualifiers: Encounter type: initial encounter Qualified Code(s): W19.XXXA - Unspecified fall, initial encounter Patient Disposition: Acute Care Hospital Condition: Stable Patient Language: Telugu Prescriptions: No Action baclofen 20 mg tablet 20 mg PO BID fluoxetine 40 mg capsule 40 mg PO DAILY prazosin 1 mg capsule 1 mg PO DAILY baclofen 20 mg tablet 20 mg PO BID carbamazepine 200 mg tablet 200 mg PO TID gabapentin 300 mg capsule 300 mg PO BID hydroxyzine HCl 25 mg tablet 25 mg PO BID albuterol sulfate 90 mcg/actuation HFA aerosol inhaler See Rx Instructions .ROUTE .COMPLEX PRN (Reason: SOB) Rx Instructions: PRESCRIBED fluoxetine 20 mg capsule 20 mg PO DAILY aripiprazole 5 mg tablet 5 mg PO DAILY cholecalciferol (vitamin D3) 50 mcg (2,000 unit) capsule 50 mcg PO DAILY ibuprofen 600 mg tablet 600 mg PO TIDWMEAL cholecalciferol (vitamin D3) 50 mcg (2,000 unit) capsule 50 mcg PO DAILY tramadol 50 mg tablet 50 mg PO DAILY PRN (Reason: Pain (Scale Score 4-6)) fluoxetine 40 mg capsule 40 mg PO BID propranolol 60 mg capsule,extended release 24 hr PO meloxicam 7.5 mg tablet meclizine 25 mg tablet aripiprazole 15 mg tablet cholestyramine (with sugar) 4 gram powder in packet topiramate 50 mg tablet Follow-up/Referrals: PHYSICIAN,COTTRELL OPERATOR [Primary Care Provider] - Time of Disposition: 17:05
== END 2024-10-29 17:15 | disposition short-term general hospital (02) ==
DX: R55 Syncope and collapse (principal); W18.30XA Fall on same level, unspecified, initial encounter; J45.909 Unspecified asthma, uncomplicated; F41.8 Other specified anxiety disorders; Z87.891 Personal history of nicotine dependence
CPT/HCPCS: 93005; 99213; G0463

== ENCOUNTER 2024-11-01 16:11 | Emergency (ER) | payer OTHER, SELFPAY ==
--- OUTSIDE RECORDS SUMMARY | 2024-09-03 09:00 | XMS_ITS ---
Author Organization [facility] Address [address] [place] [address] Care Team Providers Care Construction Millwright Name Role Phone Juan Antonio Oliveril Unavailable [phone] Allergies Allergen (clinical drug ingredient) Drug/Non Drug Allergy documented on EMR Reaction Allergy Type Onset Date Status codeine Codeine Unknown Drug Allergy Active Penicillin rash Drug Allergy Active REASON FOR VISIT transfer from [place] Medications Medication SIG (Take, Route, Frequency, Duration) Notes Start Date End Date Status Baclofen 20 MG 1 tablet Administer without regards to meals as needed Orally Twice a day Active Meclizine HCl 50 MG 1 tablet as needed Orally every 12 hrs Active Prazosin HCl 2 MG TAKE 1 CAPSULE BY MO UTH TWICE DAILY; Duration: 90 Active Pregabalin 50 MG 1 capsule Orally Onc e a day Active Cholestyramine 4 GM 1 packet mixed with water or non-carbonated drink Orally twice daily Active FLUoxetine HCl 10 MG 1 capsule Orally On ce a day take with morning or evening dose of fluoxetine 40mg - TOTAL DAILY DOSE 90mg; Duration: 30 days Active Propranolol HCl ER 60 MG 1 capsule Orall y Once a day; Duration: 30 days Active Prazosin HCl 1 MG 1 capsule once daily in the morning - take with morning dose of prazosin 2mg for TOTAL 3mg in the morning Orally Once a day; Duration: 30 days Active Omeprazole 20 MG 1 capsule 1/2 to 1 h our before morning meal Orally Once a day Active Meloxicam 7.5 MG 1 tablet Orally Once a day Active ARIPiprazole 20 MG TAKE 1 TABLET BY PRANAY TH DAILY; Duration: 30 days Active FLUoxetine HCl 40 MG TAKE 1 CAPSULE BY M OUTH TWICE DAILY - take either morning or evening dose with fluoxetine 10mg - TOTAL DAILY DOSE 90MG; Duration: 30 days Active Qelbree 200 MG 1 capsule Orally Onc e a day; Duration: 30 days Active Vitamin D3 50 MCG (2000 UT) TAKE 1 CAPSU LE BY MOUTH ONCE DAILY; Duration: 30 days Active carBAMazepine 200 MG 2 tablets (400mg) i n the morning and 3 tablets (600mg) in the evening Orally; Duration: 30 days Active Propranolol HCl ER 60 MG TAKE 1 CAPSULE BY MOUTH DAILY; Duration: 90 Active hydrOXYzine HCl 50 MG 0.5 tablet twice d aily as needed for anxiety and 1 tablet at bedtime as needed for sleep Orally; Duration: 30 days Active Prazosin HCl 2 MG 1 capsule twice abbey y Orally; Duration: 30 days Active Social History Sex Assigned At : Social History Observation Description Sex Assigned At Female Encounters Encounter Location Date Provider Diagnosis [facility] [address] [place] [address] 09/03/2024 Flores Oliver Plan Of Treatment No Information Progress Notes * Cecilia MOOREDOB:1990 (34 yo F)Acc No.[id number]:09/03/2024 UNLOCKED PROGRESS NOTE Patient: Cecilia CANALES Provider: Lupe Oliver, MSN, PHYSICIAN PRACTICE MANAGER, PMHNP- :1990 A ge:34 Y S ex:Female Date:09/03/2024 Address:[address] [place], [place] [id number] Subjective: * Chief Complaints: * 1 . transfer from [place]. * HPI: S creening: Bee Suicide Severity Rating Scale (LF) D o you want to initiate with S creener form, 1 . Wish to be : Have you wished you were or wished you could go to sleep and not wake up? N o, 2 . Suicidal Thoughts: Have you actually had any thoughts of killing yourself? N o, 6 . Suicide Behavior Question: Have you ever done anything,started to do anything, or prepared to end your life? N o, I nterpretation: L ow Risk. * Medical History: F ibromyalgia. * Surgical History: c esarean section x2 , cholecystectomy , Left knee repair x2 . * Hospitalization/Major Diagno stic Procedure: [facility] . * Family History: F ather: alive. M other: alive. S iblings: alive, diagnosed with Bipolar disorder, unspecified, Post-traumatic stress disorder, chronic, Depression. 1 brother(s) , 1 sister(s) - healthy. 2 daughter(s) - healthy. . Sister - Bipolar Disorder, Depression, anxiety Mother - Depression, anxiety Father - Depression, Anxiety, Bipolar DIsorder. * Social History: P rimary Social History: L iving Arrangement L iving Arrangement: D ependent Living, L iving with: F erick, I s this a supportive environment? Y es. A lcohol Use A lcohol Use Frequency: Never. I llicit Substance Usage I llicit Substance Usage: Y es, S ubstance Used:?Cannabis, I nterested in quitting: N o. E mployment Status E mployment Status:?Unemployed. * Medications: T aking Meloxicam 7.5 MG Tablet 1 tablet Orally [...] 1 CAPSULE BY MOUTH DAILY , Taking Prazosin HCl 2 MG Capsule 1 capsule [...] DAILY , Taking Vitamin D3 50 MCG (2000 UT) Capsule TAKE 1 CAPSULE BY MOUTH ONCE DAILY , Taking Qelbree 200 MG Capsule Extended Release 24 Hour 1 capsule Orally Once a day , Taking Propranolol HCl ER 60 MG Capsule Extended Release 24 Hour 1 capsule Orally Once a day , Taking FLUoxetine HCl 10 MG Capsule 1 capsule Orally Once a day take with morning or evening dose of fluoxetine 40mg - TOTAL DAILY DOSE 90mg , Taking Prazosin HCl 1 MG Capsule 1 capsule once daily in the morning - take with morning dose of prazosin 2mg for TOTAL 3mg in the morning Orally Once a day * Allergies: C odeine, Penicillin: rash. Objective: * Vitals: Assessment: Plan: * Treatment: * * Electronic signature of Carson Oliver on 11/01/2024 at 03:43 PM CDT Sign off status: Pending * Provider: Lupe Oliver, MSN, PHYSICIAN PRACTICE MANAGER, PMHNP- Date: 09/03/2024 Generated for Printing/FaStreetHub/eTranH?REL on: 11/01/2024 03:43 PM CDT History and Physical Notes * HPI (History of Present Illness) Category Sub-Category Detail Notes Category Not es Screening Bee Suicide Sev erity Rating Scale (LF) Do [...]
--- OUTSIDE RECORDS SUMMARY | 2024-11-01 15:42 | XMS_ITS | Encounter Summary ---
Author Organization [facility] Healthcare Address [address] [place] [address] Care Team Providers Care Stapler Machine Name Role Phone Dash Bill MD Unavailable [phone] Jermain Paz MD Unavailable [phone] No, Physician Primary Care Provider [phone] Encounter Details Date Type Department Care Team (Late st Contact Info) Description 11/01/2024 3:42 PM CDT - 11/01/2024 3:46 PM CDT Emergency [facility] Emergency Department [address] [place] [address] Discharge Disposition: Left without being seen Social History Tobacco Use Types Packs/Day Years [...] making you feel afraid or unsafe? 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 Gender Identity Not on file Sexual Orientation Not on file documented as of this encounter Medications at Time of Discharge acetaminophen (TYLENOL) 500 mg tablet as needed albuterol HFA (PROVENTIL HFA,VENTOLIN HFA,PROAIR HFA) 90 mcg/actuation inhaler INHALE 2 PUFFS BY MOUTH THREE TIMES DAILY NEEDED 02/18/2023 ARIPiprazole (ABILIFY) 15 mg tablet Take 1 tablet (15 mg total) by mouth 2 (two) times a day 05/23/2024 baclofen (LIORESAL) 20 mg tablet Take 1 tablet (20 mg total) by mouth 2 (two) times a day 11/06/2021 carBAMazepine (TEGretol) 200 mg tablet Take 1 tablet (200 mg total) by mouth 2 (two) times a day 10/22/2021 cholecalciferol (VITAMIN D-3) 2000 unit capsule Take 1 capsule (2,000 Units total) by mouth daily cholestyramine (QUESTRAN) 4 gram powder Take 1 packet (4 g total) by mouth 2 (two) times a day with meals Dissolve in 8 oz of liquid and drink before a meal 60 packet 2 05/15/2024 desog-e.estradioL/e. estradioL (KARIVA) 0.15-0.02 mgx21 /0.01 mg x 5 per tablet Take 1 tablet by mouth daily 84 tablet 3 2024 FLUoxetine (PROzac) 40 mg capsule Take 1 capsule (40 mg total) by mouth 2 (two) times a day 09/24/2021 gabapentin (NEURONTIN) 300 mg capsuleIndications:F oot pain, left,Chronic left-sided low back pain with left-sided sciatica TAKE 1 CAPSULE(300 MG) BY MOUTH THREE TIMES DAILY 90 capsule 3 07/11/2023 hydrOXYzine (ATARAX) 50 mg tablet Take 1 tablet (50 mg total) by mouth every 6 (six) hours as needed for anxiety 05/23/2024 ketoconazole (NIZORAL) 2 % shampoo 02/23/2023 loratadine 10 mg capsule Take 10 mg by mouth daily meclizine (ANTIVERT) 25 mg tablet Take 1 tablet (25 mg total) by mouth 2 (two) times a day as needed 04/11/2024 meloxicam (MOBIC) 7.5 mg tablet 1 tablet (7.5 mg total) naproxen (NAPROSYN) 500 mg tablet Take 1 tablet (500 mg total) by mouth 2 (two) times a day with meals 30 tablet 07/24/2024 omeprazole (PriLOSEC) 20 mg capsule Take 1 capsule (20 mg total) by mouth daily 30 capsule 3 05/15/2024 oxyCODONE-acetaminop hen (PERCOCET) 5-325 mg per tabletIndications:Pa in Take 1-2 tablets by mouth every 8 (eight) hours as needed for pain 20 tablet 08/21/2024 prazosin (MINIPRESS) 1 mg capsule Take 1 capsule (1 mg total) by mouth 2 (two) times a day 06/05/2024 prazosin (MINIPRESS) 2 mg capsule Take 1 capsule (2 mg total) by mouth 2 (two) times a day propranoloL (INDERAL) 10 mg tablet Take 1 tablet (10 mg total) by mouth 2 (two) times a day 03/06/2024 propranolol LA (INDERAL LA) 60 mg 24 hr capsule Take 1 capsule (60 mg total) by mouth daily 05/24/2024 Qelbree 200 mg capsule,extended release 24hr Take 1 capsule (200 mg total) by mouth daily rizatriptan DENTAL AMALGAM PROCESSOR (MAXALT-DENTAL AMALGAM PROCESSOR) 10 mg disintegrating tabletIndications:Mi graine Take 1 tablet (10 mg total) by mouth every 2 (two) hours as needed for migraine May repeat in 2 hours if unresolved. Do not exceed 30 mg in 24 hours. 9 tablet 3 05/07/2024 topiramate (TOPAMAX) 50 mg tablet Take half tablet (25 mg) po twice a day for one week, then one tablet po twice a day 60 tablet 3 05/07/2024 vitamin b complex tablet Take 1 tablet by mouth daily documented as of this encounter Discharge Disposition Disposition Code Departure Means Destination Left without being seen documented in this encounter Plan of Treatment Not on file documented as of this encounter Visit Diagnoses Not on filedocumented in this encounter Care Teams Stapler Machine Relationship Specialty Start Date End Date No, Physician PCP - General 10/29/24 Dash Bill MD [address] [place] [address] Internal Medicine 12/20/22 Jermain Paz MD [address] [facility] [address], [place] [address] [facility] Obstetrics [facility] Gynecology 03/31/21 documented as of this encounter
--- OUTSIDE RECORDS SUMMARY | 2024-11-01 16:13 | XMS_ITS | Encounter Summary ---
Author Organization [facility] Address [address] [place] [address] Phone Care Team Providers Care Internal Security Manager Name Role Phone Dash Bill MD Primary Care Provider [phone] Encounter Details Date Type Department Care Team (Late st Contact Info) Description 03/26/2021 Transcribe Orders [facility] Patient Access Admitting [address] [place] [id number] Dash Bill MD [address] [place] [address] Viral syndrome (Primary Dx) Social [...] Coronavirus / COVID-19? Yes 03/26/2021 12:18 PM OTR COMPANY DRIVER documented as of this encounter Plan of Treatment Not on file documented as of this encounter Results * SARS-COV-2 BY MOLECULAR (03/26/2021 12:24 PM OTR COMPANY DRIVER) SARSCOV2 NOT DETECTED (Referen ce Range for this test is Not Detected ) [facility] FAST DX 03/28/2021 12:19 AM OTR COMPANY DRIVER [facility] Comment:This test was perfor med by a RT-PCR method. Other NASAL STRUCTURE / Unknown Non-Phlebotomy Collection / Unknown 03/26/2021 12:24 PM OTR COMPANY DRIVER 03/26/2021 12:45 PM OTR COMPANY DRIVER Narrative [facility] - 03/28/2021 12:19 AM OTR COMPANY DRIVER Authorized Fact Sheets about this test for providers and patients are available at: https://www.fda.gov/medical-devices/mtmfnjzjo-ucpbyyevdb-sfdgjpb-devices/emergen -us e-authorizations us Dash Bill MD MICROBIOLOGY - GENERAL ORDERA BLES Final Result [facility] [address] [place] [address], documented in this encounter Visit Diagnoses Diagnosis Viral syndrome- Primary Unspecified viral infection, in conditions classified elsewhere and of unspecified site documented in this encounter Additional Health Concerns Infection Onset Date Last Indicated Resolved Time COVID - 19 03/26/2021 03/26/2021 04/15/2021 12:1 6 AM OTR COMPANY DRIVER documented as of this encounter Care Teams Internal Security Manager Relationship Specialty Start Date End Date Dash Bill MD [address] [place] [address] PCP - General Internal Medicine 11/06/18 documented as of this encounter
--- OUTSIDE RECORDS SUMMARY | 2024-11-01 16:13 | XMS_ITS | Encounter Summary ---
Author Organization [facility] Address [address] [place] [address] Care Team Providers Care Production Control Clerk Name Role Phone Cesar Owens Primary Care Provider Unavailabl e Encounter Details Date Type Department Care Team (Latest Contact Info) Description 03/12/2008 Outpatient Historical [facility] Jose Enrique Vargas MD [address] [facility] [address] [place] [address] Stiffness of Joint, not Elsewhere Classified, Lower Leg Social History Tobacco Use Types Packs/Day Years Used Date Smoking Tobacco: Never Assessed Comments Unknown Sex and Gender Information Value Date Recorded Sex Assigned at Not on file Legal Sex Female 5:33 AM BROADCAST PROGRAM DIRECTOR Gender Identity Not on file Sexual Orientation Not on file documented as of this encounter Plan of Treatment Not on file documented as of this encounter Procedures Procedure Name Priority Date/Time Associated Diagnosis Comments XR KNEE 4+ VW LEFT Routine 03/12/2008 4: 15 PM BROADCAST PROGRAM DIRECTOR documented in this encounter Results * XR KNEE 4+ VW LEFT (03/12/2008 4:15 PM BROADCAST PROGRAM DIRECTOR) Anatomical Region Laterality Modality Lower Extremity Other 03/12/2008 4:15 PM BROADCAST PROGRAM DIRECTOR Narrative 03/13/2008 8:55 AM BROADCAST PROGRAM DIRECTOR [facility] [address], [place] [address] Admit Date: 03/12/2008 MADDY MOORENEY Sex: F Admit Prov: JOSE ENRIQUE ARANDA Date: 1990 Primary Care Prov: BETY BRODERICK CMRN: [id number] Room: EMI SSN: [id number] IMAGING SERVICES Ordering Prov: N/A Accession Number: [id number] Interpretation LEFT KNEE, 4 PROJECTIONS, 03/12/2008 Clinical [...] Historical - 03/13/2008 [facility] [address] [place], [place] [address] Admit Date: 03/12/2008 GINNY MOORE Sex: F Admit Prov: JOSE ENRIQUE ARANDA Date: 1990 Primary Care Prov: BETY BRODERICK Antonino CMRN: [id number] Room: EMI N: [id number] IMAGING SERVICES Ordering Prov: N/A Interpretation LEFT [...] leg documented in this encounter Care Teams Production Control Clerk Relationship Specialty Start Date End Date Cesar Owens DO PCP - General Family Practice 03/15/14 documented as of this encounter
--- OUTSIDE RECORDS SUMMARY | 2024-11-01 16:13 | XMS_ITS | Clinical Summary ---
Author Organization [facility] Address [address] [place] [address] Care Team Providers Care Restaurant Manager Name Role Phone Unavailable Primary Care Provider Unavailabl e Source Comments [facility],non-owned Affiliates and Associated Physician Practices is amultiple site organization consisting of ambulatory clinics and hospital sitesin [place], [place], [place] and [place]. This disclosure is being madepursuant to the Care Everywhere program and may not contain all information available regarding this patient. Last updated 17.[facility] Allergies Active Allergy Reactions Criticality Noted Date [...]
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
--- OUTSIDE RECORDS SUMMARY | 2024-11-01 16:13 | XMS_ITS | Encounter Summary ---
Author Organization [facility] Address [address] [place] [address] Care Team Providers Care Wood Panel Inspector Name Role Phone Unavailable Primary Care Provider Unavailabl e Encounter Details Date Type Department Care Team (Late st Contact Info) Description 08/16/2019 Lab Requisition [facility] MICROBIOLOGY [address] [place] [address] Landon Irby MD Cough Social History Tobacco [...] Not detected, Invalid 08/17/2019 5:11 AM CDT [facility] MICROBIOLOGY Microbiology SPECIMEN FROM NASOPHARYNGEAL STRUCTURE / Unknown Collection / Unknown 08/16/2019 9:40 AM CDT 08/16/2019 10:20 PM CDT Narrative [facility] MICROBIOLOGY - 08/17/2019 5:11 AM CDT This nucleic acid amplification assay performance was validated by [facility]biology [facility]. This test has been [...] LAB - MICROBIOLOGY ORDERABL ES Final Result [facility] MICROBIOLOGY [address] [place] [address], [facility] [phone] documented in this encounter Visit Diagnoses Diagnosis Cough documented in this encounter Additional Health Concerns Infection Onset Date Last Indicated Resolved Time COVID-19 Under Investigation 08/16/2019 08/16/2019 08/17/2019 5:11 AM CDT documented as of this encounter
--- OUTSIDE RECORDS SUMMARY | 2024-11-01 16:13 | XMS_ITS | Patient Health Record ---
Author Organization [facility] Address [address] [place] [address] Care Team Providers Care Furniture Installer Name Role Phone Miguelangel Cunha Unavailable [phone] BenitoFlores ayoub Unavailable [phone] Allergies Allergen (clinical drug ingredient) Drug/Non Drug Allergy documented on EMR Reaction Allergy Type Onset Date Status codeine Codeine Unknown Drug Allergy Active Penicillin rash Drug Allergy Active Results Component Value Reference Range Notes Hemoglobin A1c* Reviewed date:01/18/2024 08:14:56 AM Interpretation: Performing Lab:[employer], [facility] [facility], Phone - [phone], Director - PhDLawrence [facility] Hospitalteresa Notes/Report: Hemoglobin A1c 5.7 4.8-5.6 % . Prediabetes: 5.7 - 6.4 Diabetes: >6.4 Glycemic control for adults with diabetes: <7.0 Vitamin B12* Reviewed date:01/18/2024 08:12:37 AM Interpretation: Performing Lab:[employer], [employer], Phone - [phone], Director - PhDLawrence F. Quigley Memorial Hospitaluti Notes/Report: Vitamin B12 171 108-6332 pg/mL Folate (Folic Acid), Serum* Reviewed date:01/18/2024 08:15:30 AM Interpretation: Performing Lab:[facility], Phone - [phone], Director - PhDLawrence F. Quigley [facility] Hospitaluti Notes/Report: Folate (Folic Acid), Serum 7.3 >3.0 ng/mL A serum folate concentration of less than 3.1 ng/mL is considered to represent clinical deficiency. Carbamazepine(Tegretol), S Reviewed date:01/18/2024 08:11:27 AM Interpretation: Performing Lab:[facility], [address] [facility], Phone - [phone], Director - [facility] Notes/Report: Carbamazepine(Tegretol), S 4.5 4.0-12.0 ug/mL In conjunction with other antiepileptic drugs Therapeutic 4.0 - 8.0 Toxicity 9.0 - 12.0 . Carbamazepine alone Therapeutic 8.0 - 12.0 . Detection Limit = 2.0 <2.0 indicates None Detected Vitamin D, 25-Hydroxy* Reviewed date:01/18/2024 08:12:22 AM Interpretation: Performing Lab:[facility], [address] [facility], Phone - [phone], Director - [facility] Notes/Report: Vitamin D, 25-Hydroxy 27.8 30.0-100.0 ng/mL Vitamin D deficiency has been defined by the [place] of Medicine and an Endocrine Society practice guideline as a level of serum 25-OH vitamin D less than 20 ng/mL (1,2). The Endocrine Society went on to further define vitamin D insufficiency as a level between 21 and 29 ng/mL (2). 1. IOM ([place] of Medicine). 2010. Dietary reference intakes for calcium and D. [place]: The National Academies Press. 2. Americo MF, Kortney [place], Jessica BIRCH, et al. Evaluation, treatment, and prevention of vitamin D deficiency: an Endocrine Society clinical practice guideline. JCEM. 2010; 96(7):1911-30. TSH+Free T4* Reviewed date:01/18/2024 08:12:45 AM Interpretation: Performing Lab:[facility] [address] [facility], Phone - [phone], Director - [facility] Hospital[facility] Notes/Report: TSH 1.090 0.450-4.500 uIU/mL T4,Free(Direct) 1.04 0.82-1.77 ng/dL Lipid Panel* Reviewed date:01/18/2024 08:14:00 AM Interpretation: Performing Lab:[facility], [address] [facility], Phone - [phone], Director - [facility] Notes/Report: Cholesterol, Total 240 100-199 mg/dL Triglycerides 128 0-149 mg/dL HDL Cholesterol 54 >39 mg/dL VLDL Cholesterol Chema 23 5-40 mg/dL LDL Chol Calc ([facility]) 163 0-99 mg/dL CMP 14 Comprehensive Metabol ic Panel* Reviewed date:01/18/2024 08:15:41 AM Interpretation: Performing Lab:[facility], [address] [facility], Phone - [phone], Director - [facility] Notes/Report: Glucose 94 70-99 mg/dL BUN 15 [...] 0-40 IU/L ALT (SGPT) 14 0-32 IU/L CBC With Differential/Platel et* Reviewed date:01/18/2024 08:15:52 AM Interpretation: Performing Lab:[facility], [address] [facility], Phone - [phone], Director - [facility] Notes/Report: WBC 10.4 3.4-10.8 x10E3/uL RBC 4.55 [...] % Immature Grans (Abs) 0.0 0.0-0.1 x10E3/uL Reason For Referral No Information Medications Medication [...] with others, in a hotel, in a halfway, living outside on the street, on a [...] phone, visiting friends or family, going to worship or club meetings) More than 5 times a week How stressed are you? Stress is when someone feels tense, nervous, anxious, or can\t sleep at night because their mind is troubled Quite a bit In the past year have you sp ent more than 2 nights in a row in a intermediate, senior living, custodial center, or juvenile correctional facility? No [...] Status W/U Status Risk Notes Problem Anxiety (39361759) Anxiety (F41.9) Active confirmed Problem Bipolar 1 disorder (740317237) Bipolar 1 disorder (F31.9) Active confirmed Problem Vitamin D deficiency (22266778) Vitamin D deficiency (E55.9) Active confirmed Problem Overweight (936694143) Over weight (E66.3) Active confirmed Problem Depressed (56450507) Depressed (F32.9) Active confirmed Problem Drug monitoring done (058376262) Therapeutic drug monitoring (Z51.81) Active confirmed Problem Adjustment disorder (80529322) Trauma and stressor-related disorder (F43.9) Active confirmed Problem Sleep dysfunction with arousal disturbance (414059752) Night terror (F51.4) Active confirmed Problem Impaired concentration (1683434722) Impaired concentration (R41.840) Active confirmed Vital Signs Height 71 in 07/04/2024 Weight 350 lbs 10/23/2024 BMI 47.14 kg/m2 07/04/2024 Encounters Encounter Location Date Provider Diagnosis [address] [address] 01/04/2024 Miguelangel Cunha [address] [address] 03/08/[address] [address] 09/03/2024 Flores Oliver [address] [address] 01/16/2024 Miguelangel Cunha Bipolar 1 disorder F31.9 ; Anxiety F41.9 ; Depressed F32.9 ; Impaired concentration R41.840 and Vitamin D deficiency E55.[address] [address] 01/04/2024 Miguelangel Cunha Bipolar 1 disorder F31.9 ; Anxiety F41.9 ; Depressed F32.9 ; Impaired concentration R41.840 ; Vitamin D deficiency E55.9 and Nutritional counseling Z71.[address] [address] 03/06/2024 Miguelangel Cunha Anxiety F41.9 ; Bipolar 1 disorder F31.9 ; Depressed F32.9 ; Impaired concentration R41.840 ; Vitamin D deficiency E55.9 and Nutritional counseling Z71.[address] [address] 05/23/2024 Miguelangel Cunha Anxiety F41.9 ; Bipolar 1 disorder F31.9 ; Depressed F32.9 ; Impaired concentration R41.840 ; Vitamin D deficiency E55.9 and Nutritional counseling Z71.[address] [address] 06/05/2024 Miguelangel Cunha Anxiety F41.9 ; Bipolar 1 disorder F31.9 ; Depressed F32.9 ; Impaired concentration R41.840 ; Vitamin D deficiency E55.9 ; Nutritional counseling Z71.3 and Over weight E66.[address] [address] 07/04/2024 Miguelangel Cunha Anxiety F41.9 ; Bipolar 1 disorder F31.9 ; Depressed F32.9 ; Impaired concentration R41.840 ; Vitamin D deficiency E55.9 ; Nutritional counseling Z71.3 and Over weight E66.[address], [place] [address] 10/23/2024 Flores Benito Anxiety F41.9 ; Bipolar [...] buspirone, aripiprazole Current/previous therapies: Needing to call [place] and set up appointment Examination as documented [...] to the emergency department, or contact the [facility] Crisis Unit/Team. Follow up as scheduled [...] I disorder 10/23/2024 Anxiety (ICD-10 - F41.9) 10/23/2024 Bipolar 1 disorder (ICD-10 - F31.9) 10/23/2024 Depressed (ICD-10 - F32.9) 07/04/2024 Bipolar 1 disorder (ICD-10 - F31.9) [...] health CRISIS, please reach out to [phone] ([facility]), 911, go to the emergency department, or contact the [facility] Crisis Unit/Team. Follow up as scheduled [...] to the emergency department, or contact the [facility] Crisis Unit/Team. Follow up as scheduled [...] health CRISIS, please reach out to [phone] ([facility] [facility]), 911, go to the emergency department, or contact the [facility] Crisis Unit/Team. Follow up as scheduled [...] buspirone, aripiprazole Current/previous therapies: Needing to call [place] and set up appointment Examination as documented [...] to the emergency department, or contact the [facility] Crisis Unit/Team. Follow up as scheduled [...] trials: Strattera Current/previous therapies: Needing to call [place] and set up appointment Examination as documented [...] health CRISIS, please reach out to [phone] ([facility]), 911, go to the emergency department, or contact the [facility] Crisis Unit/Team. Follow up as scheduled [...] disorder 10/23/2024 Impaired concentration (ICD-10 - R41.840) 10/23/2024 Trauma and stressor-related disorder (ICD-10 - F43.9) 06/05/2024 Impaired concentration (ICD-10 - R41.840) Duration (acute/chronic), stability (controlled/uncontr olled): Chronic, Strattera reportedly ineffective, pharmacy reportedly didn't dispense Qelbree as recently prescribed, see HPI Current medications/efficac y: Somewhat, room for improvement Previous medication trials: Strattera (ineffective) Current/previous therapies: Needing to call [place] and set up appointment Examination as documented [...] to the emergency department, or contact the [facility] Crisis Unit/Team. Follow up as scheduled in 3 weeks or sooner if necessary. Follow up with PCP and/or other specialists as advised. NEXT STEP: Consider increasing Qelbree as needed. 07/04/2024 Impaired concentration (ICD-10 - R41.840) Duration (acute/chronic), stability (controlled/uncontr olled): Chronic, improved with recent medication adjustments, see HPI Current medications/efficac y: Yes Previous medication trials: Marielena (ineffective) Current/previous therapies: Needing to call [place] and set up appointment Examination as documented [...] to the emergency department, or contact the [facility] Crisis Unit/Team. Follow up as scheduled in 4 weeks or sooner if necessary. Follow up with PCP and/or other specialists as advised. NEXT STEP: Consider increasing Qelbree as needed. 03/06/2024 Impaired concentration (ICD-10 - R41.840) Duration (acute/chronic), stability (controlled/uncontr olled): Chronic, improved with recent inrease in Strattera, see HPI Current medications/efficac y: Yes Previous medication trials: Strattera Current/previous therapies: Needing to call [place] and set up appointment Examination as documented [...] to the emergency department, or contact the [facility] Crisis Unit/Team. Follow up as scheduled [...] Strattera (ineffective) Current/previous therapies: Needing to call [place] and set up appointment Examination as documented [...] to the emergency department, or contact the [facility] Crisis Unit/Team. Follow up as scheduled [...] to the emergency department, or contact the [facility] Crisis Unit/Team. Follow up as scheduled [...] health CRISIS, please reach out to [phone] ([facility]), 911, go to the emergency department, or contact the [facility] Crisis Unit/Team. Follow up as scheduled [...] to the emergency department, or contact the [facility] Unit/Team. Follow up as scheduled [...] to the emergency department, or contact the [facility]/Team. Follow up as scheduled [...] to the emergency department, or contact the [facility]/Team. Follow up as scheduled or sooner if necessary. Follow up with PCP and/or other specialists as advised. NEXT STEP: Consider medication adjustments as needed. 07/04/2024 Nutritional counseling (ICD-10 - Z71.3) 06/05/2024 Nutritional counseling (ICD-10 - Z71.3) 10/23/2024 Therapeutic drug monitoring (ICD-10 - Z51.81) 03/06/2024 Nutritional counseling (ICD-10 - Z71.3) 05/23/2024 Nutritional counseling (ICD-10 - Z71.3) 07/04/2024 Over weight (ICD-10 - E66.3) 06/05/2024 Over weight (ICD-10 - E66.3) 10/23/2024 Other May self-administer medications or be administered own oral medications per [place] protocols. Provided informed consent with understanding of [...] Oliver PMHNP- to: [] consider utilizing therapist/counselor /social work associate/psychologist , referral given [x] continue with therapist/counselor /social work associate/psychologist Psychoeducation: -Treatment options discussed in detail with patient/guardian verbalizing understanding of treatment rationales. -Side effects and benefits of all medications prescribed discussed at length between psychiatric prescribing provider and patient/guardian along with the risks associated of [id number] interactions, including but not limited to prescription [...] engaged in treatment plan with Flores Oliver [facility]. -Perceiving complete understanding of rationale by patient/guardian and willingness to adhere to formulated plan of care by prescriber with patient/guardian buy-in, willingness to participate actively in plan of care and willing to take charge of own care. -Although geared for female patients, all patients/guardians are informed by prescribing provider of risks of medications that could potentially be taken by female/women within their [place] of influence and that women who use [...] a should occur, to consult with provider, RECRUITER ACCOUNT MANAGER and/or Nurse Tents Assembler to determine if prescribed medications should or [...] Insured Coverage Start Date Coverage End Date [employer] [address] [place] [address] [id number] Cecilia Avina Self - patient is the insured 3 [employer] [address] [place] [address] [id number] Cecilia Avina Self - patient is the insured 3 Medical (General) History Medical History History ICD Code Fibromyalgia IBS Vertigo Migraines Surgical History Surgery Date(Month/Year) section x2 cholecystectomy Left knee repair x2 Umbilical hernia repair Hospitalization History Reason Date(Month/Year) [facility]
--- OUTSIDE RECORDS SUMMARY | 2024-11-01 16:13 | XMS_ITS | Encounter Summary ---
Author Organization [employer] Address 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/ZIP Co de Phone Number [facility] CLIA# [id number] [address] [place] [address] * POC , URINE (08/03/2007 5:30 AM CDT) , URINE POC Negative Negative [facility] Urine specimen (specimen) 08/03/2007 5:30 AM CDT 08/03/2007 5:30 AM CDT Jose Enrique Branham MD POINT OF CARE TESTING Fin al Result Performing Organization Address [facility] de Phone Number [facility] CLIA# [id number] [address] [place] [address] documented in this encounter Visit Diagnoses Diagnosis Stiffness of joint, not elsewhere classified, lower leg documented in this encounter Care Teams Hse Manager Relationship Specialty Start Date End Date Cesar Owens DO PCP - General Family Practice 03/15/14 documented as of this encounter
--- OUTSIDE RECORDS SUMMARY | 2024-11-01 16:13 | XMS_ITS | Clinical Summary ---
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 Gender Identity Not on file Sexual Orientation Not on file Occupation Industry Job Start Date Job End Date Not on file Not on file Not on file Not on file Last Filed Vital Signs Vital Sign Reading Time Taken Comments Blood Pressure 102/77 03/15/2014 11:05 AM HEAD WAITER Pulse - - Temperature 36.3 C (97.3 F) 03/15/2014 11:13 AM HEAD WAITER Respiratory Rate 18 03/15/2014 11:05 AM HEAD WAITER Oxygen Saturation - - Inhaled Oxygen Concentration - - Weight 130.6 kg (288 lb) 03/15/2014 11:13 AM HEAD WAITER Height 182.2 cm (5' 11.75) 03/15/2014 11:13 AM HEAD WAITER Body Mass Index 39.33 03/15/2014 11:13 AM HEAD WAITER Plan of Treatment Health Maintenance Due Date Last Done Comments DTAP/TDAP/TD VACCINES (1 - Tdap) 2008 HEPATITIS B VACCINES (1 of 3 - 19+ 3-dose series) 05/14 HPV/Cotest (21-29) 2010 HPV VACCINES (1 - 3-dose SCDM series) 2016 CERVICAL CANCER SCREENING 06/12/2019 HPV/Cotest (30-65) 06/12/2019 PAP SMEAR 06/12/2019 INFLUENZA VACCINE (#1) 2024 01/09/2014 Advance Directives For more information, please contact: [phone] * Full Code (Latest Code Status on File) Date Activated Date Inactivated Comments 03/15/2014 11:30 AM 03/15/2014 5:22 PM Care Teams Candy Waffle Assembler Relationship Specialty Start Date End Date Cesar Owens DO PCP - General Family Practice 03/15/14
--- OUTSIDE RECORDS SUMMARY | 2024-11-01 16:13 | XMS_ITS | Clinical Summary ---
Author Organization [facility] Address [address] [place] [address] Care Team Providers Care Finishing Wire Sawyer Name Role Phone Dash Bill MD Unavailable Jermain Paz MD Unavailable [phone] No, Physician Primary Care Provider [phone] Allergies Active Allergy Reactions Criticality Noted Date [...] day 60 tablet 3 5 Active rizatriptan MERCHANDISING EXECUTION MANAGER (MAXALT-MERCHANDISING EXECUTION MANAGER) 10 mg disintegrating tabletIndications:M igraine Take 1 [...] provider. - for further assessment at anatomy . Plan: patient desires to continue 200mg vaginal [...] patient is hungry for lunch. She will grape picker her compazine and try lunch. If she does not tolerate lunch she was counseled to call the clinic back or to return to the [facility] for further assessment. Resolved Problems Problem [...] call the clinic or return to the [facility] for further evaluation. Encounter for supervision of [...] [x] Method of feeding: breast feeding [] Software Client Architect [] Car seat discussed [] PP Depression [...] status. She has not been able to grape picker her medication due to medicaid coverage [...] patient is hungry for lunch. She will grape picker her compazine and try lunch. If she does not tolerate lunch she was counseled to call the clinic back or to return to the [facility] for further assessment. Encounters Date Type Department Care Team Description 11/01/2024 3:42 PM CDT - 11/01/2024 3:46 PM CDT Emergency [facility] Emergency Department [address] [place] [address] Discharge Disposition: Left without being seen 10/29/2024 7:33 PM CDT - 10/29/2024 9:57 PM CDT Emergency [facility] Emergency Department [address] [place] [address] Porsha Rob MD Traumatic injury of head, initial encounter (Primary Dx) Discharge Disposition: Discharge to home or self care 09/10/2024 9:45 AM CDT Office Visit [facility] [address] [place] [address] [address] [address] Virgilio Johnston MD Chronic migraine without aura without status migrainosus, not intractable (Primary Dx); Chronic bilateral low back pain without sciatica; Foot pain, left 09/05/2024 10:00 AM CDT Office Visit [address] [address] Luz Contreras NP Ventral hernia without obstruction or gangrene (Primary Dx) 08/21/2024 7:42 AM CDT Anesthesia Event [facility] Operating Room [address] [place] [address] Britta Guillen MD Alexander, Jeffrey Michael, DO 08/21/2024 7:30 AM CDT - 08/21/2024 9:35 AM CDT Surgery [facility] Operating Room [address] [place] [address] Malik Bertrand MD XI ROBOTIC REPAIR VENTRAL HERNIA WITH MESH 08/21/2024 6:07 AM CDT - 08/21/2024 11:57 AM CDT Hospital Encounter [facility] Operating Room [address] [place] [address] Malik Bertrand MD Ventral hernia without obstruction or gangrene (Primary Dx) Discharge Disposition: Discharge to home or self care 08/15/2024 1:20 PM CDT - 08/15/2024 2:24 PM CDT Emergency [facility] Emergency Department [address] [place] [address] Dizziness (Primary Dx); Lightheadedness; Chest pain, unspecified type Discharge Disposition: Discharge to home or self care 08/01/2024 11:00 AM CDT Office Visit [address], [place] [address] Malik Sierra MD Ventral hernia without obstruction or gangrene (Primary Dx) from Last 3 Months Immunizations Immunization Administration [...] call the clinic or return to the [facility] for further evaluation. 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 Gender Identity Not on file Sexual Orientation [...] blanc, Jaspreet Enriquez MD Complications:None Delivery Location:This [facility] ([facility] L AND D PROCEDURE) Last Filed Vital Signs Vital Sign Reading Time Taken Comments Blood Pressure 111/84 10/29/2024 9:45 PM CDT Pulse 57 10/29/2024 9:45 PM CDT Temperature 36.8 C (98.3 F) 10/29/2024 6:08 PM CDT Respiratory Rate 16 10/29/2024 6:08 PM CDT Oxygen Saturation 97% 10/29/2024 9:45 PM CDT Inhaled Oxygen Concentration - - Weight 156 kg (344 lb) 10/29/2024 6:08 PM CDT Height 180.3 cm (5' 11) 10/29/2024 6:08 PM CDT Body Mass Index 47.98 10/29/2024 6:08 PM CDT Plan of Treatment Health Maintenance [...] Completed 09/12/2020 Medical Devices Implanted Type Area Battery Hand Device Identifier Shelf Expiration Date Model / Serial / Lot [employer]/C R Bard Ventralight St Sepra 6x4in Monofilament Absorbable Low Profile Latex Free [id number] - [id number] Implanted:Qty: 1 on 08/21/2024 by Malik Bertrand MD at [facility] N/A: Abdomen [employer] Bard 10/08/2025 [id number] / / [id number] Procedures Procedure Name Priority Date/Time Associated Diagnosis Comments CT HEAD WO CONTRAST ED 10/29/2024 8 :15 PM CDT LA AN ELECTIVE ENDOTRACHEAL AIRWAY Routine 08/21/2024 8:15 [...] Recently Relevant to Health Maintenance Results * CT Head WO Contrast (10/29/2024 8:15 PM CDT) Anatomical Region Laterality Modality Head and Neck N/A Computed Tomogra phy 10/29/2024 9:21 PM CDT Narrative 10/29/2024 9:22 PM CDT EXAM DESCRIPTION: CT HEAD WO CONTRAST REASON FOR STUDY: fall head trauma Patient presents status post fall from standing tonight. Patient states her feet fell asleep and her legs just gave out. TECHNIQUE: Axial images acquired through the brain without intravenous contrast. Images stored on PACS. Automated exposure control was used as a dose optimization technique for this examination. COMPARISON: 01/15/2022 FINDINGS: BRAIN: No hemorrhage, edema or mass effect. No recent infarct. Normal white matter. EXTRA-AXIAL SPACES: No fluid collections. No masses. CALVARIUM: No fracture. SINUSES/MASTOIDS: No fluid or mucosal thickening. ORBITS: No significant abnormality. OTHER: No other significant abnormality. IMPRESSION: No acute intracranial findings. THIS IS AN ELECTRONICALLY VERIFIED FINAL REPORT 10/29/2024 9:22 PM - Electronically signed by Cesar Mathis M.D. KT: JOSH Report ID: [id number] Reading Location: [id number] Procedure Note Cesar Mathis MD - 10/29/2024 EXAM DESCRIPTION: CT HEAD WO CONTRAST REASON FOR STUDY: fall head trauma Patient presents status post fall from standing tonight. Patient statesher feet fell asleep and her legs just gave out. TECHNIQUE: Axial images acquired through the brain without intravenous contrast. Images stored on PACS. Automated exposure control was used asa dose optimization technique for this examination. COMPARISON: 01/15/2022 FINDINGS: BRAIN: No hemorrhage, edema or mass effect. No recent infarct. Normal white matter. EXTRA-AXIAL SPACES: No fluid collections. No masses. CALVARIUM: No fracture. SINUSES/MASTOIDS: No fluid or mucosal thickening. ORBITS: No significant abnormality. OTHER: No other significant abnormality. IMPRESSION: No acute intracranial findings. THIS IS AN ELECTRONICALLY VERIFIED FINAL REPORT 10/29/2024 9:22 PM - Electronically signed by Cesar Mathis M.D. KT: JOSH Report ID: [id number] Reading Location: [id number] us Porsha Rob MD IMG CT PROCEDURES F inal Result * LA AN ELECTIVE ENDOTRACHEAL AIRWAY (08/21/2024 8:15 AM CDT) Narrative Geetha Navas CRNA - 08/21/2024 8:15 AM CDT Geetha Navas CRNA 08/21/2024 8:15 AM Airway Patient location: OR Urgency: elective Indications for airway management: anesthesia and airway protection Difficult airway: no Staff: Supervising provider: Britta Guillen MD Placed by: INDUSTRIAL SERVICER: Geetha Navas CRNA Emergent airway documentation: Risks [...] Dinorah August M.D. FT: FT Report ID: [id number] Reading Location: [id number] Procedure Note Dinorah Carr MD - 08/15/2024 [...] Dinorah August M.D. FT: FT Report ID: [id number] Reading Location: [place] [address] [place] [facility] IM XR PROCEDURES Final Result * (ABNORMAL) Urinalysis reflex to microscopic and culture Urine (08/15/2024 12:19 PM CDT) Color, ur Yellow Yellow Clarity, ur Turbid(A) Clear [facility] ([place]) Specific gravity, ur 1.022 1.003 - 1.030 [facility] ([place]) pH, urine 7.0 [facility] ([place]) Comment: Interpretive Data U rine pH is affected by diet, medications, systemic acid-base disturbances, and renal tubular function. pH may affect urinary stone formation. For example, urine pH below 6.0 may help reduce the tendency for calcium phosphate stones and pH greater than 6.0 may reduce the tendency for uric acid stone formation. Source: [facility] Current Interpretive Data was last revised on [...] Reflex to microscopic UA will be performed. [facility] ([place]) Urine 08/15/2024 12:1 9 PM CDT 08/15/2024 12:23 PM CDT Claudia Burton MD LAB MICROBIOLOGY - GENERA L ORDERABLES Final Result Performing Organization Address [facility] Co de Phone Number [facility] ([place] [address] [facility] [place] [address] * (ABNORMAL) Urinalysis, microscopic only (08/15/2024 12:19 PM CDT) WBC, ur 6-10(A) 0 - 5 /HPF RBC, ur 0-2 0 - 2 /HPF [facility] ([place]) Epithelial cells, squamous, ur 1-5 0 - 5 /HPF [facility] ([place]) Bacteria, ur Trace(A) [facility] ([place]) Mucous, ur Present(A) [facility] ([place]) Culture Reflex Comment Reflex conditions for urine culture (WBC >10) not met. [facility] ([place]) Urine 08/15/2024 12:1 9 PM CDT 08/15/2024 12:23 PM CDT us Claudia Burton MD LAB URINE ORDERABLES Rosemary l Result Performing Organization Address [facility] Co de Phone Number [facility] [place]) [address] [facility] Department [place] [address] * POCT hCG, urine (08/15/2024 12:12 PM CDT) [facility] HCG, ur, POC Negative Negative Lot Number [id number] QC Backgroud Clear Acceptable QC Control Line Acceptable Urine 08/15/2024 12:1 2 PM CDT Paul Terrazas MD POINT OF CARE TEST ORDERABLE S Final Result * Troponin T high-sensitivity (08/15/2024 11:59 AM CDT) [facility] Trop T hs <6 <=14 ng/L Comment: Interpretive Data For further hscTnT resources including the diagnostic algorithm and an aid in interpretation, copy and paste this link: https://nrl.testcatalog.org/show/hsTrop Current Interpretive Data last revised 2020. Blood 08/15/2024 11:5 9 AM CDT 08/15/2024 1:25 PM CDT [place] [facility] LAB BLOOD ORDERABLES Final Resu lt Performing Organization Address [facility] Co de Phone Number [facility] [place]) [address] [facility] [place] [address] * eGFR (08/15/2024 11:59 AM CDT) [facility] eGFR >90 >=60 mL/min/1. 73 m2 Comment: [...] MD LAB BLOOD ORDERABLES Rosemary thompson Result [facility] ([place]) [address] [facility] [place] [address] * (ABNORMAL) Comprehensive metabolic panel (08/15/2024 11:59 [...] 9 AM CDT 08/15/2024 12:02 PM CDT Claudia Burton MD LAB BLOOD ORDERABLES Rosemary l Result [facility] ([place]) [address] [facility] [place] [address] * (ABNORMAL) Differential, auto (08/15/2024 11:35 AM [...] MD LAB BLOOD ORDERABLES Rosemary thompson Result [facility] ([place]) [address] [facility] [place] [address] * (ABNORMAL) CBC with auto differential (08/15/2024 [...] ([place]) MCV 94.9 81.3 - 96.4 fL [facility] ([place]) MCH 30.6 27.1 - 33.3 pg [facility] ([place]) MCHC 32.3 32.3 - 35.7 g/dL [facility] ([place]) RDW CV 13.3 11.1 - 14.9 % [facility] ([place]) RDW SD 45.5 35.7 - 48.1 fL [facility] NRBC abs 0.00 0.00 - 0.01 K/cumm [facility] ([place]) Blood 08/15/2024 11:3 5 AM CDT 08/15/2024 11:37 AM CDT Claudia Burton MD LAB BLOOD ORDERABLES Rosemary l Result Performing Organization Address City[facility] Co de Phone Number [facility] [address] [facility] [place] [address] * ECG 12 lead (08/15/2024 11:25 AM CDT) 08/15/2024 11:2 5 AM CDT Narrative [facility] - 08/15/2024 11:53 AM CDT Vent Rate: 72 bpm RR Interval: 825 msec LA Interval: 145 msec QRS Duration: 91 msec QT Interval: 416 msec QTC Interval: 441 msec P-R-T [place]: 31 - 40 - 10 degrees IMPRESSION: SINUS RHYTHM LOW QRS VOLTAGE IN PRECORDIAL LEADS [QRS DEFLECTION < 1.0 mV IN CHEST LEADS] BORDERLINE ECG NO CHANGE FROM PREVIOUS TRACING NOTED Electronically Signed By: Nikita Palacio MD Claudia Burton MD ECG ORDERABLES Final Res ult Performing Organization Address [facility]/ZIP Co de Phone Number [facility] * High Risk HPV DNA Detection with Genotyping (Molecular component) (2024 9:00 AM CDT) HPV HR 16 Not Detected Not Detected [facility] Comment:Testing performed by : [facility], [address] [place]., [address] HPV HR 18 Not Detected Not Detected [facility] Comment:Testing performed by : [facility], [address] [place]., [address] HPV HR Non 16/18 Not Detected Not [...] this test have been verified by the [facility] Molecular Infectious Disease laboratory. Correlate with separately reported cytology results, as applicable. Interpretive data last revised 22 Testing performed by: [facility], [address] [place]., [address] Endocervical 2024 9:00 AM CDT 06/12/2024 4:29 PM CDT Narrative [facility] - 06/13/2024 2:39 AM CDT Clinical history and diagnosis->screening Testing type->Screening Last menstrual period (date if known)->[id number] Ingrid Marie NP LAB BODY FLUIDS AND STOOLS ORDER SANDY Final Result [facility] [address] Department [place] [address] [facility] * Hepatitis C antibody (09/12/2020 12:45 PM CDT) Hep C Ab Nonreactive Nonreactive [facility] ([place] Comment: Interpretive Data Nonreactive: Antibodies [...] last revised on 2019. Testing performed by: [facility], [address] [place] [address]., [address] Blood specimen (specimen) 09/12/2020 12:45 PM CDT 09/13/2020 4:45 PM CDT us Ingrid Marie NP LAB MICROBIOLOGY - GENERAL ORDER SANDY Edited Result - Final [facility] ([place]) [address] [facility] [place] [address] from Last 3 Months or Most Recently Relevant to Health Maintenance Insurance [facility] [place] [address] [place] [address] Advance Directives For more information, please contact: [phone] * Full Code (Latest Code Status on File) Date Activated Date Inactivated Comments 03/29/2021 8:06 PM 03/31/2021 8:50 PM * Full Code Date Activated Date Inactivated Comments 03/29/2021 1:37 PM 03/29/2021 8:06 PM Full CPR in case of cardiopulmonary arrest Care Teams Finishing Wire Sawyer Relationship Specialty Start Date End Date No, Physician PCP - General 10/29/24 Dash Bill MD [address] [place] [address] Internal Medicine 12/20/22 Jermain Paz MD [address] [facility] [address] [place] [id number] Link Trainer Mechanic Obstetrics and Gynecology 03/31/21
--- OUTSIDE RECORDS SUMMARY | 2024-11-01 16:13 | XMS_ITS | Clinical Summary ---
Author Organization [facility] Address [address] [place] [address] Phone Care Team Providers Care Rn Care Transition Name Role Phone Dash Bill MD Primary Care Provider [phone] Allergies Active Allergy Reactions Criticality Noted Date [...] to complete this topic Insurance MEDICAID [facility] GENER[facility] Care Teams Rn Care Transition Relationship Specialty Start Date End Date Dash Bill MD [address] [place] [address] PCP - General Internal Medicine 11/06/18
[2024-11-01 16:16] VITALS: BP 127/82; PULSE 68; RESP 16; TEMP 36.5; O2SAT 99
--- NOTE | 2024-11-01 16:22 | ED.GENADULT ---
HPI - General Adult General Chief complaint: Fall Stated complaint: Headache/Fall Injury Time Seen by Provider: 11/01/24 16:22 Source: patient Mode of arrival: ambulatory Limitations: no limitations History of Present Illness HPI narrative: 34 yo F presents requesting work release to go back to work after head injury. Fell at work and hit head. Was see at ER and discharged. Needs note that says no restrictions. Was not given workman comp follow up. Pt continues to c/o headache and eyes twitching. All systems reviewed and negative except as noted above. Related Data Home Medications ?Medication ?Instructions ?Recorded ?Confirmed ?Last Taken ?Type baclofen 20 mg tablet 20 mg PO BID 03/01/22 09/17/23 Unknown History albuterol sulfate 90 mcg/actuation See Rx Instructions .Route 06/08/23 06/08/23 Unknown History aerosol inhaler .COMPLEX PRN SOB aripiprazole 5 mg tablet 5 mg PO DAILY 06/08/23 06/08/23 Unknown History baclofen 20 mg tablet 20 mg PO BID 06/08/23 06/08/23 Unknown History carbamazepine 200 mg tablet 200 mg PO TID 06/08/23 06/08/23 Unknown History fluoxetine 40 mg capsule 40 mg PO DAILY 06/08/23 06/08/23 Unknown History gabapentin 300 mg capsule 300 mg PO BID 06/08/23 06/08/23 Unknown History hydroxyzine HCl 25 mg tablet 25 mg PO BID 06/08/23 06/08/23 Unknown History prazosin 1 mg capsule 1 mg PO DAILY 06/08/23 06/08/23 Unknown History ibuprofen 600 mg tablet 600 mg PO TIDWMEAL 09/14/23 09/17/23 Unknown History fluoxetine 40 mg capsule 40 mg PO BID 09/17/23 09/17/23 Unknown History tramadol 50 mg tablet 50 mg PO DAILY PRN Pain (Scale 09/17/23 09/17/23 Unknown History Score 4-6) aripiprazole 15 mg tablet mg 07/24/24 Unknown History meclizine 25 mg tablet mg 07/24/24 Unknown History meloxicam 7.5 mg tablet mg 07/24/24 Unknown History propranolol 60 mg capsule,24 mg PO 07/24/24 Unknown History hr,extended release aripiprazole 20 mg tablet mg 11/01/24 Unknown History Allergies Allergy/AdvReac Type Severity Reaction Status Date / Time aspirin Allergy Unknown Rash Verified 11/01/24 16:23 codeine Allergy Unknown lightheaded/passes Verified 11/01/24 16:23 out iodine Allergy Unknown Skin Verified 11/01/24 16:23 Reaction Penicillins Allergy Unknown Rash Verified 11/01/24 16:23 [facility] Past Medical History Medical History TBI (traumatic brain injury) Chronic migraine Fibromyalgia Asthma Anxiety and depression Surgical History Surgical History H/O left knee surgery Previous section total X2 Hx of cholecystectomy Social History Social History Smoking status: Former smoker Alcohol intake: unknown Substance use: unknown Living arrangements: with family Gender identity (if verbalized by the patient): Female Comments At time of signature, agree with nursing past medical, surgical, social and family history. There is no relevant family history pertinent to the presenting complaint. Exam Narrative: GENERAL: This is a well-nourished, well-developed patient, in no apparent distress. HEAD: normocephalic, atraumatic. EYES: PERRL. Sclera clear/white. Vision is grossly intact. Extraocular motions intact EARS: External ears normal, auditory canals clear and without drainage, TMs normal without perforation. Hearing grossly intact. NOSE: External nose normal with no obvious nasal discharge, nares without redness, no rhinorrhea. THROAT: Mucous membranes moist, posterior pharynx clear. NECK: Neck supple, non-tender without lymphadenopathy, masses or thyromegaly. CARDIOVASCULAR: Regular rate and rhythm without murmurs, gallops, or rubs. RESPIRATORY: Clear to auscultation. Breath sounds equal bilaterally. No wheezes, rales, or rhonchi. SKIN: warm, Dry, intact with no suspicious lesions or rash, good texture and turgor. NEURO: awake, alert, and oriented to person, place and time. There were no obvious focal neurologic abnormalities. EXTREMITIES: No joint tenderness, effusion, or edema noted. Course Course Emergency Course: explain to patient that I am unable to provide her with a work release to send her back to work without restrictions. Her exam, labs and CT scan were done at an ER. I do not access to those records to review them. She continues to have at headaches and complains of eyes twitching. ice twitching was not noted during exam. She has no neuro deficits. Ambulatory with steady gait. 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 Level of Care: Express Care Visit Vital Signs Vital signs: Vital Signs Temperature 36.5 C 11/01/24 16:16 Pulse Rate 68 11/01/24 16:16 Respiratory Rate 16 11/01/24 16:16 Blood Pressure 127/82 11/01/24 16:16 Pulse Oximetry 99 11/01/24 16:16 Oxygen Delivery Room Air 11/01/24 16:16 Temperature 36.5 C 11/01/24 16:16 Pulse Rate 68 11/01/24 16:16 Respiratory Rate 16 11/01/24 16:16 Blood Pressure 127/82 11/01/24 16:16 Pulse Oximetry 99 11/01/24 16:16 Oxygen Delivery Room Air 11/01/24 16:16 reviewed Medical Decision Making Vital Signs Vital Signs: Vital Signs Temperature 36.5 C 11/01/24 16:16 Pulse Rate 68 11/01/24 16:16 Respiratory Rate 16 11/01/24 16:16 Blood Pressure 127/82 11/01/24 16:16 Pulse Oximetry 99 11/01/24 16:16 Oxygen Delivery Room Air 11/01/24 16:16 Temperature 36.5 C 11/01/24 16:16 Pulse Rate 68 11/01/24 16:16 Respiratory Rate 16 11/01/24 16:16 Blood Pressure 127/82 11/01/24 16:16 Pulse Oximetry 99 11/01/24 16:16 Oxygen Delivery Room Air 11/01/24 16:16 Discharge Plan Discharge Clinical Impression: Headaches due to old head trauma Patient Disposition: Home Condition: Stable Instructions: Concussion (ED) Additional Instructions: I am not able to provide you with a work release to return to work without restrictions. You need to be evaluated by your primary care physician that can reviewed records from your ER visit or see a workman comp physician. Speak with your offset plate preparation supervisor for workman comp referral. Continue to take tylenol to treat your headaches. For any worsening of symptoms go to the ER. Patient Language: Indonesian Prescriptions: No Action baclofen 20 mg tablet 20 mg PO BID fluoxetine 40 mg capsule 40 mg PO DAILY prazosin 1 mg capsule 1 mg PO DAILY baclofen 20 mg tablet 20 mg PO BID carbamazepine 200 mg tablet 200 mg PO TID gabapentin 300 mg capsule 300 mg PO BID hydroxyzine HCl 25 mg tablet 25 mg PO BID albuterol sulfate 90 mcg/actuation HFA aerosol inhaler See Rx Instructions .ROUTE .COMPLEX PRN (Reason: SOB) Rx Instructions: PRESCRIBED fluoxetine 20 mg capsule 20 mg PO DAILY aripiprazole 5 mg tablet 5 mg PO DAILY cholecalciferol (vitamin D3) 50 mcg (2,000 unit) capsule 50 mcg PO DAILY ibuprofen 600 mg tablet 600 mg PO TIDWMEAL cholecalciferol (vitamin D3) 50 mcg (2,000 unit) capsule 50 mcg PO DAILY tramadol 50 mg tablet 50 mg PO DAILY PRN (Reason: Pain (Scale Score 4-6)) fluoxetine 40 mg capsule 40 mg PO BID propranolol 60 mg capsule,extended release 24 hr PO meloxicam 7.5 mg tablet meclizine 25 mg tablet aripiprazole 15 mg tablet cholestyramine (with sugar) 4 gram powder in packet topiramate 50 mg tablet Follow-up/Referrals: PHYSICIAN,SPLIT LEATHER DEPARTMENT SUPERVISOR [Primary Care Provider, Internal Medicine] Time of Disposition: 16:29
== END 2024-11-01 16:35 | disposition home or self-care (01) ==
PROVIDERS: Emergency Provider Nurse Practitioner Family
DX: R51.9 Headache, unspecified (principal); S09.90XA Unspecified injury of head, initial encounter; W19.XXXA Unspecified fall, initial encounter; Y99.0 Civilian activity done for income or pay; Z87.891 Personal history of nicotine dependence; M79.7 Fibromyalgia; J45.909 Unspecified asthma, uncomplicated; F41.9 Anxiety disorder, unspecified; F32.A Depression, unspecified; Z87.820 Personal history of traumatic brain injury
CPT/HCPCS: 99212; G0463

== ENCOUNTER 2024-11-30 15:45 | Emergency (ER) | payer OTHER, SELFPAY ==
--- OUTSIDE RECORDS SUMMARY | 2024-11-30 15:49 | XMS_ITS | Encounter Summary ---
Author Organization [employer] Address 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/ZIP Co de Phone Number [facility] CLIA# [id number] [address] [place] [address] * POC , URINE (08/03/2007 5:30 AM CDT) , URINE POC Negative Negative [facility] Urine specimen (specimen) 08/03/2007 5:30 AM CDT 08/03/2007 5:30 AM CDT Jose Enrique Branham MD POINT OF CARE TESTING Fin al Result Performing Organization Address [facility] de Phone Number [facility] CLIA# [id number] [address] [place] [address] documented in this encounter Visit Diagnoses Diagnosis Stiffness of joint, not elsewhere classified, lower leg documented in this encounter Care Teams Line Staker Relationship Specialty Start Date End Date Cesar Owens DO PCP - General Family Practice 03/15/14 documented as of this encounter
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
--- OUTSIDE RECORDS SUMMARY | 2024-11-30 15:49 | XMS_ITS | Encounter Summary ---
Author Organization [facility] Address [address] [place] [address] Care Team Providers Care Rolling Machine Operator Automatic Name Role Phone Cesar Owens Primary Care Provider Unavailabl e Encounter Details Date Type Department Care Team (Latest Contact Info) Description 03/12/2008 Outpatient Historical [facility] Jose Enrique Vargas MD [address] [facility] [address] [place] [address] Stiffness of Joint, not Elsewhere Classified, Lower Leg Social History Tobacco Use Types Packs/Day Years Used Date Smoking Tobacco: Never Assessed Comments Unknown Sex and Gender Information Value Date Recorded Sex Assigned at Not on file Legal Sex Female 5:33 AM ABLE SEAMAN Gender Identity Not on file Sexual Orientation Not on file documented as of this encounter Plan of Treatment Not on file documented as of this encounter Procedures Procedure Name Priority Date/Time Associated Diagnosis Comments XR KNEE 4+ VW LEFT Routine 03/12/2008 4: 15 PM ABLE SEAMAN documented in this encounter Results * XR KNEE 4+ VW LEFT (03/12/2008 4:15 PM ABLE SEAMAN) Anatomical Region Laterality Modality Lower Extremity Other 03/12/2008 4:15 PM ABLE SEAMAN Narrative 03/13/2008 8:55 AM ABLE SEAMAN [facility] [address] [place], [place] [address] Admit Date: 03/12/2008 MADDY [place]OR[place]Y Sex: F Admit Prov: JOSE ENRIQUE ARANDA Date: 1990 Primary Care Prov: BETY BRODERICK CMRN: [id number] Room: EMI SSN: [id number] IMAGING SERVICES Ordering Prov: N/A Accession Number: [id number] Interpretation LEFT KNEE, 4 PROJECTIONS, 03/12/2008 Clinical [...] SJ Procedure Note Provider, Historical - 03/13/2008 [facility] [address] [place], [place] [address] Admit Date: 03/12/2008 GINNY MOORE Sex: F Admit Prov: JOSE ENRIQUE ARANDA Date: 1990 Primary Care Prov: BETY BRODERICK Antonino CMRN: [id number] Room: EMI N: [id number] IMAGING SERVICES Ordering Prov: N/A Interpretation LEFT [...] leg documented in this encounter Care Teams Rolling Machine Operator Automatic Relationship Specialty Start Date End Date Cesar Owens DO PCP - General Family Practice 03/15/14 documented as of this encounter
--- OUTSIDE RECORDS SUMMARY | 2024-11-30 15:49 | XMS_ITS | Clinical Summary ---
Author Organization [facility] Address [address] [place] [address] Care Team Providers Care End Maker Name Role Phone Unavailable Primary Care Provider Unavailabl e Source Comments [facility],non-owned Affiliates and Associated Physician Practices is amultiple site organization consisting of ambulatory clinics and hospital sitesin [place], [place] and [place]. This disclosure is being madepursuant to the Care Everywhere program and may not contain all information available regarding this patient. Last updated 17.[facility] Allergies Active Allergy Reactions Criticality Noted Date [...] VACCINE (1 - 3-dose SCDM series) 2016 DEPRESSION SCREENING 03/14/2024 COVID-19 VACCINE (1 - 2023-2 5 season) 2024 INFLUENZA VACCINE (#1) 2024 01/09/2014 ZOSTER VACCINE [...]
--- OUTSIDE RECORDS SUMMARY | 2024-11-30 15:49 | XMS_ITS | Clinical Summary ---
Author Organization [facility] Address [address] [place] [address] Phone Care Team Providers Care Stationary Steam Engineer Name Role Phone Roman Cesar Primary Care [...] on file Legal Sex Female 5:33 AM AFRICANA STUDIES PROFESSOR Gender Identity Not on file Sexual Orientation Not on file Occupation Industry Job Start Date Job End Date Not on file Not on file Not on file Not on file Last Filed Vital Signs Vital Sign Reading Time Taken Comments Blood Pressure 102/77 03/15/2014 11:05 AM AFRICANA STUDIES PROFESSOR Pulse - - Temperature 36.3 C (97.3 F) 03/15/2014 11:13 AM AFRICANA STUDIES PROFESSOR Respiratory Rate 18 03/15/2014 11:05 AM AFRICANA STUDIES PROFESSOR Oxygen Saturation - - Inhaled Oxygen Concentration - - Weight 130.6 kg (288 lb) 03/15/2014 11:13 AM AFRICANA STUDIES PROFESSOR Height 182.2 cm (5' 11.75) 03/15/2014 11:13 AM AFRICANA STUDIES PROFESSOR Body Mass Index 39.33 03/15/2014 11:13 AM AFRICANA STUDIES PROFESSOR Plan of Treatment Health Maintenance Due Date Last Done Comments DTAP/TDAP/TD VACCINES (1 - Tdap) 2008 HEPATITIS B VACCINES (1 of 3 - 19+ 3-dose series) 05/14 HPV/Cotest (21-29) 2010 HPV VACCINES (1 - 3-dose SCDM series) 2016 CERVICAL CANCER SCREENING 06/12/2019 HPV/Cotest (30-65) 06/12/2019 PAP SMEAR 06/12/2019 INFLUENZA VACCINE (#1) 2024 01/09/2014 Advance Directives For more information, please contact: [phone] * Full Code (Latest Code Status on File) Date Activated Date Inactivated Comments 03/15/2014 11:30 AM 03/15/2014 5:22 PM Care Teams Stationary Steam Engineer Relationship Specialty Start Date End Date Cesar Owens DO PCP - General Family Practice 03/15/14
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
--- OUTSIDE RECORDS SUMMARY | 2024-11-30 15:49 | XMS_ITS | Encounter Summary ---
Author Organization [facility] Address [address] [place] [address] Phone Care Team Providers Care Plant Safety Engineer Name Role Phone Dash Bill MD Primary Care Provider [phone] Encounter Details Date Type Department Care Team (Late st Contact Info) Description 03/26/2021 Transcribe Orders [facility] Patient Access Admitting [address] [place] [id number] Dash Bill MD [address] [place] [address] Viral syndrome (Primary Dx) Social [...] Coronavirus / COVID-19? Yes 03/26/2021 12:18 PM KNITTED CLOTH EXAMINER documented as of this encounter Plan of Treatment Not on file documented as of this encounter Results * SARS-COV-2 BY MOLECULAR (03/26/2021 12:24 PM KNITTED CLOTH EXAMINER) SARSCOV2 NOT DETECTED (Referen ce Range for this test is Not Detected ) [facility] THERMOFISHER FAST DX 03/28/2021 12:19 AM KNITTED CLOTH EXAMINER [facility] Comment:This test was perfor med by a RT-PCR method. Other NASAL STRUCTURE / Unknown Non-Phlebotomy Collection / Unknown 03/26/2021 12:24 PM KNITTED CLOTH EXAMINER 03/26/2021 12:45 PM KNITTED CLOTH EXAMINER Narrative [facility] - 03/28/2021 12:19 AM KNITTED CLOTH EXAMINER Authorized Fact Sheets about this test for providers and patients are available at: https://www.fda.gov/medical-devices/xhhwpcyub-gipbnsioju-mjwnepi-devices/emergen -us e-authorizations us Dash Bill MD MICROBIOLOGY - GENERAL ORDERA BLES Final Result [facility] [address] [facility] [place] [address], documented in this encounter Visit Diagnoses Diagnosis Viral syndrome- Primary Unspecified viral infection, in conditions classified elsewhere and of unspecified site documented in this encounter Additional Health Concerns Infection Onset Date Last Indicated Resolved Time COVID - 19 03/26/2021 03/26/2021 04/15/2021 12:1 6 AM KNITTED CLOTH EXAMINER documented as of this encounter Care Teams Plant Safety Engineer Relationship Specialty Start Date End Date Dash Bill MD [address] [place] [address] PCP - General Internal Medicine 11/06/18 documented as of this encounter
--- OUTSIDE RECORDS SUMMARY | 2024-11-30 15:49 | XMS_ITS | Clinical Summary ---
Author Organization [facility] Address [address] [place] [address] Phone Care Team Providers Care Patient Support Representative Name Role Phone Dash Bill MD Primary Care Provider [phone] Allergies Active Allergy Reactions Criticality Noted Date [...] Cervical Cancer Screening (CCS) 06/12/2019 HPV/Cotest 06/12/2019 Influenza Immunization (#1) 11/12/202412/13, 12/27/2013 SARS-COV-2 Immunization ( season) 2024 Respiratory Syncytial Virus (RSV) Immunization (Adult) (1 [...] to complete this topic Insurance MEDICAID [facility] [place] [address] [place] [id number] Care Teams Patient Support Representative Relationship Specialty Start Date End Date Dash Bill MD [address] [place] [address] PCP - General Internal Medicine 11/06/18
--- OUTSIDE RECORDS SUMMARY | 2024-11-30 15:49 | XMS_ITS | Encounter Summary ---
Author Organization [facility] Address [address] [place] [address] Care Team Providers Care Gambreler Helper Name Role Phone Unavailable Primary Care Provider Unavailabl e Encounter Details Date Type Department Care Team (Late st Contact Info) Description 08/16/2019 Lab Requisition [facility] MICROBIOLOGY [address] [place] [address] Landon Irby MD Cough Social History Tobacco [...] detected, Invalid 08/17/2019 5:11 AM CDT [facility] MICROBIOLOGY Microbiology SPECIMEN FROM NASOPHARYNGEAL STRUCTURE / Unknown Collection / Unknown 08/16/2019 9:40 AM CDT 08/16/2019 10:20 PM CDT Narrative [facility] MICRO[facility]OLOGY - 08/17/2019 5:11 AM CDT This nucleic acid amplification assay performance was validated by [facility][1] Microbiology Laboratory. This test has been authorized [...] - MICROBIOLOGY ORDERABL ES Final Result [facility] MICROBIOLOGY [address] [place] [address], [facility] [phone] documented in this encounter Visit Diagnoses Diagnosis Cough documented in this encounter Additional Health Concerns Infection Onset Date Last Indicated Resolved Time COVID-19 Under Investigation 08/16/2019 08/16/2019 08/17/2019 5:11 AM CDT documented as of this encounter
--- NOTE | 2024-11-30 15:58 | ED.URI ---
HPI - URI/Sore Throat General Chief Complaint: Upper Respiratory Infection Stated Complaint: sinus issues, feeling sick Time Seen by Provider: 11/30/24 16:10 Source: patient and RN notes reviewed Mode of arrival: ambulatory Limitations: no limitations History of Present Illness HPI Narrative: 34-year-old female presents with concern for sore throat. Reports runny nose, stuffy nose, headache, general ill feeling. She has been taking DayQuil and NyQuil. MD elicited complaint: cough and sore throat Related Data Home Medications ?Medication ?Instructions ?Recorded ?Confirmed ?Last Taken ?Type baclofen 20 mg tablet 20 mg PO BID 03/01/22 09/17/23 Unknown History albuterol sulfate 90 mcg/actuation See Rx Instructions .Route 06/08/23 06/08/23 Unknown History aerosol inhaler .COMPLEX PRN SOB aripiprazole 5 mg tablet 5 mg PO DAILY 06/08/23 11/01/24 Unknown History baclofen 20 mg tablet 20 mg PO BID 06/08/23 11/01/24 Unknown History carbamazepine 200 mg tablet 200 mg PO TID 06/08/23 06/08/23 Unknown History fluoxetine 40 mg capsule 40 mg PO DAILY 06/08/23 06/08/23 Unknown History gabapentin 300 mg capsule 300 mg PO BID 06/08/23 06/08/23 Unknown History hydroxyzine HCl 25 mg tablet 25 mg PO BID 06/08/23 06/08/23 Unknown History prazosin 1 mg capsule 1 mg PO DAILY 06/08/23 06/08/23 Unknown History ibuprofen 600 mg tablet 600 mg PO TIDWMEAL 09/14/23 09/17/23 Unknown History fluoxetine 40 mg capsule 40 mg PO BID 09/17/23 11/01/24 Unknown History tramadol 50 mg tablet 50 mg PO DAILY PRN Pain (Scale 09/17/23 09/17/23 Unknown History Score 4-6) aripiprazole 15 mg tablet mg 07/24/24 Unknown History meclizine 25 mg tablet mg 07/24/24 Unknown History meloxicam 7.5 mg tablet mg 07/24/24 Unknown History propranolol 60 mg capsule,24 mg PO 07/24/24 Unknown History hr,extended release aripiprazole 20 mg tablet mg 11/01/24 Unknown History fluoxetine 10 mg capsule mg 11/30/24 Unknown History omeprazole 20 mg capsule,delayed mg 11/30/24 Unknown History release prazosin 2 mg capsule mg 11/30/24 Unknown History Allergies Allergy/AdvReac Type Severity Reaction Status Date / Time aspirin Allergy Unknown Rash Verified 11/30/24 15:47 codeine Allergy Unknown lightheaded/passes Verified 11/30/24 15:47 out iodine Allergy Unknown Skin Verified 11/30/24 15:47 Reaction Penicillins Allergy Unknown Rash Verified 11/30/24 15:47 Review of Systems Review of Systems: CONSTITUTIONAL: Denies malaise, chills, sweats, or fever. EYES: Denies visual changes, redness, or discharge. ENT: Reports rhinorrhea, congestion, sinus pain, otalgia and sore throat. CARDIOVASCULAR: Denies chest pain, palpitations, or edema. RESPIRATORY: Reports cough. Denies dyspnea. GASTROINTESTINAL: Denies abdominal pain, nausea, vomiting, diarrhea SKIN: Denies rash or itching. MUSCULOSKELETAL: Denies myalgia. NEUROLOGIC: Denies headache. All systems reviewed & are unremarkable except as noted in HPI and below PMFSH Past Medical History Medical History TBI (traumatic brain injury) Chronic migraine Fibromyalgia Asthma Anxiety and depression Surgical History Surgical History H/O left knee surgery Previous section total X2 Hx of cholecystectomy Social History Social History Smoking status: Former smoker Alcohol intake: unknown Substance use: unknown Living arrangements: with family Gender identity (if verbalized by the patient): Female Comments At time of signature, agree with nursing past medical, surgical, social and family history. There is no relevant family history pertinent to the presenting complaint Exam Narrative: GENERAL: Well-appearing, well-nourished, and in no acute distress. HEAD: Normocephalic EYES: PERRLA, conjunctivae clear ENT: Nares clear, turbinates edematous and erythematous, clear discharge. Mucous membranes moist. TM pearly parrish with dull light reflex bilaterally; no tragal tenderness. Oropharynx not erythematous without lesions. Tonsils not enlarged and without exudate, no drooling, no hoarseness, no trismus, uvula midline. NECK: Supple. No lymphadenopathy CHEST: Clear to auscultation, breath sounds equal. No wheezing, rhonchi, rales, or stridor. No respiratory distress, speaks in full sentences. HEART: Regular rate and rhythm. No murmur heard. SKIN: Warm, dry, no rash. NEURO: Alert and oriented x3. PSYCH: Normal mood and affect Course Course Emergency Course: Patient is aware of diagnosis, understands and agrees to treatment plan. Anticipatory guidance given. Patient agrees to follow-up as directed and is aware of reasons to seek care at the emergency department. Portions of this record may have been created with voice recognition software Level of Care: Express Care Visit Vital Signs Vital signs: Vital Signs Temperature 98.5 F 11/30/24 16:05 Pulse Rate 75 11/30/24 16:05 Respiratory Rate 18 11/30/24 16:05 Blood Pressure 169/98 H 11/30/24 16:05 Pulse Oximetry 100 11/30/24 16:05 Oxygen Delivery Room Air 11/30/24 16:05 Temperature 98.5 F 11/30/24 16:05 Pulse Rate 75 11/30/24 16:05 Respiratory Rate 18 11/30/24 16:05 Blood Pressure 169/98 H 11/30/24 16:05 Pulse Oximetry 100 11/30/24 16:05 Oxygen Delivery Room Air 11/30/24 16:05 Reviewed. MDM - URI/Sore Throat MDM Narrative Medical decision making narrative: Differential diagnosis considered: Olmos virus, strep pharyngitis, allergic rhinitis, upper respiratory tract infection, sinusitis, rhinosinusitis, nasopharyngitis. viral pharyngitis, otitis media, otitis externa, pneumonia, bronchitis, viral cough syndrome, viral syndrome, and influenza. Exam findings show no acute concerns or changes; patient is non-toxic appearing and is in no distress. Patient is appropriate for outpatient treatment and follow-up. Lab Data Attestation: I reviewed the patient's lab results. Labs: Lab Results 11/30/24 11/30/24 Range/Units 16:13 16:23 POC Influenza A Ag Negative (Negative) POC Influenza B Ag Negative (Negative) POC SARS CoV-2 Ag Negative (Negative) POC Grp A Strep Screen Negative (Negative) Critical Care Time Critical Care Time Critical Care Time: No Discharge Plan Discharge Clinical Impression: Bronchitis Patient Disposition: Home Condition: Stable Instructions: Acute Bronchitis (ED) Additional Instructions: Viral illness may last between 7-21 days; antibiotics do not cure viral illness and are NOT recommended at this time. Recommend antihistamine such as Benadryl at night time and Zyrtec or May during the day Use inhaler as needed for cough, wheezing, shortness of breath or chest tightness. Also, recommend symptomatic treatment includes: rest, fluids, and increase humidity of the air at home. Recommend Acetaminophen as directed on the bottle to reduce fever, pain, headache. Avoid smoking/second-hand smoke. Please schedule a follow-up visit with your personal physician for further evaluation and treatment within 3-5days. Including recheck and discussion of your blood pressure. If your symptoms persist, change or worsen significantly before you can contact your personal physician then please, without delay, go to the emergency department for further evaluation. Patient Language: [place] Prescriptions: New albuterol sulfate 90 mcg/actuation HFA aerosol inhaler 2 puff INHALATION QID PRN (Reason: shortness of breath or wheezing) Qty: 8.5 0RF prednisone 50 mg tablet 50 mg PO DAILY 5 Days Qty: 5 0RF No Action baclofen 20 mg tablet 20 mg PO BID fluoxetine 40 mg capsule 40 mg PO DAILY prazosin 1 mg capsule 1 mg PO DAILY baclofen 20 mg tablet 20 mg PO BID carbamazepine 200 mg tablet 200 mg PO TID gabapentin 300 mg capsule 300 mg PO BID hydroxyzine HCl 25 mg tablet 25 mg PO BID albuterol sulfate 90 mcg/actuation HFA aerosol inhaler See Rx Instructions .ROUTE .COMPLEX PRN (Reason: SOB) Rx Instructions: PRESCRIBED aripiprazole 5 mg tablet 5 mg PO DAILY ibuprofen 600 mg tablet 600 mg PO TIDWMEAL aripiprazole 20 mg tablet tramadol 50 mg tablet 50 mg PO DAILY PRN (Reason: Pain (Scale Score 4-6)) fluoxetine 40 mg capsule 40 mg PO BID propranolol 60 mg capsule,extended release 24 hr PO meloxicam 7.5 mg tablet meclizine 25 mg tablet aripiprazole 15 mg tablet fluoxetine 10 mg capsule omeprazole 20 mg capsule,delayed release(DR/EC) prazosin 2 mg capsule Follow-up/Referrals: UNKNOWN,DOCTOR [Primary Care Provider] Stand Alone Forms: Work/School Release IP Time of Disposition: 16:23
[2024-11-30 16:05] VITALS: BP 169/98; PULSE 75; RESP 18; TEMP 36.9; O2SAT 100
[2024-11-30 16:15] LABS: EDSTREPNEGPOS1 Negative (Negative)
[2024-11-30 16:25] LABS: EDCOVIDSCREEN Negative (Negative); EDINFLUASCREEN Negative (Negative); EDINFLUBSCREEN Negative (Negative)
== END 2024-11-30 16:31 | disposition home or self-care (01) ==
PROVIDERS: Emergency Provider Nurse Practitioner
DX: J40 Bronchitis, not specified as acute or chronic (principal); Z20.822 Contact with and (suspected) exposure to COVID-19; J45.909 Unspecified asthma, uncomplicated; M79.7 Fibromyalgia; F41.9 Anxiety disorder, unspecified; F32.A Depression, unspecified; Z87.891 Personal history of nicotine dependence
CPT/HCPCS: 87081; 87426; 87804; 87880; 99213; G0463